=== PATIENT | female | born 1930 | race Caucasian/White ===

== ENCOUNTER 2021-03-29 17:55 | Inpatient (IN) ==
[2021-03-29] MEDS ORDERED: NITROGLYCERIN SL 0.4 MG/TAB TAB SL STA (18:31)
[2021-03-29] MEDS ORDERED: FUROSEMIDE 40 MG/4 ML VIAL IV ONE (18:31)
[2021-03-29] MEDS ORDERED: NITROGLYCERIN 2% OINTMENT 30GM TUBE EXT STA (18:31)
--- NOTE | 2021-03-29 18:48 | XRay Report ---
XR chest 1V portable CLINICAL HISTORY: Dyspnea TECHNIQUE: Single frontal radiograph of the chest was obtained. Comparison: None available at the time of this dictation. FINDINGS: No lines and tubes are seen. Cardiomegaly is noted. Left airspace opacity noted. There is likely a la yering left pleural effusion. IMPRESSION: Likely layering left pleural effusion. Left airspace opacity may represent atelectasis, pneumonia, an d/or aspiration. ACT 112: Negative or not required by law. Electronically signed by: Reed Gamez M.D. 03/29/2021 6:47 PM
--- NOTE | 2021-03-29 19:06 | Emergency Department Note ---
Impression & Plan Pneumonia, SOB (shortness of breath), Chest pain, Severe hypertension ED Provider Note INFORMANT: Patient ED PROVIDER(S): Silvano Noe MD CHIEF COMPLAINT: Shortness of breath and chest pain PLAN: Disposition: Admitted Condition: Good Outpatient prescription management: none Referral: None MEDICAL DECISION MAKING: The patient presented because of chest pain, hypertension and shortness of breath. She had an x-ray performed and there was significant filtrate present. Patient had a leukocytosis on CBC. Sodium is mildly low but not significant. BNP was mildly elevated. Patient's troponin was negative. Creatinine was within normal limits. Patient was mildly anemic. She was treated with Nitropaste and Lasix. She was also given cefepime and vancomycin. Patient blood pressure did improve. Further management will be necessary. Consultation was made with Dr. Flaco Cannon of the [facility] service. Patient was evaluated in the ER for further management. Triage Nursing notes reviewed and agree them. Vital Signs: reviewed and remarkable for significant hypertension Differential diagnosis: CHF, reactive airway disease, pneumonia, pneumothorax, COPD, infections, cardiac ischemia, pulmonary embolism, musculoskeletal, gastrointestinal, as well as other pathologies. Diagnostics interpreted by me: ECG: Twelve-lead ECG reveals sinus tachycardia at [address] elevation or depression. No PACs or PVCs Cardiac Monitoring: Cardiac monitoring ordered by me: The patient was placed on continuous cardiac monitoring and observed. It revealed a normal sinus rhythm at 88 beats per minute without ectopy or evidence of dysrhythmia. Imaging studies: Chest x-ray consistent with left lower lobe pneumonia. HPI: The patient is a 89 year old female who presents to the Emergency Room with complaints of shortness of breath. This started today and is persisting. Patient is at [facility] secondary to suffering a GI bleed. She was transferred from [facility] to [facility]. She did receive transfusion. She was also noted to have pneumonia and an E. coli/Aerococcus UTI. Patient does have a history of diabetes as well. the patient also notes the following associated symptoms, chest pain, fatigue and weakness Patient was noting nausea as well. Record indicates she was experiencing high blood pressure as well. She was requiring supplemental more than her usual 2 L. The patient has been given no medication for relieving factors. Current pain is rated as 4/10. Pt denies LOC, headache, fevers, chills, diaphoresis, visual changes, neck pain, vomiting, abdominal pain, back pain, melena, hematochezia, urinary symptoms, numbness, lymphadenopathy, rash, or other complaints. ROS: See above HPI for pertinent positives & negatives. A total of 10 systems reviewed and were otherwise negative. PAST MEDICAL HISTORY:See Below , diabetes, UTI PAST SURGICAL HISTORY:See Below, FAMILY HISTORY:See Below SOCIAL HISTORY:See Below, lives with daughter HOME MEDICATIONS:See Below ALLERGIES:See Below VITALS:See Below PHYSICAL EXAMINATION: GENERAL: Awake, alert, dyspneic-appearing, in no distress HENT: Normocephalic, atraumatic. Oropharynx unremarkable. EYES: Normal conjunctiva. Sclera non-icteric. NECK: Inspection normal. Non-tender. Supple. No nuchal rigidity. FROM. No masses. RESPIRATORY: Scattered rales. Increased respiratory effort. CARDIAC: Normal rate. Normal rhythm. No murmurs. No rubs. Extremities warm and well perfused. Pulses equal. No JVD. GI: Soft, non-distended. No tenderness to palpation. No rebound or guarding. No masses. RECTAL: Deferred. MUSCULOSKELETAL: Atraumatic. Chest examination reveals no tenderness. The back is symmetrical on inspection without obvious abnormality. There is no CVA tenderness to palpation. No joint edema. LOWER EXTREMITIES: Calves are equal size bilaterally and non-tender. 2-3+ edema. No discoloration. NEURO: Normal sensorium. No sensory or motor deficits noted. SKIN: No rash or jaundice noted. Silvano Noe MD Past Med/Surg History Social History Preferred Language: Nigerien [employer] Required: No Beliefs That Will Affect Care: None Current Living Situation: Rehab Allergies Allergies Allergy/AdvReac Type Severity Reaction Status Date / Time morphine AdvReac Intermediate Altered Unverified 03/29/21 20:09 Mental Status Home Meds Home Medications Medication Instructions Recorded Confirmed amoxicillin 500 mg-potassium 1 tab PO Q12H 03/29/21 03/29/21 clavulanate 125 mg tablet (Augmentin) atorvastatin 40 mg tablet 40 mg PO DAILY 03/29/21 03/29/21 cholecalciferol (vitamin D3) 125 125 mcg PO DAILY 03/29/21 03/29/21 mcg (5,000 unit) tablet (Vitamin D3) cyanocobalamin (vitamin B-12) 1,000 mcg PO DAILY 03/29/21 03/29/21 1,000 mcg tablet docusate sodium 100 mg capsule 100 mg PO BID 03/29/21 03/29/21 duloxetine 60 mg capsule,delayed 60 mg PO DAILY 03/29/21 03/29/21 release ferrous sulfate 325 mg (65 mg 325 mg PO TIDM 03/29/21 03/29/21 iron) tablet furosemide 20 mg tablet 20 mg PO DAILY 03/29/21 03/29/21 glipizide 2.5 mg tablet, extended 2.5 mg PO QDB 03/29/21 03/29/21 release 24 hr hydrocodone 5 mg-acetaminophen 325 1 tab PO Q4H PRN 03/29/21 03/29/21 mg tablet loratadine 10 mg tablet 10 mg PO DAILY 03/29/21 03/29/21 lorazepam 0.5 mg tablet 0.5 mg PO TID PRN 03/29/21 03/29/21 metoprolol tartrate 50 mg tablet 150 mg PO Q12H 03/29/21 03/29/21 nystatin 100,000 unit/gram topical 1 applic TOPICAL BID 03/29/21 03/29/21 powder pantoprazole 40 mg tablet,delayed 40 mg PO BIDM 03/29/21 03/29/21 release sucralfate 1 gram tablet 1 g PO ACHS 03/29/21 03/29/21 vitamin A 10,000 unit capsule 8,000 unit PO DAILY 03/29/21 03/29/21 vitamin E 400 unit capsule 400 unit PO DAILY 03/29/21 03/29/21 Results & Data (ED) Vital Signs Vital Signs - 24 hr 03/29/21 19:12 03/29/21 20:43 Temperature 37.1 C Temperature Source Oral Pulse Rate 90 Pulse Rate [Apical] 95 H 96 H Pulse Rhythm Regular Pulse Rhythm [Apical] Regular Pulse Strength [Apical] Normal Respiratory Rate 16 16 Respiratory Effort / Characteristics Non-Labored Respiratory Depth Normal Respiratory Pattern Regular Blood Pressure [Right Arm] 177/104 H 200/100 H Blood Pressure Mean [Right Arm] 128 133 Blood Pressure Position [Right Arm] Lying Lying Pulse Oximetry 97 98 Oxygen Delivery Method Free Flow/Blow- by Nasal Cannula Oxygen Flow Rate 3 3 Laboratory Data Result diagrams: 03/30/21 02:09 03/30/21 02:09 Lab Results 03/29/21 03/29/21 03/29/21 Range/Units 18:30 18:30 19:05 WBC 17.84 H (4.8-10.8) K/uL RBC 3.88 L (4.2-5.4) M/uL Hgb 11.5 L (12.0-16.0) g/dL Hct 36.0 L (37-47) % MCV 92.8 (80-100) fL MCH 29.6 (25-34) pg MCHC 31.9 L (32-36) g/dL RDW Std Deviation 52.8 H (36.4-46.3) fL RDW Coeff of Rj 15.6 H (11.5-14.5) % Plt Count 190 (130-400) K/uL MPV 10.9 H (7.4-10.4) fL Immature Gran % (Auto) 0.3 % Neut % (Auto) 82.2 % Lymph % (Auto) 7.2 % Travis % (Auto) 9.4 % Eos % (Auto) 0.7 % Baso % (Auto) 0.2 % Neut # (Auto) 14.67 H (1.4-6.5) K/uL Lymph # (Auto) 1.29 (1.2-3.4) K/uL Travis # (Auto) 1.67 H (0.11-0.59) K/uL Eos # (Auto) 0.12 (0-0.5) K/uL Baso # (Auto) 0.04 (0-0.2) K/uL Immature Gran # (Auto) 0.05 H (0.00-0.02) K/uL Sodium (136-145) mmol/L Potassium (3.5-5.1) mmol/L Chloride (98-107) mmol/L Carbon Dioxide (21-32) mmol/L Anion Gap (3-11) BUN (7-18) mg/dl Creatinine (0.6-1.2) mg/dl Est Cr Clr Drug Dosing ml/min Est GFR ( Amer) ml/min Est GFR (Non-Af Amer) ml/min BUN/Creatinine Ratio (10-20) Glucose (70-99) mg/dl Lactate (0.4-2.0) mmol/L Calcium (8.5-10.1) mg/dl Magnesium (1.8-2.4) mg/dl Total Bilirubin (0.2-1) mg/dl AST (15-37) U/L ALT (12-78) U/L Alkaline Phosphatase (45-117) U/L Troponin I (0-0.045) ng/ml NT-Pro-B Natriuret Pep (0-1800) pg/ml Total Protein (6.4-8.2) gm/dl Albumin (3.4-5.0) gm/dl Globulin (2.5-4.0) gm/dl Albumin/Globulin Ratio (0.9-2) Urine Color Urine Appearance (Clear) Urine pH (4.5-7.5) Ur Specific [place] (1.000-1.030) Urine Protein (Negative) Urine Glucose (UA) (Negative) Urine Ketones (Negative) Urine Blood (Negative) Urine Nitrite (Negative) Urine Bilirubin (Negative) Urine Urobilinogen (Negative) Ur Leukocyte Esterase (Negative) Urine WBC (Auto) (0-5) /hpf Urine RBC (Auto) (0-4) /hpf U Hyaline Cast (Auto) (0-5) /lpf U Epithel Cells (Auto) (0-5) /lpf Urine Bacteria (Auto) (Negative) COVID-19 Eval Order Covid19 at [facility] SARS-CoV-2 (PCR) NEGATIVE (Negative) 03/29/21 03/29/21 03/29/21 Range/Units 19:05 19:22 19:47 WBC (4.8-10.8) K/uL RBC (4.2-5.4) M/uL Hgb (12.0-16.0) g/dL Hct (37-47) % MCV (80-100) fL MCH (25-34) pg MCHC (32-36) g/dL RDW Std Deviation (36.4-46.3) fL RDW Coeff of Rj (11.5-14.5) % Plt Count (130-400) K/uL MPV (7.4-10.4) fL Immature Gran % (Auto) % Neut % (Auto) % Lymph % (Auto) % Travis % (Auto) % Eos % (Auto) % Baso % (Auto) % Neut # (Auto) (1.4-6.5) K/uL Lymph # (Auto) (1.2-3.4) K/uL Travis # (Auto) (0.11-0.59) K/uL Eos # (Auto) (0-0.5) K/uL Baso # (Auto) (0-0.2) K/uL Immature Gran # (Auto) (0.00-0.02) K/uL Sodium 131 L (136-145) mmol/L Potassium 4.2 (3.5-5.1) mmol/L Chloride 95 L (98-107) mmol/L Carbon Dioxide 33 H (21-32) mmol/L Anion Gap 3.0 (3-11) BUN 32 H (7-18) mg/dl Creatinine 1.23 H (0.6-1.2) mg/dl Est Cr Clr Drug Dosing 36.2 ml/min Est GFR ( Amer) 45.4 ml/min Est GFR (Non-Af Amer) 39.1 ml/min BUN/Creatinine Ratio 26.1 H (10-20) Glucose 100 H (70-99) mg/dl Lactate 1.0 (0.4-2.0) mmol/L Calcium 8.9 (8.5-10.1) mg/dl Magnesium 1.8 (1.8-2.4) mg/dl Total Bilirubin 0.4 (0.2-1) mg/dl AST 53 H (15-37) U/L ALT 34 (12-78) U/L Alkaline Phosphatase 130 H (45-117) U/L Troponin I < 0.015 (0-0.045) ng/ml NT-Pro-B Natriuret Pep 5250 H (0-1800) pg/ml Total Protein 6.7 (6.4-8.2) gm/dl Albumin 2.2 L (3.4-5.0) gm/dl Globulin 4.5 H (2.5-4.0) gm/dl Albumin/Globulin Ratio 0.5 L (0.9-2) Urine Color Yellow Urine Appearance Clear (Clear) Urine pH 6.5 (4.5-7.5) Ur Specific [place] 1.014 (1.000-1.030) Urine Protein 4+ H (Negative) Urine Glucose (UA) Negative (Negative) Urine Ketones Negative (Negative) Urine Blood 1+ H (Negative) Urine Nitrite Negative (Negative) Urine Bilirubin Negative (Negative) Urine Urobilinogen Negative (Negative) Ur Leukocyte Esterase Negative (Negative) Urine WBC (Auto) 1-5 (0-5) /hpf Urine RBC (Auto) 5-10 H (0-4) /hpf U Hyaline Cast (Auto) 1-5 (0-5) /lpf U Epithel Cells (Auto) >30 H (0-5) /lpf Urine Bacteria (Auto) Negative (Negative) COVID-19 Eval Order SARS-CoV-2 (PCR) (Negative) Administered Medications Hydrocodone Bitart/Acetaminophen (Hydrocodone/Acetamophen 5/325mg Tab) 1 tab PO Q4H PRN PRN Reason: Pain Stop: 04/13/21 00:44 Last Admin: 03/30/21 14:12 Dose: 1 tab Documented by: [id number] Atorvastatin Calcium (Atorvastatin 40 Mg Tab) 40 mg PO DAILY LUIZ Stop: 04/29/21 08:59 Last Admin: 03/30/21 09:10 Dose: Not Given Documented by: [id number] Cyanocobalamin (Cyanocobalamin 500 Mcg Tablet (Vitamin B-12)) 1,000 mcg PO DAILY LUIZ Stop: 04/29/21 08:59 Last Admin: 03/30/21 09:11 Dose: Not Given Documented by: [id number] Docusate Sodium (Docusate Sodium 100 Mg Cap) 100 mg PO BID LUIZ Stop: 04/29/21 08:59 Last Admin: 03/30/21 09:11 Dose: Not Given Documented by: [id number] Duloxetine HCl (Duloxetine Hcl 60 Mg Cap) 60 mg PO DAILY LUIZ Stop: 04/29/21 08:59 Last Admin: 03/30/21 14:19 Dose: 60 mg Documented by: [id number] Ferrous Sulfate (Ferrous Sulfate 325 Mg Tab) 325 mg PO TIDM LUIZ Stop: 04/29/21 07:59 Last Admin: 03/30/21 17:53 Dose: 325 mg Documented by: [id number] Admin: 03/30/21 14:18 Dose: 325 mg Documented by: [id number] Admin: 03/30/21 09:10 Dose: Not Given Documented by: [id number] Furosemide (Furosemide 20 Mg Tab) 20 mg PO DAILY LUIZ Stop: 12/13/21 08:59 Last Admin: 03/30/21 14:16 Dose: 20 mg Documented by: [id number] Glipizide (Glipizide Er 2.5 Mg Tabcr) 2.5 mg PO QDB LUZI Stop: 04/29/21 07:29 Last Admin: 03/30/21 09:10 Dose: Not Given Documented by: [id number] Hydromorphone HCl (Hydromorphone Inj 0.5 Mg/0.5 Ml Syr) 0.5 mg IV Q6H PRN PRN Reason: Pain Stop: 04/13/21 06:23 Last Admin: 03/30/21 18:32 Dose: 0.5 mg Documented by: [id number] Admin: 03/30/21 12:13 Dose: 0.5 mg Documented by: [id number] Admin: 03/30/21 09:03 Dose: 0.5 mg Documented by: [id number] Lactated Ringer's (Lr) 1,000 mls @ 100 mls/hr IV .Q10H LUIZ Stop: 04/29/21 01:44 Last Admin: 03/30/21 14:24 Dose: 100 mls/hr Documented by: [id number] Infusion: 03/30/21 14:23 Dose: 100 mls/hr Documented by: [id number] Admin: 03/30/21 01:56 Dose: 100 mls/hr Documented by: [id number] Piperacillin Sod/Tazobactam (Sod 3.375 gm/ Dextrose) 115 mls @ 28.75 mls/hr IV Q8H LUIZ; Protocol Stop: 04/09/21 06:59 Last Infusion: 03/30/21 18:33 Dose: 0 mls/hr Documented by: [id number] Admin: 03/30/21 15:00 Dose: 28.8 mls/hr Documented by: [id number] Infusion: 03/30/21 12:30 Dose: 0 mls/hr Documented by: [id number] Admin: 03/30/21 08:26 Dose: 28.8 mls/hr Documented by: [id number] Insulin Aspart (Insulin Aspart 100 Units/Ml 3 Ml Pen) 0 units SC ACHS LUIZ Stop: 04/29/21 07:29 Last Admin: 03/30/21 17:51 Dose: Not Given Documented by: [id number] Admin: 03/30/21 14:13 Dose: Not Given Documented by: [id number] Admin: 03/30/21 08:31 Dose: Not Given Documented by: [id number] Loratadine (Loratadine 10 Mg Tab) 10 mg PO DAILY [facility] Stop: 04/29/21 08:59 Last Admin: 03/30/21 09:11 Dose: Not Given Documented by: [id number] Metoprolol Tartrate (Metoprolol Tartrate 50 Mg Tab) 150 mg PO Q12 [facility] Stop: 04/29/21 00:44 Last Admin: 03/30/21 09:11 Dose: Not Given Documented by: [id number] Admin: 03/30/21 02:23 Dose: Not Given Documented by: [id number] Nystatin (Nystatin Powder 15gm Btl) 1 appln NA BID [facility] Stop: 04/29/21 08:59 Last Admin: 03/30/21 09:19 Dose: 1 appln Documented by: [id number] Ondansetron HCl (Ondansetron Inj 2 Mg/Ml 2 Ml Vial) 4 mg IV Q6H PRN PRN Reason: Nausea Stop: 04/29/21 00:44 Last Admin: 03/30/21 08:57 Dose: 4 mg Documented by: [id number] Pantoprazole Sodium (Pantoprazole 40 Mg Tab) 40 mg PO BIDM [facility] Stop: 04/29/21 07:59 Last Admin: 03/30/21 17:53 Dose: 40 mg Documented by: [id number] Admin: 03/30/21 09:10 Dose: Not Given Documented by: [id number] Sucralfate (Sucralfate 1 Gm Tab) 1 gm PO ACHS [facility] Stop: 04/29/21 07:29 Last Admin: 03/30/21 17:52 Dose: 1 gm Documented by: [id number] Admin: 03/30/21 14:17 Dose: 1 gm Documented by: [id number] Admin: 03/30/21 09:10 Dose: Not Given Documented by: [id number] Vitamin D (Cholecalciferol 1,000 Units 25 Mcg Tab) 5,000 units PO DAILY [facility] Stop: 04/29/21 08:59 Last Admin: 03/30/21 09:11 Dose: Not Given Documented by: [id number] Vitamin E (Tocopheryl, Dl-Alpha 400 Units 180 Mg Cap) 400 units PO DAILY [facility] Stop: 04/29/21 08:59 Last Admin: 03/30/21 09:11 Dose: Not Given Documented by: [id number] Discontinued Medications Bacitracin (Bacitracin Oint 15 Gm Tube) Confirm Administered Dose 45 appln .ROUTE .STK-MED ONE Stop: 03/30/21 02:26 Last Admin: 03/30/21 04:57 Dose: 45 appln Documented by: [id number] Bupivacaine HCl (Bupivacaine 0.5 % 5 Mg/1 Ml Mpf 30ml Vial) Confirm Administered Dose 30 ml .ROUTE .STK-MED ONE Stop: 03/30/21 02:26 Last Admin: 03/30/21 04:57 Dose: 20 ml Documented by: [id number] Fentanyl Citrate (Fentanyl Citrate 100 Mcg/2 Ml Vial) Confirm Administered Dose 100 mcg .ROUTE .STK-MED ONE Stop: 03/30/21 05:38 Last Increment: 03/30/21 05:45 Dose: 25 mcg Documented by: [id number] Increment: 03/30/21 05:40 Dose: 25 mcg Documented by: [id number] Furosemide (Furosemide 40 Mg/4 Ml Vial) 40 mg IV ONE ONE Stop: 03/29/21 18:32 Last Admin: 03/29/21 20:36 Dose: 40 mg Documented by: [id number] Heparin Sodium (Porcine) (Heparin Sod 5,000 Unit/0.5 Ml Vial) 7,500 units SQ Q8 [facility] Stop: 04/29/21 00:44 Last Admin: 03/30/21 01:55 Dose: Not Given Documented by: [id number] Cefepime HCl (Maxipime) 2,000 mg in 20 mls @ 5 mls/min IV NOW STA; Protocol Stop: 03/29/21 19:23 Last Admin: 03/29/21 20:36 Dose: 5 mls/min Documented by: [id number] Vancomycin HCl 2,000 mg/ (Sodium Chloride) 540 mls @ 200 mls/hr IV NOW ONE Stop: 03/29/21 22:01 Last Infusion: 03/30/21 00:14 Dose: 0 mls/hr Documented by: [id number] Admin: 03/29/21 21:18 Dose: 200 mls/hr Documented by: [id number] Piperacillin Sod/Tazobactam (Sod 4.5 gm/ Dextrose) 120 mls @ 200 mls/hr IV 0200 ONE; Protocol Stop: 03/30/21 02:35 Last Infusion: 03/30/21 03:00 Dose: 0 mls/hr Documented by: [id number] Admin: 03/30/21 02:15 Dose: 200 mls/hr Documented by: [id number] Piperacillin Sod/Tazobactam (Sod 4.5 gm/ Dextrose) 120 mls @ 30 mls/hr IV Q8H LUIZ; Protocol Stop: 04/09/21 05:59 Last Admin: 03/30/21 06:48 Dose: Not Given Documented by: [id number] Vancomycin HCl 1,500 mg/ (Sodium Chloride) 530 mls @ 200 mls/hr IV Q24H LUIZ Stop: 04/09/21 08:59 Last Infusion: 03/30/21 11:59 Dose: 0 mls/hr Documented by: [id number] Admin: 03/30/21 09:19 Dose: 200 mls/hr Documented by: [id number] Labetalol HCl (Labetalol Hcl Iv 5 Mg/Ml 20ml) 10 mg IV NOW STA Stop: 03/30/21 02:20 Last Admin: 03/30/21 02:33 Dose: 10 mg Documented by: [id number] Cosigned by: [id number] Lidocaine HCl (Lidocaine 1% Local 20 Ml Vial) Confirm Administered Dose 20 ml .ROUTE .STK-MED ONE Stop: 03/30/21 02:26 Last Admin: 03/30/21 04:58 Dose: 20 ml Documented by: [id number] Nitroglycerin (Nitroglycerin 2% Ointment 30gm Tube) 0.5 inch EXT NOW STA Stop: 03/29/21 18:32 Last Admin: 03/29/21 19:27 Dose: 0.5 inch Documented by: [id number] Nitroglycerin (Nitroglycerin Sl 0.4 Mg/Tab Tab) 0.4 mg SL NOW STA Stop: 03/29/21 18:32 Last Admin: 03/29/21 19:28 Dose: 0.4 mg Documented by: [id number] Imaging Data Radiologist's Impression: Chest X-Ray 03/29/21 18:21 XR chest 1V portable CLINICAL HISTORY: Dyspnea TECHNIQUE: Single frontal radiograph of the chest was obtained. Comparison: None available at the time of this dictation. FINDINGS: No lines and tubes are seen. Cardiomegaly is noted. Left airspace opacity noted. There is likely a layering left pleural effusion. IMPRESSION: Likely layering left pleural effusion. Left airspace opacity may represent atelectasis, pneumonia, and/or aspiration. ACT 112: Negative or not required by law. Electronically signed by: Reed Gamze M.D. 03/29/2021 6:47 PM Discharge Plan Visit Data Chief Complaint: Respiratory Problems Stated Complaint: HYPOXIA, FLUID RETENTION ED Provider: Silvano Noe Discharge Problem: Pneumonia, SOB (shortness of breath), Chest pain, Severe hypertension Patient Disposition: Admitted As Inpatient Discharge Instructions Interventions: ED Discharge Assessment Last Done: 03/30/21 00:11
[2021-03-29 19:16] LABS: Basophils # (auto) 0.04 K/uL (0-0.2); Basophils % (auto) 0.2 %; Eosinophils # (auto) 0.12 K/uL (0-0.5); Eosinophils % (auto) 0.7 %; Hemoglobin 11.5 g/dL (12.0-16.0); Immature Granulocytes # (auto) 0.05 K/uL (0.00-0.02); Immature Granulocytes % (auto) 0.3 %; Lymphocytes # (auto) 1.29 K/uL (1.2-3.4); Lymphocytes % (auto) 7.2 %; Mean Corpuscular Hemoglobin 29.6 pg (25-34); Mean Corpuscular Hgb Conc 31.9 g/dL (32-36); Mean Corpuscular Volume 92.8 fL (80-100); Mean Platelet Volume 10.9 fL (7.4-10.4); Monocytes # (auto) 1.67 K/uL (0.11-0.59); Monocytes % (auto) 9.4 %; Neutrophils # (auto) 14.67 K/uL (1.4-6.5); Neutrophils % (auto) 82.2 %; Platelet Count 190 K/uL (130-400); RDW Coefficient of Variation 15.6 % (11.5-14.5); RDW Standard Deviation 52.8 fL (36.4-46.3); Red Blood Count 3.88 M/uL (4.2-5.4); White Blood Count 17.84 K/uL (4.8-10.8)
[2021-03-29] MEDS ORDERED: VANCOMYCIN HCL 2,000 MG in SODIUM CHLORIDE 0.9% 500 ML IV ONE (19:20)
[2021-03-29] MEDS ORDERED: VANCOMYCIN CONSULT ACTIVE PRN (19:20)
[2021-03-29] MEDS ORDERED: CEFEPIME 2,000 MG/20 ML VIAL IV STA (19:20)
[2021-03-29 19:36] LABS: Appearance Urine Clear (Clear); Bacteria Urine Automated Negative (Negative); Bilirubin Urine Negative (Negative); Blood Urine 1+ (Negative); Color Urine Yellow; Epithelial Cell Urine Auto >30 /lpf (0-5); Glucose Urine UA Negative (Negative); Ketones Urine Negative (Negative); Leukocyte Esterase Urine Negative (Negative); Nitrite Urine Negative (Negative); Protein Urine 4+ (Negative); Specific Gravity Urine 1.014 (1.000-1.030); Urobilinogen Urine Negative (Negative); pH Urine 6.5 (4.5-7.5)
[2021-03-29 19:40] LABS: Alanine Aminotransferase 34 U/L (12-78); Albumin Level 2.2 gm/dl (3.4-5.0); Aspartate Aminotransferase 53 U/L (15-37); BUN Creatinine Ratio 26.1 (10-20); Blood Urea Nitrogen 32 mg/dl (7-18); Calcium 8.9 mg/dl (8.5-10.1); Carbon Dioxide 33 mmol/L (21-32); Chloride 95 mmol/L (98-107); Creatinine Clr Calc Pharmacy 36.2 ml/min; Est GFR (African American) 45.4 ml/min; Est GFR (Non-African American) 39.1 ml/min; Glucose 100 mg/dl (70-99); Magnesium 1.8 mg/dl (1.8-2.4); Potassium 4.2 mmol/L (3.5-5.1); Sodium 131 mmol/L (136-145)
[2021-03-29 19:46] LABS: Albumin Globulin Ratio 0.5 (0.9-2); Alkaline Phosphatase 130 U/L (45-117); Bilirubin,Total 0.4 mg/dl (0.2-1); Globulin 4.5 gm/dl (2.5-4.0); NT Pro B Type Natriuretic Pept 5250 pg/ml (0-1800); Total Protein 6.7 gm/dl (6.4-8.2); Troponin I < 0.015 ng/ml (0-0.045)
--- NOTE | 2021-03-29 21:42 | History & Physical Report ---
Date of Service March 29, 2021 Assessment & Plan (1) Abdominal pain: Plan: Linda Milan is a 89-year-old female who presents from [facility] following recent GI bleed, recently was in [facility] where she had received transfusions for this GI bleed, as well as reported pneumonia and E. coli urinary tract infection. Abdominal pain: -CT abdomen pelvis demonstrating umbilical/periumbilical hernia containing fat and small bowel loops, no evidence of bowel obstruction or perforation, no pneumatosis intestinalis; concerning for incarcerated hernia -Consulted general surgery: Appreciate recommendations -In ED received vancomycin and cefepime -Recent history of urinary tract infection -Urinalysis in ED unimpressive -N.p.o. at this time while awaiting surgery Hypertensive urgency: -Likely secondary to abdominal pain as above -Improvement in blood pressure in ED -Continue to monitor BP Shortness of breath: -Reported history of recent pneumonia at outside facility -Continue vancomycin and cefepime at this time Type 2 diabetes: -Transition home oral glycemic regimen to sliding scale insulin -BSG's ACHS Diet: NPO Code status: Full code DVT ppx: Heparin SQ (2) Hypertensive urgency: (3) SOB (shortness of breath): (4) Type 2 diabetes mellitus: History of Present Illness Primary Care Provider: [facility] Linda Milan is a 89-year-old female who presents from [facility] following recent GI bleed, recently was in [facility] where she had received transfusions for this GI bleed, as well as reported pneumonia and E. coli urinary tract infection. Patient endorses over the last several days that she has had increased abdominal pain that she believes was worsened following Castro catheter placement 2 days ago she has been unable to tolerate oral intake for the last 2 days with persistent nausea and vomiting. Currently complains of abdominal pain 8 out of 10. Allergies Allergy/AdvReac Type Severity Reaction Status Date / Time morphine AdvReac Intermediate Altered Unverified 03/29/21 20:09 Mental Status Home Medications Medication Instructions Recorded Confirmed Type amoxicillin 500 mg-potassium 1 tab PO Q12H 03/29/21 03/29/21 History clavulanate 125 mg tablet (Augmentin) atorvastatin 40 mg tablet 40 mg PO DAILY 03/29/21 03/29/21 History cholecalciferol (vitamin D3) 125 125 mcg PO DAILY 03/29/21 03/29/21 History mcg (5,000 unit) tablet (Vitamin D3) cyanocobalamin (vitamin B-12) 1,000 mcg PO DAILY 03/29/21 03/29/21 History 1,000 mcg tablet docusate sodium 100 mg capsule 100 mg PO BID 03/29/21 03/29/21 History duloxetine 60 mg capsule,delayed 60 mg PO DAILY 03/29/21 03/29/21 History release ferrous sulfate 325 mg (65 mg 325 mg PO TIDM 03/29/21 03/29/21 History iron) tablet furosemide 20 mg tablet 20 mg PO DAILY 03/29/21 03/29/21 History glipizide 2.5 mg tablet, extended 2.5 mg PO QDB 03/29/21 03/29/21 History release 24 hr hydrocodone 5 mg-acetaminophen 325 1 tab PO Q4H PRN 03/29/21 03/29/21 History mg tablet loratadine 10 mg tablet 10 mg PO DAILY 03/29/21 03/29/21 History lorazepam 0.5 mg tablet 0.5 mg PO TID PRN 03/29/21 03/29/21 History metoprolol tartrate 50 mg tablet 150 mg PO Q12H 03/29/21 03/29/21 History nystatin 100,000 unit/gram topical 1 applic TOPICAL BID 03/29/21 03/29/21 History powder pantoprazole 40 mg tablet,delayed 40 mg PO BIDM 03/29/21 03/29/21 History release sucralfate 1 gram tablet 1 g PO ACHS 03/29/21 03/29/21 History vitamin A 10,000 unit capsule 8,000 unit PO DAILY 03/29/21 03/29/21 History vitamin E 400 unit capsule 400 unit PO DAILY 03/29/21 03/29/21 History Past Med/Surg History Social History Preferred Language: Turkish Help Desk Consultant Required: No Beliefs That Will Affect Care: None Current Living Situation: Rehab Review of Systems Review of Systems: All systems reviewed & are unremarkable except as noted in HPI & below Physical Exam Constitutional: WD/WN, vitals as above Eyes: PERRL, conjunctivae normal, anicteric sclerae Respiratory: + labored breathing and able to speak in complete sentences; no respiratory distress, no retractions and no audible wheezes Auscultation: + diminished lung sounds (b/l lower lobes) and + wheezes (b/l upper lobes) Cardiovascular: Rate/Rhythm: regular rhythm and + tachycardic Heart Sounds: + murmur (systolic murmur over apex); no gallop and no cardiac rub Vessels: normal peripheral pulses Musculoskeletal: no cyanosis or clubbing, extremities motor strength 5/5 Skin: no rashes, warm and dry Neurologic: PERRL, EOMI, accommodation nl, no face palsy, no dysarthria CN's II-XI intact bilaterally and moves all extremities Psychiatric: Orientation: alert and oriented x 3 Results & Data Results & Data ([facility]) Vital Signs (Past 12 Hours) Vital Signs Temp Pulse Pulse Resp BP BP Pulse Ox 03/29/21 20:43 37.1 C 90 96 H 16 200/100 H 98 03/29/21 19:12 95 H 16 177/104 H 97 03/29/21 18:18 36.7 C 91 H 18 234/127 H 98 Laboratory Results 03/29/21 03/29/21 03/29/21 Range/Units 19:47 19:22 19:05 WBC (4.8-10.8) K/uL RBC (4.2-5.4) M/uL Hgb (12.0-16.0) g/dL Hct (37-47) % MCV (80-100) fL MCH (25-34) pg MCHC (32-36) g/dL RDW Std Deviation (36.4-46.3) fL RDW Coeff of Rj (11.5-14.5) % Plt Count (130-400) K/uL MPV (7.4-10.4) fL Immature Gran % (Auto) % Neut % (Auto) % Lymph % (Auto) % [place] % (Auto) % Eos % (Auto) % Baso % (Auto) % Neut # (Auto) (1.4-6.5) K/uL Lymph # (Auto) (1.2-3.4) K/uL [place] # (Auto) (0.11-0.59) K/uL Eos # (Auto) (0-0.5) K/uL Baso # (Auto) (0-0.2) K/uL Immature Gran # (Auto) (0.00-0.02) K/uL Sodium 131 L (136-145) mmol/L Potassium 4.2 (3.5-5.1) mmol/L Chloride 95 L (98-107) mmol/L Carbon Dioxide 33 H (21-32) mmol/L Anion Gap 3.0 (3-11) BUN 32 H (7-18) mg/dl Creatinine 1.23 H (0.6-1.2) mg/dl Est Cr Clr Drug Dosing 36.2 ml/min Est GFR ( Amer) 45.4 ml/min Est GFR (Non-Af Amer) 39.1 ml/min BUN/Creatinine Ratio 26.1 H (10-20) Glucose 100 H (70-99) mg/dl Lactate 1.0 (0.4-2.0) mmol/L Calcium 8.9 (8.5-10.1) mg/dl Magnesium 1.8 (1.8-2.4) mg/dl Total Bilirubin 0.4 (0.2-1) mg/dl AST 53 H (15-37) U/L ALT 34 (12-78) U/L Alkaline Phosphatase 130 H (45-117) U/L Troponin I < 0.015 (0-0.045) ng/ml NT-Pro-B Natriuret Pep 5250 H (0-1800) pg/ml Total Protein 6.7 (6.4-8.2) gm/dl Albumin 2.2 L (3.4-5.0) gm/dl Globulin 4.5 H (2.5-4.0) gm/dl Albumin/Globulin Ratio 0.5 L (0.9-2) Urine Color Yellow Urine Appearance Clear (Clear) Urine pH 6.5 (4.5-7.5) Ur Specific [place] 1.014 (1.000-1.030) Urine Protein 4+ H (Negative) Urine Glucose (UA) Negative (Negative) Urine Ketones Negative (Negative) Urine Blood 1+ H (Negative) Urine Nitrite Negative (Negative) Urine Bilirubin Negative (Negative) Urine Urobilinogen Negative (Negative) Ur Leukocyte Esterase Negative (Negative) Urine WBC (Auto) 1-5 (0-5) /hpf Urine RBC (Auto) 5-10 H (0-4) /hpf U Hyaline Cast (Auto) 1-5 (0-5) /lpf U Epithel Cells (Auto) >30 H (0-5) /lpf Urine Bacteria (Auto) Negative (Negative) COVID-19 Eval Order SARS-CoV-2 (PCR) (Negative) 03/29/21 03/29/21 03/29/21 Range/Units 19:05 18:30 18:30 WBC 17.84 H (4.8-10.8) K/uL RBC 3.88 L (4.2-5.4) M/uL Hgb 11.5 L (12.0-16.0) g/dL Hct 36.0 L (37-47) % MCV 92.8 (80-100) fL MCH 29.6 (25-34) pg MCHC 31.9 L (32-36) g/dL RDW Std Deviation 52.8 H (36.4-46.3) fL RDW Coeff of Rj 15.6 H (11.5-14.5) % Plt Count 190 (130-400) K/uL MPV 10.9 H (7.4-10.4) fL Immature Gran % (Auto) 0.3 % Neut % (Auto) 82.2 % Lymph % (Auto) 7.2 % [place] % (Auto) 9.4 % Eos % (Auto) 0.7 % Baso % (Auto) 0.2 % Neut # (Auto) 14.67 H (1.4-6.5) K/uL Lymph # (Auto) 1.29 (1.2-3.4) K/uL [place] # (Auto) 1.67 H (0.11-0.59) K/uL Eos # (Auto) 0.12 (0-0.5) K/uL Baso # (Auto) 0.04 (0-0.2) K/uL Immature Gran # (Auto) 0.05 H (0.00-0.02) K/uL Sodium (136-145) mmol/L Potassium (3.5-5.1) mmol/L Chloride (98-107) mmol/L Carbon Dioxide (21-32) mmol/L Anion Gap (3-11) BUN (7-18) mg/dl Creatinine (0.6-1.2) mg/dl Est Cr Clr Drug Dosing ml/min Est GFR ( Amer) ml/min Est GFR (Non-Af Amer) ml/min BUN/Creatinine Ratio (10-20) Glucose (70-99) mg/dl Lactate (0.4-2.0) mmol/L Calcium (8.5-10.1) mg/dl Magnesium (1.8-2.4) mg/dl Total Bilirubin (0.2-1) mg/dl AST (15-37) U/L ALT (12-78) U/L Alkaline Phosphatase (45-117) U/L Troponin I (0-0.045) ng/ml NT-Pro-B Natriuret Pep (0-1800) pg/ml Total Protein (6.4-8.2) gm/dl Albumin (3.4-5.0) gm/dl Globulin (2.5-4.0) gm/dl Albumin/Globulin Ratio (0.9-2) Urine Color Urine Appearance (Clear) Urine pH (4.5-7.5) Ur Specific [place] (1.000-1.030) Urine Protein (Negative) Urine Glucose (UA) (Negative) Urine Ketones (Negative) Urine Blood (Negative) Urine Nitrite (Negative) Urine Bilirubin (Negative) Urine Urobilinogen (Negative) Ur Leukocyte Esterase (Negative) Urine WBC (Auto) (0-5) /hpf Urine RBC (Auto) (0-4) /hpf U Hyaline Cast (Auto) (0-5) /lpf U Epithel Cells (Auto) (0-5) /lpf Urine Bacteria (Auto) (Negative) COVID-19 Eval Order Covid19 at [facility] SARS-CoV-2 (PCR) NEGATIVE (Negative) Diagnostic Findings CT CHEST Without Contrast: Small to moderate left pleural effusion. Small right pleural effusion. Limited evaluation of lung parenchyma due to respiratory motion artifact. Patchy bilateral groundglass opacities with central distribution, atypical infection/inflammation versus edema. Mildly enlarged nonspecific precarinal lymph node. Cardiomegaly. No pericardial effusion. Thoracic aorta is non-aneurysmal. CT ABDOMEN & PELVIS Without Contrast: Umbilical/periumbilical hernia containing fat and small bowel loops. One of the bowel loops is mildly distended and there is surrounding fat stranding and fluid, image 69 series 5. Incarcerated hernia may have this appearance. Overall, no evidence of bowel obstruction or perforation. No pneumatosis intestinalis. No evidence of acute appendicitis. Mild patchy mesenteric fat stranding as well as body wall edema, potentially sequela of systemic causes of third spacing of fluid. No miguel ascites. 3.2 cm circumscribed masslike partially calcified lesion in the right inferior breast abutting the skin surface, potentially sebaceous cyst, image 14 series 5. Correlate clinically. No hydronephrosis. Bilateral renal cysts. Decompressed urinary bladder with Castro catheter in place. 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 Status post cholecystectomy. Small hiatal hernia. Radiologist: Yanna Baron M.D. Medications Administered Home Medication List Medication Instructions Recorded amoxicillin 500 mg-potassium 1 tab PO Q12H 03/29/21 clavulanate 125 mg tablet (Augmentin) atorvastatin 40 mg tablet 40 mg PO DAILY 03/29/21 cholecalciferol (vitamin D3) 125 125 mcg PO DAILY 03/29/21 mcg (5,000 unit) tablet (Vitamin D3) cyanocobalamin (vitamin B-12) 1,000 mcg PO DAILY 03/29/21 1,000 mcg tablet docusate sodium 100 mg capsule 100 mg PO BID 03/29/21 duloxetine 60 mg capsule,delayed 60 mg PO DAILY 03/29/21 release ferrous sulfate 325 mg (65 mg 325 mg PO TIDM 03/29/21 iron) tablet furosemide 20 mg tablet 20 mg PO DAILY 03/29/21 glipizide 2.5 mg tablet, extended 2.5 mg PO QDB 03/29/21 release 24 hr hydrocodone 5 mg-acetaminophen 325 1 tab PO Q4H PRN 03/29/21 mg tablet loratadine 10 mg tablet 10 mg PO DAILY 03/29/21 lorazepam 0.5 mg tablet 0.5 mg PO TID PRN 03/29/21 metoprolol tartrate 50 mg tablet 150 mg PO Q12H 03/29/21 nystatin 100,000 unit/gram topical 1 applic TOPICAL BID 03/29/21 powder pantoprazole 40 mg tablet,delayed 40 mg PO BIDM 03/29/21 release sucralfate 1 gram tablet 1 g PO ACHS 03/29/21 vitamin A 10,000 unit capsule 8,000 unit PO DAILY 03/29/21 vitamin E 400 unit capsule 400 unit PO DAILY 03/29/21 Code Status & VTE Plan VTE Prophylaxis Plan VTE Prophylaxis will be ordered: Yes Supervising Physician Co-Signing Physician Notes Attending addendum: I have physically seen this patient, have supervised the medical residents activities, and agree with the H&P unless as otherwise noted. Assessment and Plan: Abdominal pain- CT abdomen pelvis demonstrates umbilical/periumbilical hernia with possible incarcerated hernia Received vancomycin and cefepime IV from the ED Continue cefepime IV Consult general surgery Hypertensive urgency- Improved in ED with minimal intervention, likely secondary abdominal pain Admit to monitored bed Diabetes mellitus- Hold oral medications from home Place on Accu-Cheks before meals and at bedtime NovoLog coverage per scale Check hemoglobin A1c Remaining orders and notations as noted Resident Activity Tracking Resident Involvement: Resident Care Provided Care Provided: Adult Hospital Medicine
[2021-03-30] MEDS ORDERED: ALUMINUM/MAGNESIUM SUSP 30 ML UDC PO PRN (00:45)
[2021-03-30] MEDS ORDERED: CARBOHYDRATES FOR HYPOGLYCEMIA PO PRN (00:45)
[2021-03-30] MEDS ORDERED: GLUCOSE 10 TABS/TUBE PO PRN (00:45)
[2021-03-30] MEDS ORDERED: NITROGLYCERIN SL 0.4 MG/TAB TAB SL PRN (00:45)
[2021-03-30] MEDS ORDERED: GLUCAGON FOR INJ 1 MG VIAL SQ PRN (00:45)
[2021-03-30] MEDS ORDERED: POLYETHYLENE (MIRALAX) 17 GM PACK PO PRN (00:45)
[2021-03-30] MEDS ORDERED: HEPARIN SOD 5,000 UNIT/0.5 ML VIAL SQ SCH (00:45)
[2021-03-30] MEDS ORDERED: MoRPHine SULFATE 2 MG/ML CARP IV PRN (00:45)
[2021-03-30] MEDS ORDERED: MAGNESIUM HYDROXIDE SUSP 30 ML UDC PO PRN (00:45)
[2021-03-30] MEDS ORDERED: GLUCOSE 40% GEL 15 GM TUBE PO PRN (00:45)
[2021-03-30] MEDS ORDERED: PIPERACILL/TAZOBAC CONSULT ACTIVE PRN ×2 (01:36→06:24)
[2021-03-30] MEDS ORDERED: PIPERACILLIN/TAZOBACTAM 3.375 GM in DEXTROSE 5% 100 ML IV SCH (01:45)
[2021-03-30] MEDS: LACTATED RINGER'S 1,000 ML IV SCH ×2 (01:56→14:24)
[2021-03-30] MEDS ORDERED: PIPERACILLIN/TAZOBACTAM 4.5 GM in DEXTROSE 5% 100 ML IV ONE (02:00)
[2021-03-30] MEDS ORDERED: LABETALOL HCL IV 5 MG/ML 20ML IV STA (02:19)
[2021-03-30] MEDS: METOPROLOL TARTRATE 50 MG TAB PO SCH ×3 (02:23→21:50)
[2021-03-30] MEDS ORDERED: BACITRACIN OINT 15 GM TUBE ONE (02:25)
[2021-03-30] MEDS ORDERED: BUPIVACAINE 0.5 % 5 MG/1 ML MPF 30ML VIAL ONE (02:25)
[2021-03-30] MEDS ORDERED: LIDOCAINE 1% LOCAL 20 ML VIAL ONE (02:25)
--- NOTE | 2021-03-30 02:38 | Surgery Consultation ---
Date of Consultation March 30, 2021 Assessment & Plan (1) Incarcerated umbilical hernia: pt is a 89 year-old female who presents with 2 days history abdominal pain with nausea and vomiting, IMP: incarcerated umbilical hernia and periumbilical hernia, Plan, I recommend to do open repair incarcerated umbilical hernia and periumbilical hernia, possible with mesh,or bowel resection, I called pt's daughter, D/W benefits, risks and alternatives of the surgery, the risks- infection, bleeding, injury bowel, hernia recurrence, complication relate to mesh, ME, DVT, stroke, renal failure, , pt's daughter understood, she gave consent on the phone, I answered all questions, pre-op antibiotic, History of Present Illness Reason for Consultation: incarcerated umbilical hernia and periumbilical hernia Requesting Physician: Flaco cannon MD Attending Physician: Flaco Cannon MD History of Present Illness History of Present Illness Primary Care Provider: [facility] Kayli is a 89-year-old female who presents from [facility] following recent GI bleed, recently was in [facility] where she had received transfusions for this GI bleed, as well as reported pneumonia and E. coli urinary tract infection. Patient endorses over the last several days that she has had increased abdominal pain that she believes was worsened following Castro catheter placement 2 days ago she has been unable to tolerate oral intake for the last 2 days with persistent nausea and vomiting. Currently complains of abdominal pain 8 out of 10. I ( Sergei Aldana MD FACS) got a call for consult incarcerated umbilical hernia and periumbilical hernia, I reviewed pt's H/P, labs, CT scan with pt, nurse and pt's daughter , pt is still have abdominal pain, with nausea and vomiting for 2 days, pt had ovary surgery 10 years ago, Allergies Allergy/AdvReac Type Severity Reaction Status Date / Time morphine AdvReac Intermediate Altered Unverified 03/29/21 20:09 Mental Status Home Medications Medication Instructions Recorded Confirmed Type amoxicillin 500 mg-potassium 1 tab PO Q12H 03/29/21 03/29/21 Hi story clavulanate 125 mg tablet (Augmentin) atorvastatin 40 mg tablet 40 mg PO DAILY 03/29/21 03/29/21 Histo ry cholecalciferol (vitamin D3) 125 125 mcg PO DAILY 03/29/21 1 History mcg (5,000 unit) tablet (Vitamin D3) A cyanocobalamin (vitamin B-12) 1,000 mcg PO DAILY 03/29/21 03/29/21 H istory 1,000 mcg tablet docusate sodium 100 mg capsule 100 mg PO BID 03/29/21 03/29/21 History duloxetine 60 mg capsule,delayed 60 mg PO DAILY 03/29/21 1 History release ferrous sulfate 325 mg (65 mg 325 mg PO TIDM 03/29/21 03/29/21 H istory iron) tablet furosemide 20 mg tablet 20 mg PO DAILY 03/29/21 03/29/21 History glipizide 2.5 mg tablet, extended 2.5 mg PO QDB 03/29/21 History release 24 hr hydrocodone 5 mg-acetaminophen 325 1 tab PO Q4H PRN 03/29/2103/29 History mg tablet loratadine 10 mg tablet 10 mg PO DAILY 03/29/21 03/29/21 History lorazepam 0.5 mg tablet 0.5 mg PO TID PRN 03/29/21 03/29/21 History metoprolol tartrate 50 mg tablet 150 mg PO Q12H 03/29/21 1 History nystatin 100,000 unit/gram topical 1 applic TOPICAL BID 03/29/2103/18 History powder pantoprazole 40 mg tablet,delayed 40 mg PO BIDM 03/29/21 History release sucralfate 1 gram tablet 1 g PO ACHS 03/29/21 03/29/21 Histor y vitamin A 10,000 unit capsule 8,000 unit PO DAILY 03/29/21B 03/29/21 H istory vitamin E 400 unit capsule 400 unit PO DAILY 03/29/21 03/29/21 Hist ory Review of Systems Review of Systems: All systems reviewed & are unremarkable except as noted in HPI & below Results & Data Results & Data ([facility]) Vital Signs (Past 12 Hours) Vital Signs Temp Pulse Pulse Resp BP BP Pulse Ox 03/29/21 20:43 37.1 C 90 96 H 16 200/100 H 98 03/29/21 19:12 95 H 16 177/104 H 97 03/29/21 18:18 36.7 C 91 H 18 234/127 H 98 Laboratory Results 03/29/21 03/29/21 03/29/21 Range/Units 19:47 19:22 19:05 WBC (4.8-10.8) K/uL RBCB (4.2-5.4) M/uL Hgb (12.0-16.0) g/dL Hct (37-47) % MCV (80-100) fL MCH (25-34) pg MCHC (32-36) g/dL RDW Std Deviation (36.4-46.3) fL RDW Coeff of Rj (11.5-14.5) % Plt Count (130-400) K/uL MPV (7.4-10.4) fL Immature Gran % (Auto) % Neut % (Auto) % Lymph % (Auto) % Marshall % (Auto) % Eos % (Auto) % Baso % (Auto) % Neut # (Auto) (1.4-6.5) K/uL Lymph # (Auto) (1.2-3.4) K/uL Marshall # (Auto) (0.11-0.59) K/uL Eos # (Auto) (0-0.5) K/uL Baso # (Auto) (0-0.2) K/uL Immature Gran # (Auto) (0.00-0.02) K/uL Sodium 131 L (136-145) mmol/L Potassium 4.2 (3.5-5.1) mmol/L Chloride 95 L (98-107) mmol/L Carbon Dioxide 33 H (21-32) mmol/L Anion Gap 3.0 (3-11) BUN 32 H (7-18) mg/dl Creatinine 1.23 H (0.6-1.2) mg/dl Est Cr Clr Drug Dosing 36.2 ml/min Est GFR ( Amer) 45.4 ml/min Est GFR (Non-Af Amer) 39.1 ml/min BUN/Creatinine Ratio 26.1 H (10-20) Glucose 100 H (70-99) mg/dl Lactate 1.0 (0.4-2.0) mmol/L Calcium 8.9 (8.5-10.1) mg/dl Magnesium 1.8 (1.8-2.4) mg/dl Total Bilirubin 0.4 (0.2-1) mg/dl AST 53 H (15-37) U/L ALT 34 (12-78) U/L Alkaline Phosphatase 130 H (45-117) U/L Troponin I < 0.015 (0-0.045) ng/ml NT-Pro-B Natriuret Pep 5250 H (0-1800) pg/ml Total Protein 6.7 (6.4-8.2) gm/dl Albumin 2.2 L (3.4-5.0) gm/dl Globulin 4.5 H (2.5-4.0) gm/dl Albumin/Globulin Ratio 0.5 L (0.9-2) Urine Color Yellow Urine Appearance Clear (Clear) Urine pH 6.5 (4.5-7.5) Ur Specific [place] 1.014 (1.000-1.030) Urine Protein 4+ H (Negative) Urine Glucose (UA) Negative (Negative) Urine Ketones Negative (Negative) Urine Blood 1+ H (Negative) Urine Nitrite Negative (Negative) Urine Bilirubin Negative (Negative) Urine Urobilinogen Negative (Negative) Ur Leukocyte Esterase Negative (Negative) Urine WBC (Auto) 1-5 (0-5) /hpf Urine RBC (Auto) 5-10 H (0-4) /hpf U Hyaline Cast (Auto) 1-5 (0-5) /lpf U Epithel Cells (Auto) >30 H (0-5) /lpf Urine Bacteria (Auto) Negative (Negative) COVID-19 Eval Order SARS-CoV-2 (PCR) (Negative) 03/29/21 03/29/21 03/29/21 Range/Units 19:05 18:30 18:30 WBC 17.84 H (4.8-10.8) K/uL RBC 3.88 L (4.2-5.4) M/uL Hgb 11.5 L (12.0-16.0) g/dL Hct 36.0 L (37-47) % MCV 92.8 (80-100) fL MCH 29.6 (25-34) pg MCHC 31.9 L (32-36) g/dL RDW Std DeviationB 52.8 H (36.4-46.3) fL RDW Coeff of Rj 15.6 H (11.5-14.5) % Plt Count 190 (130-400) K/uL MPV 10.9 H (7.4-10.4) fL Immature Gran % (Auto) 0.3 % Neut % (Auto) 82.2 % Lymph % (Auto) 7.2 % Marshall % (Auto) 9.4 % Eos % (Auto) 0.7 % Baso % (Auto) 0.2 % Neut # (Auto) 14.67 H (1.4-6.5) K/uL Lymph # (Auto) 1.29 (1.2-3.4) K/uL Marshall # (Auto) 1.67 H (0.11-0.59) K/uL Eos # (Auto) 0.12 (0-0.5) K/uL Baso # (Auto) 0.04 (0-0.2) K/uL Immature Gran # (Auto) 0.05 H (0.00-0.02) K/uL Sodium (136-145) mmol/L Potassium (3.5-5.1) mmol/L Chloride (98-107) mmol/L Carbon Dioxide (21-32) mmol/L Anion Gap (3-11) BUN (7-18) mg/dl Creatinine (0.6-1.2) mg/dl Est Cr Clr Drug Dosing ml/min Est GFR ( Amer) ml/min Est GFR (Non-Af Amer) ml/min BUN/Creatinine Ratio (10-20) Glucose (70-99) mg/dl Lactate (0.4-2.0) mmol/L Calcium (8.5-10.1) mg/dl Magnesium (1.8-2.4) mg/dl Total Bilirubin (0.2-1) mg/dl AST (15-37) U/L ALT (12-78) U/L Alkaline Phosphatase (45-117) U/L Troponin I (0-0.045) ng/ml NT-Pro-B Natriuret Pep (0-1800) pg/ml Total Protein (6.4-8.2) gm/dl Albumin (3.4-5.0) gm/dl Globulin (2.5-4.0) gm/dl Albumin/Globulin Ratio (0.9-2) Urine Color Urine Appearance (Clear) Urine pH (4.5-7.5) Ur Specific [place] (1.000-1.030) Urine Protein (Negative) Urine Glucose (UA) (Negative) Urine Ketones (Negative) Urine Blood (Negative) Urine Nitrite (Negative) Urine Bilirubin (Negative) Urine Urobilinogen (Negative) Ur Leukocyte Esterase (Negative) Urine WBC (Auto) (0-5) /hpf Urine RBC (Auto) (0-4) /hpf U Hyaline Cast (Auto) (0-5) /lpf U Epithel Cells (Auto) (0-5) /lpf Urine Bacteria (Auto) (Negative) COVID-19 Eval Order Covid19 at [facility] SARS-CoV-2 (PCR) NEGATIVE (Negative) Diagnostic Findings CT CHEST Without Contrast: Small to moderate left pleural effusion. Small right pleural effusion. Limited evaluation of lung parenchyma due to respiratory motion artifact. Patchy bilateral groundglass opacities with central distribution, atypical infection/inflammation versus edema. Mildly enlarged nonspecific precarinal lymph node. Cardiomegaly. No pericardial effusion. Thoracic aorta is non-aneurysmal. CT ABDOMEN & PELVIS Without Contrast: Umbilical/periumbilical hernia containing fat and small bowel loops. One of the bowel loops is mildly distended and there is surrounding fat stranding and fluid, image 69 series 5. Incarcerated hernia may have this appearance. Overall, no evidence of bowel obstruction or perforation. No pneumatosis intestinalis. No evidence of acute appendicitis. Mild patchy mesenteric fat stranding as well as body wall edema, potentially sequela of systemic causes of third spacing of fluid. No miguel ascites. 3.2 cm circumscribed masslike partially calcified lesion in the right inferior breast abutting the skin surface, potentially sebaceous cyst, image 14 series 5. Correlate clinically. No hydronephrosis. Bilateral renal cysts. Decompressed urinary bladder with Castro catheter in place. 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 Status post cholecystectomy. Small hiatal hernia. Radiologist: Yanna Baron M.D. Medications Administered Home Medication List Medication Instructions Recorded amoxicillin 500 mg-potassium 1 tab PO Q12H 03/29/21 clavulanate 125 mg tablet (Augmentin) atorvastatin 40 mg tablet 40 mg PO DAILY 03/29/21 cholecalciferol (vitamin D3) 125 125 mcg PO DAILY 03/29/21 mcg (5,000 unit) tablet (Vitamin D3) cyanocobalamin (vitamin B-12) 1,000 mcg PO DAILY 03/29/21 1,000 mcg tablet docusate sodium 100 mg capsule 100 mg PO BID 03/29/21 duloxetine 60 mg capsule,delayed 60 mg PO DAILY 03/29/21 release ferrous sulfate 325 mg (65 mg 325 mg PO TIDM 03/29/21 iron) tablet furosemide 20 mg tablet 20 mg PO DAILY 03/29/21 glipizide 2.5 mg tablet, extended 2.5 mg PO QDB 03/29/21 release 24 hr hydrocodone 5 mg-acetaminophen 325 1 tab PO Q4H PRN 03/29/21 mg tablet loratadine 10 mg tablet 10 mg PO DAILY 03/29/21 lorazepam 0.5 mg tablet 0.5 mg PO TID PRN 03/29/21 metoprolol tartrate 50 mg tablet 150 mg PO Q12H 03/29/21 nystatin 100,000 unit/gram topical 1 applic TOPICAL BID 03/29/21 powder pantoprazole 40 mg tablet,delayed 40 mg PO BIDM 03/29/21 release sucralfate 1 gram tablet 1 g PO ACHS 03/29/21 vitamin A 10,000 unit capsule 8,000 unit PO DAILY 03/29/21 vitamin E 400 unit capsule 400 unit PO DAILY 03/29/21 Allergies Allergy/AdvReac Type Severity Reaction Status Date / Time morphine AdvReac Intermediate Altered Unverified 03/29/21 20:09 Mental Status Home Medications Medication Instructions Recorded Confirmed Type amoxicillin 500 mg-potassium 1 tab PO Q12H 03/29/21 03/29/21 History clavulanate 125 mg tablet (Augmentin) atorvastatin 40 mg tablet 40 mg PO DAILY 03/29/21 03/29/21 History cholecalciferol (vitamin D3) 125 125 mcg PO DAILY 03/29/21 03/29/21 History mcg (5,000 unit) tablet (Vitamin D3) cyanocobalamin (vitamin B-12) 1,000 mcg PO DAILY 03/29/21 03/29/21 History 1,000 mcg tablet docusate sodium 100 mg capsule 100 mg PO BID 03/29/21 03/29/21 History duloxetine 60 mg capsule,delayed 60 mg PO DAILY 03/29/21 03/29/21 History release ferrous sulfate 325 mg (65 mg 325 mg PO TIDM 03/29/21 03/29/21 History iron) tablet furosemide 20 mg tablet 20 mg PO DAILY 03/29/21 03/29/21 History glipizide 2.5 mg tablet, extended 2.5 mg PO QDB 03/29/21 03/29/21 History release 24 hr hydrocodone 5 mg-acetaminophen 325 1 tab PO Q4H PRN 03/29/21 03/29/21 History mg tablet loratadine 10 mg tablet 10 mg PO DAILY 03/29/21 03/29/21 History lorazepam 0.5 mg tablet 0.5 mg PO TID PRN 03/29/21 03/29/21 History metoprolol tartrate 50 mg tablet 150 mg PO Q12H 03/29/21 03/29/21 History nystatin 100,000 unit/gram topical 1 applic TOPICAL BID 03/29/21 03/29/21 History powder pantoprazole 40 mg tablet,delayed 40 mg PO BIDM 03/29/21 03/29/21 History release sucralfate 1 gram tablet 1 g PO ACHS 03/29/21 03/29/21 History vitamin A 10,000 unit capsule 8,000 unit PO DAILY 03/29/21 03/29/21 History vitamin E 400 unit capsule 400 unit PO DAILY 03/29/21 03/29/21 History Review of Systems Constitutional: as per Subjective / HPI Eyes: as per Subjective / HPI Respiratory: as per Subjective / HPI O2 at 2L/Min Cardiovascular: Additional Comments: HTN Gastrointestinal: SBO Genitourinary: as per Subjective / HPI Neurologic: as per Subjective / HPI Psychiatric: as per Subjective / HPI Endocrine: DM Hematologic / Lymphatic: as per Subjective / HPI Physical Exam Constitutional: alert, awake Eyes: PERRL, conjunctivae normal, anicteric sclerae Neck: trachea midline, no thyromegaly Respiratory: normal respiratory effort, lungs clear to auscultation Cardiovascular: RRR, no murmur, no edema Gastrointestinal (Abdomen): soft, tenderness at periumbilical area with palpable mass, not reducible, incarcerated umbilical hernia and periumbilical hernia +, BS + Neurologic: patellar DTR's 2+ bilat, sensation intact Psychiatric: alert and awake Results & Data ([facility]) Vital Signs (Past 12 Hours) Vital Signs Temp Pulse Pulse Resp BP BP Pulse Ox 03/30/21 00:04 100 H 17 164/66 H 96 03/29/21 20:43 37.1 C 90 96 H 16 200/100 H 98 03/29/21 19:12 95 H 16 177/104 H 97 03/29/21 18:18 36.7 C 91 H 18 234/127 H 98 Laboratory Results Abnormal lab results 03/29/21 03/29/21 03/29/21 Range/Units 19:05 19:05 19:22 WBC 17.84 H (4.8-10.8) K/uL RBC 3.88 L (4.2-5.4) M/uL Hgb 11.5 L (12.0-16.0) g/dL Hct 36.0 L (37-47) % MCHC 31.9 L (32-36) g/dL RDW Std Deviation 52.8 H (36.4-46.3) fL RDW Coeff of Rj 15.6 H (11.5-14.5) % MPV 10.9 H (7.4-10.4) fL Neut # (Auto) 14.67 H (1.4-6.5) K/uL Marshall # (Auto) 1.67 H (0.11-0.59) K/uL Immature Gran # (Auto) 0.05 H (0.00-0.02) K/uL Sodium 131 L (136-145) mmol/L Chloride 95 L (98-107) mmol/L Carbon Dioxide 33 H (21-32) mmol/L BUN 32 H (7-18) mg/dl Creatinine 1.23 H (0.6-1.2) mg/dl BUN/Creatinine Ratio 26.1 H (10-20) Glucose 100 H (70-99) mg/dl POC Glucose (70-99) mg/dl AST 53 H (15-37) U/L Alkaline Phosphatase 130 H (45-117) U/L NT-Pro-B Natriuret Pep 5250 H (0-1800) pg/ml Albumin 2.2 L (3.4-5.0) gm/dl Globulin 4.5 H (2.5-4.0) gm/dl Albumin/Globulin Ratio 0.5 L (0.9-2) Urine Protein 4+ H (Negative) Urine Blood 1+ H (Negative) Urine RBC (Auto) 5-10 H (0-4) /hpf U Epithel Cells (Auto) >30 H (0-5) /lpf 03/30/21 Range/Units 02:22 WBC (4.8-10.8) K/uL RBC (4.2-5.4) M/uL Hgb (12.0-16.0) g/dL Hct (37-47) % MCHC (32-36) g/dL RDW Std Deviation (36.4-46.3) fL RDW Coeff of Rj (11.5-14.5) % MPV (7.4-10.4) fL Neut # (Auto) (1.4-6.5) K/uL Marshall # (Auto) (0.11-0.59) K/uL Immature Gran # (Auto) (0.00-0.02) K/uL Sodium (136-145) mmol/L Chloride (98-107) mmol/L Carbon Dioxide (21-32) mmol/L BUN (7-18) mg/dl Creatinine (0.6-1.2) mg/dl BUN/Creatinine Ratio (10-20) Glucose (70-99) mg/dl POC Glucose 118 H (70-99) mg/dl AST (15-37) U/L Alkaline Phosphatase (45-117) U/L NT-Pro-B Natriuret Pep (0-1800) pg/ml Albumin (3.4-5.0) gm/dl Globulin (2.5-4.0) gm/dl Albumin/Globulin Ratio (0.9-2) Urine Protein (Negative) Urine Blood (Negative) Urine RBC (Auto) (0-4) /hpf U Epithel Cells (Auto) (0-5) /lpf Diagnostic Findings CT scan - incarcerated umbilical hernia and periumbilical hernia, contain small bowel,
[2021-03-30 03:01] LABS: Hematocrit (blood only) 29.3 % (37-47); Hemoglobin 9.1 g/dL (12.0-16.0); Mean Corpuscular Hemoglobin 29.1 pg (25-34); Mean Corpuscular Hgb Conc 31.1 g/dL (32-36); Mean Corpuscular Volume 93.6 fL (80-100); Mean Platelet Volume 11.2 fL (7.4-10.4); Platelet Count 175 K/uL (130-400); RDW Coefficient of Variation 15.8 % (11.5-14.5); Red Blood Count 3.13 M/uL (4.2-5.4); White Blood Count 28.45 K/uL (4.8-10.8)
[2021-03-30] MEDS ORDERED: PROPOFOL IV EMULSION 10 MG/ML 20 ML VIAL IV ONE (03:04)
[2021-03-30] MEDS ORDERED: ONDANSETRON INJ 2 MG/ML 2 ML VIAL ONE (03:05)
[2021-03-30] MEDS ORDERED: NEOSTIGMINE METHYLSULFATE 1 MG/ML 10ML VIAL ONE (03:05)
[2021-03-30] MEDS ORDERED: SUCCINYLCHOLINE 100MG/5ML SYR IV ONE (03:05)
[2021-03-30] MEDS ORDERED: LIDOCAINE 2% 2 ML VIAL/AMP(20MG/ML) INFIL ONE (03:05)
[2021-03-30] MEDS ORDERED: ROCURONIUM BROMIDE 10 MG/ML 5 ML VIAL IV ONE (03:05)
[2021-03-30] MEDS ORDERED: GLYCOPYRROLATE 0.2 MG/ML VIAL ONE (03:05)
[2021-03-30] MEDS ORDERED: fentaNYL citrate 100 MCG/2 ML VIAL ONE ×3 (03:07→05:37)
[2021-03-30 03:19] LABS: BUN Creatinine Ratio 28.3 (10-20); Basophils # (auto) 0.04 K/uL (0-0.2); Basophils % (auto) 0.1 %; Blood Urea Nitrogen 25 mg/dl (7-18); Calcium 7.7 mg/dl (8.5-10.1); Carbon Dioxide 26 mmol/L (21-32); Chloride 98 mmol/L (98-107); Creatinine Clr Calc Pharmacy 49.4 ml/min; Eosinophils # (auto) 0.01 K/uL (0-0.5); Est GFR (African American) 66.2 ml/min; Est GFR (Non-African American) 57.1 ml/min; Glucose 81 mg/dl (70-99); Hypochromasia Present; Immature Granulocytes # (auto) 0.12 K/uL (0.00-0.02); Immature Granulocytes % (auto) 0.4 %; Lymphocytes # (auto) 0.64 K/uL (1.2-3.4); Lymphocytes % (auto) 2.2 %; Monocytes # (auto) 2.13 K/uL (0.11-0.59); Monocytes % (auto) 7.5 %; Neutrophils # (auto) 25.51 K/uL (1.4-6.5); Neutrophils % (auto) 89.8 %; Potassium 3.9 mmol/L (3.5-5.1); Sodium 133 mmol/L (136-145)
[2021-03-30] MEDS ORDERED: PNEUMOCOCCAL POLYSACCHARIDES 25 MCG/0.5 ML VIAL/SYR IM ONE (03:19)
[2021-03-30] MEDS ORDERED: INFLUENZA VACCINE HIGH DOSE PF 65+ 0.7 ML SYR IM ONE (03:19)
[2021-03-30 03:27] LABS: Chol HDL Ratio 2; Cholesterol 79 mg/dl (0-200); HDL Cholesterol 34 mg/dl; LDL Cholesterol Calculated 31 mg/dl; Triglycerides 68 mg/dl (0-150); Troponin I < 0.015 ng/ml (0-0.045); VLDL Cholesterol 14 mg/dl
--- NOTE | 2021-03-30 03:48 | Anesthesiology Consultation ---
Date of Service March 30, 2021 Assessment & Plan Chart Review Chart Review: Acceptable Risk for Surgery Consults Requested none History Surgery Operation Date: 03/30/21 03:30 Proposed Procedures p Umbilical Hernia Repair - Sergei Aldana MD Height/Weight Height: 5 ft 5 in Weight: 95.6 kg Allergies Allergy/AdvReac Type Severity Reaction Status Date / Time morphine AdvReac Intermediate Altered Unverified 03/29/21 20:09 Mental Status Medications Home Medications Medication Instructions Recorded Confirmed Last Taken amoxicillin 500 mg-potassium 1 tab PO Q12H 03/29/21 03/29/21 Unknown clavulanate 125 mg tablet (Augmentin) atorvastatin 40 mg tablet 40 mg PO DAILY 03/29/21 03/29/21 Unknown cholecalciferol (vitamin D3) 125 125 mcg PO DAILY 03/29/21 03/29/21 Unknown mcg (5,000 unit) tablet (Vitamin D3) cyanocobalamin (vitamin B-12) 1,000 mcg PO DAILY 03/29/21 03/29/21 Unknown 1,000 mcg tablet docusate sodium 100 mg capsule 100 mg PO BID 03/29/21 03/29/21 Unknown duloxetine 60 mg capsule,delayed 60 mg PO DAILY 03/29/21 03/29/21 Unknown release ferrous sulfate 325 mg (65 mg 325 mg PO TIDM 03/29/21 03/29/21 Unknown iron) tablet furosemide 20 mg tablet 20 mg PO DAILY 03/29/21 03/29/21 Unknown glipizide 2.5 mg tablet, extended 2.5 mg PO QDB 03/29/21 03/29/21 Unknown release 24 hr hydrocodone 5 mg-acetaminophen 325 1 tab PO Q4H PRN 03/29/21 03/29/21 Unknown mg tablet loratadine 10 mg tablet 10 mg PO DAILY 03/29/21 03/29/21 Unknown lorazepam 0.5 mg tablet 0.5 mg PO TID PRN 03/29/21 03/29/21 Unknown metoprolol tartrate 50 mg tablet 150 mg PO Q12H 03/29/21 03/29/21 Unknown nystatin 100,000 unit/gram topical 1 applic TOPICAL BID 03/29/21 03/29/21 Unknown powder pantoprazole 40 mg tablet,delayed 40 mg PO BIDM 03/29/21 03/29/21 Unknown release sucralfate 1 gram tablet 1 g PO ACHS 03/29/21 03/29/21 Unknown vitamin A 10,000 unit capsule 8,000 unit PO DAILY 03/29/21 03/29/21 Unknown vitamin E 400 unit capsule 400 unit PO DAILY 03/29/21 03/29/21 Unknown Active Medications Generic Name Dose Route Start Last Admin Trade Name Marlonq PRN Reason Stop Dose Admin Heparin Sodium (Porcine) 7,500 units 03/30/21 00:45 03/30/21 01:55 Heparin Sod 5,000 Unit/0.5 Ml Vial SQ 04/29/21 00:44 Not Given Q8 LUIZ Lactated Ringer's 1,000 mls @ 100 mls/hr 03/30/21 01:45 03/30/21 01:56 Lr IV 04/29/21 01:44 100 mls/hr .Q10H LUIZ Administration Metoprolol Tartrate 150 mg 03/30/21 00:45 03/30/21 02:23 Metoprolol Tartrate 50 Mg Tab PO 04/29/21 00:44 Not Given Q12 LUIZ NPO Date Last Intake of Fluids: 03/30/21 Time Last Intake of Fluids: 00:00 Last Intake of Fluids Comment: NPO since midnight per report. Patient only alert to self. Last Intake of Solids Comment: NPO since midnight per report. Patient only alert to self. Physical Exam Vital Signs Last Vital Signs Temp 36.9 C 03/30/21 00:45 Pulse 104 H 03/30/21 02:30 Resp 22 03/30/21 00:45 BP 179/81 H 03/30/21 02:30 Pulse Ox 96 03/30/21 00:45 Testing Laboratory Results 03/30/21 02:09 03/30/21 02:09 Urine Color Yellow 03/29/21: Urine Appearance Clear (Clear) 03/29/21: Urine pH 6.5 (4.5-7.5) 03/29/21: Ur Specific [place] 1.014 (1.000-1.030) 03/29/21: Urine Protein 4+ (Negative) H 03/29/21 19: Urine Glucose (UA) Negative (Negative) 03/29/21: Urine Ketones Negative (Negative) 03/29/21: Urine Nitrite Negative (Negative) 03/29/21 19:22 Ur Leukocyte Esterase Negative (Negative) 03/29/21 19:22 Urine WBC (Auto) 1-5 /hpf (0-5) 03/29/21 19:22 Urine RBC (Auto) 5-10 /hpf (0-4) H 03/29/21 19:22 U Hyaline Cast (Auto) 1-5 /lpf (0-5) 03/29/21 19:22 U Epithel Cells (Auto) >30 /lpf (0-5) H 03/29/21 19:22 Urine Bacteria (Auto) Negative (Negative) 03/29/21 19:22 03/30/21 02:22 POC Glucose 118 H
--- NOTE | 2021-03-30 05:06 | Post Operative Brief Note ---
Immediate Post Op Note v1 Date of Surgery March 30, 2021 Pre & Post Diagnosis Operation Date: 03/30/21 03:30 Pre-Op Diagnosis: Incarcerated umbilical hernia and periumbilical hernia. Post-Op Diagnosis: Incarcerated umbilical hernia and periumbilical hernia. I identified the patient and participated in the time-out.: Yes Procedure Operation Date: 03/30/21 03:30 Actual Procedures open repair Incarcerated umbilical hernia and periumbilical hernia with mesh - Sergei Aldana MD FACS Surgeon Sergei Aldana MD FACS Behavioral Consultant surgical specialist Estimated Blood Loss 10 Findings Consistent with Post-Op Diagnosis incarcerated umbilical hernia and periumbilical hernia, size about 8x10 cm Fluids 800ml Specimens hernia sac Drains Castro Catheter Anesthesia Type General Complications none Disposition Accompanied Patient To Recovery: Yes
[2021-03-30] MEDS ORDERED: PIPERACILLIN/TAZOBACTAM 4.5 GM in DEXTROSE 5% 100 ML IV SCH (06:00)
[2021-03-30 07:13] LABS: Alanine Aminotransferase 31 U/L (12-78); Albumin Globulin Ratio 0.5 (0.9-2); Albumin Level 1.5 gm/dl (3.4-5.0); Alkaline Phosphatase 85 U/L (45-117); Aspartate Aminotransferase 36 U/L (15-37); Bilirubin,Total 0.3 mg/dl (0.2-1); Globulin 3.2 gm/dl (2.5-4.0); Total Protein 4.7 gm/dl (6.4-8.2)
--- NOTE | 2021-03-30 07:20 | Anesthesiology Progress Note ---
Date of Service March 30, 2021 Anesthesia Post Procedure Vital Signs Vital Signs: Temp Pulse Pulse Resp BP BP Pulse Ox 03/30/21 06:45 36.7 C 86 18 150/67 H 96 03/30/21 06:30 37.3 C 91 H 16 146/73 H 95 03/30/21 06:15 36.7 C 89 21 146/58 H 95 03/30/21 06:05 91 H 23 154/57 H 94 03/30/21 05:55 95 H 21 151/57 H 95 03/30/21 05:45 111 H 17 155/60 H 95 03/30/21 05:35 119 H 21 159/72 H 94 03/30/21 05:28 37.1 C 124 H 24 178/73 H 92 03/30/21 02:30 104 H 179/81 H 03/30/21 00:45 36.9 C 111 H 22 179/81 H 96 03/30/21 00:20 111 H 03/30/21 00:04 100 H 17 164/66 H 96 03/29/21 20:43 37.1 C 90 96 H 16 200/100 H 98 03/29/21 19:12 95 H 16 177/104 H 97 03/29/21 18:18 36.7 C 91 H 18 234/127 H 98 Pulse Ox 03/30/21 06:45 03/30/21 06:30 03/30/21 06:15 03/30/21 06:05 03/30/21 05:55 03/30/21 05:45 03/30/21 05:35 03/30/21 05:28 03/30/21 02:30 03/30/21 00:45 96 03/30/21 00:20 03/30/21 00:04 03/29/21 20:43 03/29/21 19:12 03/29/21 18:18 Pain Intensity Abdomen: Pain Intensity: 5 Transfer of Care Handoff Completed per policy Notes Mental Status: alert / awake / arousable and participated in evaluation Patient Amnestic to Procedure: Yes Nausea / Vomiting: adequately controlled Pain: adequately controlled Airway Patency, RR, SpO2: stable & adequate BP & HR: stable & adequate Hydration State: stable & adequate Anesthetic Complications: no major complications apparent
--- NOTE | 2021-03-30 08:16 | Pharmacy Report ---
Pharmacy Vanc AUC Short Note - Date of Service March 30, 2021 - Assessment & Plan Assessment 89 year old F receiving vancomycin and zosyn for treatment of intra-abdominal infection vs. PNA. Pertinent microbiologic data includes: MRSA Nasal (-), BCx pending. Renal function improving (SCr 1.23 --> 0.90). Day #2 of antimicrobial therapy. Plan Vancomycin * AUC/GAVIN is the preferred PK/PD target for vancomycin * AUC guided dosing is effective and associated with decreased risk of nephrotoxicity compared to traditional trough targets * Trough level of 16.6 mcg/mL is predicted to achieve target AUC/GAVIN of 400-600 mg/L.hr and may be associated with a 12 % risk of nephrotoxicity * S/p Vancomycin 2gm loading dose. Begin maintenance regimen of vancomycin 1500mg IV q24h. * Will obtain a trough around steady state if vancomycin continued or sooner if clinically indicated. Pharmacy will continue to follow and will adjust dose/frequency as necessary. Thank you.
--- NOTE | 2021-03-30 08:21 | CT Scan Report ---
CT chest diagnostic wo con CLINICAL HISTORY: increased oxygen demand . Shortness of breath and chest pain COMPARISON STUDY: Portable chest from 03/29/2021 CT DOSE: 2139.79 mGy.cm TECHNIQUE: Standard CT of the Chest was performed without IV contrast. A dose lowering technique was utilized adhering to the principles of ALARA. FINDINGS: Breathing motion artifact is present. Chest soft tissues: There is evidence for a nodular soft tissue density within the right breast which is not well seen on this study. If indicated clinically, follow-up nonemergent [facility]ography and[facility]. It measures approximately 3.1 cm. Airway: The airway is clear. No endobronchial lesion is identified. Lungs and pleural: There is a moderately large left pleural effusion with compressive atelectasis/col lapse involving left lower lobe. No confluent alveolar opacities or air bronchograms are seen. There is also dependent edema and atelectasis at the right lung base. The remainder the lungs are clear. Th ere is small right pleural effusion is also present. Mediastinum: There is no evidence for pathologic adenopathy on these limited noncontrast images. The heart size is within normal limits. The thoracic aorta is within normal limits. There is no evidence for pericardial effusion. Upper abdomen: The adrenal glands are normal bilaterally. There is a small sliding-type hiatal hernia . Osseous structures: There is no acute osseous pathology. IMPRESSION: 1. CT confirms a moderately large left pleural effusion with compressive atelectasis/collapse involvi ng left lower lobe. No confluent alveolar opacities or air bronchograms are seen. 2. Dependent edema and atelectasis also present right lung base with very small right pleural effusio n. 3. Nodular density within the right breast.rrrrrrrrrrrrrrrrrrrrrrrrrr ACT 112: Negative or not required by law. Electronically signed by: Raul Gonzalez M.D. 03/30/2021 8:20 AM
[2021-03-30] MEDS: PIPERACILLIN/TAZOBACTAM 3.375 GM in DEXTROSE 5% 100 ML IV SCH ×3 (08:26→23:41)
[2021-03-30] MEDS: INSULIN ASPART 100 UNITS/ML 3 ML PEN SC SCH ×4 (08:31→21:54)
--- NOTE | 2021-03-30 08:32 | CT Scan Report ---
CT abd pelvis wo con CLINICAL HISTORY: increased abd pain COMPARISON STUDY: No previous studies for comparison. TECHNIQUE: Standard CT of the Abdomen and Pelvis was performed without IV contrast. The patient did not receive oral contrast. A dose lowering technique was utilized adhering to the principles of RAOUL Glover. FINDINGS: Abdominal cavity and bowel: There is no evidence for abdominal mass, adenopathy or ascites. There is an umbilical hernia present with mesenteric fat and loops of small bowel extending into the hernia sac. There is dilatation of one of these loops of small bowel with mild mucosal thickening and edematous changes of the surrounding fat. An incarcerated loop cannot be excluded. There is no evide nce for dilatation of the remaining small bowel loops proximal and distal to the hernia. The remaining bowel loops are normally placed within the abdomen and pelvis without evidence for dila tation or obstruction. There is mild sigmoid diverticulosis without evidence for diverticulitis. Ther e is no evidence for an inflamed appendix. There is no evidence for free air. Liver: The liver appears somewhat shrunken with a nodular contour suggesting the possibility of cirrh osis. No focal hepatic mass could be identified on these limited noncontrast images.. Spleen: The spleen is homogeneous in attenuation on these limited noncontrast images. Pancreas: The pancreas is homogeneous in attenuation on these limited noncontrast images. However, th ere is mild mesenteric edema surrounding the pancreas and the presence of mild pancreatitis cannot be excluded. Correlation with lactate is recommended. Gall Bladder: Surgical clips are present previous cholecystectomy. Adrenal glands: The adrenal glands are normal in size and attenuation on these limited noncontrast im ages. Kidneys: The kidneys are homogeneous in attenuation on these limited noncontrast images. There is no evidence for gross renal mass, calculus or hydronephrosis bilaterally. There is evidence for multiple bilateral renal cysts. Bladder: The bladder is compressed with Castro catheter in place. : There is no evidence for pelvic mass or adenopathy. The patient is status post hysterectomy. Vasculature: There is no evidence for focal aneurysmal dilatation of the abdominal aorta. After squat ting calcification is present. Osseous structures: There is no acute osseous pathology. Extensive degenerative changes are present i nvolving the lower lumbar spine. Degenerative changes are also seen involving the hip joints and SI j oints. IMPRESSION: 1. Umbilical hernia with multiple loops of small bowel present. One of the loops is focally dilated w ith mucosal thickening and surrounding edema highly suspicious for the presence of incarceration. 2. No other evidence for bowel loop dilatation or obstruction. 3. Edema of the fat in the mesentery surrounding the pancreas. The presence of early pancreatitis can not be excluded. Correlation with lactate is recommended. 4. Additional nonacute findings as delineated above. Fluoroscopy be called results of the study. ACT 112: Positive. There are findings on this exam that require communication between the performing entity and the patient following Patient Test Result Information Act ([place] Act 112) guidelines. Electronically signed by: Raul Gonzalez M.D. 03/30/2021 8:30 AM
[2021-03-30] MEDS: ONDANSETRON INJ 2 MG/ML 2 ML VIAL IV PRN (08:57)
[2021-03-30] MEDS ORDERED: VANCOMYCIN HCL 1,500 MG in SODIUM CHLORIDE 0.9% 500 ML IV SCH (09:00)
[2021-03-30] MEDS ORDERED: NON-FORMULARY MEDICATION (Vitamin A 10,000 unit Capsule) PO SCH (09:00)
[2021-03-30] MEDS: HYDROmorphone INJ 0.5 MG/0.5 ML SYR IV PRN ×3 (09:03→18:32)
[2021-03-30] MEDS: SUCRALFATE 1 GM TAB PO SCH ×4 (09:10→21:53)
[2021-03-30] MEDS: PANTOprazole 40 MG TAB PO SCH ×2 (09:10→17:53)
[2021-03-30] MEDS: ATORVASTATIN 40 MG TAB PO SCH (09:10)
[2021-03-30] MEDS: glipiZIDE ER 2.5 MG TABCR PO SCH (09:10)
[2021-03-30] MEDS: FERROUS SULFATE 325 MG TAB PO SCH ×3 (09:10→17:53)
[2021-03-30] MEDS: CHOLECALCIFEROL 1,000 UNITS 25 MCG TAB PO SCH (09:11)
[2021-03-30] MEDS: TOCOPHERYL, DL-ALPHA 400 UNITS 180 MG CAP PO SCH (09:11)
[2021-03-30] MEDS: CYANOCOBALAMIN 500 MCG TABLET (VITAMIN B-12) PO SCH (09:11)
[2021-03-30] MEDS: LORATADINE 10 MG TAB PO SCH (09:11)
[2021-03-30] MEDS: DULoxetine HCL 60 MG CAP PO SCH ×2 (09:11→14:19)
[2021-03-30] MEDS: FUROSEMIDE 20 MG TAB PO SCH ×2 (09:11→14:16)
[2021-03-30] MEDS: DOCUSATE SODIUM 100 MG CAP PO SCH ×2 (09:11→21:51)
[2021-03-30] MEDS: NYSTATIN POWDER 15GM BTL SCH ×2 (09:19→21:50)
[2021-03-30 10:07] LABS: Estimated Average Glucose 97 mg/dl
--- NOTE | 2021-03-30 11:40 | Operative Report (OR) ---
DATE OF SURGERY: 03/30/2021 PREOPERATIVE DIAGNOSIS: Incarcerated umbilical hernia and periumbilical hernia. POSTOPERATIVE DIAGNOSIS: Incarcerated umbilical hernia and periumbilical hernia. OPERATION: Open repair of incarcerated umbilical hernia and periumbilical hernia with mesh. SURGEON: Sergei Aldana MD. ANESTHESIA: General. ESTIMATED BLOOD LOSS: About 10 mL. FINDINGS: Incarcerated umbilical hernia and periumbilical hernia. COMPLICATIONS: None. INDICATIONS FOR THE PROCEDURE: This is an 89-year-old female who presented to ED with a 2-day histor y of abdominal pain with nausea and vomiting. CT scan diagnosis of incarcerated umbilical hernia and periumbilical hernia. I recommend to do open repair of incarcerated umbilical hernia and periumbili chsae hernia, possible mesh, possible bowel resection. I did talk to the patient's daughter on the jovan ne about the benefits, the risks and alternatives of the procedure. I indicated the risks may includ e, but not limited to, such as bleeding, infection, hernia recurrence, renal failure, myocardial infa rction, DVT, stroke, even and complications related to mesh, injury to the bowel. The patient' s daughter understands. She gave consent on the phone. I answered all questions. DETAILS OF PROCEDURE: After we identified the patient and verified the procedure, we brought the pat ient to the OR, put the patient in the supine position on the OR table. The patient had SCD on bilat eral legs to prevent DVT. Also, the patient received 3.375 grams Zosyn IV for prophylactic antibioti c and the patient had a Castro catheter insertion, tolerated the insertion with fluoroscopy and the pa tient received general anesthesia without difficulty. The abdomen was prepped and draped in routine sterile fashion. After timeout, I made a transverse incision on the right side abdomen near umbilical area. Then, the incision passed below the umbilical incision length about 12 cm, then we dissected subcutaneous laye r and found the patient had hernia, then we mobilized the hernia sac, opened the hernia sac, and we f ound the patient had an incarcerated umbilical hernia. We reduced the small bowel back to the abdomi nal cavity. There was some scar, we took down, mobilized the small bowel, it was free and also the p atient had 3 periumbilical hernias. We resected out the hernia sac and combined these 3 periumbilical hernias and umbilical hernia to one hernia, so I chose a mesh size about 13 x 15 cm mesh to repair the hernia and hernia size about 8 x 10 cm, so I used 0 Ethibond suture to suture the fascia to the mesh interrupted and we tied suture on e by one. The mesh seated nicely, no tension. Hemostasis was obtained, then I closed the subcutaneou s layer by using 2-0 Vicryl continuous running, closed skin by using staple and we put the dressing o n. The patient tolerated the procedure well. All instrument, needle and sponge counts were correct x2 at the end of the case. The patient was transferred to recovery room in stable condition. We res ected the hernia sac and sent to pathology. Job ID: [id number]
--- NOTE | 2021-03-30 12:00 | Hospitalist Progress Note ---
Date of Service March 30, 2021 Assessment & Plan (1) Incarcerated umbilical hernia: Plan: She is day 0, post surgery for incacerated umbilical hernia Pain is under fair control Will wait for bowel recovery diet advancement and other management per surgery (2) Type 2 diabetes mellitus: Plan: Blood glucose 118 this morning Will continue to monitor Add insulin sliding scale (3) Severe hypertension: Plan: BP under good control now 143/74mmhg this morning will continue to monitor Admission and Anticipated Discharge Date Admission Date: March 29, 2021 Subjective Patient seen and examined, she is post hernia surgery, still groggy from anasthesia Review of Systems Review of Systems: Unobtainable, patient very drowsy Physical Exam Physical Exam: The patient is groggy, well developed and well nourished, normocephalic and atraumatic, lying in bed and in no acute distress. HEENT--PERRL, EOMI, mucous membranes and oropharynx mildly dry Neck--supple. No JVD. No bruits. Thyroid normal, trachea midline, no adenopath y. Heart--normal S1 and S2. No murmurs, rubs or gallops. Lungs--clear bilaterally, no respiratory distress, no accessory muscle use. Abdomen--normal bowel sounds and soft. Mild epigastric and left sided abdominal pain Extremities--no cyanosis or clubbing. No edema. Dermatologic--normal skin turgor, normal color, no abnormal lymph nodes, no rash. Neurologic--cranial nerves II through XII grossly intact. Rheumatologic--normal range of motion. Psychiatric--unable to assess. Results & Data Results & Data ([facility]) Vital Signs (Past 12 Hours) Vital Signs Temp Pulse Pulse Resp BP BP Pulse Ox 03/30/21 11:18 97.9 F 88 17 143/74 H 95 03/30/21 10:25 98.4 F 84 20 113/67 95 03/30/21 07:54 97.9 F 89 20 148/74 H 96 03/30/21 07:15 98.4 F 94 H 20 147/73 H 94 03/30/21 06:45 98.1 F 86 18 150/67 H 96 03/30/21 06:30 99.1 F 91 H 16 146/73 H 95 03/30/21 06:15 98.1 F 89 21 146/58 H 95 03/30/21 06:05 91 H 23 154/57 H 94 03/30/21 05:55 95 H 21 151/57 H 95 03/30/21 05:45 111 H 17 155/60 H 95 03/30/21 05:35 119 H 21 159/72 H 94 03/30/21 05:28 98.8 F 124 H 24 178/73 H 92 03/30/21 02:30 104 H 179/81 H 03/30/21 00:45 98.4 F 111 H 22 179/81 H 96 03/30/21 00:20 111 H 03/30/21 00:04 100 H 17 164/66 H 96 Pulse Ox 03/30/21 11:18 03/30/21 10:25 03/30/21 07:54 03/30/21 07:15 03/30/21 06:45 03/30/21 06:30 03/30/21 06:15 03/30/21 06:05 03/30/21 05:55 03/30/21 05:45 03/30/21 05:35 03/30/21 05:28 03/30/21 02:30 03/30/21 00:45 96 03/30/21 00:20 03/30/21 00:04 Laboratory Results Laboratory Results - last 24 hr 03/29/21 03/29/21 03/29/21 18:30 18:30 19:05 WBC 17.84 H RBC 3.88 L Hgb 11.5 L Hct 36.0 L MCV 92.8 MCH 29.6 MCHC 31.9 L RDW Std Deviation 52.8 H RDW Coeff of Rj 15.6 H Plt Count 190 MPV 10.9 H Immature Gran % (Auto) 0.3 Neut % (Auto) 82.2 Lymph % (Auto) 7.2 [place] % (Auto) 9.4 Eos % (Auto) 0.7 Baso % (Auto) 0.2 Neut # (Auto) 14.67 H Lymph # (Auto) 1.29 [place] # (Auto) 1.67 H Eos # (Auto) 0.12 Baso # (Auto) 0.04 Immature Gran # (Auto) 0.05 H Hypochromasia Sodium Potassium Chloride Carbon Dioxide Anion Gap BUN Creatinine Est Cr Clr Drug Dosing Est GFR ( Amer) Est GFR (Non-Af Amer) BUN/Creatinine Ratio Glucose POC Glucose Estimat Average Glucose Hemoglobin A1c Lactate Calcium Magnesium Total Bilirubin AST ALT Alkaline Phosphatase Troponin I NT-Pro-B Natriuret Pep Total Protein Albumin Globulin Albumin/Globulin Ratio Triglycerides Cholesterol LDL Cholesterol, Calc VLDL Cholesterol, Calc HDL Cholesterol Cholesterol/HDL Ratio Urine Color Urine Appearance Urine pH Ur Specific Howe Urine Protein Urine Glucose (UA) Urine Ketones Urine Blood Urine Nitrite Urine Bilirubin Urine Urobilinogen Ur Leukocyte Esterase Urine WBC (Auto) Urine RBC (Auto) U Hyaline Cast (Auto) U Epithel Cells (Auto) Urine Bacteria (Auto) Nasal Screen MRSA (PCR) COVID-19 Eval Order Covid19 at [facility] SARS-CoV-2 (PCR) NEGATIVE 03/29/21 03/29/21 03/29/21 19:05 19:22 19:47 WBC RBC Hgb Hct MCV MCH MCHC RDW Std Deviation RDW Coeff of Rj Plt Count MPV Immature Gran % (Auto) Neut % (Auto) Lymph % (Auto) [place] % (Auto) Eos % (Auto) Baso % (Auto) Neut # (Auto) Lymph # (Auto) [place] # (Auto) Eos # (Auto) Baso # (Auto) Immature Gran # (Auto) Hypochromasia Sodium 131 L Potassium 4.2 Chloride 95 L Carbon Dioxide 33 H Anion Gap 3.0 BUN 32 H Creatinine 1.23 H Est Cr Clr Drug Dosing 36.2 Est GFR ( Amer) 45.4 Est GFR (Non-Af Amer) 39.1 BUN/Creatinine Ratio 26.1 H Glucose 100 H POC Glucose Estimat Average Glucose Hemoglobin A1c Lactate 1.0 Calcium 8.9 Magnesium 1.8 Total Bilirubin 0.4 AST 53 H ALT 34 Alkaline Phosphatase 130 H Troponin I < 0.015 NT-Pro-B Natriuret Pep 5250 H Total Protein 6.7 Albumin 2.2 L Globulin 4.5 H Albumin/Globulin Ratio 0.5 L Triglycerides Cholesterol LDL Cholesterol, Calc VLDL Cholesterol, Calc HDL Cholesterol Cholesterol/HDL Ratio Urine Color Yellow Urine Appearance Clear Urine pH 6.5 Ur Specific Howe 1.014 Urine Protein 4+ H Urine Glucose (UA) Negative Urine Ketones Negative Urine Blood 1+ H Urine Nitrite Negative Urine Bilirubin Negative Urine Urobilinogen Negative Ur Leukocyte Esterase Negative Urine WBC (Auto) 1-5 Urine RBC (Auto) 5-10 H U Hyaline Cast (Auto) 1-5 U Epithel Cells (Auto) >30 H Urine Bacteria (Auto) Negative Nasal Screen MRSA (PCR) COVID-19 Eval Order SARS-CoV-2 (PCR) 03/30/21 03/30/21 03/30/21 01:42 02:09 02:09 WBC 28.45 H D RBC 3.13 L Hgb 9.1 L Hct 29.3 L MCV 93.6 MCH 29.1 MCHC 31.1 L RDW Std Deviation 54.0 H RDW Coeff of Rj 15.8 H Plt Count 175 MPV 11.2 H Immature Gran % (Auto) 0.4 Neut % (Auto) 89.8 Lymph % (Auto) 2.2 [place] % (Auto) 7.5 Eos % (Auto) 0.0 Baso % (Auto) 0.1 Neut # (Auto) 25.51 H Lymph # (Auto) 0.64 L [place] # (Auto) 2.13 H Eos # (Auto) 0.01 Baso # (Auto) 0.04 Immature Gran # (Auto) 0.12 H Hypochromasia Present Sodium 133 L Potassium 3.9 Chloride 98 Carbon Dioxide 26 Anion Gap 9.0 BUN 25 H Creatinine 0.90 D Est Cr Clr Drug Dosing 49.4 Est GFR ( Amer) 66.2 Est GFR (Non-Af Amer) 57.1 BUN/Creatinine Ratio 28.3 H Glucose 81 POC Glucose Estimat Average Glucose Hemoglobin A1c Lactate Calcium 7.7 L Magnesium Total Bilirubin 0.3 AST 36 ALT 31 Alkaline Phosphatase 85 Troponin I < 0.015 NT-Pro-B Natriuret Pep Total Protein 4.7 L D Albumin 1.5 L Globulin 3.2 Albumin/Globulin Ratio 0.5 L Triglycerides 68 Cholesterol 79 LDL Cholesterol, Calc 31 VLDL Cholesterol, Calc 14 HDL Cholesterol 34 Cholesterol/HDL Ratio 2 Urine Color Urine Appearance Urine pH Ur Specific Howe Urine Protein Urine Glucose (UA) Urine Ketones Urine Blood Urine Nitrite Urine Bilirubin Urine Urobilinogen Ur Leukocyte Esterase Urine WBC (Auto) Urine RBC (Auto) U Hyaline Cast (Auto) U Epithel Cells (Auto) Urine Bacteria (Auto) Nasal Screen MRSA (PCR) Negative COVID-19 Eval Order SARS-CoV-2 (PCR) 03/30/21 03/30/21 03/30/21 02:09 02:22 05:34 WBC RBC Hgb Hct MCV MCH MCHC RDW Std Deviation RDW Coeff of Rj Plt Count MPV Immature Gran % (Auto) Neut % (Auto) Lymph % (Auto) [place] % (Auto) Eos % (Auto) Baso % (Auto) Neut # (Auto) Lymph # (Auto) [place] # (Auto) Eos # (Auto) Baso # (Auto) Immature Gran # (Auto) Hypochromasia Sodium Potassium Chloride Carbon Dioxide Anion Gap BUN Creatinine Est Cr Clr Drug Dosing Est GFR ( Amer) Est GFR (Non-Af Amer) BUN/Creatinine Ratio Glucose POC Glucose 118 H 123 H Estimat Average Glucose 97 Hemoglobin A1c 5.0 Lactate Calcium Magnesium Total Bilirubin AST ALT Alkaline Phosphatase Troponin I NT-Pro-B Natriuret Pep Total Protein Albumin Globulin Albumin/Globulin Ratio Triglycerides Cholesterol LDL Cholesterol, Calc VLDL Cholesterol, Calc HDL Cholesterol Cholesterol/HDL Ratio Urine Color Urine Appearance Urine pH Ur Specific Howe Urine Protein Urine Glucose (UA) Urine Ketones Urine Blood Urine Nitrite Urine Bilirubin Urine Urobilinogen Ur Leukocyte Esterase Urine WBC (Auto) Urine RBC (Auto) U Hyaline Cast (Auto) U Epithel Cells (Auto) Urine Bacteria (Auto) Nasal Screen MRSA (PCR) COVID-19 Eval Order SARS-CoV-2 (PCR) 03/30/21 03/30/21 07:53 11:48 WBC RBC Hgb Hct MCV MCH MCHC RDW Std Deviation RDW Coeff of Rj Plt Count MPV Immature Gran % (Auto) Neut % (Auto) Lymph % (Auto) [place] % (Auto) Eos % (Auto) Baso % (Auto) Neut # (Auto) Lymph # (Auto) [place] # (Auto) Eos # (Auto) Baso # (Auto) Immature Gran # (Auto) Hypochromasia Sodium Potassium Chloride Carbon Dioxide Anion Gap BUN Creatinine Est Cr Clr Drug Dosing Est GFR ( Amer) Est GFR (Non-Af Amer) BUN/Creatinine Ratio Glucose POC Glucose 129 H 118 H Estimat Average Glucose Hemoglobin A1c Lactate Calcium Magnesium Total Bilirubin AST ALT Alkaline Phosphatase Troponin I NT-Pro-B Natriuret Pep Total Protein Albumin Globulin Albumin/Globulin Ratio Triglycerides Cholesterol LDL Cholesterol, Calc VLDL Cholesterol, Calc HDL Cholesterol Cholesterol/HDL Ratio Urine Color Urine Appearance Urine pH Ur Specific Howe Urine Protein Urine Glucose (UA) Urine Ketones Urine Blood Urine Nitrite Urine Bilirubin Urine Urobilinogen Ur Leukocyte Esterase Urine WBC (Auto) Urine RBC (Auto) U Hyaline Cast (Auto) U Epithel Cells (Auto) Urine Bacteria (Auto) Nasal Screen MRSA (PCR) COVID-19 Eval Order SARS-CoV-2 (PCR) PG Care Time/CCT Total # of Minutes Spent Total Time Spent with Patient: Total time spent is greater than 50% in coordination of care (as documented) at patient's floor/unit and/or counseling patient: Coding Level of Care Code 36055 Subseq Hosp Care Lvl 2 Diagnoses Incarcerated umbilical hernia K42.0 Type 2 diabetes mellitus E11.9 Severe hypertension I10
[2021-03-30] MEDS: HYDROCODONE/ACETAMOPHEN 5/325MG TAB PO PRN ×2 (14:12→23:44)
--- NOTE | 2021-03-30 14:17 | Surgery Progress Note ---
Date of Service March 30, 2021 Assessment & Plan (1) Incarcerated umbilical hernia: Plan: pt is a 89 year-old female who presents with 2 days history abdominal pain with nausea and vomiting, IMP: incarcerated umbilical hernia and periumbilical hernia, Plan, I recommend to do open repair incarcerated umbilical hernia and periumbilical hernia, possible with mesh,or bowel resection, I called pt's daughter, D/W benefits, risks and alternatives of the surgery, the risks- infection, bleeding, injury bowel, hernia recurrence, complication relate to mesh, RI, DVT, stroke, renal failure, , pt's daughter understood, she gave consent on the phone, I answered all questions, pre-op antibiotic, 03/30/2021 2:15 PM, F/U S/P open repair incarcerated umbilical hernia and periumbilical hernia with mesh, pt is stable, start clear diet now, continue treatment, repeat labs in morning, will F/U, Admission and Anticipated Discharge Date Admission Date: March 29, 2021 Subjective Patient seen and examined, she is post hernia surgery, still groggy from anasthesia F/U S/P open repair incarcerated umbilical hernia and periumbilical hernia, post-op check, pt is stable, awake, some incision pain with good control with pain meds, no vomiting, no fever, Review of Systems Constitutional: as per Subjective / HPI Eyes: as per Subjective / HPI Respiratory: as per Subjective / HPI O2 at 2L/Min Cardiovascular: Additional Comments: HTN Gastrointestinal: SBO Genitourinary: as per Subjective / HPI Neurologic: as per Subjective / HPI Psychiatric: as per Subjective / HPI Endocrine: DM Hematologic / Lymphatic: as per Subjective / HPI Physical Exam Eyes: PERRL, conjunctivae normal, anicteric sclerae Neck: trachea midline, no thyromegaly Respiratory: normal respiratory effort, lungs clear to auscultation Cardiovascular: RRR, no murmur, no edema Gastrointestinal (Abdomen): soft, mild tenderness at incision site, no distend, incision intact, Neurologic: patellar DTR's 2+ bilat, sensation intact Psychiatric: awake, Results & Data ([facility]) Vital Signs (Past 12 Hours) Vital Signs Temp Pulse Resp BP BP Pulse Ox 03/30/21 11:18 36.6 C 88 17 143/74 H 95 03/30/21 10:25 36.9 C 84 20 113/67 95 03/30/21 07:54 36.6 C 89 20 148/74 H 96 03/30/21 07:15 36.9 C 94 H 20 147/73 H 94 03/30/21 06:45 36.7 C 86 18 150/67 H 96 03/30/21 06:30 37.3 C 91 H 16 146/73 H 95 03/30/21 06:15 36.7 C 89 21 146/58 H 95 03/30/21 06:05 91 H 23 154/57 H 94 03/30/21 05:55 95 H 21 151/57 H 95 03/30/21 05:45 111 H 17 155/60 H 95 03/30/21 05:35 119 H 21 159/72 H 94 03/30/21 05:28 37.1 C 124 H 24 178/73 H 92 03/30/21 02:30 104 H 179/81 H
--- NOTE | 2021-03-30 19:51 | Billing Data ---
Date of Service March 30, 2021 Coding Level of Care Code 67741 Initial Inpt Care Lvl 3
[2021-03-31] MEDS: LACTATED RINGER'S 1,000 ML IV SCH ×3 (01:04→16:20)
[2021-03-31] MEDS: MELATONIN 3 MG TAB PO PRN ×2 (02:08→23:36)
[2021-03-31] MEDS: HYDROmorphone INJ 0.5 MG/0.5 ML SYR IV PRN ×4 (05:05→23:35)
[2021-03-31 06:24] LABS: Basophils # (auto) 0.09 K/uL (0-0.2); Basophils % (auto) 0.5 %; Eosinophils # (auto) 0.13 K/uL (0-0.5); Eosinophils % (auto) 0.7 %; Hematocrit (blood only) 28.6 % (37-47); Hemoglobin 8.8 g/dL (12.0-16.0); Immature Granulocytes # (auto) 0.05 K/uL (0.00-0.02); Immature Granulocytes % (auto) 0.3 %; Lymphocytes # (auto) 1.13 K/uL (1.2-3.4); Lymphocytes % (auto) 5.8 %; Mean Corpuscular Hgb Conc 30.8 g/dL (32-36); Mean Corpuscular Volume 94.4 fL (80-100); Mean Platelet Volume 9.9 fL (7.4-10.4); Monocytes # (auto) 2.74 K/uL (0.11-0.59); Neutrophils # (auto) 15.39 K/uL (1.4-6.5); Neutrophils % (auto) 78.7 %; Platelet Count 202 K/uL (130-400); RDW Standard Deviation 55.6 fL (36.4-46.3); Red Blood Count 3.03 M/uL (4.2-5.4); White Blood Count 19.53 K/uL (4.8-10.8)
--- NOTE | 2021-03-31 07:08 | Electrocardiogram Report ---
Test Reason : Blood Pressure : / mmHG Vent. Rate : 107 BPM Atrial Rate : 107 BPM P-R Int : 162 ms QRS Dur : 074 ms QT Int : 354 ms P-R-T Axes : 041 031 059 degrees QTc Int : 472 ms Sinus tachycardia Otherwise normal ECG No previous ECGs available Confirmed by Brian Henderson ([id number]) on 03/31/2021 7:07:47 AM Referred By: [facility] Confirmed By:Brian Henderson
[2021-03-31 07:10] LABS: Creatinine Clr Calc Pharmacy 23.7 ml/min; Est GFR (African American) 28.6 ml/min; Est GFR (Non-African American) 24.7 ml/min
[2021-03-31] MEDS: PIPERACILLIN/TAZOBACTAM 3.375 GM in DEXTROSE 5% 100 ML IV SCH ×3 (07:26→23:28)
[2021-03-31] MEDS: glipiZIDE ER 2.5 MG TABCR PO SCH (07:29)
[2021-03-31] MEDS ORDERED: ENOXAPARIN INJ 40 MG/0.4 ML SYR SQ SCH (08:00)
[2021-03-31] MEDS: INSULIN ASPART 100 UNITS/ML 3 ML PEN SC SCH ×4 (08:59→20:27)
[2021-03-31] MEDS: DOCUSATE SODIUM 100 MG CAP PO SCH ×2 (09:00→20:31)
[2021-03-31] MEDS: CHOLECALCIFEROL 1,000 UNITS 25 MCG TAB PO SCH (09:00)
[2021-03-31] MEDS: DULoxetine HCL 60 MG CAP PO SCH (09:00)
[2021-03-31] MEDS: METOPROLOL TARTRATE 50 MG TAB PO SCH ×2 (09:00→20:31)
[2021-03-31] MEDS: PANTOprazole 40 MG TAB PO SCH ×2 (09:00→17:19)
[2021-03-31] MEDS: FERROUS SULFATE 325 MG TAB PO SCH ×3 (09:01→17:19)
[2021-03-31] MEDS: LORATADINE 10 MG TAB PO SCH (09:01)
[2021-03-31] MEDS: CYANOCOBALAMIN 500 MCG TABLET (VITAMIN B-12) PO SCH (09:01)
[2021-03-31] MEDS: FUROSEMIDE 20 MG TAB PO SCH (09:01)
[2021-03-31] MEDS: TOCOPHERYL, DL-ALPHA 400 UNITS 180 MG CAP PO SCH (09:01)
[2021-03-31] MEDS: ATORVASTATIN 40 MG TAB PO SCH (09:02)
[2021-03-31] MEDS: NYSTATIN POWDER 15GM BTL SCH ×2 (09:02→20:30)
[2021-03-31] MEDS: SUCRALFATE 1 GM TAB PO SCH ×4 (09:30→20:30)
--- NOTE | 2021-03-31 10:40 | Hospitalist Progress Note ---
Date of Service March 31, 2021 Assessment & Plan (1) Abdominal pain: Plan: She is status post surgery for incacerated umbilical hernia She is stable post surgery Wound dressing is clean and intact Rest of management per general surgery (2) Hypertensive urgency: Plan: Resolved BP 132/60 this morning Continue home meds (3) SOB (shortness of breath): (4) Type 2 diabetes mellitus: Plan: Blood glucose under good control Continue to monitor Insulin sliding scale Admission and Anticipated Discharge Date Admission Date: March 29, 2021 Discharge back to her NH when cleared by surgery Subjective patient now more awake and alert Review of Systems Review of Systems: All systems reviewed are negative, apart from the ones contained in the history. Physical Exam Physical Exam: The patient is groggy, well developed and well nourished, normocephalic and atraumatic, lying in bed and in no acute distress. HEENT--PERRL, EOMI, mucous membranes and oropharynx mildly dry Neck--supple. No JVD. No bruits. Thyroid normal, trachea midline, no adenopathy. Heart--normal S1 and S2. No murmurs, rubs or gallops. Lungs--clear bilaterally, no respiratory distress, no accessory muscle use. Abdomen--normal bowel sounds and soft. Mild epigastric and left sided abdominal pain Extremities--no cyanosis or clubbing. No edema. Dermatologic--normal skin turgor, normal color, no abnormal lymph nodes, no rash. Neurologic--cranial nerves II through XII grossly intact. Rheumatologic--normal range of motion. Psychiatric--unable to assess. Results & Data Results & Data ([facility]) Vital Signs (Past 12 Hours) Vital Signs Temp Pulse Resp BP Pulse Ox Pulse Ox 03/31/21 04:41 98.8 F 86 20 132/60 94 03/31/21 02:51 97.9 F 91 H 20 126/64 94 03/31/21 00:45 90 03/30/21 23:09 98.1 F 113 H 18 148/55 H 90 Laboratory Results Laboratory Results - last 24 hr 03/30/21 03/30/21 03/30/21 11:48 12:01 16:32 WBC RBC Hgb Hct MCV MCH MCHC RDW Std Deviation RDW Coeff of Rj Plt Count MPV Immature Gran % (Auto) Neut % (Auto) Lymph % (Auto) [place] % (Auto) Eos % (Auto) Baso % (Auto) Neut # (Auto) Lymph # (Auto) [place] # (Auto) Eos # (Auto) Baso # (Auto) Immature Gran # (Auto) Creatinine Est Cr Clr Drug Dosing Est GFR ( Amer) Est GFR (Non-Af Amer) POC Glucose 118 H 114 H Troponin I < 0.015 03/30/21 03/31/21 03/31/21 20:23 06:07 06:07 WBC 19.53 H RBC 3.03 L Hgb 8.8 L Hct 28.6 L MCV 94.4 MCH 29.0 MCHC 30.8 L RDW Std Deviation 55.6 H RDW Coeff of Rj 16.0 H Plt Count 202 MPV 9.9 Immature Gran % (Auto) 0.3 Neut % (Auto) 78.7 Lymph % (Auto) 5.8 [place] % (Auto) 14.0 Eos % (Auto) 0.7 Baso % (Auto) 0.5 Neut # (Auto) 15.39 H Lymph # (Auto) 1.13 L [place] # (Auto) 2.74 H Eos # (Auto) 0.13 Baso # (Auto) 0.09 Immature Gran # (Auto) 0.05 H Creatinine 1.80 H D Est Cr Clr Drug Dosing 23.7 Est GFR ( Amer) 28.6 Est GFR (Non-Af Amer) 24.7 POC Glucose 95 Troponin I 03/31/21 07:49 WBC RBC Hgb Hct MCV MCH MCHC RDW Std Deviation RDW Coeff of Rj Plt Count MPV Immature Gran % (Auto) Neut % (Auto) Lymph % (Auto) [place] % (Auto) Eos % (Auto) Baso % (Auto) Neut # (Auto) Lymph # (Auto) [place] # (Auto) Eos # (Auto) Baso # (Auto) Immature Gran # (Auto) Creatinine Est Cr Clr Drug Dosing Est GFR ( Amer) Est GFR (Non-Af Amer) POC Glucose 94 Troponin I PG Care Time/CCT Total # of Minutes Spent Total Time Spent with Patient: Total time spent is greater than 50% in coordination of care (as documented) at patient's floor/unit and/or counseling patient: Coding Level of Care Code 84313 Subseq Hosp Care Lvl 2 Diagnoses Abdominal pain R10.9 Hypertensive urgency I16.0 SOB (shortness of breath) R06.02 Type 2 diabetes mellitus E11.9
[2021-03-31] MEDS ORDERED: Nursing to Pharmacy Communication SCH (11:00)
[2021-03-31] MEDS: HYDROCODONE/ACETAMOPHEN 5/325MG TAB PO PRN (11:38)
[2021-03-31] MEDS ORDERED: COUGH DROP (SUGAR FREE) LOZ 24 LOZ/1 BOX BUCCAL PRN (15:06)
--- NOTE | 2021-03-31 15:49 | Surgery Progress Note ---
Date of Service March 31, 2021 Assessment & Plan (1) Incarcerated umbilical hernia: Plan: pt is a 89 year-old female who presents with 2 days history abdominal pain with nausea and vomiting, IMP: incarcerated umbilical hernia and periumbilical hernia, Plan, I recommend to do open repair incarcerated umbilical hernia and periumbilical hernia, possible with mesh,or bowel resection, I called pt's daughter, D/W benefits, risks and alternatives of the surgery, the risks- infection, bleeding, injury bowel, hernia recurrence, complication relate to mesh, OR, DVT, stroke, renal failure, , pt's daughter understood, she gave consent on the phone, I answered all questions, pre-op antibiotic, 03/30/2021 2:15 PM, F/U S/P open repair incarcerated umbilical hernia and periumbilical hernia with mesh, pt is stable, start clear diet now, continue treatment, repeat labs in morning, will F/U, 03/31/2021 3:47PM I update OR finding and procedure pt had to pt's daughter, pt's daughter at bedside now, doing better, DM diet, continue IV antibiotic, repeat labs in morning, Admission and Anticipated Discharge Date Admission Date: March 29, 2021 Supervising Physician Co-Signing Physician Notes Attending addendum: I have physically seen this patient, have supervised the medical residents activities, and agree with the H&P unless as otherwise noted. Assessment and Plan: Abdominal pain- CT abdomen pelvis demonstrates umbilical/periumbilical hernia with possible incarcerated hernia Received vancomycin and cefepime IV from the ED Continue cefepime IV Consult general surgery Hypertensive urgency- Improved in ED with minimal intervention, likely secondary abdominal pain Admit to monitored bed Diabetes mellitus- Hold oral medications from home Place on Accu-Cheks before meals and at bedtime NovoLog coverage per scale Check hemoglobin A1c Remaining orders and notations as noted Subjective patient now more awake and alert 03/31/2021 3:44PM F/U S/P open repair incarcerated umbilical hernia, POD 1 pt is doing better, no significant abdominal pain, tolerated diet, no nausea, no vomiting, Review of Systems Constitutional: as per Subjective / HPI Eyes: as per Subjective / HPI Respiratory: as per Subjective / HPI O2 at 2L/Min Cardiovascular: Additional Comments: HTN Gastrointestinal: SBO Genitourinary: as per Subjective / HPI Neurologic: as per Subjective / HPI Psychiatric: as per Subjective / HPI Endocrine: DM Hematologic / Lymphatic: as per Subjective / HPI Physical Exam Eyes: PERRL, conjunctivae normal, anicteric sclerae Neck: trachea midline, no thyromegaly Respiratory: normal respiratory effort, lungs clear to auscultation Cardiovascular: RRR, no murmur, no edema Gastrointestinal (Abdomen): soft, mild tenderness at incision site, no rebound pain, no distend, BS + Neurologic: patellar DTR's 2+ bilat, sensation intact Results & Data ([facility]) Vital Signs (Past 12 Hours) Vital Signs Temp Pulse Pulse Resp BP Pulse Ox 03/31/21 15:01 36.8 C 83 19 116/64 97 03/31/21 11:35 36.4 C L 81 19 167/80 H 92 03/31/21 10:41 89 03/31/21 04:41 37.1 C 86 20 132/60 94 Laboratory Results Abnormal lab results 03/30/21 03/31/21 03/31/21 Range/Units 16:32 06:07 06:07 WBC 19.53 H (4.8-10.8) K/uL RBC 3.03 L (4.2-5.4) M/uL Hgb 8.8 L (12.0-16.0) g/dL Hct 28.6 L (37-47) % MCHC 30.8 L (32-36) g/dL RDW Std Deviation 55.6 H (36.4-46.3) fL RDW Coeff of Rj 16.0 H (11.5-14.5) % Neut # (Auto) 15.39 H (1.4-6.5) K/uL Lymph # (Auto) 1.13 L (1.2-3.4) K/uL [place] # (Auto) 2.74 H (0.11-0.59) K/uL Immature Gran # (Auto) 0.05 H (0.00-0.02) K/uL Creatinine 1.80 H D (0.6-1.2) mg/dl POC Glucose 114 H (70-99) mg/dl 03/31/21 Range/Units 11:39 WBC (4.8-10.8) K/uL RBC (4.2-5.4) M/uL Hgb (12.0-16.0) g/dL Hct (37-47) % MCHC (32-36) g/dL RDW Std Deviation (36.4-46.3) fL RDW Coeff of Rj (11.5-14.5) % Neut # (Auto) (1.4-6.5) K/uL Lymph # (Auto) (1.2-3.4) K/uL [place] # (Auto) (0.11-0.59) K/uL Immature Gran # (Auto) (0.00-0.02) K/uL Creatinine (0.6-1.2) mg/dl POC Glucose 106 H (70-99) mg/dl
[2021-04-01] MEDS: HYDROCODONE/ACETAMOPHEN 5/325MG TAB PO PRN ×2 (05:26→21:23)
[2021-04-01] MEDS: LORazepam 0.5 MG TAB PO PRN (05:26)
--- NOTE | 2021-04-01 05:36 | Electrocardiogram Report ---
Test Reason : Blood Pressure : / mmHG Vent. Rate : 088 BPM Atrial Rate : 088 BPM P-R Int : 186 ms QRS Dur : 082 ms QT Int : 356 ms P-R-T Axes : 031 023 033 degrees QTc Int : 430 ms Normal sinus rhythm Normal ECG When compared with ECG of 30-MAR-2021 03:04, No significant change Confirmed by Brian Henderson [id number]) on 04/01/2021 5:36:30 AM Referred By: [facility] Confirmed By:Brian Henderson
[2021-04-01] MEDS: ACETAMINOPHEN 325 MG TAB PO PRN (07:55)
[2021-04-01 07:58] LABS: Hematocrit (blood only) 25.8 % (37-47); Hemoglobin 8.1 g/dL (12.0-16.0); Mean Corpuscular Hemoglobin 29.3 pg (25-34); Mean Corpuscular Hgb Conc 31.4 g/dL (32-36); Mean Corpuscular Volume 93.5 fL (80-100); Mean Platelet Volume 10.5 fL (7.4-10.4); Platelet Count 223 K/uL (130-400); RDW Standard Deviation 54.9 fL (36.4-46.3); Red Blood Count 2.76 M/uL (4.2-5.4); White Blood Count 17.48 K/uL (4.8-10.8)
[2021-04-01 08:24] LABS: BUN Creatinine Ratio 17.5 (10-20); Calcium 7.9 mg/dl (8.5-10.1); Creatinine Clr Calc Pharmacy 22.3 ml/min; Est GFR (African American) 25.7 ml/min; Est GFR (Non-African American) 22.1 ml/min; Potassium 3.5 mmol/L (3.5-5.1)
[2021-04-01] MEDS: glipiZIDE ER 2.5 MG TABCR PO SCH (09:05)
[2021-04-01] MEDS: INSULIN ASPART 100 UNITS/ML 3 ML PEN SC SCH ×4 (09:05→21:28)
[2021-04-01] MEDS: SUCRALFATE 1 GM TAB PO SCH ×4 (09:11→21:25)
[2021-04-01] MEDS: FERROUS SULFATE 325 MG TAB PO SCH ×3 (09:12→17:55)
[2021-04-01] MEDS: ATORVASTATIN 40 MG TAB PO SCH (09:12)
[2021-04-01] MEDS: PANTOprazole 40 MG TAB PO SCH ×2 (09:12→17:55)
[2021-04-01] MEDS: CHOLECALCIFEROL 1,000 UNITS 25 MCG TAB PO SCH (09:12)
[2021-04-01] MEDS: CYANOCOBALAMIN 500 MCG TABLET (VITAMIN B-12) PO SCH (09:12)
[2021-04-01] MEDS: FUROSEMIDE 20 MG TAB PO SCH (09:13)
[2021-04-01] MEDS: DOCUSATE SODIUM 100 MG CAP PO SCH ×2 (09:13→21:27)
[2021-04-01] MEDS: ENOXAPARIN INJ 30 MG/0.3 ML SYR SQ SCH (09:13)
[2021-04-01] MEDS: DULoxetine HCL 60 MG CAP PO SCH (09:13)
[2021-04-01] MEDS: TOCOPHERYL, DL-ALPHA 400 UNITS 180 MG CAP PO SCH (09:13)
[2021-04-01] MEDS: LORATADINE 10 MG TAB PO SCH (09:13)
[2021-04-01] MEDS: METOPROLOL TARTRATE 50 MG TAB PO SCH ×2 (09:14→21:26)
[2021-04-01] MEDS: NYSTATIN POWDER 15GM BTL SCH ×2 (09:14→21:33)
--- NOTE | 2021-04-01 09:43 | Surgery Progress Note ---
Date of Service April 01, 2021 Assessment & Plan (1) Incarcerated umbilical hernia: Plan: pt is a 89 year-old female who presents with 2 days history abdominal pain with nausea and vomiting, IMP: incarcerated umbilical hernia and periumbilical hernia, Plan, I recommend to do open repair incarcerated umbilical hernia and periumbilical hernia, possible with mesh,or bowel resection, I called pt's daughter, D/W benefits, risks and alternatives of the surgery, the risks- infection, bleeding, injury bowel, hernia recurrence, complication relate to mesh, PR, DVT, stroke, renal failure, , pt's daughter understood, she gave consent on the phone, I answered all questions, pre-op antibiotic, 03/30/2021 2:15 PM, F/U S/P open repair incarcerated umbilical hernia and periumbilical hernia with mesh, pt is stable, start clear diet now, continue treatment, repeat labs in morning, will F/U, 03/31/2021 3:47PM I update OR finding and procedure pt had to pt's daughter, pt's daughter at bedside now, doing better, DM diet, continue IV antibiotic, repeat labs in morning, 04/01/2021 9: 53AM may hold lovenex, repeat labs in morning, hep -lock IV check UA, CXR to R/O infection, will F/U, continue IV antibiotic treatment, Admission and Anticipated Discharge Date Admission Date: March 29, 2021 Supervising Physician Co-Signing Physician Notes Attending addendum: I have physically seen this patient, have supervised the medical residents activities, and agree with the H&P unless as otherwise noted. Assessment and Plan: Abdominal pain- CT abdomen pelvis demonstrates umbilical/periumbilical hernia with possible incarcerated hernia Received vancomycin and cefepime IV from the ED Continue cefepime IV Consult general surgery Hypertensive urgency- Improved in ED with minimal intervention, likely secondary abdominal pain Admit to monitored bed Diabetes mellitus- Hold oral medications from home Place on Accu-Cheks before meals and at bedtime NovoLog coverage per scale Check hemoglobin A1c Remaining orders and notations as noted Subjective patient now more awake and alert 03/31/2021 3:44PM F/U S/P open repair incarcerated umbilical hernia, POD 1 pt is doing better, no significant abdominal pain, tolerated diet, no nausea, no vomiting, 04/01/2021 9: 49 AM F/U S/P open repair incarcerated umbilical hernia, POD 2 pt is stable, no fever, tolerated diet, no nausea, no vomiting, but HGB 8.1, WBC 17,000 Physical Exam Eyes: PERRL, conjunctivae normal, anicteric sclerae Neck: trachea midline, no thyromegaly Respiratory: normal respiratory effort, lungs clear to auscultation Cardiovascular: RRR, no murmur, no edema Gastrointestinal (Abdomen): soft, mild tenderness at incision site, no rebound pain, no distend, the incision intact, no redness, BS +, Neurologic: patellar DTR's 2+ bilat, sensation intact Results & Data ([facility]) Vital Signs (Past 12 Hours) Vital Signs Temp Pulse Pulse Resp BP BP Pulse Ox 04/01/21 07:28 88 04/01/21 07:20 37.1 C 76 20 150/63 H 93 04/01/21 04:00 37.0 C 85 18 154/68 H 93 04/01/21 00:00 03/31/21 22:46 37.0 C 82 18 173/70 H 93 03/31/21 22:24 81 Pulse Ox 04/01/21 07:28 04/01/21 07:20 04/01/21 04:00 04/01/21 00:00 93 03/31/21 22:46 03/31/21 22:24 Laboratory Results Abnormal lab results 03/31/21 04/01/21 04/01/21 Range/Units 11:39 06:52 06:52 WBC 17.48 H (4.8-10.8) K/uL RBC 2.76 L (4.2-5.4) M/uL Hgb 8.1 L (12.0-16.0) g/dL Hct 25.8 L (37-47) % MCHC 31.4 L (32-36) g/dL RDW Std Deviation 54.9 H (36.4-46.3) fL RDW Coeff of Rj 16.0 H (11.5-14.5) % MPV 10.5 H (7.4-10.4) fL Sodium 129 L (136-145) mmol/L Chloride 93 L (98-107) mmol/L BUN 34 H (7-18) mg/dl Creatinine 1.97 H (0.6-1.2) mg/dl POC Glucose 106 H (70-99) mg/dl Calcium 7.9 L (8.5-10.1) mg/dl
[2021-04-01] MEDS: PIPERACILLIN/TAZOBACTAM 3.375 GM in DEXTROSE 5% 100 ML IV SCH ×3 (09:45→23:56)
--- NOTE | 2021-04-01 10:11 | Pulmonary Consultation ---
Date of Consultation April 01, 2021 Assessment & Plan (1) Pleural effusion: (2) CHF (congestive heart failure): (3) CKD (chronic kidney disease), stage III: (4) SOB (shortness of breath): Attending: Dr. Sibley Impression: 89-year-old female with significant past medical history as listed above in HPI. Patient does appear to have history of CHF as she presented clinically and had echocardiogram performed 03/22/2021. Patient's home medication list includes furosemide 20 mg p.o. daily. Patient had pleural effusion noted on chest x-ray on admission as well as CT scan on 03/29/2021. At this point patient has no acute distress. She does have some hypoxia. [id number] smoking history. Quit in 1979. Recommendations: 1. Left pleural effusion: * This appears to be related to congestive heart failure. Echocardiogram shows preserved left ventricular ejection fraction but poor ultrasound images. * Home medications include furosemide 20 mg p.o. daily. Would recommend increasing furosemide and watching creatinine as patient has chronic CKD and creatinine is slightly elevated at this time. * Poor candidate for attempt at thoracentesis at this time. * Would recommend patient be out of bed to chair as tolerated. * Incentive spirometry as there appears to be some level of atelectasis on CT scan * We will continue to monitor clinically at this time 2. Hypoxia/shortness of breath: * Most likely multifactorial to CHF, obesity hypoventilation syndrome, fluid overload * Would increase furosemide as listed above * Incentive spirometry * Out of bed to chair * Unclear if patient has had polysomnography exam in the past. * Serum CO2 is within normal limits at 25 * Continue supportive care 3. CHF * This most likely is contributing to patient's shortness of breath * Bilateral lower extremity edema noted * Increased furosemide and watch creatinine * Manage electrolytes 4. Probable obesity hypoventilation syndrome * Given patient's advanced age, will defer to patient and family regarding efficacy of outpatient polysomnography exam * No elevation of CO2 at this time * Continue supportive care * Would address CODE STATUS with family and with patient as patient is at risk for sudden cardiac due to hypoxia and sudden awakening if she does have OHS Thank you very much for including us in the care of this patient. Please refer to Dr. Sibley's addendum for further recommendations and corrections. Supervising Physician Co-Signing Physician Notes I saw and evaluated the patient with Venkata Kroner, and agree with findings and plan as documented in the note. 89-year-old female with history of HFpEF on chronic Lasix at home [id number] smoking history quit in 1979 presented to hospital with complaints of abdominal pain. He was found to have incarcerated hernia and had surgery done On the CT abdomen pelvis patient was found to have pleural effusion, pulmonary were consulted for the same At the time of examination patient was having her dinner She is oriented only to self Answers to questions. Denied any chest pain Says the shortness of breath is improving No headache, no nausea, no vomiting Constitutional: No acute distress HEENT: EOMI, PERRLA Respiratory system: Decreased air entry bilaterally, no wheeze, no rhonchi, positive crackles bilaterally CVS: S1-S2 positive, no murmurs or gallops Abdomen: Soft, nontender, nondistended, positive bowel sounds x4, obese Extremities: +2 pulses bilaterally radialis/ dorsalis pedis, no cyanosis, +2 pitting edema bilateral lower extremity Neuro: Awake alert oriented only to self Psych: Normal mood and affect G/U: Positive Castro Plan: Given the bilateral pleural effusion and BNP of 5000 at the time of presentation on 03/29/2021 This is likely from HFpEF Given the multiple comorbidities that the patient has and she is not in any distress would recommend continuing with diuresis to keep the patient negative balance Probability of patient having LIBERTAD/OHS is also high BiPAP/CPAP nightly and as needed will be beneficial, but I doubt given the mental status the patient will be able to use it Incentive spirometer will be beneficial for the patient I do think palliative care should be consulted to address the goals of care. Please note the above document was generated using voice recognition software. It may contain grammatical, syntax or spelling errors.Any formal questions or concerns about the content, text or information contained within the body of this dictation should be directly addressed to the provider for clarification. History of Present Illness Reason for Consultation: Evaluate left pleural effusion Requesting Physician: Susan Gutiérrez PA-C Attending Physician: Daina Adair MD History of Present Illness Attending: Dr. 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 Patient seen and examined at bedside in room 2832. She was recently a patient at [facility] and lives in [facility] in [place]. After hospitalization at [place] she was transferred to [facility] for acute rehab. She developed abdominal pain and was transferred to [facility] for evaluation and found to have an incarcerated hernia and periumbilical hernia. She was taken to the operating theater on 03/30/2021 and had open repair of the hernia with placement of mesh. On admission, she was found to have pleural effusion on the left. This has persisted. Patient currently is on Oxymask at 2 L/min and saturating in the low to mid 90s. Blood pressure is elevated at 150/63. Creatinine is slightly elevated at 1.93. Patient states that she has some shortness of breath but she is generally lethargic. She is laying flat in bed. Physical examination finds that she has lower extremity edema. There is no appreciation of wheezes on exam the patient does have bibasilar coarse crackles. There are decreased breath sounds in the left side. Patient has no appreciation of ectopy or atrial fibrillation at the time of my examination. Review of telemetry shows patient mostly in sinus rhythm with some PACs. Rate has been in the 60s. Echocardiogram performed 03/22/2021 reveals poor imaging secondary to obesity. Patient is supine and unable to roll on left side. Bubble study was not performed. Contrast was not used. RVSP appeared to be 32.2 mmHg. Aortic valve area was 1.71 cm. Left ventricular ejection fraction appeared to be preserved. Mild aortic valve sclerosis without stenosis. Trivial aortic valve regurgitation was seen. No evidence of mitral valve stenosis. Trace mitral valve regurgitation was observed. Physiologic tricuspid regurgitation. Insufficient TR to assess for accurate RVSP SIRSCOV2 was negative Patient unable to tell me whether she is vaccinated for Covid or not. Allergies Allergy/AdvReac Type Severity Reaction Status Date / Time morphine AdvReac Intermediate Altered Unverified 03/29/21 20:09 Mental Status Home Medications Medication Instructions Recorded Confirmed Type amoxicillin 500 mg-potassium 1 tab PO Q12H 03/29/21 03/29/21 History clavulanate 125 mg tablet (Augmentin) atorvastatin 40 mg tablet 40 mg PO DAILY 03/29/21 03/29/21 History cholecalciferol (vitamin D3) 125 125 mcg PO DAILY 03/29/21 03/29/21 History mcg (5,000 unit) tablet (Vitamin D3) cyanocobalamin (vitamin B-12) 1,000 mcg PO DAILY 03/29/21 03/29/21 History 1,000 mcg tablet docusate sodium 100 mg capsule 100 mg PO BID 03/29/21 03/29/21 History duloxetine 60 mg capsule,delayed 60 mg PO DAILY 03/29/21 03/29/21 History release ferrous sulfate 325 mg (65 mg 325 mg PO TIDM 03/29/21 03/29/21 History iron) tablet furosemide 20 mg tablet 20 mg PO DAILY 03/29/21 03/29/21 History glipizide 2.5 mg tablet, extended 2.5 mg PO QDB 03/29/21 03/29/21 History release 24 hr hydrocodone 5 mg-acetaminophen 325 1 tab PO Q4H PRN 03/29/21 03/29/21 History mg tablet loratadine 10 mg tablet 10 mg PO DAILY 03/29/21 03/29/21 History lorazepam 0.5 mg tablet 0.5 mg PO TID PRN 03/29/21 03/29/21 History metoprolol tartrate 50 mg tablet 150 mg PO Q12H 03/29/21 03/29/21 History nystatin 100,000 unit/gram topical 1 applic TOPICAL BID 03/29/21 03/29/21 His tory powder pantoprazole 40 mg tablet,delayed 40 mg PO BIDM 03/29/21 03/29/21 History release sucralfate 1 gram tablet 1 g PO ACHS 03/29/21 03/29/21 History vitamin A 10,000 unit capsule 8,000 unit PO DAILY 03/29/21 03/29/21 History vitamin E 400 unit capsule 400 unit PO DAILY 03/29/21 03/29/21 History Patient History Medical History (Updated 04/01/21 @ 11:02 by Venkata Montanez PA-C) Adnexal mass Anxiety Basal cell carcinoma (BCC) Benzodiazepine dependence Carotid atherosclerosis CHF (congestive heart failure) Chronic ischemic left MCA stroke CKD (chronic kidney disease), stage III Depression Dyslipidemia Esophageal reflux Generalized osteoarthritis History of TIA (transient ischemic attack) History of tobacco abuse Hypertension Obesity (BMI 30-39.9) Parkinsonism Surgical History (Updated 04/01/21 @ 10:54 by Venkata Montanez PA-C) H/O colonoscopy H/O oophorectomy H/O: hysterectomy History of tonsillectomy and adenoidectomy S/P cholecystectomy Social History (Updated 04/01/21 @ 10:55 by Venkata Montanez PA-C) Smoking Status: Former smoker Tobacco Type: Cigarettes packs per day: 1; Years Smoked: 15; Smoking End Date: 02/08/1980; Hx Alcohol Use: Yes (History of 3.0 standard drinks of alcohol per week) Hx Substance Use: No Preferred Language: Bruneian Communication Ability: Effective Frit Burner Required: No Beliefs That Will Affect Care: None marital status: / Current Living Situation: Rehab Feels Safe at Home: Yes Assistive Devices: Oxygen - Continuous and Wheelchair Review of Systems Review of Systems: All systems reviewed & are unremarkable except as noted in Subjective Physical Exam Physical Exam: GENERAL : No acute distress. Somewhat confused. Easily redirected. EYES: No icterus, gaze conjugate. NOSE: No evidence of epistaxis. Oxymask in place. MOUTH: No lesions or candidiasis. Mucosa appears to be moist. No deviation of tongue. NECK: Supple LUNGS: No appreciation of bronchospasm. There is evidence of bibasilar coarse crackles. Patient does have decreased breath sound on the left side. HEART: Regular, rate controlled with occasional ectopy. Telemetry reviewed. NSR with occasional PAC ABDOMEN: Soft, NT, ND, BS Present. Dressing from open herniorrhaphy dry and intact EXTREMITIES: Bilateral LE edema, pedal pulses intact NEURO: Awake and alert. Some disorientation. Easily reoriented. Follows simple commands. She is not able to give me full history. Results & Data Results & Data ([facility]) Vital Signs (Past 12 Hours) Vital Signs Temp Pulse Pulse Resp BP BP Pulse Ox 04/01/21 07:28 88 04/01/21 07:20 37.1 C 76 20 150/63 H 93 04/01/21 04:00 37.0 C 85 18 154/68 H 93 04/01/21 00:00 03/31/21 22:46 37.0 C 82 18 173/70 H 93 03/31/21 22:24 81 Pulse Ox 04/01/21 07:28 04/01/21 07:20 04/01/21 04:00 04/01/21 00:00 93 03/31/21 22:46 03/31/21 22:24 Laboratory Results 04/01/21 06:52 04/01/21 06:[address] chest diagnostic wo con CLINICAL HISTORY: increased oxygen demand . Shortness of breath and chest pain COMPARISON STUDY: Portable chest from 03/29/2021 CT DOSE: 2139.79 mGy.cm TECHNIQUE: Standard CT of the Chest was performed without IV contrast. A dose lowering technique was utilized adhering to the principles of ALARA. FINDINGS: Breathing motion artifact is present. Chest soft tissues: There is evidence for a nodular soft tissue density within the right breast which is not well seen on this study. If indicated clinically, follow-up nonemergent mammography and/or right breast ultrasound is recommended. It measures approximately 3.1 cm. Airway: The airway is clear. No endobronchial lesion is identified. Lungs and pleural: There is a moderately large left pleural effusion with compressive atelectasis/collapse involving left lower lobe. No confluent alveolar opacities or air bronchograms are seen. There is also dependent edema and atelectasis at the right lung base. The remainder the lungs are clear. There is small right pleural effusion is also present. Mediastinum: There is no evidence for pathologic adenopathy on these limited noncontrast images. The heart size is within normal limits. The thoracic aorta is within normal limits. There is no evidence for pericardial effusion. Upper abdomen: The adrenal glands are normal bilaterally. There is a small sliding-type hiatal hernia. Osseous structures: There is no acute osseous pathology. IMPRESSION: 1. CT confirms a moderately large left pleural effusion with compressive atelectasis/collapse involving left lower lobe. No confluent alveolar opacities or air bronchograms are seen. 2. Dependent edema and atelectasis also present right lung base with very small right pleural effusion. 3. Nodular density within the right breast.rrrrrrrrrrrrrrrrrrrrrrrrrr ACT 112: Negative or not required by law. Electronically signed by: Raul Gonzalez M.D. 03/30/2021 8:20 AM ECHOCARDIOGRAM 03/22/2021 SYNGO ECHO RESULTS - 03/22/2021 4:08 PM EDT Adult Echocardiogram Report Patient Name: BLADIMIR THURMAN Date of Exam: 03/22/2021 Medical Record: [id number] Date of : 1930 89 years Gender: F Height: 150.00 cm Status Weight: 97.00 kg Room # 229 BSA: 2.11 m [place]: [facility] Blood Pressure: 157/[address] Mixer Operator: iCndi Brunson [facility], RVT Ordering Physician: [id number] NICK VARGAS Referring Physician: [id number] CANDACE CAMARENA Indications: CHF Procedure: 2D Echo/Doppler/Color Doppler Study Type: Adult Heart Study Quality: This study is of poor ultrasound transmission with poor endocardial definition. Imaging Problems: Poor acoustic windows, positioning difficulties, prominent lung artifact and see notes. Impression: 1. This study is technically difficult. 2. Ultrasound transmission is very poor, positioning was difficult and patient could not sing consent for definity contrast. LVEF appears preserved. Recommend repeat study when patient be positioned and patient or family can sign permis for Defity contrast. 3. InsufficientTR to assess for RVSP. 4. No prior study was available for jessica lester. PHYSICIAN INTERPRETATION: Prior Study: No prior study was available for comparison. Left Ventricle: Ultrasound transmission is very poor, positioning was difficult and patient could not sing consent for definity contrast. LVEF appears preserved. Recommend repeat study when patient be positioned and patient or family can sign permis for Defity contrast. Left Atrium: The left atrium is normal in size by LA volume index calculation. Right Atrium: Right atrium is grossly normal. Right Ventricle: Not well visulized. Aortic Valve: There is mild aortic valve sclerosis without stenosis. Trivial aortic valve regurgitation is seen. Mitral Valve: The mitral valve is not well visualized. No evidence of mitral valve stenosis. Trace mitral valve regurgitation is seen. Tricuspid Valve: The tricuspid valve is not well visualized. Physiologic tricuspid regurgitation. Insufficient TR to assess for RVSP. Pulmonic Valve: The pulmonic valve is not well visualized. Pericardium: No pericardial effusion is seen. Aorta: The aortic root is normal in size & dimension. Venous: A normal pulmonary vein flow pattern. The inferior vena cava is not well visualized. 2D AND M-MODE MEASUREMENTS (normal range s within parentheses): Left Ventricle: Normal Aorta/Left Atrium: Ao Root d Normal IVSd: 0.73 cm (0.7-1.2) Ao Valve Cusp Dimension: 1.20 cm (1.5-2.6) LVPWd: 0.74 cm (0.6-1.1) Aortic Root Diameter: 2.60 cm (2.0-3.7) LVIDd: 4.43 cm (3.5-5.5) Left Atrium Diameter: 3.30 cm (1.9-4.0) LVIDs: 3.67 cm (2.5-4.0) LA A/P s 2D 3.33 LA Volume Index: 22.41 (<28) Right Ventricle: RVd: 3.40 cm (<=3.2) LV DIASTOLIC FUNCTION: MV Peak E: 1.02 m/s e', MV Macie Lat: 700.0 cm/s MV Peak A: 1.14 m/s e', MV Macie Med: 700.0 cm/s E/A Ratio: 0.89 Decel Time: 183 msec E/E Tissue Doppler: 14.6 SPECTRAL DOPPLER ANALYSIS (where applicable): Mitral Valve: MV Max Cayden: 1.17 m/s MV Area, PHT: 3.5cm2 MV Mean Grad: 2.4 mmHg MV Peak Grad: 5.52mmHg Aortic Valve: AoV Max Velocity: 2.00 m/s AoV Peak P.1 mmHg AoV Mean P.7 mmHg LVOT Vmax: 1.15 m/s LVOT VTI: 0.314 m LVOT Diameter: 1.95 cm AoV Area, Vmax: 1.71 cm AoV Area, VTI: 1.86 cm AoV Area, 2D: Doppler Cayden Index 0.57 Aortic Insufficiency: AI Half-time: 298 msec AI Decel Rate: 3.26 m/s Tricuspid Valve and PA/RV Systolic Pressure: TR Max Velocity: 2.70 m/s RA Pressure,est: 3 mmHg RVSP: 32.2 mmHg Max Regurg Press Gradient: 29.2 mmHg TAPSE 2.0 cm TVe 10.0 cm/s TVs 9.0 cm/s Additional Comments: Pt supine in bed and unable to roll on to left side. She seem confused at times. Attempted to discuss Definity with her but she explaned that it was up to her daughter who was not in the room at the time of the test. All measurements are tentative due to poor visualization. [id number] Lauren Pollock Electronically signed on 03/22/2021 at 4:08:21 PM Final TRANSTHORACIC ECHO (TTE) COMPLETE (03/22/2021) Procedure Note Lauren Pollock MD - 03/22/2021 Adult Echocardiogram Report Patient Name: BLADIMIR THURMAN Date of Exam: 03/22/2021 Medical Record: [id number] Date of : 1930 89 years Gender: F Height: 150.00 cm Status Weight: 97.00 kg Room # 229 BSA: 2.11 m [place]: [facility] Blood Pressure: 157/59 Road Mixer Operator: Cindi Brunson [facility], RVT Ordering Physician: [id number] NICK VARGAS Referring Physician: [id number] CANDACE CAMARENA Indications: CHF Procedure: 2D Echo/Doppler/Color Doppler Study Type: Adult Heart Study Quality: This study is of poor ultrasound transmission withpoor endocardial definition. Imaging Problems: Poor acoustic windows, positioning difficulties,prominent lung artifact and see notes. Impression: 1. This study is technically difficult. 2. Ultrasound transmission is very poor, positioning was difficult andpatient could not sing consent for definity contrast. LVEF appears preserved.Recommend repeat study when patient be positioned and patient or family can signpermis for Defity contrast. 3. InsufficientTR to assess for RVSP. 4. No prior study was available for jessica jordanpancho. PHYSICIAN INTERPRETATION: Prior Study: No prior study was available for comparison. Left Ventricle: Ultrasound transmission is very poor, positioning wasdifficult and patient could not sing consent for definity contrast. LVEF appears preserved. Recommend repeat study when patient be positioned and patientor family can sign permis for Defity contrast. Left Atrium: The left atrium is normal in size by LA volume indexcalculation. Right Atrium: Right atrium is grossly normal. Right Ventricle: Not well visulized. Aortic Valve: There is mild aortic valve sclerosis without stenosis.Trivial aortic valve regurgitation is seen. Mitral Valve: The mitral valve is not well visualized. No evidence ofmitral valve stenosis. Trace mitral valve regurgitation is seen. Tricuspid Valve: The tricuspid valve is not well visualized. Physiologic tricuspid regurgitation. Insufficient TR to assess for RVSP. Pulmonic Valve: The pulmonic valve is not well visualized. Pericardium: No pericardial effusion is seen. Aorta: The aortic root is normal in size & dimension. Venous: A normal pulmonary vein flow pattern. The inferior vena cava isnot well visualized. 2D AND M-MODE MEASUREMENTS (normal range s within parentheses): Left Ventricle: Normal Aorta/Left Atrium: Ao Root dNormal IVSd: 0.73 cm (0.7-1.2) Ao Valve Cusp Dimension: 1.20 cm(1.5-2.6) LVPWd: 0.74 cm (0.6-1.1) Aortic Root Diameter: 2.60 cm(2.0-3.7) LVIDd: 4.43 cm (3.5-5.5) Left Atrium Diameter: 3.30 cm(1.9-4.0) LVIDs: 3.67 cm (2.5-4.0) LA A/P s 2D 3.33 LA Volume Index: 22.41(<28) Right Ventricle: RVd: 3.40 cm (<=3.2) LV DIASTOLIC FUNCTION: MV Peak E: 1.02 m/s e', MV Macie Lat: 700.0 cm/s MV Peak A: 1.14 m/s e', MV Macie Med: 700.0 cm/s E/A Ratio: 0.89 Decel Time: 183 msec E/E Tissue Doppler: 14.6 SPECTRAL DOPPLER ANALYSIS (where applicable): Mitral Valve: MV Max Cayden: 1.17 m/s MV Area, PHT: 3.5cm2 MV Mean Grad: 2.4 mmHg MV Peak Grad: 5.52mmHg Aortic Valve: AoV Max Velocity: 2.00 m/s AoV Peak P.1 mmHg AoV MeanP.7 mmHg LVOT Vmax: 1.15 m/s LVOT VTI: 0.314 m LVOT Diameter: 1.95 cm AoV Area, Vmax: 1.71 cm AoV Area, VTI: 1.86 cm AoV Area, 2D: Doppler Cayden Index 0.57 Aortic Insufficiency: AI Half-time: 298 msec AI Decel Rate: 3.26 m/s Tricuspid Valve and PA/RV Systolic Pressure: TR Max Velocity: 2.70 m/s RA Pressure,est: 3 mmHg RVSP: 32.2 mmHg Max Regurg Press Gradient: 29.2 mmHg TAPSE 2.0 cm TVe 10.0 cm/s TVs 9.0 cm/s Additional Comments: Pt supine in bed and unable to roll on to left side. She seem confused at times. Attempted to discuss Definity with her but she explaned that it was up toher daughter who was not in the room at the time of the test. All measurements are tentative due to poor visualization. [id number] Lauren Pollock Electronically signed on 03/22/2021 at 4:08:21 PM Final Medications Administered Current Inpatient Medications Enoxaparin Sodium (Enoxaparin Inj 30 Mg/0.3 Ml Syr) 30 mg SQ Q24H LUIZ; Protocol Ferrous Sulfate (Ferrous Sulfate 325 Mg Tab) 325 mg PO TIDM LUIZ Stop: 04/29/21 07:59 Last Admin: 04/01/21 09:12 Dose: 325 mg Documented by: Furosemide (Furosemide 20 Mg Tab) 20 mg PO DAILY LUIZ Piperacillin Sod/Tazobactam (Sod 3.375 gm/ Dextrose) 115 mls @ 28.75 mls/hr IV Q8H LIUZ; Protocol Metoprolol Tartrate (Metoprolol Tartrate 50 Mg Tab) 150 mg PO Q12 LUIZ See EMR for other active medications PG Care Time/CCT Total # of Minutes Spent Total Time Spent with Patient: Total time spent is greater than 50% in coordination of care (as documented) at patient's floor/unit and/or counseling patient: 40 minutes Coding Level of Care Code 23032 Initial Inpt Care Lvl 3 Diagnoses Pleural effusion J90 CHF (congestive heart failure) I50.9 CKD (chronic kidney disease), stage III N18.30 SOB (shortness of breath) R06.02 Time Spent (min) 40
[2021-04-01 12:00] LABS: Appearance Urine Clear (Clear); Bacteria Urine Automated Negative (Negative); Bilirubin Urine Negative (Negative); Blood Urine 1+ (Negative); Color Urine Yellow; Epithelial Cell Urine Auto >30 /lpf (0-5); Glucose Urine UA Negative (Negative); Ketones Urine Negative (Negative); Leukocyte Esterase Urine Negative (Negative); Nitrite Urine Negative (Negative); Protein Urine 3+ (Negative); RBC Urine Automated 0-4 /hpf (0-4); Specific Gravity Urine 1.011 (1.000-1.030); Urobilinogen Urine Negative (Negative); pH Urine 5.5 (4.5-7.5)
[2021-04-01] MEDS ORDERED: FUROSEMIDE 40 MG/4 ML VIAL IV ONE (12:15)
[2021-04-01] MEDS ORDERED: FUROSEMIDE 40 MG/4 ML VIAL IV SCH (12:15)
--- NOTE | 2021-04-01 12:30 | XRay Report ---
XR chest 1V portable HISTORY: Pleural effusions. Follow-up. to R/O lung infection, COMPARISON: Chest 03/29/2021. FINDINGS: No change in the layering moderate left pleural effusion. A trace right pleural effusion is also unchanged. There is slight progression of the interstitial/vascular thickening suggestive of mi ld congestive change. No pneumothorax. The heart remains mildly enlarged. Left base airspace opacitie s persist. IMPRESSION: 1. Slight progression of the mild congestive change. 2. No change in the moderate left and trace right pleural effusion. 3. Left basilar airspace opacities persist. ACT 112: Negative or not required by law. Electronically signed by: Eleazar Joseph M.D. 04/01/2021 12:29 PM
--- NOTE | 2021-04-01 18:21 | Hospitalist Progress Note ---
Date of Service April 01, 2021 Assessment & Plan (1) Incarcerated umbilical hernia: Plan: s/p repair with Dr. Aldana, POD#2 - Pain control - Incentive spirometry - Surgery following (2) Pleural effusion: Plan: - Consulted Pulm, appreciate their input - suspect secondary to CHF - Poor candidate for thoracentesis - D/C PO Lasix, given a dose of IV Lasix 40mg x1 now - Monitor output - Transition to PO Lasix in AM but at increased dose of 40mg daily - Incentive spirometry (3) CHF (congestive heart failure): Plan: - Recent echo 03/22/21 -- preserved LVEF, poor U/S images - Dose of IV Lasix, monitor output, increase oral Lasix as noted in #2 - Repeat BNP (4) CKD (chronic kidney disease), stage III: Plan: - Will monitor closely in setting of IV diuresis - Slightly worsening CKD may be necessary to keep out of CHF (5) SOB (shortness of breath): Plan: - Multifactoral -- likely combo of CHF w/ pleural effusion/atelectasis/Obesity hypoventilation syndrome - See #1/2 (6) Breast nodule: Plan: - Right breast ultrasound (if radiology will do as inpt, if not will need to be done as o/p) - Highly suspicious that this may represent breast ca (7) Leukocytosis: Plan: - Reactive v underlying infection - CXR c/w CHF - UA unremarkable (except for yeast, can add Diflucan) - Trend (8) Oral candidiasis: Plan: - Add Nystatin (9) Candidal UTI (urinary tract infection): Plan: - Start Diflucan 200mg IV x1 and then 100mg daily (10) Hyponatremia: Plan: - Suspect dilutional d/t volume overload - Diurese and trend (11) Anemia: Plan: - Multifactoral, likely chronic related to chronic renal disease, blood loss from surgery, and also dilutional from volume overload - Will monitor - Pt required 2 blood transfusions prior to this admission at [facility] from suspected GI bleed Plan: Hypertensive urgency -- added IV Hydralazine 10mg q6h prn sbp>170 or dbp>100 Per daughter, Candelaria, who is her POA, pt remains full code at present Consult PT/OT, at least get pt out of bed to chair Trend labs condition: guarded updated pt's daughter, Candelaria. Admission and Anticipated Discharge Date Admission Date: March 29, 2021 Supervising Physician Co-Signing Physician Notes Attending Attestation: Chart reviewed in detail, care plan d/w Susan GARCIA. I agree w/ the botello components of her documentation. POD #2 s/p incarcerated umbilical hernia repair. Now with acute diastolic CHF along with b/l pleural effusions L>R. Appreciate pulmonary consultation & recs. Diurese. Trend labs. Selvin Licona MD Subjective Ms. Milan was seen on rounds this morning. She remains hospitalized for acute incarcerated hernia s/p repair, pod #2. Pt reports c/o shortness of breath, now requiring supplemental O2 (2L via oxymask). She denies chest pain, n/v. No documented fever. Pt reports abdominal pain at her incision site, but appears comfortable. Per her history from [facility], pt has a h/o chronic cognitive imp airment. Per her daughter, prior to her first hospitalization at [facility] on 03/18, pt was standing with assistance of her daughter and able to pivot and sit on bedside commode or to table to eat. Daughter states at this time, she is still full code. She does have a living will and is her POA. Review of Systems Review of Systems: limited historian d/t dementia CONSTITUTIONAL: Denies weight loss/gain, fever and chills, fatigue, malaise, generalized weakness. HEENT: Denies changes in vision and hearing. RESPIRATORY: +SOB. Denies cough, wheezing. CV: Denies palpitations, CP, lower extremity edema, orthopnea, PND. GI: +abdominal pain. Denies nausea, vomiting and diarrhea. : bishop MUSCULOSKELETAL: Denies myalgia and joint pain. SKIN: Denies rash and pruritus. NEUROLOGICAL: Denies headache, syncope, focal weakness, numbness, tingling. PSYCHIATRIC: Denies recent changes in mood. Denies anxiety and depression. Physical Exam Physical Exam: GENERAL: 89 elderly obese WF. Pleasant, cooperative, NAD. LUNGS: No accessory muscle use. Diminished breath sound L base, bibasilar crackles. No wheezes/rhonchi. CARDIOVASCULAR: Regular rate and rhythm. No M/G/R. No JVD. ABDOMEN: Soft, non-distended. Bowel sounds normoactive x 4 quad. Mild tenderness at incision site. Dressing dry. : Bishop in place EXTREMITIES: +2 pitting edema BL LE. Non-tender. Peripheral pulses +2/4. NEUROLOGIC: A&O x1 (self). PSYCHIATRIC: Cooperative. Appropriate mood and affect. SKIN: Hard ulcerated lesion under R breast. Results & Data Results & Data ([facility]) Vital Signs (Past 12 Hours) Vital Signs Temp Pulse Pulse Resp BP BP Pulse Ox 04/01/21 15:41 36.9 C 86 18 183/84 H 95 04/01/21 15:17 83 04/01/21 11:37 37.1 C 84 20 167/64 H 96 04/01/21 07:28 88 04/01/21 07:20 37.1 C 76 20 150/63 H 93 Laboratory Results 04/01/21 06:52 04/01/21 06:52 PG Care Time/CCT Total # of Minutes Spent Total Time Spent with Patient: Total time spent is greater than 50% in coordination of care (as documented) at patient's floor/unit and/or counseling patient: Coding Level of Care Code 73589 Subseq Hosp Care Lvl 3 Medical Decision Making High Complexity Diagnoses Pleural effusion J90 CHF (congestive heart failure) I50.9 CKD (chronic kidney disease), stage III N18.30 SOB (shortness of breath) R06.02 Incarcerated umbilical hernia K42.0 Breast nodule N63.0 Leukocytosis D72.829 Oral candidiasis B37.0 Candidal UTI (urinary tract infection) B37.49 Hyponatremia E87.1 Anemia D64.9
[2021-04-01] MEDS: LACTATED RINGER'S 1,000 ML IV SCH (18:49)
[2021-04-01] MEDS ORDERED: FLUCONAZOLE 200 MG/100 ML BAG IV ONE (20:00)
[2021-04-01] MEDS: NYSTATIN SUSP 500,000 U/5 ML UDC PO SCH (21:33)
[2021-04-02] MEDS: HYDROCODONE/ACETAMOPHEN 5/325MG TAB PO PRN (04:51)
[2021-04-02] MEDS: LORazepam 0.5 MG TAB PO PRN (04:51)
[2021-04-02] MEDS: PIPERACILLIN/TAZOBACTAM 3.375 GM in DEXTROSE 5% 100 ML IV SCH ×3 (06:44→23:31)
[2021-04-02 06:56] LABS: Basophils # (auto) 0.03 K/uL (0-0.2); Basophils % (auto) 0.2 %; Eosinophils # (auto) 0.02 K/uL (0-0.5); Eosinophils % (auto) 0.1 %; Hematocrit (blood only) 32.2 % (37-47); Immature Granulocytes # (auto) 0.08 K/uL (0.00-0.02); Immature Granulocytes % (auto) 0.4 %; Lymphocytes # (auto) 0.73 K/uL (1.2-3.4); Lymphocytes % (auto) 3.8 %; Mean Corpuscular Hgb Conc 31.1 g/dL (32-36); Mean Corpuscular Volume 93.3 fL (80-100); Mean Platelet Volume 10.3 fL (7.4-10.4); Monocytes % (auto) 8.8 %; Neutrophils # (auto) 16.83 K/uL (1.4-6.5); Neutrophils % (auto) 86.7 %; Platelet Count 275 K/uL (130-400); RDW Coefficient of Variation 16.1 % (11.5-14.5); RDW Standard Deviation 55.2 fL (36.4-46.3); Red Blood Count 3.45 M/uL (4.2-5.4); White Blood Count 19.39 K/uL (4.8-10.8)
[2021-04-02 07:46] LABS: BUN Creatinine Ratio 14.9 (10-20); Calcium 9.3 mg/dl (8.5-10.1); Creatinine Clr Calc Pharmacy 19.1 ml/min; Est GFR (African American) 21.5 ml/min; Est GFR (Non-African American) 18.6 ml/min; Magnesium 1.7 mg/dl (1.8-2.4); Potassium 3.3 mmol/L (3.5-5.1)
[2021-04-02] MEDS ORDERED: OPTIRAY 320 125ml IV ONE (09:20)
--- NOTE | 2021-04-02 09:40 | CT Scan Report ---
UNENHANCED CT OF THE BRAIN; CT ANGIOGRAM OF THE BRAIN; CT ANGIOGRAM OF THE NECK CLINICAL HISTORY: Strokelike symptoms. COMPARISON STUDY: No priors. TECHNIQUE: Unenhanced axial CT scan of the brain is performed. Subsequently, following the IV adminis tration of 120 of Optiray 320, CT angiogram of the head and neck was performed from the aortic arch t o the vertex. Images are reviewed in the axial, sagittal, and coronal planes. 3-D MIPS images are cre ated and assessed. IV contrast was administered without complication. All measurements were calculate d based on NASCET criteria. A dose lowering technique was utilized adhering to the principles of ALA RA. CT DOSE: 2797.10 mGy.cm FINDINGS: Brain parenchyma: There is age-related involutional change noting moderate subcortical and periventri cular microangiopathic disease. There is no hemorrhage, mass effect, or evidence of acute territorial ischemia by CT criteria. There is no evidence of enhancing mass lesion on the angiogram phase images . The ventricles, sulci, and cisterns are prominent secondary to involutional change. Palomino-white makayla er differentiation is preserved. No extra-axial fluid collection is seen. Thoracic aorta: There is mild atherosclerotic calcification of the thoracic aorta. Visualized portion s of the thoracic aorta are normal in caliber. The aortic arch demonstrates standard 3-vessel anatomy . Right carotid arterial system: The right common carotid artery is widely patent, as are the right int ernal and external carotid arteries. Mild plaque is seen in the carotid bulb. Left carotid arterial system: The left common carotid artery is patent, as are the left internal and external carotid arteries. Calcified plaque is seen in the carotid bulb. This causes less than 50% vini logan narrowing at the origin of the left internal carotid artery. Vertebral arteries: The vertebral arteries are widely patent bilaterally and codominant. Subclavian arteries: Widely patent bilaterally. Intracranial vasculature: There is advanced atherosclerotic calcification of the cavernous carotid an d vertebral arteries. The internal carotid arteries are patent at the skull base, as are the anterior and middle cerebral arteries bilaterally. There is moderate focal stenosis of the M2 segment of the right middle cerebral artery artery seen on coronal MIPS image #31. The vertebral arteries and basila r arteries are widely patent. There are foci of high-grade stenosis seen involving the proximal poste rior cerebral arteries bilaterally (axial images #109, #115, and #117. The vertebral arteries are cod ominant. There is no aneurysm or focal vessel cut off seen throughout the intracranial circulation. Jugular veins: Patent bilaterally. Dural sinuses: Patent. Lung apices: There are moderate to large pleural effusions with associated consolidation. Intralobula r septal thickening is noted in the upper lobes. Soft tissues: The visualized pharyngeal soft tissues are normal in appearance noting angiographic pha se technique. The oropharyngeal airway appears widely patent. The salivary and thyroid glands are nor mal in appearance. No cervical lymphadenopathy is seen. Skeletal structures: The skeletal structures are heterogeneously osteopenic. The calvarium appears in tact. The cervical spine is maintained noting multilevel spondylosis. No lytic or blastic lesion is s een. Orbits: The bony orbits are intact. Orbital contents are normal as visualized noting bilateral ocular lens implants. Sinuses and mastoids: The paranasal sinuses are clear. The mastoid air cells are well pneumatized. IMPRESSION: 1. There is no hemorrhage, mass effect, or evidence of acute territorial ischemia by CT criteria. 2. Unremarkable CT angiogram of the neck. 3. There are foci of high-grade stenosis involving the proximal posterior cerebral arteries bilateral ly. 4. There is a focus of moderate stenosis involving the M2 segment of the right middle cerebral artery . 5. Otherwise unremarkable CT angiogram of the brain. ACT 112: Negative or not required by law. Electronically signed by: Venkata Gibson M.D. 04/02/2021 9:39 AM
--- NOTE | 2021-04-02 10:21 | CT Scan Report ---
CT abd pelvis wo con CLINICAL HISTORY: Abdominal pain TECHNIQUE: Helical axial images of the abdomen and pelvis were obtained. Automated dose lowering tech niques and/or adjustment according to patient size were utilized for this exam. This exam was perfor med without intravenous contrast. COMPARISON: Comparison is made to CT abdomen pelvis 03/29/2021 FINDINGS: Exam is limited by patient motion. Lower chest: There are bilateral pleural effusions are seen. There is associated atelectasis. Liver: Unremarkable. No focal lesions are seen. Gallbladder and biliary tree: Patient is status post cholecystectomy. No intra- or extrahepatic bilia ry ductal dilation. Pancreas: Fatty replacement of the pancreas is seen. Spleen: Unremarkable. Adrenals: Unremarkable. Kidneys and ureters: Scattered renal cysts are seen. Bladder: Castro catheter is seen. Reproductive organs: Unremarkable. Bowel: Diverticulosis is seen without evidence of diverticulitis. The appendix is normal. Lymph nodes Retroperitoneal: Unremarkable. Mesenteric: Unremarkable. Pelvic: Unremarkable. Peritoneum: Normal Vessels: Atherosclerotic calcifications are seen. Abdominal wall: Postsurgical changes are seen in the right lower quadrant with fat stranding and surg ical federico. There is an incisional hernia containing loops of bowel. These loops of bowel are under distended and there is limited evaluation for incarceration. Mild anasarca is noted. Bones: Unremarkable. IMPRESSION: 1. Postsurgical changes of the right lower quadrant are seen. Incisional hernia is still seen to con tain loops of bowel, however there is no evidence of incarcerated bowel. 2. Bilateral pleural effusions are seen with associated atelectasis. ACT 112: Negative or not required by law. Electronically signed by: Reed Gamez M.D. 04/02/2021 10:19 AM
[2021-04-02] MEDS ORDERED: VANCOMYCIN CONSULT ACTIVE PRN (10:34)
--- NOTE | 2021-04-02 10:39 | XRay Report ---
XR chest 1V portable CLINICAL HISTORY: f/u chf TECHNIQUE: Single frontal radiograph of the chest was obtained. Comparison: Comparison is made to chest one view 04/01/2021 FINDINGS: No lines and tubes are seen. Cardiomegaly is noted. Multifocal airspace opacities are seen including linear density in the right lung base. No evidence of pleural effusion or pneumothorax. IMPRESSION: Multifocal airspace opacities may represent atelectasis, pneumonia, and/or aspiration. ACT 112: Negative or not required by law. Electronically signed by: Reed Gamez M.D. 04/02/2021 10:38 AM
[2021-04-02] MEDS ORDERED: VANCOMYCIN HCL 2,000 MG in SODIUM CHLORIDE 0.9% 500 ML IV STA (10:55)
--- NOTE | 2021-04-02 11:04 | Pulmonology Progress Note ---
Date of Service April 02, 2021 Assessment & Plan (1) Pleural effusion: (2) CHF (congestive heart failure): (3) CKD (chronic kidney disease), stage III: (4) SOB (shortness of breath): Plan: Attending: Dr. Sibley Impression: 89-year-old female with significant past medical history as listed above in HPI. Patient does appear to have history of CHF as she presented clinically and had echocardiogram performed 03/22/2021. Patient's home medication list includes furosemide 20 mg p.o. daily. Patient had pleural effusion noted on chest x-ray on admission as well as CT scan on 03/29/2021. At this point patient has no acute distress. She does have some hypoxia. [id number] smoking history. Quit in 1979. Recommendations: 1. Left pleural effusion: * This appears to be related to congestive heart failure. Echocardiogram shows preserved left ventricular ejection fraction but poor ultrasound images. * Home medications include furosemide 20 mg p.o. daily. Would recommend increasing furosemide and watching creatinine as patient has chronic CKD and creatinine is slightly elevated at this time. * Poor candidate for attempt at thoracentesis at this time. * Long discussion with daughter at bedside. No invasive procedures at this time. 2. Hypoxia/shortness of breath: * Most likely multifactorial to CHF, obesity hypoventilation syndrome, fluid overload * Continue supportive care. No indication for pneumonia. Continue to treat for developing infection from incarcerated hernia repair. 3. CHF * This most likely is contributing to patient's shortness of breath * Bilateral lower extremity edema noted * Continue to diurese as tolerated. 4. Probable obesity hypoventilation syndrome * Given patient's advanced age, will defer to patient and family regarding efficacy of outpatient polysomnography exam * No elevation of CO2 at this time * Continue supportive care * Patient may benefit from BiPAP. If needed, would start with settings 12/6 and titrate per protocol for tidal volume of 400. 5. CODE STATUS: Long discussion with patient's daughter at bedside. Patient would not wish to be intubated and placed on mechanical ventilation. Patient would also not wish to have cardiac compressions performed. Discussion regarding renal failure. Patient would not want dialysis. Advanced directive reviewed. This was initiated in April 2003. Daughter agrees that mother's wishes have changed based on declining health over the last 18 years. CODE STATUS changed in the computer. No heroics. Communicated discussion with Dr. Licona and Susan Gutiérrez PA-C of the primary hospitalist team. Thank you very much for including us in the care of this patient. At this time, the pulmonary team will sign off. Please feel free to reconsult as needed. I gave my card to the patient's daughter. I would be glad to answer any further questions she has regarding the patient's pulmonary status. Admission and Anticipated Discharge Date Admission Date: March 29, 2021 Supervising Physician Co-Signing Physician Notes I saw and evaluated the patient with Venkata Montanez, and agree with findings and plan as documented in the note. Patient seen and examined at bedside. No acute distress. Patient was about to have dinner at the time of examination She was on oxygen. On physical exam patient has +2 pitting edema bilateral lower extremity Positive crackles bilateral lower lobes S1-S2 positive Obese Mentation patient is only oriented to self. He answers few questions Plan: Patient has bilateral pleural effusion more on the left side In an 89-year-old with history of HFpEF and CKD likely etiology Would recommend BiPAP and diuresis to keep the patient negative balance No intervention from pulmonary perspective Would recommend palliative care consult to address issues as well Please note the above document was generated using voice recognition software. It may contain grammatical, syntax or spelling errors.Any formal questions or concerns about the content, text or information contained within the body of this dictation should be directly addressed to the provider for clarification. Subjective Attending: Dr. Sibley Patient seen and examined in room 283 bed 2. There was a stroke alert called this morning. CT head with no acute findings. No further intervention as far as TPA or other medications. Patient continues to be somewhat obtunded. Long discussion with patient's daughter at bedside. Expressed concern for multisystem organ failure. Patient will be changed to a DNR/DNI no resuscit ation but will continue to treat until blood cultures are returned. Daughter states that patient would not want to be intubated or have cardiac compressions. Also discussed worsening renal function. Patient daughter states that she would not want dialysis. Patient unable to give review of systems due to obtunded state. Review of Systems Review of Systems: Other (Obtunded) Physical Exam Physical Exam: Patient seen and examined. GENERAL : Patient obtunded. She does open eyes. Not able to give any review of systems. EYES: No icterus, gaze conjugate. Pupils equal round and reactive to light NOSE: No evidence of epistaxis. Mucosa moist MOUTH: No lesions or candidiasis NECK: Supple LUNGS: Bibasilar crackles with some increase in rhonchi in the upper vivar. HEART: Regular, rate controlled. No appreciation of ectopy ABDOMEN: Soft, NT, ND, BS Present EXTREMITIES: Bilateral lower extremity edema, pedal pulses intact and equal. Feet are warm. NEURO: Patient somewhat obtunded. Pupils equal round and reactive to light. Results & Data Results & Data ([facility]) Vital Signs (Past 12 Hours) Vital Signs Temp Pulse Pulse Resp BP BP Pulse Ox 04/02/21 09:04 36.7 C 83 24 180/81 H 99 04/02/21 08:00 97 H 04/02/21 07:08 37.3 C 93 H 24 173/85 H 94 04/02/21 04:57 36.9 C 80 18 186/142 H 92 04/02/21 02:42 72 04/02/21 00:21 36.8 C 84 20 156/85 H 91 Laboratory Results 04/02/21 06:33 04/02/21 06:33 Diagnostic Findings Chest X-Ray 04/02/21 08:00 XR chest 1V portable CLINICAL HISTORY: f/u chf TECHNIQUE: Single frontal radiograph of the chest was obtained. Comparison: Comparison is made to chest one view 04/01/2021 FINDINGS: No lines and tubes are seen. Cardiomegaly is noted. Multifocal airspace opacities are seen including linear density in the right lung base. No evidence of pleural effusion or pneumothorax. IMPRESSION: Multifocal airspace opacities may represent atelectasis, pneumonia, and/or aspiration. ACT 112: Negative or not required by law. Electronically signed by: Reed Gamez M.D. 04/02/2021 10:38 AM Abdomen/Pelvis CT 04/02/21 08:54 CT abd pelvis wo con CLINICAL HISTORY: Abdominal pain TECHNIQUE: Helical axial images of the abdomen and pelvis were obtained. Automated dose lowering techniques and/or adjustment according to patient size were utilized for this exam. This exam was performed without intravenous contrast. COMPARISON: Comparison is made to CT abdomen pelvis 03/29/2021 FINDINGS: Exam is limited by patient motion. Lower chest: There are bilateral pleural effusions are seen. There is associated atelectasis. Liver: Unremarkable. No focal lesions are seen. Gallbladder and biliary tree: Patient is status post cholecystectomy. No intra- or extrahepatic biliary ductal dilation. Pancreas: Fatty replacement of the pancreas is seen. Spleen: Unremarkable. Adrenals: Unremarkable. Kidneys and ureters: Scattered renal cysts are seen. Bladder: Castro catheter is seen. Reproductive organs: Unremarkable. Bowel: Diverticulosis is seen without evidence of diverticulitis. The appendix is normal. Lymph nodes Retroperitoneal: Unremarkable. Mesenteric: Unremarkable. Pelvic: Unremarkable. Peritoneum: Normal Vessels: Atherosclerotic calcifications are seen. Abdominal wall: Postsurgical changes are seen in the right lower quadrant with fat stranding and surgical federico. There is an incisional hernia containing loops of bowel. These loops of bowel are under distended and there is limited evaluation for incarceration. Mild anasarca is noted. Bones: Unremarkable. IMPRESSION: 1. Postsurgical changes of the right lower quadrant are seen. Incisional hernia is still seen to contain loops of bowel, however there is no evidence of incarcerated bowel. 2. Bilateral pleural effusions are seen with associated atelectasis. ACT 112: Negative or not required by law. Electronically signed by: Reed Gamez M.D. 04/02/2021 10:[address] 04/02/21 08:[address] OF THE BRAIN; CT ANGIOGRAM OF THE BRAIN; CT ANGIOGRAM OF THE NECK CLINICAL HISTORY: Strokelike symptoms. COMPARISON STUDY: No priors. TECHNIQUE: Unenhanced axial CT scan of the brain is performed. Subsequently, following the IV administration of 120 of Optiray 320, CT angiogram of the head and neck was performed from the aortic arch to the vertex. Images are reviewed in the axial, sagittal, and coronal planes. 3-D MIPS images are created and assessed. IV contrast was administered without complication. All measurements were calculated based on NASCET criteria. A dose lowering technique was utilized adhering to the principles of ALARA. CT DOSE: 2797.10 mGy.cm FINDINGS: Brain parenchyma: There is age-related involutional change noting moderate subcortical and periventricular microangiopathic disease. There is no hemorrhage, mass effect, or evidence of acute territorial ischemia by CT criteria. There is no evidence of enhancing mass lesion on the angiogram phase images. The ventricles, sulci, and cisterns are prominent secondary to involutional change. Palomino-white matter differentiation is preserved. No extra- axial fluid collection is seen. Thoracic aorta: There is mild atherosclerotic calcification of the thoracic aorta. Visualized portions of the thoracic aorta are normal in caliber. The aortic arch demonstrates standard 3-vessel anatomy. Right carotid arterial system: The right common carotid artery is widely patent, as are the right internal and external carotid arteries. Mild plaque is seen in the carotid bulb. Left carotid arterial system: The left common carotid artery is patent, as are the left internal and external carotid arteries. Calcified plaque is seen in the carotid bulb. This causes less than 50% luminal narrowing at the origin of the left internal carotid artery. Vertebral arteries: The vertebral arteries are widely patent bilaterally and codominant. Subclavian arteries: Widely patent bilaterally. Intracranial vasculature: There is advanced atherosclerotic calcification of the cavernous carotid and vertebral arteries. The internal carotid arteries are patent at the skull base, as are the anterior and middle cerebral arteries bilaterally. There is moderate focal stenosis of the M2 segment of the right middle cerebral artery artery seen on coronal MIPS image #31. The vertebral arteries and basilar arteries are widely patent. There are foci of high-grade stenosis seen involving the proximal posterior cerebral arteries bilaterally (axial images #109, #115, and #117. The vertebral arteries are codominant. There is no aneurysm or focal vessel cut off seen throughout the intracranial circulation. Jugular veins: Patent bilaterally. Dural sinuses: Patent. Lung apices: There are moderate to large pleural effusions with associated cons olidation. Intralobular septal thickening is noted in the upper lobes. Soft tissues: The visualized pharyngeal soft tissues are normal in appearance noting angiographic phase technique. The oropharyngeal airway appears widely patent. The salivary and thyroid glands are normal in appearance. No cervical lymphadenopathy is seen. Skeletal structures: The skeletal structures are heterogeneously osteopenic. The calvarium appears intact. The cervical spine is maintained noting multilevel spondylosis. No lytic or blastic lesion is seen. Orbits: The bony orbits are intact. Orbital contents are normal as visualized noting bilateral ocular lens implants. Sinuses and mastoids: The paranasal sinuses are clear. The mastoid air cells are well pneumatized. IMPRESSION: 1. There is no hemorrhage, mass effect, or evidence of acute territorial ischemia by CT criteria. 2. Unremarkable CT angiogram of the neck. 3. There are foci of high-grade stenosis involving the proximal posterior cere bral arteries bilaterally. 4. There is a focus of moderate stenosis involving the M2 segment of the right middle cerebral artery. 5. Otherwise unremarkable CT angiogram of the brain. ACT 112: Negative or not required by law. Electronically signed by: Venkata Gibson M.D. 04/02/2021 9:39 AM Head CTA 04/02/21 08:[address] OF THE BRAIN; CT ANGIOGRAM OF THE BRAIN; CT ANGIOGRAM OF THE NECK CLINICAL HISTORY: Strokelike symptoms. COMPARISON STUDY: No priors. TECHNIQUE: Unenhanced axial CT scan of the brain is performed. Subsequently, following the IV administration of 120 of Optiray 320, CT angiogram of the head and neck was performed from the aortic arch to the vertex. Images are reviewed in the axial, sagittal, and coronal planes. 3-D MIPS images are created and assessed. IV contrast was administered without complication. All measurements were calculated based on NASCET criteria. A dose lowering technique was utilized adhering to the principles of ALARA. CT DOSE: 2797.10 mGy.cm FINDINGS: Brain parenchyma: There is age-related involutional change noting moderate subcortical and periventricular microangiopathic disease. There is no hemorrhage, mass effect, or evidence of acute territorial ischemia by CT criteria. There is no evidence of enhancing mass lesion on the angiogram phase images. The ventricles, sulci, and cisterns are prominent secondary to involutional change. Palomino-white matter differentiation is preserved. No extra- axial fluid collection is seen. Thoracic aorta: There is mild atherosclerotic calcification of the thoracic aorta. Visualized portions of the thoracic aorta are normal in caliber. The aort ic arch demonstrates standard 3-vessel anatomy. Right carotid arterial system: The right common carotid artery is widely patent, as are the right internal and external carotid arteries. Mild plaque is seen in the carotid bulb. Left carotid arterial system: The left common carotid artery is patent, as are the left internal and external carotid arteries. Calcified plaque is seen in the carotid bulb. This causes less than 50% luminal narrowing at the origin of the left internal carotid artery. Vertebral arteries: The vertebral arteries are widely patent bilaterally and codominant. Subclavian arteries: Widely patent bilaterally. Intracranial vasculature: There is advanced atherosclerotic calcification of the cavernous carotid and vertebral arteries. The internal carotid arteries are patent at the skull base, as are the anterior and middle cerebral arteries bilaterally. There is moderate focal stenosis of the M2 segment of the right middle cerebral artery artery seen on coronal MIPS image #31. The vertebral arteries and basilar arteries are widely patent. There are foci of high-grade stenosis seen involving the proximal posterior cerebral arteries bilaterally (axial images #109, #115, and #117. The vertebral arteries are codominant. There is no aneurysm or focal vessel cut off seen throughout the intracranial circulation. Jugular veins: Patent bilaterally. Dural sinuses: Patent. Lung apices: There are moderate to large pleural effusions with associated consolidation. Intralobular septal thickening is noted in the upper lobes. Soft tissues: The visualized pharyngeal soft tissues are normal in appearance noting angiographic phase technique. The oropharyngeal airway appears widely patent. The salivary and thyroid glands are normal in appearance. No cervical ly mphadenopathy is seen. Skeletal structures: The skeletal structures are heterogeneously osteopenic. The calvarium appears intact. The cervical spine is maintained noting multilevel spondylosis. No lytic or blastic lesion is seen. Orbits: The bony orbits are intact. Orbital contents are normal as visualized noting bilateral ocular lens implants. Sinuses and mastoids: The paranasal sinuses are clear. The mastoid air cells are well pneumatized. IMPRESSION: 1. There is no hemorrhage, mass effect, or evidence of acute territorial ischemia by CT criteria. 2. Unremarkable CT angiogram of the neck. 3. 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 4. There is a focus of moderate stenosis involving the M2 segment of the right middle cerebral artery. 5. Otherwise unremarkable CT angiogram of the brain. ACT 112: Negative or not required by law. Electronically signed by: Venkata iGbson M.D. 04/02/2021 9:39 AM Neck CTA 04/02/21 08:[address] OF THE BRAIN; CT ANGIOGRAM OF THE BRAIN; CT ANGIOGRAM OF THE NECK CLINICAL HISTORY: Strokelike symptoms. COMPARISON STUDY: No priors. TECHNIQUE: Unenhanced axial CT scan of the brain is performed. Subsequently, following the IV administration of 120 of Optiray 320, CT angiogram of the head and neck was performed from the aortic arch to the vertex. Images are reviewed in the axial, sagittal, and coronal planes. 3-D MIPS images are created and assessed. IV contrast was administered without complication. All measurements were calculated based on NASCET criteria. A dose lowering technique was utilized adhering to the principles of ALARA. CT DOSE: 2797.10 mGy.cm FINDINGS: Brain parenchyma: There is age-related involutional change noting moderate subcortical and periventricular microangiopathic disease. There is no hemorrhage, mass effect, or evidence of acute territorial ischemia by CT criteria. There is no evidence of enhancing mass lesion on the angiogram phase images. The ventricles, sulci, and cisterns are prominent secondary to involutional change. Palomino-white matter differentiation is preserved. No extra- axial fluid collection is seen. Thoracic aorta: There is mild atherosclerotic calcification of the thoracic aorta. Visualized portions of the thoracic aorta are normal in caliber. The aortic arch demonstrates standard 3-vessel anatomy. Right carotid arterial system: The right common carotid artery is widely patent, as are the right internal and external carotid arteries. Mild plaque is seen in the carotid bulb. Left carotid arterial system: The left common carotid artery is patent, as are the left internal and external carotid arteries. Calcified plaque is seen in the carotid bulb. This causes less than 50% luminal narrowing at the origin of the left internal carotid artery. Vertebral arteries: The vertebral arteries are widely patent bilaterally and codominant. Subclavian arteries: Widely patent bilaterally. Intracranial vasculature: There is advanced atherosclerotic calcification of the cavernous carotid and vertebral arteries. The internal carotid arteries are patent at the skull base, as are the anterior and middle cerebral arteries bilaterally. There is moderate focal stenosis of the M2 segment of the right middle cerebral artery artery seen on coronal MIPS image #31. The vertebral arteries and basilar arteries are widely patent. There are foci of high-grade st enosis seen involving the proximal posterior cerebral arteries bilaterally (axial images #109, #115, and #117. The vertebral arteries are codominant. There is no aneurysm or focal vessel cut off seen throughout the intracranial circulation. Jugular veins: Patent bilaterally. Dural sinuses: Patent. Lung apices: There are moderate to large pleural effusions with associated consolidation. Intralobular septal thickening is noted in the upper lobes. Soft tissues: The visualized pharyngeal soft tissues are normal in appearance noting angiographic phase technique. The oropharyngeal airway appears widely patent. The salivary and thyroid glands are normal in appearance. No cervical lymphadenopathy is seen. Skeletal structures: The skeletal structures are heterogeneously osteopenic. The calvarium appears intact. The cervical spine is maintained noting multilevel spondylosis. No lytic or blastic lesion is seen. Orbits: The bony orbits are intact. Orbital contents are normal as visualized noting bilateral ocular lens implants. Sinuses and mastoids: The paranasal sinuses are clear. The mastoid air cells are well pneumatized. IMPRESSION: 1. There is no hemorrhage, mass effect, or evidence of acute territorial ischemia by CT criteria. 2. Unremarkable CT angiogram of the neck. 3. 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 4. There is a focus of moderate stenosis involving the M2 segment of the right middle cerebral artery. 5. Otherwise unremarkable CT angiogram of the brain. ACT 112: Negative or not required by law. Electronically signed by: Venkata Gibson M.D. 04/02/2021 9:39 AM PG Care Time/CCT Total # of Minutes Spent Total Time Spent with Patient: Total time spent is greater than 50% in coordination of care (as documented) at patient's floor/unit and/or counseling patient: Coding Level of Care Code 70510 Subseq Hosp Care Lvl 3 Diagnoses Pleural effusion J90 CHF (congestive heart failure) I50.9 CKD (chronic kidney disease), stage III N18.30 SOB (shortness of breath) R06.02 Time Spent (min) 35 Comment 35 minutes including discussion with patient's daughter at bedside
--- NOTE | 2021-04-02 11:08 | Surgery Progress Note ---
Date of Service April 02, 2021 Assessment & Plan (1) Incarcerated umbilical hernia: Plan: pt is a 89 year-old female who presents with 2 days history abdominal pain with nausea and vomiting, IMP: incarcerated umbilical hernia and periumbilical hernia, Plan, I recommend to do open repair incarcerated umbilical hernia and periumbilical hernia, possible with mesh,or bowel resection, I called pt's daughter, D/W benefits, risks and alternatives of the surgery, the risks- infection, bleeding, injury bowel, hernia recurrence, complication relate to mesh, MN, DVT, stroke, renal failure, , pt's daughter understood, she gave consent on the phone, I answered all questions, pre-op antibiotic, 03/30/2021 2:15 PM, F/U S/P open repair incarcerated umbilical hernia and periumbilical hernia with mesh, pt is stable, start clear diet now, continue treatment, repeat labs in morning, will F/U, 03/31/2021 3:47PM I update OR finding and procedure pt had to pt's daughter, pt's daughter at bedside now, doing better, DM diet, continue IV antibiotic, repeat labs in morning, 04/01/2021 9: 53AM may hold lovenex, repeat labs in morning, hep -lock IV check UA, CXR to R/O infection, will F/U, continue IV antibiotic treatment, 04/02/2021 11:14AM F/U S/P open repair incarcerated umbilical hernia and periumbilical hernia with mesh, POD3 pt had stroke alert this morning, pt had CT scan head and abdomen + pelvis, no stroke on Ct scan CT scan abdomen- Postsurgical changes of the right lower quadrant are seen. Incisional hernia is still seen to contain loops of bowel, however there is no evidence of incarcerated bowel. high WBC 19,000, some redness at incision stapler line, apply bacitricin on incision site once a day, cover with 4x$ gauze, UA negative, CXR- patch on bilateral lung, could not R/O pneumonia, no bowel obstruction signs, the small bowel just below the mesh, no surgery indication now, start IV fluid, continue treatment IV antibiotic, repeat labs in morning, will F/U Admission and Anticipated Discharge Date Admission Date: March 29, 2021 Supervising Physician Co-Signing Physician Notes Attending Attestation: Chart reviewed in detail, care plan d/w Susan GARCIA. I agree w/ the botello components of her documentation. POD #2 s/p incarcerated umbilical hernia repair. Now with acute diastolic CHF along with b/l pleural effusions L>R. Appreciate pulmonary consultation & recs. Diurese. Trend labs. Selvin Licona MD Subjective Ms. Milan was seen on rounds this morning. She remains hospitalized for acute incarcerated hernia s/p repair, pod #2. Pt reports c/o shortness of breath, now requiring supplemental O2 (2L via oxymask). She denies chest pain, n/v. No documented fever. Pt reports abdominal pain at her incision site, but appears comfortable. Per her history from [facility], pt has a h/o chronic cognitive impairment. Per her daughter, prior to her first hospitalization at [facility] on 03/18, pt was standing with assistance of her daughter and able to pivot and sit on bedside commode or to table to eat. Daughter states at this time, she is still full code. She does have a living will and is her POA. 04/02/2021 11:06AM pt had stroke alert this morning, pt had CT scan head and abdomen- IMPRESSION: 1. There is no hemorrhage, mass effect, or evidence of acute territorial ischemia by CT criteria. 2. Unremarkable CT angiogram of the neck. 3. 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 4. There is a focus of moderate stenosis involving the M2 segment of the right middle cerebral artery. 5. Otherwise unremarkable CT angiogram of the brain. abdomen + pelvis CT scan- IMPRESSION: 1. Postsurgical changes of the right lower quadrant are seen. Incisional hernia is still seen to contain loops of bowel, however there is no evidence of incarcerated bowel. 2. Bilateral pleural effusions are seen with associated atelectasis. Review of Systems Constitutional: as per Subjective / HPI Eyes: as per Subjective / HPI Respiratory: as per Subjective / HPI O2 at 2L/Min Cardiovascular: Additional Comments: HTN Gastrointestinal: SBO Genitourinary: as per Subjective / HPI Neurologic: as per Subjective / HPI Psychiatric: as per Subjective / HPI Endocrine: DM Hematologic / Lymphatic: as per Subjective / HPI Physical Exam Eyes: PERRL, conjunctivae normal, anicteric sclerae Neck: trachea midline, no thyromegaly Respiratory: normal respiratory effort, lungs clear to auscultation Cardiovascular: RRR, no murmur, no edema Gastrointestinal (Abdomen): soft, no distend, mild redness on incision stapler line, no palpable mass, BS + Neurologic: awake, Results & Data (MN) Vital Signs (Past 12 Hours) Vital Signs Temp Pulse Pulse Resp BP BP Pulse Ox 04/02/21 09:04 36.7 C 83 24 180/81 H 99 04/02/21 08:00 97 H 04/02/21 07:08 37.3 C 93 H 24 173/85 H 94 04/02/21 04:57 36.9 C 80 18 186/142 H 92 04/02/21 02:42 72 04/02/21 00:21 36.8 C 84 20 156/[address] abd pelvis wo con CLINICAL HISTORY: Abdominal pain TECHNIQUE: Helical axial images of the abdomen and pelvis were obtained. Automated dose lowering techniques and/or adjustment according to patient size were utilized for this exam. This exam was performed without intravenous contrast. COMPARISON: Comparison is made to CT abdomen pelvis 03/29/2021 FINDINGS: Exam is limited by patient motion. Lower chest: There are bilateral pleural effusions are seen. There is associated atelectasis. Liver: Unremarkable. No focal lesions are seen. Gallbladder and biliary tree: Patient is status post cholecystectomy. No intra- or extrahepatic biliary ductal dilation. Pancreas: Fatty replacement of the pancreas is seen. Spleen: Unremarkable. Adrenals: Unremarkable. Kidneys and ureters: Scattered renal cysts are seen. Bladder: Castro catheter is seen. Reproductive organs: Unremarkable. Bowel: Diverticulosis is seen without evidence of diverticulitis. The appendix is normal. Lymph nodes Retroperitoneal: Unremarkable. Mesenteric: Unremarkable. Pelvic: Unremarkable. Peritoneum: Normal Vessels: Atherosclerotic calcifications are seen. Abdominal wall: Postsurgical changes are seen in the right lower quadrant with fat stranding and surgical federico. There is an incisional hernia containing loops of bowel. These loops of bowel are under distended and there is limited evaluation for incarceration. Mild anasarca is noted. Bones: Unremarkable. IMPRESSION: 1. Postsurgical changes of the right lower quadrant are seen. Incisional hernia is still seen to contain loops of bowel, however there is no evidence of incarcerated bowel. 2. Bilateral pleural effusions are seen with associated atelectasis. UNENHANCED CT OF THE BRAIN; CT ANGIOGRAM OF THE BRAIN; CT ANGIOGRAM OF THE NECK CLINICAL HISTORY: Strokelike symptoms. COMPARISON STUDY: No priors. TECHNIQUE: Unenhanced axial CT scan of the brain is performed. Subsequently, following the IV administration of 120 of Optiray 320, CT angiogram of the head and neck was performed from the aortic arch to the vertex. Images are reviewed in the axial, sagittal, and coronal planes. 3-D MIPS images are created and assessed. IV contrast was administered without complication. All measurements were calculated based on NASCET criteria. A dose lowering technique was utilized adhering to the principles of ALARA. CT DOSE: 2797.10 mGy.cm FINDINGS: Brain parenchyma: There is age-related involutional change noting moderate subcortical and periventricular microangiopathic disease. There is no hemorrhage, mass effect, or evidence of acute territorial ischemia by CT criteria. There is no evidence of enhancing mass lesion on the angiogram phase images. The ventricles, sulci, and cisterns are prominent secondary to involutional change. Palomino-white matter differentiation is preserved. No extra- axial fluid collection is seen. Thoracic aorta: There is mild atherosclerotic calcification of the thoracic aorta. Visualized portions of the thoracic aorta are normal in caliber. The aortic arch demonstrates standard 3-vessel anatomy. Right carotid arterial system: The right common carotid artery is widely patent, as are the right internal and external carotid arteries. Mild plaque is seen in the carotid bulb. Left carotid arterial system: The left common carotid artery is patent, as are the left internal and external carotid arteries. Calcified plaque is seen in the carotid bulb. This causes less than 50% luminal narrowing at the origin of the l eft internal carotid artery. Vertebral arteries: The vertebral arteries are widely patent bilaterally and codominant. Subclavian arteries: Widely patent bilaterally. Intracranial vasculature: There is advanced atherosclerotic calcification of the cavernous carotid and vertebral arteries. The internal carotid arteries are patent at the skull base, as are the anterior and middle cerebral arteries bilaterally. There is moderate focal stenosis of the M2 segment of the right middle cerebral artery artery seen on coronal MIPS image #31. The vertebral arteries and basilar arteries are widely patent. There are foci of high-grade stenosis seen involving the proximal posterior cerebral arteries bilaterally (axial images #109, #115, and #117. The vertebral arteries are codominant. There is no aneurysm or focal vessel cut off seen throughout the intracranial circulation. Jugular veins: Patent bilaterally. Dural sinuses: Patent. Lung apices: There are moderate to large pleural effusions with associated consolidation. Intralobular septal thickening is noted in the upper lobes. Soft tissues: The visualized pharyngeal soft tissues are normal in appearance noting angiographic phase technique. The oropharyngeal airway appears widely patent. The salivary and thyroid glands are normal in appearance. No cervical lymphadenopathy is seen. Skeletal structures: The skeletal structures are heterogeneously osteopenic. The calvarium appears intact. The cervical spine is maintained noting multilevel spondylosis. No lytic or blastic lesion is seen. Orbits: The bony orbits are intact. Orbital contents are normal as visualized noting bilateral ocular lens implants. Sinuses and mastoids: The paranasal sinuses are clear. The mastoid air cells are well pneumatized.
[2021-04-02] MEDS: INSULIN ASPART 100 UNITS/ML 3 ML PEN SC SCH ×3 (11:12→17:55)
[2021-04-02] MEDS: PANTOprazole 40 MG TAB PO SCH ×2 (11:13→16:02)
[2021-04-02] MEDS: FERROUS SULFATE 325 MG TAB PO SCH ×3 (11:13→16:01)
[2021-04-02] MEDS: SUCRALFATE 1 GM TAB PO SCH ×4 (11:13→20:05)
[2021-04-02] MEDS: ATORVASTATIN 40 MG TAB PO SCH (11:13)
[2021-04-02] MEDS: DOCUSATE SODIUM 100 MG CAP PO SCH ×2 (11:14→20:05)
[2021-04-02] MEDS: TOCOPHERYL, DL-ALPHA 400 UNITS 180 MG CAP PO SCH (11:14)
[2021-04-02] MEDS: CYANOCOBALAMIN 500 MCG TABLET (VITAMIN B-12) PO SCH (11:14)
[2021-04-02] MEDS: CHOLECALCIFEROL 1,000 UNITS 25 MCG TAB PO SCH (11:14)
[2021-04-02] MEDS: DULoxetine HCL 60 MG CAP PO SCH (11:15)
[2021-04-02] MEDS: FUROSEMIDE 40 MG TAB PO SCH (11:16)
[2021-04-02] MEDS: FLUCONAZOLE 100 MG TAB PO SCH (11:16)
[2021-04-02] MEDS: METOPROLOL TARTRATE 50 MG TAB PO SCH ×2 (11:16→20:05)
[2021-04-02] MEDS: NYSTATIN SUSP 500,000 U/5 ML UDC PO SCH ×4 (11:16→20:05)
[2021-04-02] MEDS: LORATADINE 10 MG TAB PO SCH (11:16)
[2021-04-02] MEDS: glipiZIDE ER 2.5 MG TABCR PO SCH (11:22)
[2021-04-02] MEDS: POTASSIUM CHLORIDE / WTR 10 MEQ/100 ML PLCT IV SCH ×3 (11:47→13:55)
[2021-04-02] MEDS: MAGNESIUM SULFATE / D5W 1 GM/100 ML BAG IV SCH ×2 (11:48→13:56)
[2021-04-02] MEDS: ENOXAPARIN INJ 30 MG/0.3 ML SYR SQ SCH (11:51)
[2021-04-02] MEDS: NYSTATIN POWDER 15GM BTL SCH ×2 (11:53→20:11)
[2021-04-02] MEDS: BACITRACIN OINT 15 GM TUBE EXT SCH (11:59)
--- NOTE | 2021-04-02 12:33 | Hospitalist Progress Note ---
Date of Service April 02, 2021 Assessment & Plan (1) Stroke-like symptoms: Plan: - Stroke alert called, CT head negative - Telehealth stroke consult placed to [facility], spoke with Dr. Trammell - Suspect this is either medication effect from Ativan v. 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), advise keeping MAP>90mmHg and Mg >2.0 - Appreciate recommendations, no plan for MRI brain at this time unless pt's status does not improve as would expect with time as med effect wears off - Pt had recent echo - Trop obtained during stroke alert and was WNL - Continue statin therapy - Add low dose ASA 81mg daily (2) Pneumonia: Plan: - ?Aspiration v HAP - Pt made NPO - Speech therapy consult - Currently on empiric Zosyn, continue w/ renal adjustment - Add Aztreonam (second gram neg coverage per UTD guidelines) w/ renal adjustment - Add MRSA coverage w/ Vancomycin 1g IV x1 then pharmacokinetic consult for c ontinued management based on creatinine clearance (3) CHF (congestive heart failure): Plan: Acute on chronic, biventricular - Recent echo 03/22/21 -- preserved LVEF, poor U/S images - Dose of IV Lasix given yesterday w/ poor diuresis. Increased oral Lasix as noted in #2 - Repeat BNP markedly elevated at just shy of 7000 (4) Pleural effusion: Plan: Bilateral, L>R - Consulted pulm, appreciate their input - suspect secondary to CHF - Poor candidate for thoracentesis - Given a one time dose of IV Lasix 40mg yesterday - Monitor output: Per documentation, only put out 600 yesterday (04/01). So far today, output 2200. - Transitioned to oral Lasix this AM at increased dose of 40mg - Incentive spirometry (5) Incarcerated umbilical hernia: Plan: s/p repair with Dr. Aldana, POD#3 - Pain control - Incentive spirometry - Surgery following (6) CKD (chronic kidney disease), stage III: Plan: Baseline unknown - will request records to review - Will monitor closely in setting of diuresis - Slightly worsening CKD may be necessary to keep out of CHF - Nephrology consulted, appreciate their recommendations (7) SOB (shortness of breath): Plan: - Multifactoral -- likely combo of CHF w/ pleural effusion/atelectasis/Obesity hypoventilation syndrome - See #1/2 (8) Breast nodule: Plan: - Right breast ultrasound ordered but cannot perform as inpatient - Will need to pursue as outpatient, if pt's family wishes - Highly suspicious that this may represent breast ca (9) Leukocytosis: Plan: - Repeat CXR this AM with patchy opacities ?multifocal pna (would need treated as HAP) v aspiration - UA unremarkable (except for yeast, Diflucan added) - Repeat blood cultures - Add MRSA coverage as noted above - Will continue to trend (10) Oral candidiasis: Plan: - Add Nystatin (11) Candidal UTI (urinary tract infection): Plan: - Start Diflucan 200mg IV x1 and then 100mg daily (12) Hyponatremia: Plan: - Suspect dilutional d/t volume overload - Although worse today (127 down from 129), pt did not diurese yesterday, thus this dip is with a +fluid balance - Pt has put out 2200 ml today as recorded by RN - Nephrology consulted as noted above - Will f/u with BMP in AM (13) Anemia: Plan: - Multifactoral, likely chronic related to chronic renal disease, blood loss from surgery, and also dilutional from volume overload - Pt required 2 recent blood transfusions prior to this admission at [facility] from suspected GI bleed at beginning of Mar - H&H stable will continue to monitor closely - Continue Ferrous Sulfate (14) Hypertension: Plan: Uncontrolled - Continue Lopressor - Lasix - Hydralazine 10mg IV q6h prn sbp>170 or dbp>100 (15) Hypomagnesemia: Plan: - Mag Syed 1g IV q1h x 2 - Repeat level in AM (16) Hypokalemia: Plan: - K Syed 10 meq IV q1h x 3 - Repeat w/ BMP in AM Plan: Per daughter, Candelaria, who is her POA, pt remains full code at present Consult PT/OT, at least get pt out of bed to chair Trend labs Condition: guarded with poor prognosis Admission and Anticipated Discharge Date Admission Date: March 29, 2021 Supervising Physician Co-Signing Physician Notes Attending Attestation: Chart reviewed in detail, care plan d/w Susan GARCIA. I agree w/ the botello components of her documentation. POD #3 s/p incarcerated umbilical hernia repair. Events of this am discussed extensively with Ms Gutiérrez. Stroke alert called by nursing staff due to ?pronator drift and altered MSMarco [place] However, had ativan early this am prior to today's events. Leukocytosis and cxr findings noted. Worsening Na and Cr noted. CT a/p findings noted. I did briefly discuss her surgical care with the gen surg PA. Acute hypoxic resp failure - decompensated CHF +/- pneumonia process. Encephalopathy - toxic (ativan) + metabolic (worsening Na, possible wound infection/abd wall cellulitis, ?pneumonia, etc). ?TIA vs stroke - work-up with intracranial stenoses in various vessels but no obvious CVA on imaging. Defer on MRI for now. Events this am may all be metabolic/toxic. Prognosis is poor; appreciate all care team members and their assistance. Code status confirmed to be DNR. Selvin Licona MD Subjective Ms. Milan was seen on rounds this morning after being made a stroke alert d/t concerns of decreased LOC. Per RN, pt received Ativan 0.5mg PO x1 around 0500 this AM for mild agitation. She remains hospitalized for acute incarcerated hernia s/p repair by Dr. Aldana, pod #3. Thus far, her hospitalization has been complicated by uptrending leukocytosis of uncertain etiology, a/c biventricular CHF with hypoxia, a/c renal failure (unknown baseline), and electrolyte disturbance, and questionable PNA. Upon stroke alert activation, pt was seen, she was able to open eyes and follow some simple commands. She is still requiring supplemental O2, as of this AM was on 4L. No documented fever. Blood sugar 109. VS stable. Per review of her medical history from [facility], pt has a h/o chronic cognitive impairment, DMT2, HLD, and h/o CVA. Her previous activity level per her daughter, (prior to her hospitalization at [facility] on 03/18), pt was standing with assistance of her daughter and able to pivot and sit on bedside commode or to table to eat. Per my conversation with daughter yesterday, she remains a full code. Pt does have a living will and her daughter Candelaria is her POA. Review of Systems Review of Systems: unable to provide an accurate ROS on rounds this AM d/t decreased LOC Physical Exam Physical Exam: GENERAL: 89 elderly obese WF. Opens eyes, follows simple commands. LUNGS: No accessory muscle use. Diminished breath sound L base, bibasilar crackles. Scattered rhonchi. No wheezes. CARDIOVASCULAR: Regular rate and rhythm. No M/G/R. No JVD. ABDOMEN: Soft, non-distended. Bowel sounds normoactive x 4 quad. Mild tenderness at incision site with erythema extending from incision. [place] intact. : Castro in place EXTREMITIES: +2 pitting edema BL LE. Non-tender. Peripheral pulses +2/4. NEUROLOGIC: Mild R-sided facial droop. No tongue deviation observed. Neg pronator drift. Speech garbled. PSYCHIATRIC: Cooperative. Appropriate mood and affect. SKIN: Hard ulcerated lesion under R breast. Results & Data Results & Data ([facility]) Vital Signs (Past 12 Hours) Vital Signs Temp Pulse Pulse Resp BP BP Pulse Ox 04/02/21 11: 36.3 C L 60 22 118/80 93 04/02/21 09:04 36.7 C 83 24 180/81 H 99 04/02/21 08:00 97 H 04/02/21 07:08 37.3 C 93 H 24 173/85 H 94 04/02/21 04:57 36.9 C 80 18 186/142 H 92 04/02/21 02:42 72 Laboratory Results 04/02/21 06:33 04/02/21 06:33 Diagnostic Findings Chest X-Ray 04/02/21 08:00 XR chest 1V portable CLINICAL HISTORY: f/u chf TECHNIQUE: Single frontal radiograph of the chest was obtained. Comparison: Comparison is made to chest one view 04/01/2021 FINDINGS: No lines and tubes are seen. Cardiomegaly is noted. Multifocal airspace opacities are seen including linear density in the right lung base. No evidence of pleural effusion or pneumothorax. IMPRESSION: Multifocal airspace opacities may represent atelectasis, pneumonia, and/or aspiration. ACT 112: Negative or not required by law. Electronically signed by: Reed Gamez M.D. 04/02/2021 10:38 AM Abdomen/Pelvis CT 04/02/21 08:54 CT abd pelvis wo con CLINICAL HISTORY: Abdominal pain TECHNIQUE: Helical axial images of the abdomen and pelvis were obtained. Automated dose lowering techniques and/or adjustment according to patient size were utilized for this exam. This exam was performed without intravenous contrast. COMPARISON: Comparison is made to CT abdomen pelvis 03/29/2021 FINDINGS: Exam is limited by patient motion. Lower chest: There are bilateral pleural effusions are seen. There is associated atelectasis. Liver: Unremarkable. No focal lesions are seen. Gallbladder and biliary tree: Patient is status post cholecystectomy. No intra- or extrahepatic biliary ductal dilation. Pancreas: Fatty replacement of the pancreas is seen. Spleen: Unremarkable. Adrenals: Unremarkable. Kidneys and ureters: Scattered renal cysts are seen. Bladder: Castro catheter is seen. Reproductive organs: Unremarkable. Bowel: Diverticulosis is seen without evidence of diverticulitis. The appendix is normal. Lymph nodes Retroperitoneal: Unremarkable. Mesenteric: Unremarkable. Pelvic: Unremarkable. Peritoneum: Normal Vessels: Atherosclerotic calcifications are seen. Abdominal wall: Postsurgical changes are seen in the right lower quadrant with fat stranding and surgical federico. There is an incisional hernia containing loops of bowel. These loops of bowel are under distended and there is limited evaluation for incarceration. Mild anasarca is noted. Bones: Unremarkable. IMPRESSION: 1. Postsurgical changes of the right lower quadrant are seen. Incisional hernia is still seen to contain loops of bowel, however there is no evidence of incarcerated bowel. 2. Bilateral pleural effusions are seen with associated atelectasis. ACT 112: Negative or not required by law. Electronically signed by: Reed Gamez M.D. 04/02/2021 10:[address] 04/02/21 08:[address] OF THE BRAIN; CT ANGIOGRAM OF THE BRAIN; CT ANGIOGRAM OF THE NECK CLINICAL HISTORY: Strokelike symptoms. COMPARISON STUDY: No priors. TECHNIQUE: Unenhanced axial CT scan of the brain is performed. Subsequently, following the IV administration of 120 of Optiray 320, CT angiogram of the head and neck was performed from the aortic arch to the vertex. Images are reviewed in the axial, sagittal, and coronal planes. 3-D MIPS images are created and assessed. IV contrast was administered without complication. All measurements were calculated based on NASCET criteria. A dose lowering technique was utilized adhering to the principles of ALARA. CT DOSE: 2797.10 mGy.cm FINDINGS: Brain parenchyma: There is age-related involutional change noting moderate subcortical and periventricular microangiopathic disease. There is no hemorrhage , mass effect, or evidence of acute territorial ischemia by CT criteria. There is no evidence of enhancing mass lesion on the angiogram phase images. The ventricles, sulci, and cisterns are prominent secondary to involutional change. Palomino-white matter differentiation is preserved. No extra-axial fluid collection is seen. Thoracic aorta: There is mild atherosclerotic calcification of the thoracic aorta. Visualized portions of the thoracic aorta are normal in caliber. The aortic arch demonstrates standard 3-vessel anatomy. Right carotid arterial system: The right common carotid artery is widely patent, as are the right internal and external carotid arteries. Mild plaque is seen in the carotid bulb. Left carotid arterial system: The left common carotid artery is patent, as are the left internal and external carotid arteries. Calcified plaque is seen in the carotid bulb. This causes less than 50% luminal narrowing at the origin of the left internal carotid artery. Vertebral arteries: The vertebral arteries are widely patent bilaterally and codominant. Subclavian arteries: Widely patent bilaterally. Intracranial vasculature: There is advanced atherosclerotic calcification of the cavernous carotid and vertebral arteries. The internal carotid arteries are patent at the skull base, as are the anterior and middle cerebral arteries bilaterally. There is moderate focal stenosis of the M2 segment of the right middle cerebral artery artery seen on coronal MIPS image #31. The vertebral arteries and basilar arteries are widely patent. There are foci of high-grade stenosis seen involving the proximal posterior cerebral arteries bilaterally (axial images #109, #115, and #117. The vertebral arteries are codominant. There is no aneurysm or focal vessel cut off seen throughout the intracranial circulation. Jugular veins: Patent bilaterally. Dural sinuses: Patent. Lung apices: There are moderate to large pleural effusions with associated consolidation. Intralobular septal thickening is noted in the upper lobes. Soft tissues: The visualized pharyngeal soft tissues are normal in appearance noting angiographic phase technique. The oropharyngeal airway appears widely patent. The salivary and thyroid glands are normal in appearance. No cervical lymphadenopathy is seen. Skeletal structures: The skeletal structures are heterogeneously osteopenic. The calvarium appears intact. The cervical spine is maintained noting multilevel spondylosis. No lytic or blastic lesion is seen. Orbits: The bony orbits are intact. Orbital contents are normal as visualized noting bilateral ocular lens implants. Sinuses and mastoids: The paranasal sinuses are clear. The mastoid air cells are well pneumatized. IMPRESSION: 1. There is no hemorrhage, mass effect, or evidence of acute territorial ischemia by CT criteria. 2. Unremarkable CT angiogram of the neck. 3. 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 4. There is a focus of moderate stenosis involving the M2 segment of the right middle cerebral artery. 5. Otherwise unremarkable CT angiogram of the brain. ACT 112: Negative or not required by law. Electronically signed by: Venkata Gibson M.D. 04/02/2021 9:39 AM Head CTA 04/02/21 08:[address] OF THE BRAIN; CT ANGIOGRAM OF THE BRAIN; CT ANGIOGRAM OF THE NECK CLINICAL HISTORY: Strokelike symptoms. COMPARISON STUDY: No priors. TECHNIQUE: Unenhanced axial CT scan of the brain is performed. Subsequently, following the IV administration of 120 of Optiray 320, CT angiogram of the head and neck was performed from the aortic arch to the vertex. Images are reviewed in the axial, sagittal, and coronal planes. 3-D MIPS images are created and assessed. IV contrast was administered without complication. All measurements were calculated based on NASCET criteria. A dose lowering technique was utilized adhering to the principles of ALARA. CT DOSE: 2797.10 mGy.cm FINDINGS: Brain parenchyma: There is age-related involutional change noting moderate subcortical and periventricular microangiopathic disease. There is no hemorrhage, mass effect, or evidence of acute territorial ischemia by CT criteria. There is no evidence of enhancing mass lesion on the angiogram phase images. The ventricles, sulci, and cisterns are prominent secondary to involutional change. Palomino-white matter differentiation is preserved. No extra- axial fluid collection is seen. Thoracic aorta: There is mild atherosclerotic calcification of the thoracic aorta. Visualized portions of the thoracic aorta are normal in caliber. The aortic arch demonstrates standard 3-vessel anatomy. Right carotid arterial system: The right common carotid artery is widely patent, as are the right internal and external carotid arteries. Mild plaque is seen in the carotid bulb. Left carotid arterial system: The left common carotid artery is patent, as are the left internal and external carotid arteries. Calcified plaque is seen in the carotid bulb. This causes less than 50% luminal narrowing at the origin of the left internal carotid artery. Vertebral arteries: The vertebral arteries are widely patent bilaterally and codominant. Subclavian arteries: Widely patent bilaterally. Intracranial vasculature: There is advanced atherosclerotic calcification of the cavernous carotid and vertebral arteries. The internal carotid arteries are patent at the skull base, as are the anterior and middle cerebral arteries bilaterally. There is moderate focal stenosis of the M2 segment of the right middle cerebral artery artery seen on coronal MIPS image #31. The vertebral arteries and basilar arteries are widely patent. There are foci of high-grade stenosis seen involving the proximal posterior cerebral arteries bilaterally (axial images #109, #115, and #117. The vertebral arteries are codominant. There is no aneurysm or focal vessel cut off seen throughout the intracranial circulation. Jugular veins: Patent bilaterally. Dural sinuses: Patent. Lung apices: There are moderate to large pleural effusions with associated consolidation. Intralobular septal thickening is noted in the upper lobes. Soft tissues: The visualized pharyngeal soft tissues are normal in appearance noting angiographic phase technique. The oropharyngeal airway appears widely patent. The salivary and thyroid glands are normal in appearance. No cervical lymphadenopathy is seen. Skeletal structures: The skeletal structures are heterogeneously osteopenic. The calvarium appears intact. The cervical spine is maintained noting multilevel spondylosis. No lytic or blastic lesion is seen. Orbits: The bony orbits are intact. Orbital contents are normal as visualized noting bilateral ocular lens implants. Sinuses and mastoids: The paranasal sinuses are clear. The mastoid air cells are well pneumatized. IMPRESSION: 1. There is no hemorrhage, mass effect, or evidence of acute territorial ischemia by CT criteria. 2. Unremarkable CT angiogram of the neck. 3. There are foci of high-grade stenosis involving the proximal posterior c erebral arteries bilaterally. 4. There is a focus of moderate stenosis involving the M2 segment of the right middle cerebral artery. 5. Otherwise unremarkable CT angiogram of the brain. ACT 112: Negative or not required by law. Electronically signed by: Venkata Gibson M.D. 04/02/2021 9:39 AM Neck CTA 04/02/21 08:[address] OF THE BRAIN; CT ANGIOGRAM OF THE BRAIN; CT ANGIOGRAM OF THE NECK CLINICAL HISTORY: Strokelike symptoms. COMPARISON STUDY: No priors. TECHNIQUE: Unenhanced axial CT scan of the brain is performed. Subsequently, following the IV administration of 120 of Optiray 320, CT angiogram of the head and neck was performed from the aortic arch to the vertex. Images are reviewed in the axial, sagittal, and coronal planes. 3-D MIPS images are created and assessed. IV contrast was administered without complication. All measurements were calculated based on NASCET criteria. A dose lowering technique was utilized adhering to the principles of ALARA. CT DOSE: 2797.10 mGy.cm FINDINGS: Brain parenchyma: There is age-related involutional change noting moderate subcortical and periventricular microangiopathic disease. There is no hemorrhage, mass effect, or evidence of acute territorial ischemia by CT criteria. There is no evidence of enhancing mass lesion on the angiogram phase images. The ventricles, sulci, and cisterns are prominent secondary to involutional change. Palomino-white matter differentiation is preserved. No extra- axial fluid collection is seen. Thoracic aorta: There is mild atherosclerotic calcification of the thoracic aorta. Visualized portions of the thoracic aorta are normal in caliber. The aortic arch demonstrates standard 3-vessel anatomy. Right carotid arterial system: The right common carotid artery is widely patent, as are the right internal and external carotid arteries. Mild plaque is seen in the carotid bulb. Left carotid arterial system: The left common carotid artery is patent, as are the left internal and external carotid arteries. Calcified plaque is seen in the carotid bulb. This causes less than 50% luminal narrowing at the origin of the left internal carotid artery. Vertebral arteries: The vertebral arteries are widely patent bilaterally and codominant. Subclavian arteries: Widely patent bilaterally. Intracranial vasculature: There is advanced atherosclerotic calcification of the cavernous carotid and vertebral arteries. The internal carotid arteries are patent at the skull base, as are the anterior and middle cerebral arteries bilaterally. There is moderate focal stenosis of the M2 segment of the right middle cerebral artery artery seen on coronal MIPS image #31. The vertebral arteries and basilar arteries are widely patent. There are foci of high-grade stenosis seen involving the proximal posterior cerebral arteries bilaterally (axial images #109, #115, and #117. The vertebral arteries are codominant. There is no aneurysm or focal vessel cut off seen throughout the intracranial circulation. Jugular veins: Patent bilaterally. Dural sinuses: Patent. Lung apices: There are moderate to large pleural effusions with associated consolidation. Intralobular septal thickening is noted in the upper lobes. Soft tissues: The visualized pharyngeal soft tissues are normal in appearance noting angiographic phase technique. The oropharyngeal airway appears widely patent. The salivary and thyroid glands are normal in appearance. No cervical lymphadenopathy is seen. Skeletal structures: The skeletal structures are heterogeneously osteopenic. The calvarium appears intact. The cervical spine is maintained noting multilevel spondylosis. No lytic or blastic lesion is seen. Orbits: The bony orbits are intact. Orbital contents are normal as visualized noting bilateral ocular lens implants. Sinuses and mastoids: The paranasal sinuses are clear. The mastoid air cells are well pneumatized. IMPRESSION: 1. There is no hemorrhage, mass effect, or evidence of acute territorial ischemia by CT criteria. 2. Unremarkable CT angiogram of the neck. 3. 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 4. There is a focus of moderate stenosis involving the M2 segment of the right middle cerebral artery. 5. Otherwise unremarkable CT angiogram of the brain. ACT 112: Negative or not required by law. Electronically signed by: Venkata Gibson M.D. 04/02/2021 9:39 AM ECG Additional Comments: TELE -- SR 80s PG Care Time/CCT Total # of Minutes Spent Total Time Spent with Patient: Total time spent is greater than 50% in coordination of care (as documented) at patient's floor/unit and/or counseling patient: Coding [place] [address] Subseq Hosp Care Lvl 3 Patient Type Established Medical Decision Making High Complexity Diagnoses Incarcerated umbilical hernia K42.0 Pleural effusion J90 CHF (congestive heart failure) I50.9 CKD (chronic kidney disease), stage III N18.30 SOB (shortness of breath) R06.02 Breast nodule N63.0 Leukocytosis D72.829 Oral candidiasis B37.0 Candidal UTI (urinary tract infection) B37.49 Hyponatremia E87.1 Anemia D64.9 Pneumonia J18.9 Stroke-like symptoms R29.90 Hypertension I10 Hypomagnesemia E83.42 Hypokalemia E87.6
[2021-04-02] MEDS ORDERED: AZTREONAM 2,000 MG in DEXTROSE 5% 100 ML IV STA (14:01)
[2021-04-02] MEDS ORDERED: AZTREONAM 1,000 MG in DEXTROSE 5% 100 ML IV SCH (14:15)
--- NOTE | 2021-04-02 14:53 | Pharmacy Report ---
Pharmacy Vanc AUC Short Note - Date of Service April 02, 2021 - Assessment & Plan Assessment * Ms Milan is an 89 year old F receiving Vanc/Zosyn/LVQ for treatment of incarcerated umbilical hernia s/p repair VS. pneumonia. * Pertinent microbiologic data includes: Negative MRSA Nasal Swab (03/30/21), blood cultures negative thus far (collected both 03/29 and 04/02). * Linda anna'antoine vancomycin 03/29-03/30. Zosyn has been ordered since 03/30. Today, Levaquin was started to provide double antipseudomonal coverage. Patient is also receiving Nystatin and Fluconazole for oral and urinary Lara. * Patient's renal function has been worsening over the course of admission (SCr 0.9 -> 1.8 -> 1.97 -> 2.28). Plan Vancomycin * AUC/GAVIN is the preferred PK/PD target for vancomycin * AUC guided dosing is effective and associated with decreased risk of nephrotoxicity compared to traditional trough targets * Vancomycin 750mg IV q24h (started after an appropriate loading dose) was initiated today. * This regimen is predicted to achieve target AUC/GAVIN of 400-600 mg/L.hr and may be associated with an 18% risk of nephrotoxicity * Vancomycin is currently only ordered as empiric therapy and will stop after 48 hours, unless extended by provider. No levels have been ordered at this time, but if vanc continues beyond 48hr, will order a level to monitor for safety of dosing regimen. Zosyn 4.5gm IV x1, then 3.375gm IV q8h * high-dose Zosyn was not selected for this patient (for BMI >35) d/t degree of renal impairment Levaquin 750mg IV x1, then 500mg IV q48h Pharmacy will continue to follow and will adjust dose/frequency as necessary. Thank you.
[2021-04-02] MEDS ORDERED: levoFLOXacin/D5W 750 MG/150 ML BAG IV ONE (15:00)
[2021-04-02] MEDS: ASPIRIN 81 MG ECTAB PO SCH (15:53)
--- NOTE | 2021-04-02 17:48 | Nephrology Consultation ---
Date of Consultation April 02, 2021 Assessment & Plan (1) ANNMARIE (acute kidney injury): Non-oliguric. Electrolytes acceptable accounting for hyponatremia and hypokalemia. Mild metabolic acidosis. Increased TBW but intravascularly dry on exam. Predominately dependent edema noted. CXR reviewed demonstrating pleural effusion on the left. Otherwise, no significant evidence of decompensated CHF on exam. Contributing factors include immobility and poor nutrition. Suggest diuretics to encourage only a slightly negative fluid balance. Avoid aggressive diuresis. Avoid thiazide diuretics or combination diuretic therapy. Possible underlying ATN. CTA completed today. Urine microscopy acellular. Kidneys unobstructed on CT abdomen. No emergent indication for dialysis. Medications appropriately dosed for kidney function. (2) Hyponatremia: Hypervolemic with poor oral solute intake. Encourage PO fluids. Loop diuretics to encourage slightly negative fluid balance. Continue PO free water restriction. Monitor daily. Replace potassium PRN. (3) Hypokalemia: Replacement provided. Repeat metabolic profile + magnesium tomorrow AM. (4) Hypertension: Improved. BP acceptable with metoprolol at this time. (5) CKD (chronic kidney disease), stage III: Baseline creatinine ~1 mg/dL. 3+ protein on dipstick. History of Present Illness Reason for Consultation: ANNMARIE Requesting Physician: Selvin Licona Attending Physician: Selvin Licona History of Present Illness Linda Milan is a frail 89 year-old female with morbid obesity, debility, DMII, hypertension, HFpEF, and history of ischemic left MCA stroke, and chronic kidney disease. Linda was recently admitted to [facility] with GI bleed and discharged to [facility]. She was transferred from [facility] to [facility] for evaluation of abdominal pain which revealed an incarcerated hernia and periumbilical hernia.Open repair with mesh was performed on 03/30/2021. Accelerated hypertension present on admission. Serum creatinine on admission was 0.9 mg/dL. It is now 2.28 mg/dL. Linda is non-oliguric. After receiving IVF perioperatively, she has been given diuretics to encourage a negative fluid balance for volume overload. Net negative fluid balance today of ~550 ml following furosemide 40 mg PO this AM. Oral intake has been poor. Linda does not endorse an appetite. She denies significant pain. Castro catheter draining clear yellow urine. The patient was seen and evaluated with her daughter (Candelaria) at the bedside this evening. Candelaria notes that Linda has had dependent edema following her recent hospitalization. Several weeks ago, while living at home with Candelaria, Linda was able to stand and pivot in order to use a bedside commode. She is non ambulatory at baseline. Linda was unable to provide any medical history for me. She answered a few simple 'yes/no' type questions appropriately. No prior history of kidney injury was reported. UA demonstrated 3+ protein and 1+ blood. Urine microscopy acellular. Abdominal and pelvis CT scan on admission demonstrated scattered small cysts, bilateral symmetric renal atrophy, without any evidence of obstruction. Net negative fluid balance x 24 hour documented at 1.5 L. Fluid balance for admission 4.3 L +. CXR demonstrating left pleural effusion. Pulmonary consultation reviewed. Noted at that stroke alert was called this aM for presumed benzodiazepine reaction. Allergies Allergy/AdvReac Type Severity Reaction Status Date / Time morphine AdvReac Intermediate Altered Unverified 03/29/21 20:09 Mental Status Home Medications Medication Instructions Recorded Confirmed Type amoxicillin 500 mg-potassium 1 tab PO Q12H 03/29/21 03/29/21 History clavulanate 125 mg tablet (Augmentin) atorvastatin 40 mg tablet 40 mg PO DAILY 03/29/21 03/29/21 History cholecalciferol (vitamin D3) 125 125 mcg PO DAILY 03/29/21 03/29/21 History mcg (5,000 unit) tablet (Vitamin D3) cyanocobalamin (vitamin B-12) 1,000 mcg PO DAILY 03/29/21 03/29/21 History 1,000 mcg tablet docusate sodium 100 mg capsule 100 mg PO BID 03/29/21 03/29/21 History duloxetine 60 mg capsule,delayed 60 mg PO DAILY 03/29/21 03/29/21 History release ferrous sulfate 325 mg (65 mg 325 mg PO TIDM 03/29/21 03/29/21 History iron) tablet furosemide 20 mg tablet 20 mg PO DAILY 03/29/21 03/29/21 History glipizide 2.5 mg tablet, extended 2.5 mg PO QDB 03/29/21 03/29/21 History release 24 hr hydrocodone 5 mg-acetaminophen 325 1 tab PO Q4H PRN 03/29/21 03/29/21 History mg tablet loratadine 10 mg tablet 10 mg PO DAILY 03/29/21 03/29/21 History lorazepam 0.5 mg tablet 0.5 mg PO TID PRN 03/29/21 03/29/21 History metoprolol tartrate 50 mg tablet 150 mg PO Q12H 03/29/21 03/29/21 History nystatin 100,000 unit/gram topical 1 applic TOPICAL BID 03/29/21 03/29/21 History powder pantoprazole 40 mg tablet,delayed 40 mg PO BIDM 03/29/21 03/29/21 History release sucralfate 1 gram tablet 1 g PO ACHS 03/29/21 03/29/21 History vitamin A 10,000 unit capsule 8,000 unit PO DAILY 03/29/21 03/29/21 History vitamin E 400 unit capsule 400 unit PO DAILY 03/29/21 03/29/21 History Patient History Medical History (Updated 04/02/21 @ 18:15 by Joe Flores DO) Adnexal mass Anxiety Basal cell carcinoma (BCC) Benzodiazepine dependence Carotid atherosclerosis CHF (congestive heart failure) Chronic ischemic left MCA stroke CKD (chronic kidney disease), stage III Depression Dyslipidemia Esophageal reflux Generalized osteoarthritis History of TIA (transient ischemic attack) History of tobacco abuse Hypertension Obesity (BMI 30-39.9) Parkinsonism Surgical History (Updated 04/01/21 @ 10:54 by Venkata Montanez PA-C) H/O colonoscopy H/O oophorectomy H/O: hysterectomy History of tonsillectomy and adenoidectomy S/P cholecystectomy Social History (Updated 04/01/21 @ 10:55 by Venkata Montanez PA-C) Smoking Status: Former smoker Tobacco Type: Cigarettes packs per day: 1; Years Smoked: 15; Smoking End Date: 02/08/1980; Hx Alcohol Use: Yes (History of 3.0 standard drinks of alcohol per week) Hx Substance Use: No Preferred Language: Yemeni Communication Ability: Effective Roller Pneumatic Required: No Beliefs That Will Affect Care: None marital status: / Current Living Situation: Rehab Feels Safe at Home: Yes Assistive Devices: Oxygen - Continuous Review of Systems Review of Systems: Unobtainable due to reduced consciousness Limited due to mental status. Denies dyspnea. Denies pain, except to touch over the abdomen. No fevers or chills. Physical Exam 2 Constitutional: well developed, + ill appearing and + morbidly obese; no acute distress Eyes: + anicteric sclerae; no corneal abnormality ENMT: Mouth: + dry oral mucous membranes; no oral mucosal abnormality Neck: normal visual inspection, trachea midline and + thick neck Respiratory: normal respiratory effort Auscultation: + diminished lung sounds ascultated anteriorly Cardiovascular: Rate/Rhythm: + tachycardic Heart Sounds: normal S1 and normal S2 Vessels: no JVD Extremities: + edema Gastrointestinal (Abdomen): Percussion/Palpation: abdomen soft; no guarding surgical dressing intact Musculoskeletal: Extremities: no cyanosis and no clubbing Skin: + turgor decreased and + dry skin Neurologic: Motor/Sensory: no tremor and no asterixis Psychiatric: Orientation: alert Eye Contact: + poor eye contact Results & Data ([facility]) Vital Signs (Past 12 Hours) Vital Signs Temp Pulse Pulse Resp BP Pulse Ox 04/02/21 16:00 101 H 04/02/21 14:57 36.8 C 88 24 143/70 H 98 04/02/21 11: 36.3 C L 60 22 118/80 93 04/02/21 09:04 36.7 C 83 24 180/81 H 99 04/02/21 08:00 97 H 04/02/21 07:08 37.3 C 93 H 24 173/85 H 94 Laboratory Results Laboratory Results - last 24 hr 04/01/21 04/01/21 04/02/21 06:52 20:32 06:33 WBC RBC Hgb Hct MCV MCH MCHC RDW Std Deviation RDW Coeff of Rj Plt Count MPV Immature Gran % (Auto) Neut % (Auto) Lymph % (Auto) Gulf % (Auto) Eos % (Auto) Baso % (Auto) Neut # (Auto) Lymph # (Auto) Gulf # (Auto) Eos # (Auto) Baso # (Auto) Immature Gran # (Auto) Sodium 127 L Potassium 3.3 L Chloride 90 L Carbon Dioxide 28 Anion Gap 9.0 BUN 34 H Creatinine 2.28 H D Est Cr Clr Drug Dosing 19.1 Est GFR ( Amer) 21.5 Est GFR (Non-Af Amer) 18.6 BUN/Creatinine Ratio 14.9 Glucose 101 H POC Glucose 105 H Lactate Calcium 9.3 D Magnesium 1.7 L Troponin I C-Reactive Protein NT-Pro-B Natriuret Pep 4628 H Homocysteine Procalcitonin Blood Type Antibody Screen 04/02/21 04/02/21 04/02/21 06:33 07:43 08:54 WBC 19.39 H RBC 3.45 L Hgb 10.0 L Hct 32.2 L MCV 93.3 MCH 29.0 MCHC 31.1 L RDW Std Deviation 55.2 H RDW Coeff of Rj 16.1 H Plt Count 275 MPV 10.3 Immature Gran % (Auto) 0.4 Neut % (Auto) 86.7 Lymph % (Auto) 3.8 Gulf % (Auto) 8.8 Eos % (Auto) 0.1 Baso % (Auto) 0.2 Neut # (Auto) 16.83 H Lymph # (Auto) 0.73 L Gulf # (Auto) 1.70 H Eos # (Auto) 0.02 Baso # (Auto) 0.03 Immature Gran # (Auto) 0.08 H Sodium Potassium Chloride Carbon Dioxide Anion Gap BUN Creatinine Est Cr Clr Drug Dosing Est GFR ( Amer) Est GFR (Non-Af Amer) BUN/Creatinine Ratio Glucose POC Glucose 109 H Lactate Calcium Magnesium Troponin I C-Reactive Protein NT-Pro-B Natriuret Pep Homocysteine Procalcitonin Blood Type O Positive Antibody Screen NEGATIVE 04/02/21 04/02/21 04/02/21 08:54 08:54 10:43 WBC RBC Hgb Hct MCV MCH MCHC RDW Std Deviation RDW Coeff of Rj Plt Count MPV Immature Gran % (Auto) Neut % (Auto) Lymph % (Auto) Gulf % (Auto) Eos % (Auto) Baso % (Auto) Neut # (Auto) Lymph # (Auto) Gulf # (Auto) Eos # (Auto) Baso # (Auto) Immature Gran # (Auto) Sodium Potassium Chloride Carbon Dioxide Anion Gap BUN Creatinine Est Cr Clr Drug Dosing Est GFR ( Amer) Est GFR (Non-Af Amer) BUN/Creatinine Ratio Glucose POC Glucose Lactate 0.7 Calcium Magnesium Troponin I 0.023 C-Reactive Protein NT-Pro-B Natriuret Pep Homocysteine Pending Procalcitonin Blood Type Antibody Screen 04/02/21 04/02/21 04/02/21 10:43 10:43 10:43 WBC RBC Hgb Hct MCV MCH MCHC RDW Std Deviation RDW Coeff of Rj Plt Count MPV Immature Gran % (Auto) Neut % (Auto) Lymph % (Auto) Gulf % (Auto) Eos % (Auto) Baso % (Auto) Neut # (Auto) Lymph # (Auto) Gulf # (Auto) Eos # (Auto) Baso # (Auto) Immature Gran # (Auto) Sodium Potassium Chloride Carbon Dioxide Anion Gap BUN Creatinine Est Cr Clr Drug Dosing Est GFR ( Amer) Est GFR (Non-Af Amer) BUN/Creatinine Ratio Glucose POC Glucose Lactate 0.7 Calcium Magnesium Troponin I C-Reactive Protein 12.00 H NT-Pro-B Natriuret Pep Homocysteine Procalcitonin 0.28 Blood Type Antibody Screen 04/02/21 04/02/21 04/02/21 11:26 16:31 17:49 WBC RBC Hgb Hct MCV MCH MCHC RDW Std Deviation RDW Coeff of Rj Plt Count MPV Immature Gran % (Auto) Neut % (Auto) Lymph % (Auto) Gulf % (Auto) Eos % (Auto) Baso % (Auto) Neut # (Auto) Lymph # (Auto) Gulf # (Auto) Eos # (Auto) Baso # (Auto) Immature Gran # (Auto) Sodium Potassium Chloride Carbon Dioxide Anion Gap BUN Creatinine Est Cr Clr Drug Dosing Est GFR ( Amer) Est GFR (Non-Af Amer) BUN/Creatinine Ratio Glucose POC Glucose 88 89 90 Lactate Calcium Magnesium Troponin I C-Reactive Protein NT-Pro-B Natriuret Pep Homocysteine Procalcitonin Blood Type Antibody Screen PG Care Time/CCT Total # of Minutes Spent Total Time Spent with Patient: Total time spent is greater than 50% in coordination of care (as documented) at patient's floor/unit and/or counseling patient: Coding Level of Care Code 05699 Inpt Consult Level 4 Diagnoses Hyponatremia E87.1 Hypokalemia E87.6 Hypertension I10 CKD (chronic kidney disease), stage III N18.30 ANNMARIE (acute kidney injury) N17.9
[2021-04-02] MEDS: HYDROmorphone INJ 0.5 MG/0.5 ML SYR IV PRN (20:11)
[2021-04-03] MEDS: DEXTROSE 50% 50 ML SYRINGE IV PRN ×2 (00:36→06:21)
[2021-04-03] MEDS: INSULIN ASPART 100 UNITS/ML 3 ML PEN SC SCH ×5 (00:41→20:03)
[2021-04-03] MEDS ORDERED: D5W AND NSS 1,000 ML IV SCH (06:15)
[2021-04-03] MEDS: BACITRACIN OINT 15 GM TUBE EXT SCH (07:25)
[2021-04-03 08:05] LABS: Basophils # (auto) 0.06 K/uL (0-0.2); Basophils % (auto) 0.5 %; Eosinophils # (auto) 0.13 K/uL (0-0.5); Eosinophils % (auto) 1.1 %; Hematocrit (blood only) 25.6 % (37-47); Hemoglobin 8.1 g/dL (12.0-16.0); Immature Granulocytes # (auto) 0.03 K/uL (0.00-0.02); Immature Granulocytes % (auto) 0.2 %; Lymphocytes # (auto) 1.01 K/uL (1.2-3.4); Lymphocytes % (auto) 8.4 %; Mean Corpuscular Hemoglobin 29.3 pg (25-34); Mean Corpuscular Hgb Conc 31.6 g/dL (32-36); Mean Corpuscular Volume 92.8 fL (80-100); Monocytes # (auto) 1.95 K/uL (0.11-0.59); Monocytes % (auto) 16.2 %; Neutrophils # (auto) 8.85 K/uL (1.4-6.5); Neutrophils % (auto) 73.6 %; Platelet Count 282 K/uL (130-400); RDW Coefficient of Variation 16.4 % (11.5-14.5); Red Blood Count 2.76 M/uL (4.2-5.4); White Blood Count 12.03 K/uL (4.8-10.8)
[2021-04-03] MEDS: PIPERACILLIN/TAZOBACTAM 3.375 GM in DEXTROSE 5% 100 ML IV SCH ×2 (08:05→19:31)
[2021-04-03] MEDS: ENOXAPARIN INJ 30 MG/0.3 ML SYR SQ SCH (08:09)
[2021-04-03] MEDS: NYSTATIN POWDER 15GM BTL SCH ×2 (08:11→20:01)
--- NOTE | 2021-04-03 08:16 | Electrocardiogram Report ---
Test Reason : Blood Pressure : / mmHG Vent. Rate : 090 BPM Atrial Rate : 090 BPM P-R Int : 182 ms QRS Dur : 086 ms QT Int : 366 ms P-R-T Axes : 051 038 039 degrees QTc Int : 447 ms Normal sinus rhythm Normal ECG When compared with ECG of 31-MAR-2021 06:36, No significant change was found Confirmed by Kobe Houston ([id number]) on 04/03/2021 8:16:02 AM Referred By: [facility] Confirmed By:Kobe Houston
[2021-04-03 08:32] LABS: Calcium 8.5 mg/dl (8.5-10.1); Creatinine Clr Calc Pharmacy 19.4 ml/min; Est GFR (African American) 21.6 ml/min; Est GFR (Non-African American) 18.7 ml/min; Phosphorus 2.9 mg/dl (2.5-4.9)
[2021-04-03] MEDS ORDERED: POTASSIUM CHLORIDE CRTAB 20 MEQ TABCR PO STA (09:11)
--- NOTE | 2021-04-03 10:22 | Nephrology Progress Note ---
Date of Service April 03, 2021 Assessment & Plan (1) ANNMARIE (acute kidney injury): Plan: Non-oliguric. Increased TBW but intravascularly dry on exam. Predominately dependent edema noted. CXR reviewed demonstrating pleural effusion on the left. Otherwise, no significant evidence of decompensated CHF on exam. Contributing factors include immobility and poor nutrition. Continue diuretics to encourage slightly negative fluid balance. Avoid aggressive diuresis. Avoid thiazide diuretics or combination diuretic therapy. IVF started overnight stopped. Furosemide 40 mg PO provided this AM. Additional furosemide to be provided PRN. Possible underlying ATN. Creatinine stable x 24 hours. Urine microscopy acellular. Kidneys unobstructed on CT abdomen. Patient has refused HD, if indicated. Medications appropriately dosed for kidney function. (2) Hyponatremia: Plan: Hypervolemic. Complicated by diuretics and poor oral solute intake. Encourage PO intake. Loop diuretics to encourage slightly negative fluid balance. Continue PO free water restriction. Monitor daily. Replace potassium PRN. (3) Hypokalemia: Plan: 10 mEq IV and 40 mEq PO this AM. Repeat metabolic profile + magnesium tomorrow AM. (4) Hypomagnesemia: Plan: Monitor daily. Replete PRN. (5) Anemia: Plan: Check iron profile with AM labs. Admission and Anticipated Discharge Date Admission Date: March 29, 2021 Subjective Overnight hypoglycemia noted. IV D5W+NSS stopped this AM. Fluid balance x 24 hours even. Linda remains slightly confused this AM. She reports an anticipated amount of post operative discomfort. She was breathing comfortably lying completely supine. Castro continues to drain pale yellow urine. Review of Systems Review of Systems: All systems reviewed & are unremarkable except as noted in HPI & below Physical Exam Constitutional: well developed and + morbidly obese; no acute distress Eyes: + anicteric sclerae; no corneal abnormality ENMT: Mouth: + dry oral mucous membranes; no oral mucosal abnormality Neck: normal visual inspection, trachea midline and + thick neck Respiratory: normal respiratory effort Auscultation: + diminished lung soun ds ascultated anteriorly Cardiovascular: Rate/Rhythm: + tachycardic Heart Sounds: normal S1 and normal S2 Vessels: no JVD Extremities: + edema Gastrointestinal (Abdomen): Percussion/Palpation: abdomen soft; no guarding surgical dressing intact Musculoskeletal: Extremities: no cyanosis and no clubbing Skin: + turgor decreased and + dry skin Neurologic: Motor/Sensory: no tremor and no asterixis Psychiatric: Orientation: alert Eye Contact: + poor eye contact Results & Data ([facility]) Vital Signs (Past 12 Hours) Vital Signs Temp Pulse Pulse Pulse Resp BP BP 04/03/21 07:43 36.8 C 98 H 20 139/67 04/03/21 07:36 36.8 C 102 H 18 174/57 H 04/03/21 04:00 36.7 C 85 20 156/73 H 04/03/21 01:40 93 H 04/02/21 23:40 36.6 C 98 H 18 142/66 H Pulse Ox 04/03/21 07:43 98 04/03/21 07:36 94 04/03/21 04:00 97 04/03/21 01:40 04/02/21 23:40 98 Laboratory Results Laboratory Results - last 24 hr 04/02/21 04/02/21 04/02/21 08:54 10:43 10:43 WBC RBC Hgb Hct MCV MCH MCHC RDW Std Deviation RDW Coeff of Rj Plt Count MPV Immature Gran % (Auto) Neut % (Auto) Lymph % (Auto) Holt % (Auto) Eos % (Auto) Baso % (Auto) Neut # (Auto) Lymph # (Auto) Holt # (Auto) Eos # (Auto) Baso # (Auto) Immature Gran # (Auto) Sodium Potassium Chloride Carbon Dioxide Anion Gap BUN Creatinine Est Cr Clr Drug Dosing Est GFR ( Amer) Est GFR (Non-Af Amer) BUN/Creatinine Ratio Glucose POC Glucose Lactate 0.7 Calcium Phosphorus Magnesium C-Reactive Protein Homocysteine Pending Procalcitonin Blood Type O Positive Antibody Screen NEGATIVE 04/02/21 04/02/21 04/02/21 10:43 10:43 11:26 WBC RBC Hgb Hct MCV MCH MCHC RDW Std Deviation RDW Coeff of Rj Plt Count MPV Immature Gran % (Auto) Neut % (Auto) Lymph % (Auto) Holt % (Auto) Eos % (Auto) Baso % (Auto) Neut # (Auto) Lymph # (Auto) Holt # (Auto) Eos # (Auto) Baso # (Auto) Immature Gran # (Auto) Sodium Potassium Chloride Carbon Dioxide Anion Gap BUN Creatinine Est Cr Clr Drug Dosing Est GFR ( Amer) Est GFR (Non-Af Amer) BUN/Creatinine Ratio Glucose POC Glucose 88 Lactate Calcium Phosphorus Magnesium C-Reactive Protein 12.00 H Homocysteine Procalcitonin 0.28 Blood Type Antibody Screen 04/02/21 04/02/21 04/03/21 16:31 17:49 00:21 WBC RBC Hgb Hct MCV MCH MCHC RDW Std Deviation RDW Coeff of Rj Plt Count MPV Immature Gran % (Auto) Neut % (Auto) Lymph % (Auto) Holt % (Auto) Eos % (Auto) Baso % (Auto) Neut # (Auto) Lymph # (Auto) Holt # (Auto) Eos # (Auto) Baso # (Auto) Immature Gran # (Auto) Sodium Potassium Chloride Carbon Dioxide Anion Gap BUN Creatinine Est Cr Clr Drug Dosing Est GFR ( Amer) Est GFR (Non-Af Amer) BUN/Creatinine Ratio Glucose POC Glucose 89 90 54 L* Lactate Calcium Phosphorus Magnesium C-Reactive Protein Homocysteine Procalcitonin Blood Type Antibody Screen 04/03/21 04/03/21 04/03/21 00:23 00:52 03:27 WBC RBC Hgb Hct MCV MCH MCHC RDW Std Deviation RDW Coeff of Rj Plt Count MPV Immature Gran % (Auto) Neut % (Auto) Lymph % (Auto) Holt % (Auto) Eos % (Auto) Baso % (Auto) Neut # (Auto) Lymph # (Auto) Holt # (Auto) Eos # (Auto) Baso # (Auto) Immature Gran # (Auto) Sodium Potassium Chloride Carbon Dioxide Anion Gap BUN Creatinine Est Cr Clr Drug Dosing Est GFR ( Amer) Est GFR (Non-Af Amer) BUN/Creatinine Ratio Glucose POC Glucose 56 L* 96 79 Lactate Calcium Phosphorus Magnesium C-Reactive Protein Homocysteine Procalcitonin Blood Type Antibody Screen 04/03/21 04/03/21 04/03/21 06:04 06:06 06:40 WBC RBC Hgb Hct MCV MCH MCHC RDW Std Deviation RDW Coeff of Rj Plt Count MPV Immature Gran % (Auto) Neut % (Auto) Lymph % (Auto) Holt % (Auto) Eos % (Auto) Baso % (Auto) Neut # (Auto) Lymph # (Auto) Holt # (Auto) Eos # (Auto) Baso # (Auto) Immature Gran # (Auto) Sodium Potassium Chloride Carbon Dioxide Anion Gap BUN Creatinine Est Cr Clr Drug Dosing Est GFR ( Amer) Est GFR (Non-Af Amer) BUN/Creatinine Ratio Glucose POC Glucose 64 L* 68 L* 124 H Lactate Calcium Phosphorus Magnesium C-Reactive Protein Homocysteine Procalcitonin Blood Type Antibody Screen 04/03/21 04/03/21 07:29 07:29 WBC 12.03 H RBC 2.76 L Hgb 8.1 L Hct 25.6 L MCV 92.8 MCH 29.3 MCHC 31.6 L RDW Std Deviation 55.0 H RDW Coeff of Rj 16.4 H Plt Count 282 MPV 10.0 Immature Gran % (Auto) 0.2 Neut % (Auto) 73.6 Lymph % (Auto) 8.4 Holt % (Auto) 16.2 Eos % (Auto) 1.1 Baso % (Auto) 0.5 Neut # (Auto) 8.85 H Lymph # (Auto) 1.01 L Holt # (Auto) 1.95 H Eos # (Auto) 0.13 Baso # (Auto) 0.06 Immature Gran # (Auto) 0.03 H Sodium 133 L Potassium 3.0 L Chloride 93 L Carbon Dioxide 28 Anion Gap 12.0 H BUN 32 H Creatinine 2.27 H Est Cr Clr Drug Dosing 19.4 Est GFR ( Amer) 21.6 Est GFR (Non-Af Amer) 18.7 BUN/Creatinine Ratio 14.0 Glucose 90 POC Glucose Lactate Calcium 8.5 Phosphorus 2.9 Magnesium 2.0 C-Reactive Protein Homocysteine Procalcitonin Blood Type Antibody Screen PG Care Time/CCT Total # of Minutes Spent Total Time Spent with Patient: Total time spent is greater than 50% in coordination of care (as documented) at patient's floor/unit and/or counseling patient: Coding Level of Care Code 36763 Subseq Hosp Care Lvl 3 Diagnoses ANNMARIE (acute kidney injury) N17.9 Hypokalemia E87.6 Hypomagnesemia E83.42 Anemia D64.9 Hyponatremia E87.1
[2021-04-03] MEDS: ACETAMINOPHEN 1000 MG/100 ML IV IV SCH ×2 (10:35→17:53)
[2021-04-03] MEDS: POTASSIUM CHLORIDE / WTR 10 MEQ/100 ML PLCT IV SCH ×3 (10:46→13:02)
--- NOTE | 2021-04-03 10:58 | Surgery Progress Note ---
Date of Service April 03, 2021 Assessment & Plan (1) Incarcerated umbilical hernia: Plan: pt is a 89 year-old female who presents with 2 days history abdominal pain with nausea and vomiting, IMP: incarcerated umbilical hernia and periumbilical hernia, Plan, I recommend to do open repair incarcerated umbilical hernia and periumbilical hernia, possible with mesh,or bowel resection, I called pt's daughter, D/W benefits, risks and alternatives of the surgery, the risks- infection, bleeding, injury bowel, hernia recurrence, complication relate to mesh, [place], DVT, stroke, renal failure, , pt's daughter understood, she gave consent on the phone, I answered all questions, pre-op antibiotic, 03/30/2021 2:15 PM, F/U S/P open repair incarcerated umbilical hernia and periumbilical hernia with mesh, pt is stable, start clear diet now, continue treatment, repeat labs in morning, will F/U, 03/31/2021 3:47PM I update OR finding and procedure pt had to pt's daughter, pt's daughter at bedside now, doing better, DM diet, continue IV antibiotic, repeat labs in morning, 04/01/2021 9: 53AM may hold lovenex, repeat labs in morning, hep -lock IV check UA, CXR to R/O infection, will F/U, continue IV antibiotic treatment, 04/02/2021 11:14AM F/U S/P open repair incarcerated umbilical hernia and periumbilical hernia with mesh, POD3 pt had stroke alert this morning, pt had CT scan head and abdomen + pelvis, no stroke on Ct scan CT scan abdomen- Postsurgical changes of the right lower quadrant are seen. Incisional hernia is still seen to contain loops of bowel, however there is no evidence of incarcerated bowel. high WBC 19,000, some redness at incision stapler line, apply bacitricin on incision site once a day, cover with 4x$ gauze, UA negative, CXR- patch on bilateral lung, could not R/O pneumonia, no bowel obstruction signs, the small bowel just below the mesh, no surgery indication now, start IV fluid, continue treatment IV antibiotic, repeat labs in morning, will F/U 04/03/2021 11:00AM DR. Aldana F/U S/P open repair incarcerated umbilical hernia and periumbilical hernia with mesh, POD4, doing better, more awake, answered questions correctly, WBC down to 12,000. will F/U tolerated , miralax PT therapy, continue IV antibiotic Admission and Anticipated Discharge Date Admission Date: March 29, 2021 Supervising Physician Co-Signing Physician Notes Attending Attestation: Chart reviewed in detail, care plan d/w Susan GARCIA. I agree w/ the botello components of her documentation. POD #3 s/p incarcerated umbilical hernia repair. Events of this am discussed extensively with Ms Gutiérrez. Stroke alert called by nursing staff due to ?pronator drift and altered MS. However, had ativan early this am prior to today's events. Leukocytosis and cxr findings noted. Worsening Na and Cr noted. CT a/p findings noted. I did briefly discuss her surgical care with the gen surg PA. Acute hypoxic resp failure - decompensated CHF +/- pneumonia process. Encephalopathy - toxic (ativan) + metabolic (worsening Na, possible wound infection/abd wall cellulitis, ?pneumonia, etc). ?TIA vs stroke - work-up with intracranial stenoses in various vessels but no obvious CVA on imaging. Defer on MRI for now. Events this am may all be metabolic/toxic. Prognosis is poor; appreciate all care team members and their assistance. Code status confirmed to be DNR. Selvin Licona MD Subjective Overnight hypoglycemia noted. IV D5W+NSS stopped this AM. Fluid balance x 24 hours even. Linda remains slightly confused this AM. She reports an anticipated amount of post operative discomfort. She was breathing comfortably lying completely supine. Castro continues to drain pale yellow urine. 04/03/2021 10: 51AM DR. Aldana pt is doing much better this morning, pt is alert and awake, answer question correctly, she had breakfast this morning, she tolerated the diet, no nausea, no vomiting, no fever, no BM yet, WBC down to 12,000. Review of Systems Constitutional: as per Subjective / HPI Eyes: as per Subjective / HPI Respiratory: as per Subjective / HPI O2 at 2L/Min Cardiovascular: Additional Comments: HTN Gastrointestinal: SBO Genitourinary: as per Subjective / HPI Neurologic: as per Subjective / HPI Psychiatric: as per Subjective / HPI Endocrine: DM Hematologic / Lymphatic: as per Subjective / HPI Physical Exam Constitutional: WD/WN, vitals as above AO x 3 Eyes: PERRL, conjunctivae normal, anicteric sclerae Neck: trachea midline, no thyromegaly Respiratory: normal respiratory effort, lungs clear to auscultation Cardiovascular: RRR, no murmur, no edema Gastrointestinal (Abdomen): soft, mild tenderness at incision site, no rebound pain, no distend, mild redness on incision site, BS + Neurologic: patellar DTR's 2+ bilat, sensation intact Results & Data ([facility]) Vital Signs (Past 12 Hours) Vital Signs Temp Pulse Pulse Pulse Resp BP BP 04/03/21 07:43 36.8 C 98 H 20 139/67 04/03/21 07:36 36.8 C 102 H 18 174/57 H 04/03/21 04:00 36.7 C 85 20 156/73 H 04/03/21 01:40 93 H 04/02/21 23:40 36.6 C 98 H 18 142/66 H Pulse Ox 04/03/21 07:43 98 04/03/21 07:36 94 04/03/21 04:00 97 04/03/21 01:40 04/02/21 23:40 98 Laboratory Results Abnormal lab results 04/02/21 04/03/21 04/03/21 Range/Units 10:43 00:21 00:23 WBC (4.8-10.8) K/uL RBC (4.2-5.4) M/uL Hgb (12.0-16.0) g/dL Hct (37-47) % MCHC (32-36) g/dL RDW Std Deviation (36.4-46.3) fL RDW Coeff of Rj (11.5-14.5) % Neut # (Auto) (1.4-6.5) K/uL Lymph # (Auto) (1.2-3.4) K/uL Slope # (Auto) (0.11-0.59) K/uL Immature Gran # (Auto) (0.00-0.02) K/uL Sodium (136-145) mmol/L Potassium (3.5-5.1) mmol/L Chloride (98-107) mmol/L Anion Gap (3-11) BUN (7-18) mg/dl Creatinine (0.6-1.2) mg/dl POC Glucose 54 L* 56 L* (70-99) mg/dl C-Reactive Protein 12.00 H (0-0.29) mg/dl 04/03/21 04/03/21 04/03/21 Range/Units 06:04 06:06 06:40 WBC (4.8-10.8) K/uL RBC (4.2-5.4) M/uL Hgb (12.0-16.0) g/dL Hct (37-47) % MCHC (32-36) g/dL RDW Std Deviation (36.4-46.3) fL RDW Coeff of Rj (11.5-14.5) % Neut # (Auto) (1.4-6.5) K/uL Lymph # (Auto) (1.2-3.4) K/uL Slope # (Auto) (0.11-0.59) K/uL Immature Gran # (Auto) (0.00-0.02) K/uL Sodium (136-145) mmol/L Potassium (3.5-5.1) mmol/L Chloride (98-107) mmol/L Anion Gap (3-11) BUN (7-18) mg/dl Creatinine (0.6-1.2) mg/dl POC Glucose 64 L* 68 L* 124 H (70-99) mg/dl C-Reactive Protein (0-0.29) mg/dl 04/03/21 04/03/21 Range/Units 07:29 07:29 WBC 12.03 H (4.8-10.8) K/uL RBC 2.76 L (4.2-5.4) M/uL Hgb 8.1 L (12.0-16.0) g/dL Hct 25.6 L (37-47) % MCHC 31.6 L (32-36) g/dL RDW Std Deviation 55.0 H (36.4-46.3) fL RDW Coeff of Rj 16.4 H (11.5-14.5) % Neut # (Auto) 8.85 H (1.4-6.5) K/uL Lymph # (Auto) 1.01 L (1.2-3.4) K/uL Slope # (Auto) 1.95 H (0.11-0.59) K/uL Immature Gran # (Auto) 0.03 H (0.00-0.02) K/uL Sodium 133 L (136-145) mmol/L Potassium 3.0 L (3.5-5.1) mmol/L Chloride 93 L (98-107) mmol/L Anion Gap 12.0 H (3-11) BUN 32 H (7-18) mg/dl Creatinine 2.27 H (0.6-1.2) mg/dl POC Glucose (70-99) mg/dl C-Reactive Protein (0-0.29) mg/dl
[2021-04-03] MEDS: SUCRALFATE 1 GM TAB PO SCH ×4 (10:59→20:00)
[2021-04-03] MEDS: PANTOprazole 40 MG TAB PO SCH ×2 (10:59→17:49)
[2021-04-03] MEDS: FERROUS SULFATE 325 MG TAB PO SCH ×3 (10:59→17:49)
[2021-04-03] MEDS: ASPIRIN 81 MG ECTAB PO SCH (11:01)
[2021-04-03] MEDS: ATORVASTATIN 40 MG TAB PO SCH (11:01)
[2021-04-03] MEDS: CYANOCOBALAMIN 500 MCG TABLET (VITAMIN B-12) PO SCH (11:01)
[2021-04-03] MEDS: CHOLECALCIFEROL 1,000 UNITS 25 MCG TAB PO SCH (11:01)
--- NOTE | 2021-04-03 11:01 | Surgery Progress Note ---
Date of Service April 03, 2021 Assessment & Plan (1) Incarcerated umbilical hernia: Plan: POD # 4 s/p open repair of umbilical and periumbilical hernia with mesh - afebrile - vital stable - moderate to severe postop pain - no nausea or vomiting - leukocytosis improved today to 12K (19K yesterday) Plan: Will add scheduled IV tylenol for pain as patients postop pain is likely not controlled and inability to frequently ask for pain medication. Would like to avoid narcotic given mental status change yesterday. NPO until speech therapy eval okay to advance to clears if cleared from speech therapy continue current medical management continue IV antibiotics Admission and Anticipated Discharge Date Admission Date: March 29, 2021 Subjective having pain in abdomen, right lower abdomen at site of surgery. states pain "is bad" No nausea or vomiting feels like she might have to have a bowel movement unsure what hospital she is in and though it was April but knew she had surgery. per nurse, she had dose of IV Dilaudid last night, more alert today , going to be evaluated by speech therapy today Physical Exam Constitutional: + obese and cooperative; no acute distress and not ill appearing Respiratory: normal respiratory effort; no labored breathing and no retractions Gastrointestinal (Abdomen): Inspection/Auscultation: abdomen normal to inspection, + abdominal surgical incision (intact with federico present, blood drainage on dressing, mild erythema) and + hypoactive bowel sounds; abdomen not distended and + abnormal bowel sounds no induration or fluctuance on palpation Skin: no rashes, warm and dry Psychiatric: Orientation: alert, oriented to person and cooperative; + not oriented x 3, + not oriented to place and + not oriented to time Results & Data ([facility]) Vital Signs (Past 12 Hours) Vital Signs Temp Pulse Pulse Pulse Resp BP BP 04/03/21 07:43 36.8 C 98 H 20 139/67 04/03/21 07:36 36.8 C 102 H 18 174/57 H 04/03/21 04:00 36.7 C 85 20 156/73 H 04/03/21 01:40 93 H 04/02/21 23:40 36.6 C 98 H 18 142/66 H Pulse Ox 04/03/21 07:43 98 04/03/21 07:36 94 04/03/21 04:00 97 04/03/21 01:40 04/02/21 23:40 98 Laboratory Results 04/03/21 04/03/21 04/03/21 Range/Units 07:29 07:29 06:40 WBC 12.03 H (4.8-10.8) K/uL RBC 2.76 L (4.2-5.4) M/uL Hgb 8.1 L (12.0-16.0) g/dL Hct 25.6 L (37-47) % MCV 92.8 (80-100) fL MCH 29.3 (25-34) pg MCHC 31.6 L (32-36) g/dL RDW Std Deviation 55.0 H (36.4-46.3) fL RDW Coeff of Rj 16.4 H (11.5-14.5) % Plt Count 282 (130-400) K/uL MPV 10.0 (7.4-10.4) fL Immature Gran % (Auto) 0.2 % Neut % (Auto) 73.6 % Lymph % (Auto) 8.4 % [place] % (Auto) 16.2 % Eos % (Auto) 1.1 % Baso % (Auto) 0.5 % Neut # (Auto) 8.85 H (1.4-6.5) K/uL Lymph # (Auto) 1.01 L (1.2-3.4) K/uL [place] # (Auto) 1.95 H (0.11-0.59) K/uL Eos # (Auto) 0.13 (0-0.5) K/uL Baso # (Auto) 0.06 (0-0.2) K/uL Immature Gran # (Auto) 0.03 H (0.00-0.02) K/uL Sodium 133 L (136-145) mmol/L Potassium 3.0 L (3.5-5.1) mmol/L Chloride 93 L (98-107) mmol/L Carbon Dioxide 28 (21-32) mmol/L Anion Gap 12.0 H (3-11) BUN 32 H (7-18) mg/dl Creatinine 2.27 H (0.6-1.2) mg/dl Est Cr Clr Drug Dosing 19.4 ml/min Est GFR ( Amer) 21.6 ml/min Est GFR (Non-Af Amer) 18.7 ml/min BUN/Creatinine Ratio 14.0 (10-20) Glucose 90 (70-99) mg/dl POC Glucose 124 H (70-99) mg/dl Lactate (0.4-2.0) mmol/L Calcium 8.5 (8.5-10.1) mg/dl Phosphorus 2.9 (2.5-4.9) mg/dl Magnesium 2.0 (1.8-2.4) mg/dl C-Reactive Protein (0-0.29) mg/dl Procalcitonin (0-0.5) ng/ml 04/03/21 04/03/21 04/03/21 Range/Units 06:06 06:04 03:27 WBC (4.8-10.8) K/uL RBC (4.2-5.4) M/uL Hgb (12.0-16.0) g/dL Hct (37-47) % MCV (80-100) fL MCH (25-34) pg MCHC (32-36) g/dL RDW Std Deviation (36.4-46.3) fL RDW Coeff of Rj (11.5-14.5) % Plt Count (130-400) K/uL MPV (7.4-10.4) fL Immature Gran % (Auto) % Neut % (Auto) % Lymph % (Auto) % Bos[place] % (Auto) % Eos % (Auto) % Baso % (Auto) % Neut # (Auto) (1.4-6.5) K/uL Lymph # (Auto) (1.2-3.4) K/uL [place] # (Auto) (0.11-0.59) K/uL Eos # (Auto) (0-0.5) K/uL Baso # (Auto) (0-0.2) K/uL Immature Gran # (Auto) (0.00-0.02) K/uL Sodium (136-145) mmol/L Potassium (3.5-5.1) mmol/L Chloride (98-107) mmol/L Carbon Dioxide (21-32) mmol/L Anion Gap (3-11) BUN (7-18) mg/dl Creatinine (0.6-1.2) mg/dl Est Cr Clr Drug Dosing ml/min Est GFR ( Amer) ml/min Est GFR (Non-Af Amer) ml/min BUN/Creatinine Ratio (10-20) Glucose (70-99) mg/dl POC Glucose 68 L* 64 L* 79 (70-99) mg/dl Lactate (0.4-2.0) mmol/L Calcium (8.5-10.1) mg/dl Phosphorus (2.5-4.9) mg/dl Magnesium (1.8-2.4) mg/dl C-Reactive Protein (0-0.29) mg/dl Procalcitonin (0-0.5) ng/ml 04/03/21 04/03/21 04/03/21 Range/Units 00:52 00:23 00:21 WBC (4.8-10.8) K/uL RBC (4.2-5.4) M/uL Hgb (12.0-16.0) g/dL Hct (37-47) % MCV (80-100) fL MCH (25-34) pg MCHC (32-36) g/dL RDW Std Deviation (36.4-46.3) fL RDW Coeff of Rj (11.5-14.5) % Plt Count (130-400) K/uL MPV (7.4-10.4) fL Immature Gran % (Auto) % Neut % (Auto) % Lymph % (Auto) % Bosque % (Auto) % Eos % (Auto) % Baso % (Auto) % Neut # (Auto) (1.4-6.5) K/uL Lymph # (Auto) (1.2-3.4) K/uL [place] # (Auto) (0.11-0.59) K/uL Eos # (Auto) (0-0.5) K/uL Baso # (Auto) (0-0.2) K/uL Immature Gran # (Auto) (0.00-0.02) K/uL Sodium (136-145) mmol/L Potassium (3.5-5.1) mmol/L Chloride (98-107) mmol/L Carbon Dioxide (21-32) mmol/L Anion Gap (3-11) BUN (7-18) mg/dl Creatinine (0.6-1.2) mg/dl Est Cr Clr Drug Dosing ml/min Est GFR ( Amer) ml/min Est GFR (Non-Af Amer) ml/min BUN/Creatinine Ratio (10-20) Glucose (70-99) mg/dl POC Glucose 96 56 L* 54 L* (70-99) mg/dl Lactate (0.4-2.0) mmol/L Calcium (8.5-10.1) mg/dl Phosphorus (2.5-4.9) mg/dl Magnesium (1.8-2.4) mg/dl C-Reactive Protein (0-0.29) mg/dl Procalcitonin (0-0.5) ng/ml 04/02/21 04/02/21 04/02/21 Range/Units 17:49 16:31 11:26 WBC (4.8-10.8) K/uL RBC (4.2-5.4) M/uL Hgb (12.0-16.0) g/dL Hct (37-47) % MCV (80-100) fL MCH (25-34) pg MCHC (32-36) g/dL RDW Std Deviation (36.4-46.3) fL RDW Coeff of Rj (11.5-14.5) % Plt Count (130-400) K/uL MPV (7.4-10.4) fL Immature Gran % (Auto) % Neut % (Auto) % Lymph % (Auto) % Bosque % (Auto) % Eos % (Auto) % Baso % (Auto) % Neut # (Auto) (1.4-6.5) K/uL Lymph # (Auto) (1.2-3.4) K/uL [place] # (Auto) (0.11-0.59) K/uL Eos # (Auto) (0-0.5) K/uL Baso # (Auto) (0-0.2) K/uL Immature Gran # (Auto) (0.00-0.02) K/uL Sodium (136-145) mmol/L Potassium (3.5-5.1) mmol/L Chloride (98-107) mmol/L Carbon Dioxide (21-32) mmol/L Anion Gap (3-11) BUN (7-18) mg/dl Creatinine (0.6-1.2) mg/dl Est Cr Clr Drug Dosing ml/min Est GFR ( Amer) ml/min Est GFR (Non-Af Amer) ml/min BUN/Creatinine Ratio (10-20) Glucose (70-99) mg/dl POC Glucose 90 89 88 (70-99) mg/dl Lactate (0.4-2.0) mmol/L Calcium (8.5-10.1) mg/dl Phosphorus (2.5-4.9) mg/dl Magnesium (1.8-2.4) mg/dl C-Reactive Protein (0-0.29) mg/dl Procalcitonin (0-0.5) ng/ml 04/02/21 04/02/21 04/02/21 Range/Units 10:43 10:43 10:43 WBC (4.8-10.8) K/uL RBC (4.2-5.4) M/uL Hgb (12.0-16.0) g/dL Hct (37-47) % MCV (80-100) fL MCH (25-34) pg MCHC (32-36) g/dL RDW Std Deviation (36.4-46.3) fL RDW Coeff of Rj (11.5-14.5) % Plt Count (130-400) K/uL MPV (7.4-10.4) fL Immature Gran % (Auto) % Neut % (Auto) % Lymph % (Auto) % [place] % (Auto) % Eos % (Auto) % Baso % (Auto) % Neut # (Auto) (1.4-6.5) K/uL Lymph # (Auto) (1.2-3.4) K/uL [place] # (Auto) (0.11-0.59) K/uL Eos # (Auto) (0-0.5) K/uL Baso # (Auto) (0-0.2) K/uL Immature Gran # (Auto) (0.00-0.02) K/uL Sodium (136-145) mmol/L Potassium (3.5-5.1) mmol/L Chloride (98-107) mmol/L Carbon Dioxide (21-32) mmol/L Anion Gap (3-11) BUN (7-18) mg/dl Creatinine (0.6-1.2) mg/dl Est Cr Clr Drug Dosing ml/min Est GFR ( Amer) ml/min Est GFR (Non-Af Amer) ml/min BUN/Creatinine Ratio (10-20) Glucose (70-99) mg/dl POC Glucose (70-99) mg/dl Lactate 0.7 (0.4-2.0) mmol/L Calcium (8.5-10.1) mg/dl Phosphorus (2.5-4.9) mg/dl Magnesium (1.8-2.4) mg/dl C-Reactive Protein 12.00 H (0-0.29) mg/dl Procalcitonin 0.28 (0-0.5) ng/ml
[2021-04-03] MEDS: FUROSEMIDE 40 MG TAB PO SCH (11:02)
[2021-04-03] MEDS: FLUCONAZOLE 100 MG TAB PO SCH (11:02)
[2021-04-03] MEDS: DULoxetine HCL 60 MG CAP PO SCH (11:02)
[2021-04-03] MEDS: TOCOPHERYL, DL-ALPHA 400 UNITS 180 MG CAP PO SCH (11:02)
[2021-04-03] MEDS: LORATADINE 10 MG TAB PO SCH (11:02)
[2021-04-03] MEDS: DOCUSATE SODIUM 100 MG CAP PO SCH ×2 (11:02→20:04)
--- NOTE | 2021-04-03 11:24 | Hospitalist Progress Note ---
Date of Service April 03, 2021 Assessment & Plan (1) Atrial fibrillation with RVR: Plan: New onset - Could be precipitated by hypokalemia - IV Lopressor 5mg x1 given, no significant response - Second IV Lopressor 5mg ordered - Resume PO Lopressor 25mg BID (missed dose this AM d/t still being NPO) - Not a candidate for ACT d/t incisional bleeding (2) Stroke-like symptoms: Plan: - Stroke alert called, CT head negative - Telehealth stroke consult placed to [facility], spoke with Dr. 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), advise keeping MAP>90mmHg and Mg >2.0 - Continue statin therapy - Added low dose ASA 81mg daily - Patient is back to her baseline (3) Pneumonia: Plan: - ?Aspiration v HAP - Pt made NPO and ST saw, cleared, and put back on full liquids - Continue aspiration prescautions - Currently on empiric Zosyn, continue w/ renal adjustment - Added Levaquin for double gram neg coverage (specifically antipseudomonal) per UTD guidelines w/ renal adjustment - Added MRSA coverage w/ Vancomycin 1g IV x1 then pharmacokinetic consult for continued management based on creatinine clearance - WBC count downtrending (4) CHF (congestive heart failure): Plan: Acute on chronic, biventricular - Recent echo 03/22/21 -- preserved LVEF, poor U/S images - Dose of IV Lasix given yesterday w/ poor diuresis. Increased oral Lasix as noted in #2 - Repeat BNP markedly elevated at just shy of 7000 04/01 - Fluid restrict 1800 mL daily (5) Pleural effusion: Plan: Bilateral, L>R - Consulted pulm, appreciate their input - suspect secondary to CHF - Poor candidate for thoracentesis - Given a one time dose of IV Lasix 40mg 04/01 - Monitor output: - Continue Lasix PO 40mg - Incentive spirometry (6) Incarcerated umbilical hernia: Plan: s/p repair with Dr. Aldana, POD#4 - Pain control - IV APAP and oral Fosston ordered. D/C Dilaudid. - Incentive spirometry - Surgery following - Stop ASA and Lovenox d/t bleeding at incision site (7) CKD (chronic kidney disease), stage III: Plan: Baseline unknown - will request records to review - Will monitor closely in setting of diuresis, renal fxn stable from yesterday - Slightly worsening CKD may be necessary to keep out of CHF - Nephrology consulted, appreciate their recommendations (8) SOB (shortness of breath): Plan: - Multifactoral -- CHF/pna/pleural effusion/atelectasis/OHS - See #1/2 (9) Breast nodule: Plan: - Right breast ultrasound ordered but cannot perform as inpatient - Will need to pursue as outpatient, if pt's family wishes - Highly suspicious that this may represent breast ca (10) Leukocytosis: Plan: - Repeat CXR 04/02 with patchy opacities ?multifocal pna (HAP) v aspiration - UA unremarkable (except for yeast, Diflucan added) - Repeat blood cultures are pending - Add MRSA coverage as noted above - Marked improvement from 19 to 12 today (11) Oral candidiasis: Plan: - Add Nystatin (12) Candidal UTI (urinary tract infection): Plan: - Started Diflucan 200mg IV x1 and then 100mg daily (13) Hyponatremia: Plan: - Suspect dilutional d/t hypervolemia - Improved with diuresis yesterday in setting of net negative fluid balance - Nephrology following - Will f/u with BMP in AM (14) Anemia: Plan: - Multifactoral, likely chronic related to chronic renal disease, blood loss from surgery, and also dilutional from volume overload - Pt required 2 recent blood transfusions prior to this admission at [facility] from suspected GI bleed at beginning of Mar - H&H stable will continue to monitor closely - Continue Ferrous Sulfate - Renal added Ferritin, TIBC, serum iron (15) Hypertension: Plan: Uncontrolled - Continue Lopressor - Lasix - Hydralazine 10mg IV q6h prn sbp>170 or dbp>100 (16) Hypomagnesemia: Plan: - Mag Syed 1g IV q1h x 2 on 04/02 - Repeat level today is WNL (17) Hypokalemia: Plan: - K Syed 10 meq IV q1h x 3 04/02 - Repeat level this AM still low at 3.0 - K Riders x 3 ordered again in addition to PO - Repeat this evening and again in AM Plan: After extensive conversation with patient's daughter, Candelaria, pt made DNR/DNI 04/02 PT/OT consulted, would be great to get pt out of bed to chair Trend labs Condition: guarded with poor prognosis Will need SNF upon d/c Admission and Anticipated Discharge Date Admission Date: March 29, 2021 Supervising Physician Co-Signing Physician Notes Attending Attestation: Chart reviewed in detail, care plan d/w Susan GARCIA. I agree w/ the botello components of her documentation. POD #4 s/p incarcerated umbilical hernia repair. New-onset a.fib today. Agree with plan of care for such. Yesterday with code stroke alert. Likely encephalopathy from suspected infectious issues rather than TIA but canno t rule out latter. Mounting medical issues. Prognosis guarded. May need palliative care consultation to refine goals of care. Sevlin Mckeon was seen on rounds this morning. Pt remains hospitalized following incarcerated umbilical hernia repair, pod #4. Pt was made stroke alert yesterday d/t AMS/decreased LOC. CT head negative. 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 However, issues yesterday suspected to be multifactoral in setting of infectious process and having been medicated yesterday AM with Ativan. This morning, pt appears back to her baseline. She is able to identify who she is and that she is in the hospital. She c/o nausea and abdominal pain at incision site. She is also asking for water. She states she feels cold/shaky but is covered in multiple layers of blankets. Also c/o back pain, not used to laying flat on her back. After yesterday's events, pt made NPO until speech could re-evaluate due to concerns for possible aspiration. Pt seen this AM by ST and cleared to resume full liquid diet. Aspiration precautions are in place. Antibiotic therapy was broadened yesterday to cover MRSA and double cover gram neg (pseudomonas). After extensive conversation with the patient's daughter, Candelaria, who is her POA, pt was made DNR/DNI. Review of Systems Review of Systems: CONSTITUTIONAL: + weakness, chills. Denies weight loss/gain, fever, fatigue, mal aise. HEENT: Denies changes in vision and hearing. RESPIRATORY: Denies SOB, cough, wheezing. CV: Denies palpitations, CP, lower extremity edema, orthopnea, PND. GI: +abdominal pain, nausea, constipation. Denies vomiting and diarrhea. : + bishop MUSCULOSKELETAL: Denies myalgia and joint pain. SKIN: + lesion under R breast NEUROLOGICAL: Denies headache, syncope, focal weakness, numbness, tingling. PSYCHIATRIC: Denies recent changes in mood. Denies anxiety and depression. Physical Exam Physical Exam: GENERAL: 89 elderly obese WF. Awake, alert, oriented x3. NAD. LUNGS: No accessory muscle use. Diminished breath sound L base, bibasilar crackles. Scattered rhonchi. No wheezes. CARDIOVASCULAR: Irregular rate and rhythm. No M/G/R. No JVD. ABDOMEN: Soft, non-distended. Bowel sounds normoactive x 4 quad. Mild tenderness at incision site with erythema extending from incision. Dressing saturated w/ blood. : Bishop in place draining clear yellow urine EXTREMITIES: +2 pitting edema BL LE. Non-tender. Peripheral pulses +2/4. NEUROLOGIC: No observed facial droop. No tongue deviation observed. Speech cl ear. PSYCHIATRIC: Cooperative. Appropriate mood and affect. SKIN: Hard ulcerated lesion under R breast. Results & Data Results & Data ([facility]) Vital Signs (Past 12 Hours) Vital Signs Temp Pulse Pulse Pulse Resp BP BP 04/03/21 11:15 37.1 C 115 H 20 192/75 H 04/03/21 07:43 36.8 C 98 H 20 139/67 04/03/21 07:36 36.8 C 102 H 18 174/57 H 04/03/21 04:00 36.7 C 85 20 156/73 H 04/03/21 01:40 93 H 04/02/21 23:40 36.6 C 98 H 18 142/66 H Pulse Ox 04/03/21 11:15 91 04/03/21 07:43 98 04/03/21 07:36 94 04/03/21 04:00 97 04/03/21 01:40 04/02/21 23:40 98 Laboratory Results 04/03/21 07:29 04/03/21 07:29 ECG Additional Comments: TELE: Afib w/ RVR, 130s PG Care Time/CCT Total # of Minutes Spent Total Time Spent with Patient: Total time spent is greater than 50% in coordination of care (as documented) at patient's floor/unit and/or counseling patient: Coding Level of Care Code 70505 Subseq Hosp Care Lvl 3 Diagnoses Stroke-like symptoms R29.90 Pneumonia J18.9 CHF (congestive heart failure) I50.9 Pleural effusion J90 Incarcerated umbilical hernia K42.0 CKD (chronic kidney disease), stage III N18.30 SOB (shortness of breath) R06.02 Breast nodule N63.0 Leukocytosis D72.829 Oral candidiasis B37.0 Candidal UTI (urinary tract infection) B37.49 Hyponatremia E87.1 Anemia D64.9 Hypertension I10 Hypomagnesemia E83.42 Hypokalemia E87.6 Atrial fibrillation with RVR I48.91
[2021-04-03] MEDS: hydrALAZINE HCL 20 MG/ML VIAL IV PRN (11:27)
[2021-04-03] MEDS: NYSTATIN SUSP 500,000 U/5 ML UDC PO SCH ×4 (11:30→20:01)
[2021-04-03] MEDS: POLYETHYLENE (MIRALAX) 17 GM PACK PO SCH (11:33)
[2021-04-03] MEDS ORDERED: VANCOMYCIN HCL 750 MG in SODIUM CHLORIDE 0.9% 250 ML IV SCH (12:00)
[2021-04-03] MEDS ORDERED: METOPROLOL TARTRATE 1 MG/ML VIAL IV STA ×2 (12:18→12:57)
[2021-04-03] MEDS ORDERED: METOPROLOL TARTRATE 1 MG/ML VIAL IV ONE (12:20)
[2021-04-03] MEDS: HYDROCODONE/ACETAMOPHEN 5/325MG TAB PO PRN ×2 (12:38→19:56)
[2021-04-03] MEDS: METOPROLOL TARTRATE 50 MG TAB PO SCH ×2 (12:57→20:02)
[2021-04-03 18:06] LABS: Hematocrit (blood only) 26.8 % (37-47); Hemoglobin 8.4 g/dL (12.0-16.0)
[2021-04-03 18:44] LABS: BUN Creatinine Ratio 14.1 (10-20); Calcium 8.9 mg/dl (8.5-10.1); Creatinine Clr Calc Pharmacy 19.2 ml/min; Est GFR (African American) 21.3 ml/min; Est GFR (Non-African American) 18.4 ml/min; Potassium 3.9 mmol/L (3.5-5.1)
[2021-04-04] MEDS: MELATONIN 3 MG TAB PO PRN ×2 (00:50→20:17)
[2021-04-04] MEDS ORDERED: diphenhydrAMINE 50 MG/ML VIAL IV ONE ×2 (03:08→05:36)
[2021-04-04] MEDS: ACETAMINOPHEN 1000 MG/100 ML IV IV SCH ×2 (04:34→11:40)
[2021-04-04] MEDS: HYDROCODONE/ACETAMOPHEN 5/325MG TAB PO PRN ×2 (05:03→20:37)
[2021-04-04] MEDS: ACETAMINOPHEN 1,000 MG/100 ML VIAL IV SCH ×3 (06:01→23:36)
[2021-04-04 06:53] LABS: Hematocrit (blood only) 27.6 % (37-47); Hemoglobin 8.7 g/dL (12.0-16.0); Mean Corpuscular Hemoglobin 29.2 pg (25-34); Mean Corpuscular Hgb Conc 31.5 g/dL (32-36); Mean Corpuscular Volume 92.6 fL (80-100); Mean Platelet Volume 9.6 fL (7.4-10.4); Platelet Count 285 K/uL (130-400); RDW Coefficient of Variation 16.5 % (11.5-14.5); RDW Standard Deviation 55.6 fL (36.4-46.3); Red Blood Count 2.98 M/uL (4.2-5.4); White Blood Count 13.36 K/uL (4.8-10.8)
[2021-04-04 07:27] LABS: ALC (manual) 1.39 K/uL (1.2-3.4); ANC (manual) 10.57 K/uL (1.4-6.5); Eosinophils # (manual) 0.12 K/uL (0-0.5); Eosinophils % (manual) 0.9 %; Lymphocytes # (manual) 1.39 K/uL (1.2-3.4); Lymphocytes % (manual) 10.4 %; Monocytes # (manual) 1.28 K/uL (0.11-0.59); Monocytes % (manual) 9.6 %; Neutrophils # (manual) 10.57 K/uL (1.4-6.5); Neutrophils % (manual) 79.1 %
[2021-04-04 07:34] LABS: Alanine Aminotransferase 21 U/L (12-78); Albumin Level 1.8 gm/dl (3.4-5.0); Aspartate Aminotransferase 40 U/L (15-37); BUN Creatinine Ratio 13.2 (10-20); Blood Urea Nitrogen 31 mg/dl (7-18); Calcium 8.9 mg/dl (8.5-10.1); Carbon Dioxide 27 mmol/L (21-32); Chloride 94 mmol/L (98-107); Creatinine Clr Calc Pharmacy 18.3 ml/min; Est GFR (African American) 20.5 ml/min; Est GFR (Non-African American) 17.7 ml/min; Glucose 91 mg/dl (70-99); Magnesium 1.9 mg/dl (1.8-2.4); Sodium 131 mmol/L (136-145)
[2021-04-04] MEDS: PIPERACILLIN/TAZOBACTAM 3.375 GM in DEXTROSE 5% 100 ML IV SCH ×2 (07:36→20:10)
[2021-04-04 07:40] LABS: Albumin Globulin Ratio 0.4 (0.9-2); Alkaline Phosphatase 142 U/L (45-117); Bilirubin,Total 0.6 mg/dl (0.2-1); Ferritin 183.8 ng/ml (8-388); Globulin 4.8 gm/dl (2.5-4.0); Total Protein 6.6 gm/dl (6.4-8.2); Transferrin 152 mg/dl (200-360)
[2021-04-04] MEDS: SUCRALFATE 1 GM TAB PO SCH ×4 (08:17→20:15)
[2021-04-04] MEDS: FERROUS SULFATE 325 MG TAB PO SCH ×3 (08:17→17:27)
[2021-04-04] MEDS: PANTOprazole 40 MG TAB PO SCH ×2 (08:18→17:27)
[2021-04-04] MEDS: ATORVASTATIN 40 MG TAB PO SCH (08:18)
[2021-04-04] MEDS: BACITRACIN OINT 15 GM TUBE EXT SCH (08:18)
[2021-04-04] MEDS: CYANOCOBALAMIN 500 MCG TABLET (VITAMIN B-12) PO SCH (08:19)
[2021-04-04] MEDS: CHOLECALCIFEROL 1,000 UNITS 25 MCG TAB PO SCH (08:19)
[2021-04-04] MEDS ORDERED: bisacodyL 10 MG SUPP PR STA (08:20)
[2021-04-04] MEDS: TOCOPHERYL, DL-ALPHA 400 UNITS 180 MG CAP PO SCH (08:20)
--- NOTE | 2021-04-04 08:20 | Surgery Progress Note ---
Date of Service April 04, 2021 Assessment & Plan (1) Incarcerated umbilical hernia: Plan: pt is a 89 year-old female who presents with 2 days history abdominal pain with nausea and vomiting, IMP: incarcerated umbilical hernia and periumbilical hernia, Plan, I recommend to do open repair incarcerated umbilical hernia and periumbilical hernia, possible with mesh,or bowel resection, I called pt's daughter, D/W benefits, risks and alternatives of the surgery, the risks- infection, bleeding, injury bowel, hernia recurrence, complication relate to mesh, ID, DVT, stroke, renal failure, , pt's daughter understood, she gave consent on the phone, I answered all questions, pre-op antibiotic, 03/30/2021 2:15 PM, F/U S/P open repair incarcerated umbilical hernia and periumbilical hernia with mesh, pt is stable, start clear diet now, continue treatment, repeat labs in morning, will F/U, 03/31/2021 3:47PM I update OR finding and procedure pt had to pt's daughter, pt's daughter at bedside now, doing better, DM diet, continue IV antibiotic, repeat labs in morning, 04/01/2021 9: 53AM may hold lovenex, repeat labs in morning, hep -lock IV check UA, CXR to R/O infection, will F/U, continue IV antibiotic treatment, 04/02/2021 11:14AM F/U S/P open repair incarcerated umbilical hernia and periumbilical hernia with mesh, POD3 pt had stroke alert this morning, pt had CT scan head and abdomen + pelvis, no stroke on Ct scan CT scan abdomen- Postsurgical changes of the right lower quadrant are seen. Incisional hernia is still seen to contain loops of bowel, however there is no evidence of incarcerated bowel. high WBC 19,000, some redness at incision stapler line, apply bacitricin on incision site once a day, cover with 4x$ gauze, UA negative, CXR- patch on bilateral lung, could not R/O pneumonia, no bowel obstruction signs, the small bowel just below the mesh, no surgery indication now, start IV fluid, continue treatment IV antibiotic, repeat labs in morning, will F/U 04/03/2021 11:00AM DR. Aldana F/U S/P open repair incarcerated umbilical hernia and periumbilical hernia with mesh, POD4, doing better, more awake, answered questions correctly, WBC down to 12,000. will F/U tolerated , miralax PT therapy, continue IV antibiotic 04/04/2021 8:16AM no BM yet, miralax today, pt is DNR, DNI, pt can have regular diet after speech consult if no risk for aspiration, continue IV antibiotic, will F/U, Admission and Anticipated Discharge Date Admission Date: March 29, 2021 Supervising Physician Co-Signing Physician Notes I saw and evaluated the patient with Venkata Montanez, and agree with findings and plan as documented in the note. Patient seen and examined at bedside. No acute distress. Patient was about to have dinner at the time of examination She was on oxygen. On physical exam patient has +2 pitting edema bilateral lower extremity Positive crackles bilateral lower lobes S1-S2 positive Obese Mentation patient is only oriented to self. He answers few questions Plan: Patient has bilateral pleural effusion more on the left side In an 89-year-old with history of HFpEF and CKD likely etiology Would recommend BiPAP and diuresis to keep the patient negative balance No intervention from pulmonary perspective Would recommend palliative care consult to address issues as well Please note the above document was generated using voice recognition software. It may contain grammatical, syntax or spelling errors.Any formal questions or concerns about the content, text or information contained within the body of this dictation should be directly addressed to the provider for clarification. Jill Mckeon was seen on rounds this morning. Pt remains hospitalized following incarcerated umbilical hernia repair, pod #4. Pt was made stroke alert yesterday d/t AMS/decreased LOC. CT head negative. 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 However, issues yesterday suspected to be multifactoral in setting of infectious process and having been medicated yesterday AM with Ativan. This morning, pt appears back to her baseline. She is able to identify who she is and that she is in the hospital. She c/o nausea and abdominal pain at inci jaxson site. She is also asking for water. She states she feels cold/shaky but is covered in multiple layers of blankets. Also c/o back pain, not used to laying flat on her back. After yesterday's events, pt made NPO until speech could re- evaluate due to concerns for possible aspiration. Pt seen this AM by ST and cleared to resume full liquid diet. Aspiration precautions are in place. Antibiotic therapy was broadened yesterday to cover MRSA and double cover gram neg (pseudomonas). After extensive conversation with the patient's daughter, Candelaria, who is her POA, pt was made DNR/DNI. 04/04/2021 8:[address] Aldana F/U S/P open repair incarcerated umbilical hernia with mesh, POD 5 pt is stable, no fever, no nausea, no vomiting, Physical Exam Constitutional: WD/WN, vitals as above Eyes: PERRL, conjunctivae normal, anicteric sclerae Neck: trachea midline, no thyromegaly Respiratory: normal respiratory effort, lungs clear to auscultation Cardiovascular: RRR, no murmur, no edema Gastrointestinal (Abdomen): soft, mild tenderness at incision site, no rebound pain, incision intact, mild redness at stapler line, no drainage, BS + Neurologic: patellar DTR's 2+ bilat, sensation intact Results & Data ([place]) Vital Signs (Past 12 Hours) Vital Signs Temp Pulse Pulse Resp BP BP Pulse Ox 04/04/21 07:42 36.7 C 96 H 22 188/80 H 93 04/04/21 04:00 36.8 C 86 20 184/84 H 98 04/04/21 02:57 04/03/21 23:47 37.1 C 74 20 140/61 94 04/03/21 22:18 81 Pulse Ox 04/04/21 07:42 04/04/21 04:00 04/04/21 02:57 93 04/03/21 23:47 04/03/21 22:18 Laboratory Results Abnormal lab results 04/03/21 04/03/21 04/03/21 Range/Units 07:29 17:05 17:05 WBC (4.8-10.8) K/uL RBC (4.2-5.4) M/uL Hgb 8.4 L (12.0-16.0) g/dL Hct 26.8 L (37-47) % MCHC (32-36) g/dL RDW Std Deviation (36.4-46.3) fL RDW Coeff of Rj (11.5-14.5) % Neutrophils # (Manual) (1.4-6.5) K/uL Total Absolute Neuts (1.4-6.5) K/uL Monocytes # (Manual) (0.11-0.59) K/uL Sodium 133 L 130 L (136-145) mmol/L Potassium 3.0 L (3.5-5.1) mmol/L Chloride 93 L 95 L (98-107) mmol/L Anion Gap 12.0 H (3-11) BUN 32 H 32 H (7-18) mg/dl Creatinine 2.27 H 2.30 H (0.6-1.2) mg/dl POC Glucose (70-99) mg/dl Transferrin (200-360) mg/dl AST (15-37) U/L Alkaline Phosphatase (45-117) U/L Albumin (3.4-5.0) gm/dl Globulin (2.5-4.0) gm/dl Albumin/Globulin Ratio (0.9-2) 04/04/21 04/04/21 04/04/21 Range/Units 06:34 06:34 07:38 WBC 13.36 H (4.8-10.8) K/uL RBC 2.98 L (4.2-5.4) M/uL Hgb 8.7 L (12.0-16.0) g/dL Hct 27.6 L (37-47) % MCHC 31.5 L (32-36) g/dL RDW Std Deviation 55.6 H (36.4-46.3) fL RDW Coeff of Rj 16.5 H (11.5-14.5) % Neutrophils # (Manual) 10.57 H (1.4-6.5) K/uL Total Absolute Neuts 10.57 H (1.4-6.5) K/uL Monocytes # (Manual) 1.28 H (0.11-0.59) K/uL Sodium 131 L (136-145) mmol/L Potassium (3.5-5.1) mmol/L Chloride 94 L (98-107) mmol/L Anion Gap (3-11) BUN 31 H (7-18) mg/dl Creatinine 2.37 H (0.6-1.2) mg/dl POC Glucose 120 H (70-99) mg/dl Transferrin 152 L (200-360) mg/dl AST 40 H (15-37) U/L Alkaline Phosphatase 142 H (45-117) U/L Albumin 1.8 L (3.4-5.0) gm/dl Globulin 4.8 H (2.5-4.0) gm/dl Albumin/Globulin Ratio 0.4 L (0.9-2)
[2021-04-04] MEDS: FLUCONAZOLE 100 MG TAB PO SCH (08:21)
[2021-04-04] MEDS: METOPROLOL TARTRATE 50 MG TAB PO SCH ×2 (08:21→20:13)
[2021-04-04] MEDS: LORATADINE 10 MG TAB PO SCH (08:21)
[2021-04-04] MEDS: DULoxetine HCL 60 MG CAP PO SCH (08:21)
[2021-04-04] MEDS: FUROSEMIDE 40 MG TAB PO SCH (08:21)
[2021-04-04] MEDS: NYSTATIN SUSP 500,000 U/5 ML UDC PO SCH ×4 (08:22→20:14)
[2021-04-04] MEDS: POLYETHYLENE (MIRALAX) 17 GM PACK PO SCH ×3 (08:22→09:31)
[2021-04-04] MEDS: NYSTATIN POWDER 15GM BTL SCH ×2 (08:22→20:16)
[2021-04-04] MEDS: DOCUSATE SODIUM 100 MG CAP PO SCH ×2 (08:24→20:12)
[2021-04-04] MEDS: INSULIN ASPART 100 UNITS/ML 3 ML PEN SC SCH ×4 (08:34→20:16)
--- NOTE | 2021-04-04 10:34 | Nephrology Progress Note ---
Date of Service April 04, 2021 Assessment & Plan (1) ANNMARIE (acute kidney injury): Plan: Non-oliguric. Increased TBW but intravascularly depleted. Predominately dependent edema noted. CXR reviewed demonstrating pleural effusion on the left. Otherwise, no significant evidence of decompensated CHF on exam. Contributing factors include immobility and poor nutrition. Continue diuretics to encourage slightly negative fluid balance. Avoid aggressive diuresis. Avoid thiazide diuretics or combination diuretic therapy. Continue furosemide 40 mg PO daily. Net negative 500 ml in past 24 hours. Weight down 101 to 97.7 in past 24 hours -- likely inaccurate. Possible underlying ATN. Creatinine stable x 24 hours. Urine microscopy acellular. Kidneys unobstructed on CT abdomen. Patient has refused HD, if indicated. Medications appropriately dosed for kidney function. (2) Hyponatremia: Plan: Hypervolemic. Complicated by diuretics and poor oral solute intake. Encourage PO intake. Loop diuretics to encourage slightly negative fluid balance. Continue PO free water restriction. Monitor daily. Replace potassium PRN. (3) Hypokalemia: Plan: Repeat metabolic profile + magnesium tomorrow AM. (4) Hypomagnesemia: Plan: Monitor daily. Replete PRN. (5) Anemia: Plan: Iron profile pending. Admission and Anticipated Discharge Date Admission Date: March 29, 2021 Subjective No acute events overnight. Linda was uncomfortable during my assessment this AM. She asked a lot of questions about her surgery including the type of procedure and how it was performed. She is having some pain at the surgical site this AM. Review of Systems Review of Systems: All systems reviewed & are unremarkable except as noted in HPI & below Physical Exam Constitutional: well developed and + morbidly obese; no acute distress Eyes: + anicteric sclerae; no corneal abnormality ENMT: Mouth: no oral mucosal abnormality and oral mucous membranes not dry Neck: normal visual inspection, trachea midline and + thick neck Respiratory: normal respiratory effort Auscultation: + diminished lung sounds Cardiovascular: Rate/Rhythm: regular rate and regular rhythm Heart Sounds: normal S1 and normal S2 Vessels: no JVD Extremities: + edema Gastrointestinal (Abdomen): Percussion/Palpation: abdomen soft; no guarding Musculoskeletal: Extremities: no cyanosis and no clubbing Skin: + turgor decreased and + dry skin Neurologic: Motor/Sensory: no tremor and no asterixis Psychiatric: Orientation: alert Eye Contact: good eye contact Results & Data ([facility]) Vital Signs (Past 12 Hours) Vital Signs Temp Pulse Resp BP BP Pulse Ox Pulse Ox 04/04/21 07:42 36.7 C 96 H 22 188/80 H 93 04/04/21 04:00 36.8 C 86 20 184/84 H 98 04/04/21 02:57 93 04/03/21 23:47 37.1 C 74 20 140/61 94 Laboratory Results Laboratory Results - last 24 hr 04/02/21 04/03/21 04/03/21 10:43 11:16 16:44 WBC RBC Hgb Hct MCV MCH MCHC RDW Std Deviation RDW Coeff of Rj Plt Count MPV Neutrophils % (Manual) Lymphocytes % (Manual) Monocytes % (Manual) Eosinophils % (Manual) Neutrophils # (Manual) Total Absolute Neuts Lymphocytes # (Manual) Total Abs Lymphocytes Monocytes # (Manual) Eosinophils # (Manual) Sodium Potassium Chloride Carbon Dioxide Anion Gap BUN Creatinine Est Cr Clr Drug Dosing Est GFR ( Amer) Est GFR (Non-Af Amer) BUN/Creatinine Ratio Glucose POC Glucose 88 81 Calcium Phosphorus Magnesium Iron Transferrin Transferrin % Sat Ferritin Total Bilirubin AST ALT Alkaline Phosphatase Total Protein Albumin Globulin Albumin/Globulin Ratio Homocysteine 6.1 Specimen Hemolysis Random Vancomycin 04/03/21 04/03/21 04/03/21 17:05 17:05 19:42 WBC RBC Hgb 8.4 L Hct 26.8 L MCV MCH MCHC RDW Std Deviation RDW Coeff of Rj Plt Count MPV Neutrophils % (Manual) Lymphocytes % (Manual) Monocytes % (Manual) Eosinophils % (Manual) Neutrophils # (Manual) Total Absolute Neuts Lymphocytes # (Manual) Total Abs Lymphocytes Monocytes # (Manual) Eosinophils # (Manual) Sodium 130 L Potassium 3.9 D Chloride 95 L Carbon Dioxide 29 Anion Gap 6.0 BUN 32 H Creatinine 2.30 H Est Cr Clr Drug Dosing 19.2 Est GFR ( Amer) 21.3 Est GFR (Non-Af Amer) 18.4 BUN/Creatinine Ratio 14.1 Glucose 72 POC Glucose 86 Calcium 8.9 Phosphorus Magnesium Iron Transferrin Transferrin % Sat Ferritin Total Bilirubin AST ALT Alkaline Phosphatase Total Protein Albumin Globulin Albumin/Globulin Ratio Homocysteine Specimen Hemolysis Random Vancomycin 04/04/21 04/04/21 04/04/21 06:34 06:34 06:35 WBC 13.36 H RBC 2.98 L Hgb 8.7 L Hct 27.6 L MCV 92.6 MCH 29.2 MCHC 31.5 L RDW Std Deviation 55.6 H RDW Coeff of Rj 16.5 H Plt Count 285 MPV 9.6 Neutrophils % (Manual) 79.1 Lymphocytes % (Manual) 10.4 Monocytes % (Manual) 9.6 Eosinophils % (Manual) 0.9 Neutrophils # (Manual) 10.57 H Total Absolute Neuts 10.57 H Lymphocytes # (Manual) 1.39 Total Abs Lymphocytes 1.39 Monocytes # (Manual) 1.28 H Eosinophils # (Manual) 0.12 Sodium 131 L Potassium 4.0 Chloride 94 L Carbon Dioxide 27 Anion Gap 10.0 BUN 31 H Creatinine 2.37 H Est Cr Clr Drug Dosing 18.3 Est GFR ( Amer) 20.5 Est GFR (Non-Af Amer) 17.7 BUN/Creatinine Ratio 13.2 Glucose 91 POC Glucose Calcium 8.9 Phosphorus 3.0 Magnesium 1.9 Iron 62 Transferrin 152 L Transferrin % Sat Pending Ferritin 183.8 Total Bilirubin 0.6 AST 40 H ALT 21 Alkaline Phosphatase 142 H Total Protein 6.6 Albumin 1.8 L Globulin 4.8 H Albumin/Globulin Ratio 0.4 L Homocysteine Specimen Hemolysis Random Vancomycin 04/04/21 04/04/21 07:38 09:51 WBC RBC Hgb Hct MCV MCH MCHC RDW Std Deviation RDW Coeff of Rj Plt Count MPV Neutrophils % (Manual) Lymphocytes % (Manual) Monocytes % (Manual) Eosinophils % (Manual) Neutrophils # (Manual) Total Absolute Neuts Lymphocytes # (Manual) Total Abs Lymphocytes Monocytes # (Manual) Eosinophils # (Manual) Sodium Potassium Chloride Carbon Dioxide Anion Gap BUN Creatinine Est Cr Clr Drug Dosing Est GFR ( Amer) Est GFR (Non-Af Amer) BUN/Creatinine Ratio Glucose POC Glucose 120 H Calcium Phosphorus Magnesium Iron Transferrin Transferrin % Sat Ferritin Total Bilirubin AST ALT Alkaline Phosphatase Total Protein Albumin Globulin Albumin/Globulin Ratio Homocysteine Specimen Hemolysis Random Vancomycin Pending PG Care Time/CCT Total # of Minutes Spent Total Time Spent with Patient: Total time spent is greater than 50% in coordination of care (as documented) at patient's floor/unit and/or counseling patient: Coding Level of Care Code 21157 Subseq Hosp Care Lvl 3 Diagnoses ANNMARIE (acute kidney injury) N17.9 Hyponatremia E87.1 Hypokalemia E87.6 Hypomagnesemia E83.42 Anemia D64.9
--- NOTE | 2021-04-04 10:56 | Pharmacy Report ---
Pharmacy Abx Dose Short Note - Date of Service April 04, 2021 - Assessment & Plan Assessment 89 year old F receiving vancomycin/zosyn/levaquin for possible aspiration pneumonia vs. HAP Day # 3 of vancomycin therapy Plan Vancomycin * Scr continues to worsen, therefore ordered random level for now and will dose by levels. Random vancomycin level this AM ~31 mcg/ml - plan to hold vancomycin doses for today * Estimated level tomorrow will be closer to ~20 mcg/ml (goal 15-20 mcg/ml) * Plan to order another random level in the AM to assist with further dosing. Will follow levels and redose when level <20 mcg/ml Zosyn * 3.375 gm iv q 12 hr - appropriate for Crcl <20 ml/min Pharmacy will continue to follow and will adjust dose/frequency as necessary. Thank you.
[2021-04-04] MEDS: levoFLOXacin/D5W 500 MG/100 ML BAG IV SCH (14:53)
--- NOTE | 2021-04-04 15:23 | Hospitalist Progress Note ---
Date of Service April 04, 2021 Assessment & Plan (1) Atrial fibrillation with RVR: Plan: New onset - converted back to NSR s/p Lopressor 5mg IV x2 - Could've been precipitated by hypokalemia - Continue PO Lopressor 150mg BID - Not a candidate for ACT d/t incisional bleeding (2) Pneumonia: Plan: - ?Aspiration v HAP - Continue aspiration precautions (cleared by ST) - Currently on empiric Zosyn, continue w/ renal adjustment - Added Levaquin for double gram neg coverage (specifically antipseudomonal) per UTD guidelines w/ renal adjustment - Added MRSA coverage w/ Vancomycin 1g IV x1 then pharmacokinetic consult for continued management based on creatinine clearance - WBC count stagnant - slightly up from 12.0 yesterday to 13.3 today (3) Stroke-like symptoms: Plan: - CT head negative 04/02 - Telehealth stroke consult placed to [facility], spoke with Dr. 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), advise keeping MAP>90mmHg and Mg >2.0 - Continue statin therapy - Added low dose ASA 81mg daily which was subsequently d/c'd d/t bleeding at incision site - Patient is back to her baseline (4) CHF (congestive heart failure): Plan: Acute on chronic, biventricular - Recent echo 03/22/21 -- preserved LVEF, poor U/S images - Diuresed days ago and resumed PO Lasix at increased dose from 20mg daily to 40mg - Fluid restrict 1800 mL daily (5) Pleural effusion: Plan: Bilateral, L>R - Consulted pulm, appreciate their input - suspect secondary to CHF - Poor candidate for thoracentesis - Given a one time dose of IV Lasix 40mg 04/01 - Monitor output: - Continue Lasix PO 40mg - Incentive spirometry (6) Incarcerated umbilical hernia: Plan: s/p repair with Dr. Aldana, POD#5 - Pain control - IV APAP and oral Felton ordered. D/C Dilaudid. - Incentive spirometry - Surgery following - Stop ASA and Lovenox d/t bleeding at incision site (7) CKD (chronic kidney disease), stage III: Plan: Baseline unknown - will request records to review - Will monitor closely in setting of diuresis, renal fxn stable from yesterday - Slightly worsening CKD may be necessary to keep out of CHF - Nephrology consulted, appreciate their recommendations (8) SOB (shortness of breath): Plan: - Multifactoral -- CHF/pna/pleural effusion/atelectasis/OHS (9) Breast nodule: Plan: - Right breast ultrasound ordered but cannot perform as inpatient - Will need to pursue as outpatient, if pt's family wishes - Highly suspicious that this may represent breast ca (10) Leukocytosis: Plan: - Repeat CXR 04/02 with patchy opacities ?multifocal pna (HAP) v aspiration - UA unremarkable (except for yeast, Diflucan added) - Repeat blood cultures are pending - Add MRSA coverage as noted above - Essentially no change from yesterday to today (11) Oral candidiasis: Plan: - Continue Nystatin (12) Candidal UTI (urinary tract infection): Plan: - Started Diflucan 200mg IV x1 and then 100mg daily (for total of 7 days) (13) Hyponatremia: Plan: - Suspect dilutional d/t hypervolemia - Improved with diuresis yesterday in setting of net negative fluid balance - Nephrology following - Will f/u with BMP in AM (14) Anemia: Plan: - Multifactoral, likely chronic related to chronic renal disease, blood loss from surgery, and also dilutional from volume overload - Pt required 2 recent blood transfusions prior to this admission at [facility] from suspected GI bleed at beginning of Mar - H&H stable will continue to monitor closely - Continue Ferrous Sulfate - Renal added Vargqnvglfd=005, Qcadvnmg=218, serum iron=62 (15) Hypertension: Plan: Uncontrolled - Continue Lopressor at max dose 150mg BID - Lasix 40mg daily - Hydralazine 10mg IV q6h prn sbp>170 or dbp>100 (16) Hypomagnesemia: Plan: - Stable - Continue to monitor - Replace as needed (17) Hypokalemia: Plan: - Level normalized today at 4 - Continue to monitor - Maintain >/=4.0 to prevent afib recurrence Plan: After extensive conversation with patient's daughterCandelaria, pt made DNR/DNI 04/02 Advance diet to post-surgical soft/easy to chew Continue therapy services Trend labs Condition: guarded with poor prognosis - will ask palliative medicine to see in consult to establish goals Will need SNF upon d/c Admission and Anticipated Discharge Date Admission Date: March 29, 2021 Supervising Physician Co-Signing Physician Notes Attending Attestation: Chart reviewed in detail, care plan d/w Susan GARCIA. I agree w/ the botello components of her documentation. POD #5 s/p incarcerated umbilical hernia repair. PAF yesterday - spontaneously converted back to NSR. Cont BB for rate control; not an anticoagulation candidate at this time. s/p code stroke alert 2 days ago - was likely encephalopathy from suspected infectious issues rather than TIA. Overall doing poorly. Prognosis guarded. Palliative care consultation requested. Selvin Licona MD Subjective Linda was seen on rounds this morning. Pt remains hospitalized following incarcerated umbilical hernia repair, pod #5. Unfortunately, Linda's hospitalization has been complicated by multiple issues including CHF/volume overload, PNA, electrolyte disturbance, hypoalbuminemia, ANNMARIE on CKD, and most recently (on 04/03) new onset afib w/ RVR. She received two doses of IV Lopressor yesterday and her PO Lopressor was resumed. Shortly after RN administered second IV Lopressor dose, pt converted back to NSR in the 80s. This morning, pt continues to be at her baseline. She is able to identify who she is and that she is in the hospital. When asked how she's doing, she responds with "terrible." Continues to c/o abdominal pain at incision site. She is also asking for water. She states she feels cold/shaky but is covered in multiple layers of blankets. Also c/o back pain, not used to laying flat on her back. Aspiration precautions are in place. Antibiotic therapy was broadened yesterday to cover MRSA and double cover gram neg (pseudomonas). After extensive conversation with the patient's daughter, Candelaria, who is her POA, pt was made DNR/DNI. Review of Systems Review of Systems: CONSTITUTIONAL: + weakness, chills. Denies weight loss/gain, fever, fatigue, malaise. HEENT: Denies changes in vision and hearing. RESPIRATORY: Denies SOB, cough, wheezing. CV: Denies palpitations, CP, lower extremity edema, orthopnea, PND. GI: +abdominal pain, nausea, constipation. Denies vomiting and diarrhea. : + bishop MUSCULOSKELETAL: Denies myalgia and joint pain. SKIN: + lesion under R breast NEUROLOGICAL: Denies headache, syncope, focal weakness, numbness, tingling. PSYCHIATRIC: Denies recent changes in mood. Denies anxiety and depression. Physical Exam Physical Exam: GENERAL: 89 elderly obese WF. Awake, alert, oriented x3. NAD. LUNGS: No accessory muscle use. Diminished breath sound L base, bibasilar crackles. Scattered rhonchi. No wheezes. CARDIOVASCULAR: RRR. No M/G/R. No JVD. ABDOMEN: Soft, ND. BS normoactive x 4 quad. Mild tenderness at incision site. Some bleeding noted on incision dressing. : Bishop in place draining clear yellow urine EXTREMITIES: +2 pitting edema BL LE. Upper extremities edematous. Peripheral pulses +2/4. PSYCHIATRIC: Cooperative. Appropriate mood and affect. SKIN: Hard ulcerated lesion under R breast. Results & Data Results & Data ([facility]) Vital Signs (Past 12 Hours) Vital Signs Temp Pulse Pulse Resp BP BP Pulse Ox 04/04/21 15:14 36.7 C 84 20 183/79 H 95 04/04/21 15:00 83 04/04/21 11:09 36.9 C 82 20 173/73 H 90 04/04/21 08:00 79 04/04/21 07:42 36.7 C 96 H 22 188/80 H 93 04/04/21 04:00 36.8 C 86 20 184/84 H 98 Laboratory Results 04/04/21 06:34 04/04/21 06:34 Spec: [id number] Collected: 04/02/21 Received: 04/02/[address]: Susan Gutiérrez, PA-C Copy To: Mayonr Abdul M.D. Lopez, Miguel MD Source: Blood OV Order: Ordered: Blood Culture Comments: Comment Default is separate sites, same time Blood culture drawn venously from Left Arm. Procedure Result Verified Site Blood Culture Aerobic Preliminary 04/04/21 No growth in Aerobic bottle after 48 hours. Blood Culture Anaerobic Preliminary 04/04/21 No growth in Anaerobic bottle after 48 hours. Spec: [id number] Collected: 04/02/21 Received: 04/02/[address]: Susan Gutiérrez, PA-C Copy To: Maynor Abdul M.D. Lopez, Miguel MD Source: Blood OV Order: Ordered: Blood Culture Comments: Comment Default is separate sites, same time Procedure Result Verified Site Blood Culture Aerobic Preliminary 04/04/21 No growth in Aerobic bottle after 48 hours. Blood Culture Anaerobic Preliminary 04/04/21 No growth in Anaerobic bottle after 48 hours. PG Care Time/CCT Total # of Minutes Spent Total Time Spent with Patient: Total time spent is greater than 50% in coordination of care (as documented) at patient's floor/unit and/or counseling patient: Coding Level of Care Code 98122 Subseq Hosp Care Lvl 2 Diagnoses Atrial fibrillation with RVR I48.91 Stroke-like symptoms R29.90 Pneumonia J18.9 CHF (congestive heart failure) I50.9 Pleural effusion J90 Incarcerated umbilical hernia K42.0 CKD (chronic kidney disease), stage III N18.30 SOB (shortness of breath) R06.02 Breast nodule N63.0 Leukocytosis D72.829 Oral candidiasis B37.0 Candidal UTI (urinary tract infection) B37.49 Hyponatremia E87.1 Anemia D64.9 Hypertension I10 Hypomagnesemia E83.42 Hypokalemia E87.6
[2021-04-04] MEDS ORDERED: LEVALBUTEROL HCL 0.63 MG/3 ML NEB NEB PRN (16:50)
[2021-04-05] MEDS: ACETAMINOPHEN 1,000 MG/100 ML VIAL IV SCH ×3 (05:36→22:17)
[2021-04-05] MEDS: HYDROCODONE/ACETAMOPHEN 5/325MG TAB PO PRN ×2 (05:42→12:10)
[2021-04-05 07:16] LABS: Basophils # (auto) 0.03 K/uL (0-0.2); Basophils % (auto) 0.3 %; Eosinophils # (auto) 0.04 K/uL (0-0.5); Eosinophils % (auto) 0.4 %; Hematocrit (blood only) 25.1 % (37-47); Immature Granulocytes # (auto) 0.04 K/uL (0.00-0.02); Immature Granulocytes % (auto) 0.4 %; Lymphocytes # (auto) 0.97 K/uL (1.2-3.4); Lymphocytes % (auto) 10.3 %; Mean Corpuscular Hemoglobin 29.3 pg (25-34); Mean Corpuscular Hgb Conc 31.9 g/dL (32-36); Mean Corpuscular Volume 91.9 fL (80-100); Mean Platelet Volume 9.8 fL (7.4-10.4); Monocytes # (auto) 1.08 K/uL (0.11-0.59); Monocytes % (auto) 11.4 %; Neutrophils % (auto) 77.2 %; Platelet Count 253 K/uL (130-400); RDW Coefficient of Variation 17.1 % (11.5-14.5); RDW Standard Deviation 56.3 fL (36.4-46.3); Red Blood Count 2.73 M/uL (4.2-5.4); White Blood Count 9.46 K/uL (4.8-10.8)
[2021-04-05 07:51] LABS: Albumin Level 1.8 gm/dl (3.4-5.0); BUN Creatinine Ratio 13.2 (10-20); Calcium 8.8 mg/dl (8.5-10.1); Creatinine Clr Calc Pharmacy 17.3 ml/min; Est GFR (African American) 19.2 ml/min; Est GFR (Non-African American) 16.6 ml/min; Magnesium 1.8 mg/dl (1.8-2.4); Potassium 3.6 mmol/L (3.5-5.1)
[2021-04-05] MEDS: hydrALAZINE HCL 20 MG/ML VIAL IV PRN (07:52)
[2021-04-05 07:54] LABS: Albumin Globulin Ratio 0.4 (0.9-2); Bilirubin,Total 0.5 mg/dl (0.2-1); Globulin 4.3 gm/dl (2.5-4.0); Total Protein 6.1 gm/dl (6.4-8.2)
[2021-04-05] MEDS: PIPERACILLIN/TAZOBACTAM 3.375 GM in DEXTROSE 5% 100 ML IV SCH ×2 (07:58→21:12)
[2021-04-05] MEDS: INSULIN ASPART 100 UNITS/ML 3 ML PEN SC SCH ×4 (08:10→21:37)
--- NOTE | 2021-04-05 08:30 | Pharmacy Report ---
Pharmacy Abx Dose Short Note - Date of Service April 05, 2021 - Assessment & Plan Assessment 89 year old F receiving vancomycin/zosyn/levaquin for possible aspiration pneumonia vs. HAP Day # 4 of vancomycin therapy Plan Vancomycin * Random vancomycin level this AM ~29 mg/dL - plan to continue to hold vancomycin doses again today. Renal function remains unchanged * Patient clearing vancomycin very slowly. If renal function remains stable, likely could reassess level in another 48 hrs. Anticipate vancomycin level to remain >15 mcg/ml * Plan to order random level in ~48 hrs to reassess Zosyn * 3.375 gm iv q 12 hr - appropriate for Crcl <20 ml/min Pharmacy will continue to follow and will adjust dose/frequency as necessary. Thank you.
[2021-04-05] MEDS: DULoxetine HCL 60 MG CAP PO SCH (08:42)
[2021-04-05] MEDS: PANTOprazole 40 MG TAB PO SCH ×2 (08:42→17:50)
[2021-04-05] MEDS: ATORVASTATIN 40 MG TAB PO SCH (08:43)
[2021-04-05] MEDS: FUROSEMIDE 40 MG TAB PO SCH (08:43)
[2021-04-05] MEDS: FLUCONAZOLE 100 MG TAB PO SCH (08:43)
[2021-04-05] MEDS: TOCOPHERYL, DL-ALPHA 400 UNITS 180 MG CAP PO SCH (08:44)
[2021-04-05] MEDS: CYANOCOBALAMIN 500 MCG TABLET (VITAMIN B-12) PO SCH (08:44)
[2021-04-05] MEDS: CHOLECALCIFEROL 1,000 UNITS 25 MCG TAB PO SCH (08:44)
[2021-04-05] MEDS: LORATADINE 10 MG TAB PO SCH (08:44)
[2021-04-05] MEDS: FERROUS SULFATE 325 MG TAB PO SCH ×3 (08:45→17:51)
[2021-04-05] MEDS: METOPROLOL TARTRATE 50 MG TAB PO SCH ×2 (08:46→21:27)
[2021-04-05] MEDS: SUCRALFATE 1 GM TAB PO SCH ×4 (08:46→21:28)
[2021-04-05] MEDS: BACITRACIN OINT 15 GM TUBE EXT SCH (08:47)
[2021-04-05] MEDS: NYSTATIN SUSP 500,000 U/5 ML UDC PO SCH ×4 (08:48→21:27)
[2021-04-05] MEDS: POLYETHYLENE (MIRALAX) 17 GM PACK PO SCH (08:48)
[2021-04-05] MEDS: NYSTATIN POWDER 15GM BTL SCH ×2 (08:48→21:27)
[2021-04-05] MEDS: DOCUSATE SODIUM 100 MG CAP PO SCH ×2 (08:55→21:27)
--- NOTE | 2021-04-05 09:26 | Surgery Progress Note ---
Date of Service April 05, 2021 Assessment & Plan (1) Incarcerated umbilical hernia: Plan: POD # 6 s/p open umbilical and periumbilical hernia repair with mesh - afebrile, leukocytosis resolved - Hgb 8.0 today (8.7 yesterday) - postop pain at incision site - bleeding at incision site, no induration or fluctuance Plan: continue current pain management advance diet as tolerated and per medicine team dressing changes as needed Dr. Ochoa covering the weekend Dr. Aldana to see patient later today 04/05/2021 1:13PM Dr. Aldana I saw pt, agree with above treatment plan, Admission and Anticipated Discharge Date Admission Date: March 29, 2021 Supervising Physician Co-Signing Physician Notes I saw and evaluated the patient with Venkata Montanez, and agree with findings and plan as documented in the note. Patient seen and examined at bedside. No acute distress. Patient was about to have dinner at the time of examination She was on oxygen. On physical exam patient has +2 pitting edema bilateral lower extremity Positive crackles bilateral lower lobes S1-S2 positive Obese Mentation patient is only oriented to self. He answers few questions Plan: Patient has bilateral pleural effusion more on the left side In an 89-year-old with history of HFpEF and CKD likely etiology Would recommend BiPAP and diuresis to keep the patient negative balance No intervention from pulmonary perspective Would recommend palliative care consult to address issues as well Please note the above document was generated using voice recognition software. It may contain grammatical, syntax or spelling errors.Any formal questions or concerns about the content, text or information contained within the body of this dictation should be directly addressed to the provider for clarification. Subjective patient sitting up in bed, nurse giving am meds with applesauce. patient states she has pain when sitting straight up and cannot breath abdominal pain is still bad, "I am bleeding" Nurse states dressing was saturated with blood last night but looks dry this am pain at incision site in RLQ Physical Exam Constitutional: WD/WN, vitals as above + obese, + frail appearing and + lethargic; no acute distress Eyes: PERRL, conjunctivae normal, anicteric sclerae Neck: trachea midline, no thyromegaly Respiratory: normal respiratory effort, lungs clear to auscultation + paradoxical thoraco-abdominal movement; no respiratory distress, no labored breathing, no retractions and does not use accessory muscles Cardiovascular: RRR, no murmur, no edema Gastrointestinal (Abdomen): Inspection/Auscultation: abdomen normal to inspection, + abdominal surgical incision (intact with federico, there is bloody drainage on 4x4 gauze, no induration ) and + hypoactive bowel sounds; abdomen not distended and + abnormal bowel sounds Percussion/Palpation: + abdomen tender (RLQ at incision site) and abdomen soft; no guarding and abdomen not rigid Skin: no rashes, warm and dry Neurologic: patellar DTR's 2+ bilat, sensation intact Psychiatric: Orientation: alert Results & Data ([facility]) Vital Signs (Past 12 Hours) Vital Signs Temp Pulse Pulse Resp BP BP Pulse Ox 04/05/21 07:42 73 04/05/21 07:19 36.9 C 73 20 197/76 H 97 04/05/21 04:57 04/05/21 03:42 72 20 165/84 H 100 04/04/21 22:19 78 Pulse Ox 04/05/21 07:42 04/05/21 07:19 04/05/21 04:57 99 04/05/21 03:42 04/04/21 22:19 Laboratory Results 04/05/21 04/05/21 04/05/21 Range/Units 08:06 06:05 06:05 WBC 9.46 (4.8-10.8) K/uL RBC 2.73 L (4.2-5.4) M/uL Hgb 8.0 L (12.0-16.0) g/dL Hct 25.1 L (37-47) % MCV 91.9 (80-100) fL MCH 29.3 (25-34) pg MCHC 31.9 L (32-36) g/dL RDW Std Deviation 56.3 H (36.4-46.3) fL RDW Coeff of Rj 17.1 H (11.5-14.5) % Plt Count 253 (130-400) K/uL MPV 9.8 (7.4-10.4) fL Immature Gran % (Auto) 0.4 % Neut % (Auto) 77.2 % Lymph % (Auto) 10.3 % [place] % (Auto) 11.4 % Eos % (Auto) 0.4 % Baso % (Auto) 0.3 % Neut # (Auto) 7.30 H (1.4-6.5) K/uL Lymph # (Auto) 0.97 L (1.2-3.4) K/uL [place] # (Auto) 1.08 H (0.11-0.59) K/uL Eos # (Auto) 0.04 (0-0.5) K/uL Baso # (Auto) 0.03 (0-0.2) K/uL Immature Gran # (Auto) 0.04 H (0.00-0.02) K/uL Sodium 130 L (136-145) mmol/L Potassium 3.6 (3.5-5.1) mmol/L Chloride 92 L (98-107) mmol/L Carbon Dioxide 24 (21-32) mmol/L Anion Gap 14.0 H (3-11) BUN 33 H (7-18) mg/dl Creatinine 2.50 H (0.6-1.2) mg/dl Est Cr Clr Drug Dosing 17.3 ml/min Est GFR ( Amer) 19.2 ml/min Est GFR (Non-Af Amer) 16.6 ml/min BUN/Creatinine Ratio 13.2 (10-20) Glucose 102 H (70-99) mg/dl POC Glucose 119 H (70-99) mg/dl Calcium 8.8 (8.5-10.1) mg/dl Magnesium 1.8 (1.8-2.4) mg/dl Transferrin % Sat Total Bilirubin 0.5 (0.2-1) mg/dl AST 33 (15-37) U/L ALT 19 (12-78) U/L Alkaline Phosphatase 128 H (45-117) U/L Total Protein 6.1 L (6.4-8.2) gm/dl Albumin 1.8 L (3.4-5.0) gm/dl Globulin 4.3 H (2.5-4.0) gm/dl Albumin/Globulin Ratio 0.4 L (0.9-2) Random Vancomycin mcg/ml 04/05/21 04/04/21 04/04/21 Range/Units 06:05 20:07 16:31 WBC (4.8-10.8) K/uL RBC (4.2-5.4) M/uL Hgb (12.0-16.0) g/dL Hct (37-47) % MCV (80-100) fL MCH (25-34) pg MCHC (32-36) g/dL RDW Std Deviation (36.4-46.3) fL RDW Coeff of Rj (11.5-14.5) % Plt Count (130-400) K/uL MPV (7.4-10.4) fL Immature Gran % (Auto) % Neut % (Auto) % Lymph % (Auto) % [place] % (Auto) % Eos % (Auto) % Baso % (Auto) % Neut # (Auto) (1.4-6.5) K/uL Lymph # (Auto) (1.2-3.4) K/uL [place] # (Auto) (0.11-0.59) K/uL Eos # (Auto) (0-0.5) K/uL Baso # (Auto) (0-0.2) K/uL Immature Gran # (Auto) (0.00-0.02) K/uL Sodium (136-145) mmol/L Potassium (3.5-5.1) mmol/L Chloride (98-107) mmol/L Carbon Dioxide (21-32) mmol/L Anion Gap (3-11) BUN (7-18) mg/dl Creatinine (0.6-1.2) mg/dl Est Cr Clr Drug Dosing ml/min Est GFR ( Amer) ml/min Est GFR (Non-Af Amer) ml/min BUN/Creatinine Ratio (10-20) Glucose (70-99) mg/dl POC Glucose 140 H 137 H (70-99) mg/dl Calcium (8.5-10.1) mg/dl Magnesium (1.8-2.4) mg/dl Transferrin % Sat Total Bilirubin (0.2-1) mg/dl AST (15-37) U/L ALT (12-78) U/L Alkaline Phosphatase (45-117) U/L Total Protein (6.4-8.2) gm/dl Albumin (3.4-5.0) gm/dl Globulin (2.5-4.0) gm/dl Albumin/Globulin Ratio (0.9-2) Random Vancomycin 29.2 mcg/ml 11/04/04/21 04/04/21 Range/Units 11:23 09:51 06:34 WBC (4.8-10.8) K/uL RBC (4.2-5.4) M/uL Hgb (12.0-16.0) g/dL Hct (37-47) % MCV (80-100) fL MCH (25-34) pg MCHC (32-36) g/dL RDW Std Deviation (36.4-46.3) fL RDW Coeff of Rj (11.5-14.5) % Plt Count (130-400) K/uL MPV (7.4-10.4) fL Immature Gran % (Auto) % Neut % (Auto) % Lymph % (Auto) % [place] % (Auto) % Eos % (Auto) % Baso % (Auto) % Neut # (Auto) (1.4-6.5) K/uL Lymph # (Auto) (1.2-3.4) K/uL [place] # (Auto) (0.11-0.59) K/uL Eos # (Auto) (0-0.5) K/uL Baso # (Auto) (0-0.2) K/uL Immature Gran # (Auto) (0.00-0.02) K/uL Sodium (136-145) mmol/L Potassium (3.5-5.1) mmol/L Chloride (98-107) mmol/L Carbon Dioxide (21-32) mmol/L Anion Gap (3-11) BUN (7-18) mg/dl Creatinine (0.6-1.2) mg/dl Est Cr Clr Drug Dosing ml/min Est GFR ( Amer) ml/min Est GFR (Non-Af Amer) ml/min BUN/Creatinine Ratio (10-20) Glucose (70-99) mg/dl POC Glucose 152 H (70-99) mg/dl Calcium (8.5-10.1) mg/dl Magnesium (1.8-2.4) mg/dl Transferrin % Sat Not Reportable Total Bilirubin (0.2-1) mg/dl AST (15-37) U/L ALT (12-78) U/L Alkaline Phosphatase (45-117) U/L Total Protein (6.4-8.2) gm/dl Albumin (3.4-5.0) gm/dl Globulin (2.5-4.0) gm/dl Albumin/Globulin Ratio (0.9-2) Random Vancomycin 31.7 mcg/ml
--- NOTE | 2021-04-05 10:06 | Palliative Care Consultation ---
Date of Consultation April 05, 2021 Assessment & Plan (1) Palliative care encounter: This is an 89 year old female who presented to the [facility] with abdominal pain and hypertensive urgency. She was found to have an incarcerated umbilical hernia and underwent surgery. She is now POD #5. She has been in and out of the hospital multiple times, including rehabilitation over the past 5 months. She has an additional PMH that includes PNA, morbid obesity, DM2, CKD IV, AF with RVR, and an MCA CVA. Palliative medicine was consulted to discuss the overall goals of her care. I met with the patient in room 283-2. She was using accessory muscles for her breathing and was able to tell me she was working harder to breathe. I was, later, this afternoon, able to meet with her daughter and DEB, Candelaria at the bedside. We then spoke in the hallway. 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 They have discussed what she would want done in certain circumstances. She would not want CPR, intubation, hemodialysis, artificial nutrition or hydration. We reviewed her lab work and recent trends regarding her WBC, etc. We discussed that Linda has three other children and two of them live out of state. They all have varying opinions on what they feel should be done for their mother. Candelaria states that she would like to talk to her siblings individually regarding their overall goals. Candelaria indicated that Linda has 4 cats that, if her time was limited, she would want to be at home with them. We did discuss hospice at home vs SNF. It does appear that overall caregiving has become more burdensome for Candelaria. For now, should patient decompensate over the weekend, Candelaria would prefer to escalate to BIPAP if necessary. Palliative will follow on Thursday to discuss the outcome of her visit with her siblings and also determine next steps. Discussed above and below with Hospitalist [employer] and rifle case repairer. (2) Shortness of breath: Patient using accessory muscles with each breath. She is able to talk in complete sentences; however, her speech at times, is garbled (baseline). Discussed medications used for air hunger; including Morphine and Dilaudid. Candelaria was not receptive to her receiving Morphine due to increased agitation that she has experienced before. Discussed using Dilaudid for air hunger. Will order Dilaudid 0.2 mg IV Q6 PRN and monitor her response. Discussed that it could make her tired; both Candelaria and Linda welcome her sleeping. (3) Weakness: Reviewed labs: Albumin level 1.8. confirmed she would not want any artificial nutrition/hydration for life prolonging measures (4) Renal failure: Current creatinine 2.5. Confirmed she would not want dialysis History of Present Illness Reason for Consultation: goals of care Requesting Physician: Susan Gutiérrez PA-C Attending Physician: Selvin Licona History of Present Illness This is an 89 year old female who presented to the [facility] with abdominal pain and hypertensive urgency. She was found to have an incarcerated umbilical hernia and underwent surgery. She is now POD #5. She has been in and out of the hospital multiple times, including rehabilitation over the past 5 months. She has an additional PMH that includes PNA, morbid obesity, DM2, CKD IV, AF with RVR, and an MCA CVA. Palliative medicine was consulted to discuss the overall goals of her care. Please see A/P for further details. Thanks for involving Palliative Medicine with this individual. Allergies Allergy/AdvReac Type Severity Reaction Status Date / Time morphine AdvReac Intermediate Altered Unverified 03/29/21 20:09 Mental Status Home Medications Medication Instructions Recorded Confirmed Type amoxicillin 500 mg-potassium 1 tab PO Q12H 03/29/21 03/29/21 History clavulanate 125 mg tablet (Augmentin) atorvastatin 40 mg tablet 40 mg PO DAILY 03/29/21 03/29/21 History cholecalciferol (vitamin D3) 125 125 mcg PO DAILY 03/29/21 03/29/21 History mcg (5,000 unit) tablet (Vitamin D3) cyanocobalamin (vitamin B-12) 1,000 mcg PO DAILY 03/29/21 03/29/21 History 1,000 mcg tablet docusate sodium 100 mg capsule 100 mg PO BID 03/29/21 03/29/21 History duloxetine 60 mg capsule,delayed 60 mg PO DAILY 03/29/21 03/29/21 History release ferrous sulfate 325 mg (65 mg 325 mg PO TIDM 03/29/21 03/29/21 History iron) tablet furosemide 20 mg tablet 20 mg PO DAILY 03/29/21 03/29/21 History glipizide 2.5 mg tablet, extended 2.5 mg PO QDB 03/29/21 03/29/21 History release 24 hr hydrocodone 5 mg-acetaminophen 325 1 tab PO Q4H PRN 03/29/21 03/29/21 History mg tablet loratadine 10 mg tablet 10 mg PO DAILY 03/29/21 03/29/21 History lorazepam 0.5 mg tablet 0.5 mg PO TID PRN 03/29/21 03/29/21 History metoprolol tartrate 50 mg tablet 150 mg PO Q12H 03/29/21 03/29/21 History nystatin 100,000 unit/gram topical 1 applic TOPICAL BID 03/29/21 03/29/21 History powder pantoprazole 40 mg tablet,delayed 40 mg PO BIDM 03/29/21 03/29/21 History release sucralfate 1 gram tablet 1 g PO ACHS 03/29/21 03/29/21 History vitamin A 10,000 unit capsule 8,000 unit PO DAILY 03/29/21 03/29/21 History vitamin E 400 unit capsule 400 unit PO DAILY 03/29/21 03/29/21 History Patient History Medical History (Updated 04/05/21 @ 15:47 by LEAH Huggins) Adnexal mass Anxiety Basal cell carcinoma (BCC) Benzodiazepine dependence Carotid atherosclerosis CHF (congestive heart failure) Chronic ischemic left MCA stroke CKD (chronic kidney disease), stage III Depression Dyslipidemia Esophageal reflux Generalized osteoarthritis History of TIA (transient ischemic attack) History of tobacco abuse Hypertension Obesity (BMI 30-39.9) Palliative care encounter Parkinsonism Renal failure Shortness of breath Weakness Surgical History H/O colonoscopy H/O oophorectomy H/O: hysterectomy History of tonsillectomy and adenoidectomy S/P cholecystectomy Social History Smoking Status: Former smoker Tobacco Type: Cigarettes packs per day: 1; Years Smoked: 15; Smoking End Date: 02/08/1980; Hx Alcohol Use: Yes (History of 3.0 standard drinks of alcohol per week) Hx Substance Use: No Preferred Language: Welsh Communication Ability: Effective Friend Of The Court Required: No Beliefs That Will Affect Care: None marital status: / Current Living Situation: Rehab Feels Safe at Home: Yes Assistive Devices: Oxygen - Continuous Review of Systems Review of Systems: [place] Symptom Assessment Scale: Pain: 2/3 SOB: 2/3 Anxiety: 0/3 Nausea: 1/3 Palliative Performance Scale: 30% Physical Exam Constitutional: + acute distress ENMT: Mouth: + dry oral mucous membranes Respiratory: + labored breathing Auscultation: + diminished lung sounds Cardiovascular: Rate/Rhythm: regular rate and regular rhythm Heart Sounds: normal S1 and normal S2 Extremities: normal capillary refill Gastrointestinal (Abdomen): Inspection/Auscultation: abdomen normal to inspection and + abdomen distended Percussion/Palpation: abdomen soft Skin: + pallor Psychiatric: Orientation: alert and oriented x 3 Insight: + limited insight Judgement: + limited judgement Results & Data ([facility]) Vital Signs (Past 12 Hours) Vital Signs Temp Pulse Pulse Resp BP BP Pulse Ox 04/05/21 07:42 73 04/05/21 07:19 36.9 C 73 20 197/76 H 97 04/05/21 04:57 04/05/21 03:42 72 20 165/84 H 100 04/04/21 22:19 78 Pulse Ox 04/05/21 07:42 04/05/21 07:19 04/05/21 04:57 99 04/05/21 03:42 04/04/21 22:19 PG Care Time/CCT Total # of Minutes Spent Total Time Spent with Patient: Total time spent is greater than 50% in coordination of care (as documented) at patient's floor/unit and/or counseling patient: 100 minutes with > 50% of that time spent assessing the patient, discussing goals of care, symptom management, and collaborating with IDT Coding Level of Care Code 81824 Initial Inpt Care Lvl 3 Diagnoses Palliative care encounter Z51.5 Shortness of breath R06.02 Weakness R53.1 Renal failure N19 Time Spent (min) 100
--- NOTE | 2021-04-05 10:27 | Nephrology Progress Note ---
Date of Service April 05, 2021 Assessment & Plan (1) ANNMARIE (acute kidney injury): Plan: Non-oliguric. Increased TBW but intravascularly depleted. Predominately dependent edema noted. CXR demonstrating pleural effusion on the left. Contributing factors include immobility and poor nutrition. Continue diuretics to encourage slightly negative fluid balance. Avoid aggressive diuresis. Avoid thiazide diuretics or combination diuretic therapy. Continue furosemide 40 mg PO daily with additional PRN to encourage negative 500-1000 ml/d. Possible underlying ATN. Creatinine stable x 24 hours. Urine microscopy acellular. Kidneys unobstructed on CT abdomen. Patient has refused HD, if indicated. Medications appropriately dosed for kidney function. (2) Hyponatremia: Plan: Hypervolemic. Complicated by diuretics and poor oral solute intake. Encourage nutrition. Loop diuretics to encourage slightly negative fluid balance. Continue PO free water restriction. Monitor daily. Replace potassium PRN. (3) Hypokalemia: Plan: Repeat metabolic profile + magnesium tomorrow AM. (4) Hypomagnesemia: Plan: Monitor daily. Replete PRN. (5) Anemia: Plan: Venofer 200 mg IV ordered for today. Admission and Anticipated Discharge Date Admission Date: March 29, 2021 Subjective No acute events overnight. Linda states that she is "bad" this AM. She is uncomfortable. She is frustrated. Review of Systems Review of Systems: All systems reviewed & are unremarkable except as noted in HPI & below Physical Exam Constitutional: well developed and + morbidly obese; no acute distress Eyes: + anicteric sclerae; no corneal abnormality ENMT: Mouth: no oral mucosal abnormality and oral mucous membranes not dry Neck: normal visual inspection, trachea midline and + thick neck Respiratory: normal respiratory effort Auscultation: + diminished lung sounds Cardiovascular: Rate/Rhythm: regular rate and regular rhythm Heart Sounds: normal S1 and normal S2 Vessels: no JVD Extremities: + edema Gastrointestinal (Abdomen): Percussion/Palpation: abdomen soft; no guarding Musculoskeletal: Extremities: no cyanosis and no clubbing Skin: + turgor decreased and + dry skin Neurologic: Motor/Sensory: no tremor and no asterixis Psychiatric: Orientation: alert and oriented x 3 Results & Data ([facility]) Vital Signs (Past 12 Hours) Vital Signs Temp Pulse Pulse Resp BP BP Pulse Ox 04/05/21 07:42 73 04/05/21 07:19 36.9 C 73 20 197/76 H 97 04/05/21 04:57 04/05/21 03:42 72 20 165/84 H 100 Pulse Ox 04/05/21 07:42 04/05/21 07:19 04/05/21 04:57 99 04/05/21 03:42 Laboratory Results Laboratory Results - last 24 hr 04/04/21 04/04/21 04/04/21 06:34 09:51 11:23 WBC RBC Hgb Hct MCV MCH MCHC RDW Std Deviation RDW Coeff of Rj Plt Count MPV Immature Gran % (Auto) Neut % (Auto) Lymph % (Auto) Russell % (Auto) Eos % (Auto) Baso % (Auto) Neut # (Auto) Lymph # (Auto) Russell # (Auto) Eos # (Auto) Baso # (Auto) Immature Gran # (Auto) Sodium Potassium Chloride Carbon Dioxide Anion Gap BUN Creatinine Est Cr Clr Drug Dosing Est GFR ( Amer) Est GFR (Non-Af Amer) BUN/Creatinine Ratio Glucose POC Glucose 152 H Calcium Magnesium Transferrin % Sat Not Reportable Total Bilirubin AST ALT Alkaline Phosphatase Total Protein Albumin Globulin Albumin/Globulin Ratio Random Vancomycin 31.7 04/04/21 04/04/21 04/05/21 16:31 20:07 06:05 WBC RBC Hgb Hct MCV MCH MCHC RDW Std Deviation RDW Coeff of Rj Plt Count MPV Immature Gran % (Auto) Neut % (Auto) Lymph % (Auto) Russell % (Auto) Eos % (Auto) Baso % (Auto) Neut # (Auto) Lymph # (Auto) Russell # (Auto) Eos # (Auto) Baso # (Auto) Immature Gran # (Auto) Sodium Potassium Chloride Carbon Dioxide Anion Gap BUN Creatinine Est Cr Clr Drug Dosing Est GFR ( Amer) Est GFR (Non-Af Amer) BUN/Creatinine Ratio Glucose POC Glucose 137 H 140 H Calcium Magnesium Transferrin % Sat Total Bilirubin AST ALT Alkaline Phosphatase Total Protein Albumin Globulin Albumin/Globulin Ratio Random Vancomycin 29.2 04/05/21 04/05/21 04/05/21 06:05 06:05 08:06 WBC 9.46 RBC 2.73 L Hgb 8.0 L Hct 25.1 L MCV 91.9 MCH 29.3 MCHC 31.9 L RDW Std Deviation 56.3 H RDW Coeff of Rj 17.1 H Plt Count 253 MPV 9.8 Immature Gran % (Auto) 0.4 Neut % (Auto) 77.2 Lymph % (Auto) 10.3 Russell % (Auto) 11.4 Eos % (Auto) 0.4 Baso % (Auto) 0.3 Neut # (Auto) 7.30 H Lymph # (Auto) 0.97 L Russell # (Auto) 1.08 H Eos # (Auto) 0.04 Baso # (Auto) 0.03 Immature Gran # (Auto) 0.04 H Sodium 130 L Potassium 3.6 Chloride 92 L Carbon Dioxide 24 Anion Gap 14.0 H BUN 33 H Creatinine 2.50 H Est Cr Clr Drug Dosing 17.3 Est GFR ( Amer) 19.2 Est GFR (Non-Af Amer) 16.6 BUN/Creatinine Ratio 13.2 Glucose 102 H POC Glucose 119 H Calcium 8.8 Magnesium 1.8 Transferrin % Sat Total Bilirubin 0.5 AST 33 ALT 19 Alkaline Phosphatase 128 H Total Protein 6.1 L Albumin 1.8 L Globulin 4.3 H Albumin/Globulin Ratio 0.4 L Random Vancomycin PG Care Time/CCT Total # of Minutes Spent Total Time Spent with Patient: Total time spent is greater than 50% in coordination of care (as documented) at patient's floor/unit and/or counseling patient: Coding Level of Care Code 24824 Subseq Hosp Care Lvl 3 Diagnoses ANNMARIE (acute kidney injury) N17.9 Hyponatremia E87.1 Hypokalemia E87.6 Hypomagnesemia E83.42 Anemia D64.9
[2021-04-05] MEDS ORDERED: IRON SUCROSE 200 MG in 0.9 % SODIUM CHLORIDE 100 ML IV ONE (11:30)
--- NOTE | 2021-04-05 15:09 | Hospitalist Progress Note ---
Date of Service April 05, 2021 Assessment & Plan (1) SOB (shortness of breath): Plan: - Multifactoral -- CHF/pna/pleural effusion/atelectasis/OHS - Appreciate palliative medicine consult, Dilaudid added to make her more comfortable - Continue supplemental O2 - Family does want BiPAP if the need should arise but no intubation (2) Pneumonia: Plan: - ?Aspiration v HAP - Continue aspiration precautions (cleared by ST) - Continue Zosyn, Levaquin, Vancomycin - Appreciate pharmacy assistance in managing Vancomycin dosing (3) CHF (congestive heart failure): Plan: Acute on chronic, biventricular - Recent echo 03/22/21 -- preserved LVEF, poor U/S images - Diuresed days ago and resumed PO Lasix at increased dose from 20mg daily to 40mg - Fluid restrict 1800 mL daily (4) Pleural effusion: Plan: Bilateral, L>R - Consulted pulm, appreciate their input - suspect secondary to CHF - Poor candidate for thoracentesis - Given a one time dose of IV Lasix 40mg 04/01 - Continue Lasix PO 40mg - Incentive spirometry (5) Atrial fibrillation with RVR: Plan: Resolved - Could've been precipitated by hypokalemia - Continue PO Lopressor 150mg BID - Not a candidate for ACT d/t incisional bleeding (6) Incarcerated umbilical hernia: Plan: s/p repair with Dr. Aldana, POD#6 - Pain control - IV APAP and oral Sherrard ordered. - Incentive spirometry - Surgery following - Stop ASA and Lovenox d/t bleeding at incision site - Dilaudid reordered mainly for ease of breathing but will also provide additional pain control from surgical site (7) CKD (chronic kidney disease), stage III: Plan: Baseline ? - Will monitor closely in setting of diuresis, renal fxn steadily climbing - Nephrology consulted, appreciate their recommendations - Pt/family does not want hemodialysis (8) Breast nodule: Plan: - Right breast ultrasound ordered but cannot perform as inpatient - Will need to pursue as outpatient, if pt's family wishes - Highly suspicious that this may represent breast ca (9) Leukocytosis: Plan: Resolved (10) Oral candidiasis: Plan: - Continue Nystatin (11) Candidal UTI (urinary tract infection): Plan: - Started Diflucan 200mg IV x1 and then 100mg daily (for total of 7 days) - Today #09/21 (12) Hyponatremia: Plan: - Suspect dilutional d/t hypervolemia - Remains stable - Nephrology following - Monitor (13) Anemia: Plan: - Multifactoral, likely chronic related to chronic renal disease, blood loss from surgery, and also dilutional from volume overload - Pt required 2 recent blood transfusions prior to this admission at [facility] from suspected GI bleed at beginning of Mar - H&H stable will continue to monitor closely - Continue Ferrous Sulfate - Renal added Wkidwaiofxu=316, Neplilky=359, serum iron=62 (14) Hypertension: Plan: Uncontrolled - Continue Lopressor at max dose 150mg BID - Lasix 40mg daily - Add PO Hydralazine 25mg QID - Hydralazine 10mg IV q6h prn sbp>170 or dbp>100 (15) Hypomagnesemia: Plan: - Stable, level 1.8 today - Continue to monitor - Replace as needed (16) Hypokalemia: Plan: - Level 3.6 today, replacement ordered - Continue to monitor - Maintain >/=4.0 to prevent afib recurrence (17) Hypoalbuminemia: Plan: Likely secondary to PCM - Pt refusing to eat - Palliative medicine on board, appreciate their assistance in establishing goals of care - Daughter DEB Gaona, to speak with other siblings regarding transitioning home vs SNF with hospice Plan: After extensive conversation with patient's daughter, Candelaria, pt made DNR/DNI 04/02 Advance diet to post-surgical soft/easy to chew Continue therapy services Trend labs Condition: guarded with poor prognosis Dispo- SNF v home with hospice Admission and Anticipated Discharge Date Admission Date: March 29, 2021 Supervising Physician Co-Signing Physician Notes Attending Attestation: Chart reviewed in detail, care plan d/w Susan GARCIA. I agree w/ the botello components of her documentation. POD #6 - s/p incarcerated umbilical hernia repair. Post-op course VERY complicated - PAF, s/p code stroke alert (likely was toxic/metabolic encephalopathy rather than TIA), anorexia, failure to thrive, decompensated CHF, suspected pneumonia, etc. Continues to do poorly. Prognosis very poor. Palliative care consultation appreciated. DNR/DNI. Selvin Melchor Linda was seen on rounds this morning. Pt remains hospitalized following incarcerated umbilical hernia repair, pod #6. Unfortunately, Linda's hospitalization has been complicated by multiple issues including CHF/volume overload, PNA, electrolyte disturbance, hypoalbuminemia, ANNMARIE on CKD, and most recently (on 04/03) new onset afib w/ RVR s/p conversion back NSR after two doses of IV Lopressor. This morning, pt continues to be at her baseline. She is able to identify who she is and that she is in the hospital. When asked how she's doing, she responds with "bad." Continues to c/o abdominal pain at incision site. She is refusing to eat anything other than applesauce to take her pills. Aspiration precautions are in place. Antibiotic therapy was broadened earlier this week to cover MRSA and double cover gram neg (pseudomonas). After extensive conversation with the patient's daughter, Candelaria, who is her POA, pt was made DNR/DNI on 04/02. RN notified 04/04, after repositioning, pt was wheezing and more short of breath, requested PRN neb treatment which was ordered. Pt continues to get winded easily with minimal exertion/movement. Review of Systems Review of Systems: CONSTITUTIONAL: + weakness, chills. Denies weight loss/ga in, fever, fatigue, malaise. HEENT: Denies changes in vision and hearing. RESPIRATORY: Denies SOB, cough, wheezing. CV: Denies palpitations, CP, lower extremity edema, orthopnea, PND. GI: +abdominal pain, nausea, constipation. Denies vomiting and diarrhea. : + bishop MUSCULOSKELETAL: Denies myalgia and joint pain. SKIN: + lesion under R breast NEUROLOGICAL: Denies headache, syncope, focal weakness, numbness, tingling. PSYCHIATRIC: Denies recent changes in mood. Denies anxiety and depression. Physical Exam Physical Exam: GENERAL: 89 elderly obese WF. Awake, alert, oriented x3. NAD. LUNGS: No accessory muscle use. Diminished breath sounds throughout. Body habitus and lack of mobility makes it difficult to auscultate all lung vivar. CARDIOVASCULAR: RRR. No M/G/R. No JVD. ABDOMEN: Soft, ND. BS normoactive x 4 quad. Mild tenderness at incision site. Some bleeding noted on incision dressing. : Bishop in place draining clear yellow urine EXTREMITIES: +2 pitting edema BL LE. Upper extremities edematous. Peripheral pulses +2/4. PSYCHIATRIC: Cooperative. Depressed mood and affect. SKIN: Hard ulcerated lesion under R breast. Results & Data Results & Data ([facility]) Vital Signs (Past 12 Hours) Vital Signs Temp Pulse Pulse Resp BP BP Pulse Ox 04/05/21 11:15 36.9 C 81 22 156/76 H 98 04/05/21 07:42 73 04/05/21 07:19 36.9 C 73 20 197/76 H 97 04/05/21 04:57 04/05/21 03:42 72 20 165/84 H 100 Pulse Ox 04/05/21 11:15 04/05/21 07:42 04/05/21 07:19 04/05/21 04:57 99 04/05/21 03:42 Laboratory Results 04/05/21 06:05 04/05/21 06:05 PG Care Time/CCT Total # of Minutes Spent Total Time Spent with Patient: Total time spent is greater than 50% in coordination of care (as documented) at patient's floor/unit and/or counseling patient: Coding Level of Care Code 45056 Subseq Hosp Care Lvl 2 Diagnoses Atrial fibrillation with RVR I48.91 Pneumonia J18.9 CHF (congestive heart failure) I50.9 Pleural effusion J90 Incarcerated umbilical hernia K42.0 CKD (chronic kidney disease), stage III N18.30 SOB (shortness of breath) R06.02 Breast nodule N63.0 Leukocytosis D72.829 Oral candidiasis B37.0 Candidal UTI (urinary tract infection) B37.49 Hyponatremia E87.1 Anemia D64.9 Hypertension I10 Hypomagnesemia E83.42 Hypokalemia E87.6 Hypoalbuminemia E88.09
[2021-04-05] MEDS: HYDROmorphone INJ 0.5 MG/0.5 ML SYR IV PRN (16:48)
[2021-04-05] MEDS ORDERED: POTASSIUM CHLORIDE CRTAB 20 MEQ TABCR PO STA (16:50)
[2021-04-05] MEDS: hydrALAZINE HCL 25 MG TAB PO SCH ×2 (17:59→21:27)
[2021-04-06] MEDS: HYDROmorphone INJ 0.5 MG/0.5 ML SYR IV PRN ×5 (00:16→22:28)
[2021-04-06] MEDS: MELATONIN 3 MG TAB PO PRN (02:23)
[2021-04-06] MEDS: hydrALAZINE HCL 20 MG/ML VIAL IV PRN (04:39)
--- NOTE | 2021-04-06 05:25 | Surgery Progress Note ---
Date of Service April 06, 2021 Assessment & Plan (1) Incarcerated umbilical hernia: Plan: Status post umbilical hernia repair on 03/30/2021 (stop day #7) Continue diet as tolerated Continue dressing changes as needed Encourage use of incentive spirometry Increase activity as able Check a.m. labs when available Admission and Anticipated Discharge Date Admission Date: March 29, 2021 Supervising Physician Co-Signing Physician Notes Dr. Ochoa-patient is responsive-her vital signs are stable Her hematocrit was 24.2 this morning, on 04/03/2021 it was 25.6 and she has had no transfusion-we will leave the decision to transfuse to the medical team. She does have some serosanguineous incisional drainage-I suspect much of this is serous ascites from her intra-abdominal space Further aggressive surgical intervention would not significantly improve her current situation Continue current wound care Subjective Patient is resting in bed. She denies any shortness of breath. She denies any nausea or vomiting. She denies any worsening abdominal pain. She is tolerating solid food. Physical Exam Gastrointestinal (Abdomen): Abdomen is soft, nondistended, with appropriate tenderness at surgical incision. Surgical incision is intact with federico and there is some serosanguineous drainage noted. Results & Data ([facility]) Vital Signs (Past 12 Hours) Vital Signs Temp Pulse Pulse Resp BP Pulse Ox 04/06/21 04:39 36.7 C 73 22 187/65 H 99 04/06/21 03:57 65 04/05/21 22:37 36.6 C 94 H 20 177/76 H 92 04/05/21 19:21 36.5 C 74 20 165/90 H 92 PG Care Time/CCT Total # of Minutes Spent Total Time Spent with Patient: Total time spent is greater than 50% in coordination of care (as documented) at patient's floor/unit and/or counseling patient: Coding Level of Care Code None Diagnoses Incarcerated umbilical hernia K42.0
[2021-04-06] MEDS: ACETAMINOPHEN 1,000 MG/100 ML VIAL IV SCH (06:17)
[2021-04-06 06:37] LABS: Basophils # (auto) 0.02 K/uL (0-0.2); Basophils % (auto) 0.2 %; Eosinophils # (auto) 0.06 K/uL (0-0.5); Eosinophils % (auto) 0.6 %; Hematocrit (blood only) 24.2 % (37-47); Hemoglobin 7.7 g/dL (12.0-16.0); Immature Granulocytes # (auto) 0.07 K/uL (0.00-0.02); Immature Granulocytes % (auto) 0.7 %; Lymphocytes # (auto) 1.12 K/uL (1.2-3.4); Lymphocytes % (auto) 11.8 %; Mean Corpuscular Hemoglobin 29.3 pg (25-34); Mean Corpuscular Hgb Conc 31.8 g/dL (32-36); Mean Platelet Volume 9.7 fL (7.4-10.4); Monocytes # (auto) 1.62 K/uL (0.11-0.59); Neutrophils # (auto) 6.62 K/uL (1.4-6.5); Neutrophils % (auto) 69.7 %; Nucleated RBC # (auto) 0.03 K/uL (0-0); Nucleated RBC % (auto) 0.3 %; Platelet Count 264 K/uL (130-400); RDW Coefficient of Variation 17.3 % (11.5-14.5); RDW Standard Deviation 57.4 fL (36.4-46.3); Red Blood Count 2.63 M/uL (4.2-5.4); White Blood Count 9.51 K/uL (4.8-10.8)
[2021-04-06 07:06] LABS: BUN Creatinine Ratio 13.4 (10-20); Calcium 8.5 mg/dl (8.5-10.1); Creatinine Clr Calc Pharmacy 15.3 ml/min; Est GFR (African American) 16.6 ml/min; Est GFR (Non-African American) 14.3 ml/min; Magnesium 1.9 mg/dl (1.8-2.4); Potassium 3.2 mmol/L (3.5-5.1)
[2021-04-06 07:09] LABS: Basophilic Stippling 1+; Pappenheimer Bodies 1+
[2021-04-06] MEDS ORDERED: SODIUM CHLORIDE 0.9% 250 ML IV PRN (09:27)
--- NOTE | 2021-04-06 09:54 | Nephrology Progress Note ---
Date of Service April 06, 2021 Assessment & Plan (1) ANNMARIE (acute kidney injury): Plan: * ANNMARIE, probable KWAN. Cr continues to rise (baseline 0.9). Patient oliguric last 24 hours * Urine microscopy acellular. Kidneys unobstructed on CT abdomen * Patient does not want HD if kidney function worsens * Hold diuretic and monitor UO, kidney function (2) Hyponatremia: Plan: * Mild hyponatremia. Will monitor (3) Hypokalemia: Plan: * Will supplement. Monitor serum K and Na (4) Anemia: Plan: * Venofer 200 mg IV x1 administered 04/05 Admission and Anticipated Discharge Date Admission Date: March 29, 2021 Subjective Ms. Milan was evaluated in her hospital room this morning. Her breathing appears somewhat labored. When asked how she feels she responds "bad". She answers no other questions Review of Systems Review of Systems: Unobtainable due to cognitive status Physical Exam Constitutional: + ill appearing and + overweight Eyes: PERRL, conjunctivae normal, anicteric sclerae ENMT: external ear and nose normal, oropharynx normal Neck: trachea midline, no thyromegaly Respiratory: normal respiratory effort, lungs clear to auscultation Cardiovascular: Rate/Rhythm: regular rate and regular rhythm Gastrointestinal (Abdomen): Inspection/Auscultation: normal bowel sounds Neurologic: lethargic Results & Data ([facility]) Vital Signs (Past 12 Hours) Vital Signs Temp Pulse Pulse Resp BP Pulse Ox 04/06/21 08:00 36.3 C L 71 18 132/82 99 04/06/21 06:06 36.7 C 67 24 147/68 H 98 04/06/21 04:39 36.7 C 73 22 187/65 H 99 04/06/21 03:57 65 04/05/21 22:37 36.6 C 94 H 20 177/76 H 92 Laboratory Results Laboratory Tests 04/06/21 04/06/21 06:00 06:00 WBC 9.51 Hgb 7.7 L Hct 24.2 L Plt Count 264 Sodium 130 L Potassium 3.2 L Chloride 91 L Carbon Dioxide 28 BUN 38 H Creatinine 2.83 H D Glucose 107 H Calcium 8.5 Magnesium 1.9 PG Care Time/CCT Total # of Minutes Spent Total Time Spent with Patient: Total time spent is greater than 50% in coordination of care (as documented) at patient's floor/unit and/or counseling patient: Coding Level of Care Code 39359 Subseq Hosp Care Lvl 3 Diagnoses ANNMARIE (acute kidney injury) N17.9 Hyponatremia E87.1 Hypokalemia E87.6 Anemia D64.9
[2021-04-06] MEDS ORDERED: ACETAMINOPHEN 325 MG TAB PO SCH (10:00)
[2021-04-06] MEDS ORDERED: diphenhydrAMINE Capsule 25 MG CAP PO SCH (10:00)
[2021-04-06] MEDS ORDERED: POTASSIUM CHLORIDE 20 MEQ/15 ML UDC PO ONE (10:15)
[2021-04-06] MEDS ORDERED: POTASSIUM CHLORIDE / WTR 10 MEQ/100 ML PLCT IV SCH (10:30)
[2021-04-06] MEDS: CHOLECALCIFEROL 1,000 UNITS 25 MCG TAB PO SCH (11:25)
[2021-04-06] MEDS: TOCOPHERYL, DL-ALPHA 400 UNITS 180 MG CAP PO SCH (11:25)
[2021-04-06] MEDS: ATORVASTATIN 40 MG TAB PO SCH (11:25)
[2021-04-06] MEDS: PANTOprazole 40 MG TAB PO SCH ×2 (11:25→18:35)
[2021-04-06] MEDS: SUCRALFATE 1 GM TAB PO SCH ×4 (11:25→22:32)
[2021-04-06] MEDS: CYANOCOBALAMIN 500 MCG TABLET (VITAMIN B-12) PO SCH (11:25)
[2021-04-06] MEDS: DOCUSATE SODIUM 100 MG CAP PO SCH ×2 (11:25→23:07)
[2021-04-06] MEDS: DULoxetine HCL 60 MG CAP PO SCH (11:25)
[2021-04-06] MEDS: FLUCONAZOLE 100 MG TAB PO SCH (11:25)
[2021-04-06] MEDS: FERROUS SULFATE 325 MG TAB PO SCH ×3 (11:25→18:34)
[2021-04-06] MEDS: METOPROLOL TARTRATE 50 MG TAB PO SCH ×2 (11:26→22:31)
[2021-04-06] MEDS: hydrALAZINE HCL 25 MG TAB PO SCH ×4 (11:26→22:31)
[2021-04-06] MEDS: POLYETHYLENE (MIRALAX) 17 GM PACK PO SCH (11:26)
[2021-04-06] MEDS: NYSTATIN SUSP 500,000 U/5 ML UDC PO SCH ×4 (11:26→22:32)
[2021-04-06] MEDS: LORATADINE 10 MG TAB PO SCH (11:26)
[2021-04-06] MEDS: NYSTATIN POWDER 15GM BTL SCH ×2 (11:50→23:07)
[2021-04-06] MEDS: BACITRACIN OINT 15 GM TUBE EXT SCH (11:50)
[2021-04-06] MEDS ORDERED: FUROSEMIDE 40 MG/4 ML VIAL IV SCH (12:00)
[2021-04-06] MEDS ORDERED: diphenhydrAMINE 50 MG/ML VIAL IV STA (12:03)
--- NOTE | 2021-04-06 12:04 | Hospitalist Progress Note ---
Date of Service April 06, 2021 Assessment & Plan (1) SOB (shortness of breath): Plan: - Multifactoral -- CHF/pna/pleural effusion/atelectasis/OHS/Anemia - Palliative medicine following, Dilaudid added 04/05 to make breathing more comfortable - Continue supplemental O2 - Family does want BiPAP if the need should arise but no intubation - PRN Nebs (2) Anemia: Plan: - Multifactoral, likely chronic related to chronic renal disease, blood loss from surgery, and also dilutional from volume overload - Pt required 2 recent blood transfusions prior to this admission at [facility] from suspected GI bleed at beginning of Mar - H&H now 7.7 and 24.2 respectively - Continue Ferrous Sulfate - Type and crossmatch, transfuse 2 units PRBC w/ Lasix 20mg IV in between units - Premedicate prior to transfusion - Also received a dose of Venofer 200mg IV x1 on 04/05 (3) Pneumonia: Plan: - ?Aspiration v HAP - Continue aspiration precautions (cleared by ST) - Continue Zosyn, Levaquin, Vancomycin - Appreciate pharmacy assistance in managing Vancomycin dosing (4) ANNMARIE (acute kidney injury): Plan: on chronic kidney disease, stage 3 (baseline creatinine ~1) - Nephrology following, appreciate their recommendations - advise holding Lasix - Renal function continues to worsen, now oliguric - All medications with renal adjustment - F/u bmp in AM (5) CHF (congestive heart failure): Plan: Acute on chronic, biventricular - Recent echo 03/22/21 -- preserved LVEF, poor U/S images - Fluid restrict 1800 mL daily - On PO Lasix but will hold d/t worsening renal function (6) Pleural effusion: Plan: Bilateral, L>R - Consulted pulm, appreciate their input - suspect secondary to CHF - Poor candidate for thoracentesis - On PO Lasix but that is currently being held d/t worsening renal function - Incentive spirometry (7) Incarcerated umbilical hernia: Plan: s/p repair with Dr. Aldana, POD#7 - Pain control - IV APAP and oral [place] ordered. - Incentive spirometry - Surgery following - Stop ASA and Lovenox d/t bleeding at incision site - Dilaudid reordered mainly for ease of breathing but will also provide additional pain control from surgical site (8) Hypokalemia: Plan: - Level 3.2 today, replacement ordered - Continue to monitor - Maintain >/=4.0 to prevent afib recurrence (9) Hypoalbuminemia: Plan: Likely secondary to PCM - Pt refusing to eat - Third spacing - Palliative medicine on board, appreciate their assistance in establishing goals of care - Daughter DEB Gaona, to speak with other siblings regarding transitioning home vs SNF with hospice (10) Atrial fibrillation with RVR: Plan: Resolved - Could've been precipitated by hypokalemia - Continue PO Lopressor 150mg BID - Not a candidate for ACT d/t incisional bleeding (11) Breast nodule: Plan: - Right breast ultrasound ordered but cannot perform as inpatient - Will need to pursue as outpatient, if pt's family wishes - Highly suspicious that this may represent breast ca (12) Oral candidiasis: Plan: - Continue Nystatin (13) Candidal UTI (urinary tract infection): Plan: - Started Diflucan 200mg IV x1 and then 100mg daily (for total of 7 days) - Today #6/ (14) Hyponatremia: Plan: - Remains stable - Nephrology following - Monitor (15) Hypertension: Plan: Uncontrolled - Continue Lopressor at max dose 150mg BID - Added PO Hydralazine 25mg QID - Hydralazine 10mg IV q6h prn sbp>170 or dbp>100 (16) Hypomagnesemia: Plan: - Stable, level 1.9 today - Continue to monitor - Replace as needed Plan: Code status: DNR/DNI Trend labs Condition: guarded with poor prognosis Dispo- SNF v home with hospice Admission and Anticipated Discharge Date Admission Date: March 29, 2021 Supervising Physician Co-Signing Physician Notes Attending Attestation: Chart reviewed in detail, care plan d/w Susan GARCIA. I agree w/ the botello components of her documentation. POD #7 - s/p incarcerated umbilical hernia repair. Post-op course VERY complicated - PAF, s/p code stroke alert (likely was toxic/metabolic encephalopathy rather than TIA), anorexia, failure to thrive, decompensated CHF, suspected pneumonia, and now bleeding from incision. Prognosis very poor. Palliative care consultation appreciated. They are discussing care plan and goals of care with family. DNR/DNI. Hospice at d/c? Selvin Mckeon was seen on rounds this morning. Pt remains hospitalized following in carcerated umbilical hernia repair, pod #7. Unfortunately, Linda's hospitalization has been complicated by multiple issues including CHF/volume overload, PNA, electrolyte disturbance, hypoalbuminemia, ANNMARIE on CKD, and most recently (on 04/03) new onset afib w/ RVR s/p conversion back NSR after two dos es of IV Lopressor. This morning, alerted by RN that patient looked pale and clammy, her surgical d ressing was saturated in blood with large clots and pt is stating she's "going to today." She is able to identify who she is and that she is in the hospital. When asked how she's doing, she responds with "bad." Continues to c/o abdominal pain at incision site, chills, and shortness of breath. She is refusing to eat anything other than applesauce to take her pills. Apparently, per daughter, she ate dinner while her son was visiting last evening. Aspiration precautions are in place. Antibiotic therapy was broadened earlier this week to cover MRSA and double cover gram neg (pseudomonas) and wbc count has remained normal over the past 2 days. After extensive conversation with the patient's d Candelaria cobian, who is her POA, pt was made DNR/DNI on 04/02. Palliative medicine saw and discussed goals yesterday with her daughter/POA. Review of Systems Review of Systems: CONSTITUTIONAL: + weakness, chills. Denies weight loss/gain, fever, fatigue, malaise. HEENT: Denies changes in vision and hearing. RESPIRATORY: +SOB, denies cough, wheezing. CV: Denies palpitations, CP, lower extremity edema, orthopnea, PND. GI: +abdominal pain, nausea, constipation. Denies vomiting and diarrhea. : + bishop MUSCULOSKELETAL: Denies myalgia and joint pain. SKIN: + lesion under R breast NEUROLOGICAL: Denies headache, syncope, focal weakness, numbness, tingling. PSYCHIATRIC: Denies recent changes in mood. Denies anxiety and depression. Physical Exam Physical Exam: GENERAL: 89 elderly obese WF. Awake, alert, oriented x3. Appears ill but in NAD. LUNGS: No accessory muscle use. Diminished breath sounds throughout. Body habitus and lack of mobility makes it difficult to auscultate all lung vivar. CARDIOVASCULAR: RRR. No M/G/R. No JVD. ABDOMEN: Soft, ND. BS normoactive x 4 quad. Mild tenderness at incision site. Some bleeding/drainage noted on incision dressing. : Bishop in place draining clear yellow urine EXTREMITIES: +2 pitting edema BL LE. Upper extremities edematous. Peripheral pulses +2/4. PSYCHIATRIC: Cooperative. Depressed mood and affect. SKIN: Hard ulcerated lesion under R breast. generalized pallor noted. Results & Data Results & Data ([facility]) Vital Signs (Past 12 Hours) Vital Signs Temp Pulse Pulse Resp BP Pulse Ox 04/06/21 08:00 36.3 C L 71 18 132/82 99 04/06/21 06:06 36.7 C 67 24 147/68 H 98 04/06/21 04:39 36.7 C 73 22 187/65 H 99 04/06/21 03:57 65 Laboratory Results 04/06/21 06:00 04/06/21 06:00 PG Care Time/CCT Total # of Minutes Spent Total Time Spent with Patient: Total time spent is greater than 50% in coordination of care (as documented) at patient's floor/unit and/or counseling patient: Coding Level of Care Code 27362 Subseq Hosp Care Lvl 2 Medical Decision Making Moderate Complexity Diagnoses SOB (shortness of breath) R06.02 Pneumonia J18.9 CHF (congestive heart failure) I50.9 Pleural effusion J90 Atrial fibrillation with RVR I48.91 Incarcerated umbilical hernia K42.0 Breast nodule N63.0 Oral candidiasis B37.0 Candidal UTI (urinary tract infection) B37.49 Hyponatremia E87.1 Anemia D64.9 Hypertension I10 Hypomagnesemia E83.42 Hypokalemia E87.6 Hypoalbuminemia E88.09 ANNMARIE (acute kidney injury) N17.9
[2021-04-06] MEDS: PIPERACILLIN/TAZOBACTAM 3.375 GM in DEXTROSE 5% 100 ML IV SCH ×2 (12:13→21:13)
[2021-04-06] MEDS: INSULIN ASPART 100 UNITS/ML 3 ML PEN SC SCH ×4 (12:15→22:14)
[2021-04-06] MEDS: FUROSEMIDE 40 MG TAB PO SCH (12:20)
[2021-04-06] MEDS ORDERED: ACETAMINOPHEN 1,000 MG/100 ML VIAL IV STA (12:20)
[2021-04-06] MEDS: HYDROCODONE/ACETAMOPHEN 5/325MG TAB PO PRN (12:30)
[2021-04-06] MEDS: ACETAMINOPHEN 325 MG TAB PO PRN (12:48)
[2021-04-06] MEDS: levoFLOXacin/D5W 500 MG/100 ML BAG IV SCH (18:29)
[2021-04-07] MEDS: HYDROmorphone INJ 0.5 MG/0.5 ML SYR IV PRN ×4 (05:08→17:50)
[2021-04-07] MEDS: hydrALAZINE HCL 20 MG/ML VIAL IV PRN (05:19)
--- NOTE | 2021-04-07 05:25 | Surgery Progress Note ---
Date of Service April 07, 2021 Assessment & Plan (1) Incarcerated umbilical hernia: Plan: Status post umbilical hernia repair on 03/30/2021 (stop day #8) diet as tolerated dressing may be changed as needed for soilage Due to concern for drainage at surgical incision, DVT prophylaxis and antiplates have been discontinued Due to noted anemia the medical team has transfused 2 units of packed red blood cells yesterday. Check a.m. labs when available Admission and Anticipated Discharge Date Admission Date: March 29, 2021 Supervising Physician Co-Signing Physician Notes Patient with much less drainage from her wound She does appear to be somewhat anxious-may benefit from additional medication including Dilaudid No plan for any other surgical intervention Subjective Patient denies any nausea vomiting. She does note pain at surgical incision. No other complaints identified. Physical Exam Gastrointestinal (Abdomen): Abdomen is rotund but soft. Her incision is intact with federico however there is some serosanguineous drainage noted. Results & Data ([facility]) Vital Signs (Past 12 Hours) Vital Signs Temp Pulse Pulse Resp BP BP Pulse Ox 04/07/21 03:40 36.5 C 67 20 180/76 H 99 04/07/21 02:14 63 04/06/21 22:49 36.7 C 75 20 159/68 H 100 04/06/21 21:29 36.6 C 75 20 148/76 H 97 04/06/21 19:15 36.7 C 74 20 136/71 100 04/06/21 18:33 36.5 C 75 18 167/83 H 98 04/06/21 18:16 36.3 C L 92 H 20 170/77 H 99 04/06/21 17:41 36.7 C 93 H 18 160/73 H PG Care Time/CCT Total # of Minutes Spent Total Time Spent with Patient: Total time spent is greater than 50% in coordination of care (as documented) at patient's floor/unit and/or counseling patient: Coding Level of Care Code None Diagnoses Incarcerated umbilical hernia K42.0
[2021-04-07] MEDS: HYDROCODONE/ACETAMOPHEN 5/325MG TAB PO PRN ×2 (06:31→19:40)
[2021-04-07] MEDS: INSULIN ASPART 100 UNITS/ML 3 ML PEN SC SCH ×4 (08:45→20:32)
--- NOTE | 2021-04-07 09:17 | Nephrology Progress Note ---
Date of Service April 07, 2021 Assessment & Plan (1) ANNMARIE (acute kidney injury): Plan: * ANNMARIE, probable ATN. Awaiting am lab results. Patient remains oliguric. Baseline 0.9 * Urine microscopy acellular. Kidneys unobstructed on 04/02/21 CT abdomen * Patient does not want HD if kidney function worsens * Hold diuretic and monitor UO, kidney function (2) Hyponatremia: Plan: * Mild hyponatremia. Will monitor (3) Anemia: Plan: * Venofer 200 mg IV x1 administered 04/05 * Awaiting repeat iron studies Admission and Anticipated Discharge Date Admission Date: March 29, 2021 Subjective Ms. Milan was evaluated in her hospital room this morning. She states repeatedly "I hurt!" but will answer no other questions or follow commands Review of Systems 2 Review of Systems: Unobtainable due to cognitive status Physical Exam Constitutional: + ill appearing and + overweight Eyes: PERRL, conjunctivae normal, anicteric sclerae ENMT: external ear and nose normal, oropharynx normal Neck: trachea midline, no thyromegaly Respiratory: normal respiratory effort, lungs clear to auscultation Cardiovascular: Rate/Rhythm: regular rate and regular rhythm Extremities: + edema (3+ dependent edema of the legs) Gastrointestinal (Abdomen): Inspection/Auscultation: normal bowel sounds Results & Data ([facility]) Vital Signs (Past 12 Hours) Vital Signs Temp Pulse Pulse Resp BP BP Pulse Ox 04/07/21 08:00 36.6 C 81 22 184/62 H 99 04/07/21 07:00 69 04/07/21 03:40 36.5 C 67 20 180/76 H 99 04/07/21 02:14 63 04/06/21 22:49 36.7 C 75 20 159/68 H 100 04/06/21 21:29 36.6 C 75 20 148/76 H 97 Laboratory Results Labs not yet drawn this am PG Care Time/CCT Total # of Minutes Spent Total Time Spent with Patient: Total time spent is greater than 50% in coordination of care (as documented) at patient's floor/unit and/or counseling patient: Coding Level of Care Code 18553 Subseq Hosp Care Lvl 3 Diagnoses ANNMARIE (acute kidney injury) N17.9 Hyponatremia E87.1 Anemia D64.9
[2021-04-07] MEDS: SUCRALFATE 1 GM TAB PO SCH ×4 (09:27→19:53)
[2021-04-07] MEDS: DULoxetine HCL 60 MG CAP PO SCH (09:27)
[2021-04-07] MEDS: PANTOprazole 40 MG TAB PO SCH ×2 (09:27→18:24)
[2021-04-07] MEDS: LORATADINE 10 MG TAB PO SCH ×2 (09:27→09:40)
[2021-04-07] MEDS: METOPROLOL TARTRATE 50 MG TAB PO SCH ×2 (09:27→19:53)
[2021-04-07] MEDS: TOCOPHERYL, DL-ALPHA 400 UNITS 180 MG CAP PO SCH (09:27)
[2021-04-07] MEDS: FERROUS SULFATE 325 MG TAB PO SCH ×3 (09:27→18:23)
[2021-04-07] MEDS: FLUCONAZOLE 100 MG TAB PO SCH (09:27)
[2021-04-07] MEDS: CHOLECALCIFEROL 1,000 UNITS 25 MCG TAB PO SCH ×2 (09:27→09:40)
[2021-04-07] MEDS: ATORVASTATIN 40 MG TAB PO SCH (09:27)
[2021-04-07] MEDS: PIPERACILLIN/TAZOBACTAM 3.375 GM in DEXTROSE 5% 100 ML IV SCH ×2 (09:28→19:51)
[2021-04-07] MEDS: CYANOCOBALAMIN 500 MCG TABLET (VITAMIN B-12) PO SCH (09:28)
[2021-04-07] MEDS: hydrALAZINE HCL 25 MG TAB PO SCH ×4 (09:29→19:52)
[2021-04-07] MEDS: BACITRACIN OINT 15 GM TUBE EXT SCH (09:29)
[2021-04-07] MEDS: NYSTATIN SUSP 500,000 U/5 ML UDC PO SCH ×5 (09:29→19:53)
[2021-04-07] MEDS: POLYETHYLENE (MIRALAX) 17 GM PACK PO SCH (09:29)
[2021-04-07] MEDS: NYSTATIN POWDER 15GM BTL SCH ×2 (09:39→22:11)
[2021-04-07] MEDS: DOCUSATE SODIUM 100 MG CAP PO SCH ×2 (09:39→19:52)
[2021-04-07 09:51] LABS: Hematocrit (blood only) 36.5 % (37-47); Hemoglobin 11.7 g/dL (12.0-16.0); Mean Corpuscular Hemoglobin 29.1 pg (25-34); Mean Corpuscular Hgb Conc 32.1 g/dL (32-36); Mean Corpuscular Volume 90.8 fL (80-100); Platelet Count 230 K/uL (130-400); RDW Coefficient of Variation 16.7 % (11.5-14.5); RDW Standard Deviation 53.5 fL (36.4-46.3); Red Blood Count 4.02 M/uL (4.2-5.4)
[2021-04-07 09:58] LABS: BUN Creatinine Ratio 12.8 (10-20); Calcium 8.6 mg/dl (8.5-10.1); Creatinine Clr Calc Pharmacy 13.5 ml/min; Est GFR (African American) 13.8 ml/min; Est GFR (Non-African American) 11.9 ml/min; Potassium 3.1 mmol/L (3.5-5.1)
[2021-04-07 10:03] LABS: Ferritin 330.9 ng/ml (8-388)
--- NOTE | 2021-04-07 11:15 | Pharmacy Report ---
Pharmacy Abx Dose Short Note - Date of Service April 07, 2021 - Assessment & Plan Assessment 89 year old F currently receiving Zosyn/Levaquin for treatment of possible aspiration pneumonia vs HAP Plan Laboratory Tests 04/07/21 09:17 Random Vancomycin 25.8 Vancomycin * Random level of 25.8 mcg/mL this AM. plan to continue to hold Vancomycin doses. * Patient clearing Vancomycin very slowly. Renal function continues to worsen.(CrCl 13.5 mL/min) * Plan to order another random level in 48 hours to reassess. Zosyn * Continue with 3.375gm IV q12h - appropriate for CrCl<20 Pharmacy will continue to follow and will adjust dose/frequency as necessary. Thank you.
--- NOTE | 2021-04-07 12:33 | Hospitalist Progress Note ---
Date of Service April 07, 2021 Assessment & Plan (1) SOB (shortness of breath): Plan: - Multifactoral -- CHF/pna/pleural effusion/atelectasis/OHS - Palliative medicine following, Dilaudid added 04/05 to make breathing more comfortable - Continue supplemental O2 - Family does want BiPAP if the need should arise but no intubation - PRN Nebs - Increased Dilaudid dose and frequency from 0.2mg q6h to 0.5mg q4h (2) Anemia: Plan: - Multifactoral, likely chronic related to chronic renal disease, blood loss from surgery, and also dilutional from volume overload - Pt required 2 recent blood transfusions prior to this admission at [facility] from suspected GI bleed at beginning of Mar - H&H on 04/06 was 7.7 and 24.2 respectively - Transfused 2 units PRBC w/ Lasix 20mg IV in between units - Premedicated prior to transfusion - Also received a dose of Venofer 200mg IV x1 on 04/05 - H&H greatly improved, continue to monitor (3) Pneumonia: Plan: - ?Aspiration v HAP - Continue aspiration precautions (cleared by ST) - Continue Zosyn, Levaquin, Vancomycin - Appreciate pharmacy assistance in managing Vancomycin dosing - Would consider pt fully treated (04/08 will be 7th day of combo all 3 abx) and can d/c abx on 04/09 (4) ANNMARIE (acute kidney injury): Plan: on chronic kidney disease, stage 3 (baseline creatinine ~1) - Nephrology following, appreciate their recommendations - advise holding Lasix - Renal function continues to worsen, now oliguric - All medications with renal adjustment - F/u bmp in AM (5) CHF (congestive heart failure): Plan: Acute on chronic, biventricular - Recent echo 03/22/21 -- preserved LVEF, poor U/S images - Fluid restrict 1800 mL daily - On PO Lasix but held d/t worsening renal function (6) Pleural effusion: Plan: Bilateral, L>R - Consulted pulm, appreciate their input - suspect secondary to CHF - Poor candidate for thoracentesis - On PO Lasix but that is currently being held d/t worsening renal function - Incentive spirometry (7) Incarcerated umbilical hernia: Plan: s/p repair with Dr. Aldana, POD#8 - Pain control - IV APAP and oral [place] ordered. - Incentive spirometry - Surgery following - Stopped ASA and Lovenox d/t bleeding at incision site - Dilaudid reordered mainly for ease of breathing but will also provide additional pain control from surgical site (8) Hypokalemia: Plan: - Level 3.1 today, replacement ordered with PO and IV - Continue to monitor - Maintain >/=4.0 to prevent afib recurrence (9) Hypoalbuminemia: Plan: Likely secondary to PCM - Pt refusing to eat, per nursing, family in evenings attempting to force pt to eat but during the day she refuses - Third spacing - Palliative medicine on board, appreciate their assistance in establishing goals of care - Daughter DEB Gaona, to speak with other siblings regarding transitioning home vs SNF with hospice (10) Atrial fibrillation with RVR: Plan: Resolved - Could've been precipitated by hypokalemia - Continue PO Lopressor 150mg BID - Not a candidate for ACT d/t incisional bleeding (11) Breast nodule: Plan: - Right breast ultrasound ordered but cannot perform as inpatient - Will need to pursue as outpatient, if pt's family wishes - Highly suspicious that this may represent breast ca (12) Oral candidiasis: Plan: - Continue Nystatin (13) Candidal UTI (urinary tract infection): Plan: - Treated with 7 days of Diflucan (14) Hyponatremia: Plan: - Nephrology following - Slightly worse today in setting of positive fluid balance over the past 24 hours - Suspect dilutional d/t hypervolemia (15) Hypertension: Plan: Uncontrolled - Continue Lopressor at max dose 150mg BID - Added PO Hydralazine 25mg QID - Hydralazine 10mg IV q6h prn sbp>170 or dbp>100 (16) Hypomagnesemia: Plan: - Stable, level 1.9 today - Continue to monitor - Replace as needed Plan: Code status: DNR/DNI Trend labs Condition: guarded with poor prognosis Dispo- SNF v home with hospice Admission and Anticipated Discharge Date Admission Date: March 29, 2021 Supervising Physician Co-Signing Physician Notes Attending Attestation: Chart reviewed in detail, care plan d/w Susan GARCIA. I agree w/ the botello components of her documentation. POD #8 - s/p incarcerated umbilical hernia repair. Post-op course VERY complicated - PAF, s/p code stroke alert (likely was toxic/metabolic encephalopathy rather than TIA), anorexia, failure to thrive, decompensated CHF, suspected pneumonia, bleeding from incision, metabolic encephalopathy. Prognosis very poor. Palliative care consultation appreciated. Moving in direction of comfort care given lack of progress and generally overall poor prognosis. Cont supportive care while providing comfort and controlling symptoms of pain, dyspnea, etc. Selvin Licona MD Subjective Linda was seen on rounds this morning. Pt remains hospitalized following incarcerated umbilical hernia repair, pod #8. Unfortunately, Linda's hospitalization has been complicated by multiple issues including CHF/volume overload, PNA, electrolyte disturbance, hypoalbuminemia, ANNMARIE on CKD, and most recently (on 04/03) new onset afib w/ RVR s/p conversion back NSR after two doses of IV Lopressor. This morning, RN stated that patient was yelling out that she "does not want to be here anymore" and to "cut the cord." She also mentioned seeing her mother to her nurse this AM. She was also c/o 10/10 pain. When asked how she's doing, she responds with "bad." Continues to c/o abdominal pain, chills, and shortness of breath. Seems more confused today, thought she just had surgery yesterday. She is refusing to eat anything other than applesauce to take her pills. Apparently, per RN, daughter that just got in from [place] was pushing her to eat dinner yesterday but the patient wasn't interested. Aspiration precautions are in place. Antibiotic therapy was broadened on 04/02 to cover MRSA and double cover gram neg (pseudomonas) and wbc count has remained normal over the past 72 hours. Patient remains DNR/DNI. Palliative medicine team is on board. Review of Systems Review of Systems: CONSTITUTIONAL: + weakness, chills. Denies weight loss/gain, fever, fatigue, malaise. HEENT: Denies changes in vision and hearing. RESPIRATORY: +SOB, denies cough, wheezing. CV: Denies palpitations, CP, lower extremity edema, orthopnea, PND. GI: +abdominal pain, nausea, constipation. Denies vomiting and diarrhea. : + bishop MUSCULOSKELETAL: Denies myalgia and joint pain. SKIN: + lesion under R breast NEUROLOGICAL: Denies headache, syncope, focal weakness, numbness, tingling. PSYCHIATRIC: Denies recent changes in mood. Denies anxiety and depression. Physical Exam Physical Exam: GENERAL: 89 elderly obese WF. Awake, alert, oriented to place a nd self, but seems more confused regarding time. Appears ill but in NAD. LUNGS: No accessory muscle use. Diminished breath sounds throughout. Body habitus and lack of mobility makes it difficult to auscultate all lung vivar. CARDIOVASCULAR: RRR. No M/G/R. No JVD. ABDOMEN: Soft, ND. BS normoactive x 4 quad. Mild tenderness at incision site. Some bleeding/drainage noted on incision dressing. : Bishop in place draining clear yellow urine EXTREMITIES: +2 pitting edema BL LE. Peripheral pulses +2/4. PSYCHIATRIC: Cooperative. Depressed mood and affect. SKIN: Hard ulcerated lesion under R breast. Results & Data Results & Data ([facility]) Vital Signs (Past 12 Hours) Vital Signs Temp Pulse Pulse Resp BP Pulse Ox 04/07/21 12:19 36.5 C 68 20 147/76 H 100 04/07/21 08:00 36.6 C 81 22 184/62 H 99 04/07/21 07:00 69 04/07/21 03:40 36.5 C 67 20 180/76 H 99 04/07/21 02:14 63 Laboratory Results 04/07/21 09:17 04/07/21 09:17 PG Care Time/CCT Total # of Minutes Spent Total Time Spent with Patient: Total time spent is greater than 50% in coordination of care (as documented) at patient's floor/unit and/or counseling patient: Coding Level of Care Code 53602 Subseq Hosp Care Lvl 2 Diagnoses SOB (shortness of breath) R06.02 Anemia D64.9 Pneumonia J18.9 ANNMARIE (acute kidney injury) N17.9 CHF (congestive heart failure) I50.9 Pleural effusion J90 Incarcerated umbilical hernia K42.0 Hypokalemia E87.6 Hypoalbuminemia E88.09 Atrial fibrillation with RVR I48.91 Breast nodule N63.0 Oral candidiasis B37.0 Candidal UTI (urinary tract infection) B37.49 Hyponatremia E87.1 Hypertension I10 Hypomagnesemia E83.42
[2021-04-07] MEDS ORDERED: POTASSIUM CHLORIDE 20 MEQ/15 ML UDC PO ONE (12:45)
[2021-04-07] MEDS: POTASSIUM CHLORIDE / WTR 10 MEQ/100 ML PLCT IV SCH ×2 (13:09→14:35)
--- NOTE | 2021-04-07 17:21 | Palliative Care Progress Note ---
Date of Service April 07, 2021 Assessment & Plan (1) Palliative care encounter: Plan: I met with Linda this afternoon. She appeared to be more comfortable with her breathing compared to Thursday, but has not wanted to eat much today and only allowed medications to be given in applesauce. Candelaria, her POA and who she lives with, and her other sister together met with me in a conference room on the first floor. We reviewed the details of her care and they both do recognize her decline. They felt that she was even more uncomfortable today, with increasing agitation. 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 Both daughters agree that they would not like to escalate care at this time in the event that she would decline overnight or in the coming days. They would like to continue IV antibiotics until they are completed and then shift away from aggressive measures. They do have a lot of questions for the immigration case manager on board and answers to these questions will allow them to make a more informed decision based on the information at hand. Apparently, Candelaria and her mother co own their home and she is wondering about medical assistance at a SNF. We also discussed that while she does not appear to be actively dying at the moment, she is ultimately declining with poor prognosis and has limited life with us. They are considering home with hospice and 08/12 caregiver support as they anticipate her life expectancy is not going to be more than a month. I do think that she is likely in the weeks to a few months category of life. If we transition to full comfort measures, I do anticipate that time to be lessened. Palliative and immigration case manager to follow up tomorrow (Thursday). Hospitalist aware of above and below information. (2) Shortness of breath: Plan: Patient using accessory muscles with each breath. She is able to talk in c omplete sentences; however, her speech at times, is garbled (baseline). Discussed medications used for air hunger; including Morphine and Dilaudid. She has utilized Dilaudid 0.5 mg TWO times over the past 24 hours and in addition, Oxycodone orally twice (chronic med they wanted to continue at this time). For now, continue this regimen. Should we move towards home with hospice, we can transition to full oral regimen. (3) Anxiety: Plan: Does seem to exacerbate her shortness of breath. Discussed Ativan with her daughters, along with the risk of respiratory depression. Will reassess and address with family tomorrow as they wanted to think about it. (4) Weakness: Plan: Reviewed labs: Albumin level 1.8. confirmed she would not want any artificial nutrition/hydration for life prolonging measures (5) Renal failure: Plan: Current creatinine 2.5. Confirmed she would not want dialysis Admission and Anticipated Discharge Date Admission Date: March 29, 2021 Subjective I met with Linda this afternoon. She appeared to be more comfortable with her breathing compared to Thursday, but has not wanted to eat much today and only allowed medications to be given in applesauce. Her two daughters were visiting her throughout the afternoon. She received one UPRB as she continues to ooze from her surgical site, a sign of overall decline. She has utilized Dilaudid 0.5 mg TWO times over the past 24 hours and in addition, Oxycodone orally twice. See A/P for further details. Review of Systems Review of Systems: [place] Symptom Assessment Scale: Pain: 2/3 SOB: 2/3 Anxiety: 0/3 Nausea: 1/3 Palliative Performance Scale: 30% Physical Exam Constitutional: + ill appearing and cooperative ENMT: Mouth: + dry oral mucous membranes Respiratory: + labored breathing Auscultation: + diminished lung sounds Cardiovascular: Rate/Rhythm: regular rate and regular rhythm Heart Sounds: normal S1 and normal S2 Extremities: normal capillary refill Gastrointestinal (Abdomen): Inspection/Auscultation: abdomen normal to inspection and + abdomen distended Percussion/Palpation: + abdomen tender (at incision site ) and abdomen soft Skin: + pallor Psychiatric: Orientation: alert and oriented x 3 Insight: + limited insight Judgement: + limited judgement Results & Data ([facility]) Vital Signs (Past 12 Hours) Vital Signs Temp Pulse Pulse Resp BP Pulse Ox 04/07/21 16:22 36.4 C L 71 18 165/83 H 96 04/07/21 12:19 36.5 C 68 20 147/76 H 100 04/07/21 08:00 36.6 C 81 22 184/62 H 99 04/07/21 07:00 69 PG Care Time/CCT Total # of Minutes Spent Total Time Spent with Patient: Total time spent is greater than 50% in coordination of care (as documented) at patient's floor/unit and/or counseling patient: 35 minutes with > 50% of that time spent assessing the patient, discussing goals of care with family, addressing symptom management needs, and collaborating with IDT. Coding Level of Care Code 82281 Subseq Hosp Care Lvl 3 Diagnoses Palliative care encounter Z51.5 Shortness of breath R06.02 Weakness R53.1 Renal failure N19 Anxiety F41.9 Time Spent (min) 35
[2021-04-07] MEDS: ONDANSETRON INJ 2 MG/ML 2 ML VIAL IV PRN (20:02)
[2021-04-08] MEDS: HYDROmorphone INJ 0.5 MG/0.5 ML SYR IV PRN ×4 (03:57→19:05)
[2021-04-08 06:11] LABS: Basophils # (auto) 0.02 K/uL (0-0.2); Basophils % (auto) 0.2 %; Eosinophils # (auto) 0.16 K/uL (0-0.5); Eosinophils % (auto) 1.6 %; Hematocrit (blood only) 33.1 % (37-47); Hemoglobin 10.5 g/dL (12.0-16.0); Immature Granulocytes # (auto) 0.16 K/uL (0.00-0.02); Immature Granulocytes % (auto) 1.6 %; Lymphocytes # (auto) 1.23 K/uL (1.2-3.4); Lymphocytes % (auto) 12.1 %; Mean Corpuscular Hemoglobin 29.7 pg (25-34); Mean Corpuscular Hgb Conc 31.7 g/dL (32-36); Mean Corpuscular Volume 93.8 fL (80-100); Mean Platelet Volume 9.5 fL (7.4-10.4); Monocytes % (auto) 16.7 %; Neutrophils # (auto) 6.89 K/uL (1.4-6.5); Neutrophils % (auto) 67.8 %; Platelet Count 222 K/uL (130-400); RDW Coefficient of Variation 17.5 % (11.5-14.5); RDW Standard Deviation 59.7 fL (36.4-46.3); Red Blood Count 3.53 M/uL (4.2-5.4); White Blood Count 10.16 K/uL (4.8-10.8)
[2021-04-08 06:56] LABS: BUN Creatinine Ratio 13.9 (10-20); Calcium 8.7 mg/dl (8.5-10.1); Est GFR (Non-African American) 10.3 ml/min; Potassium 3.6 mmol/L (3.5-5.1)
[2021-04-08] MEDS ORDERED: TAZOBACTAM IV SCH (09:00)
[2021-04-08] MEDS ORDERED: SODIUM CHLORIDE 0.9% IV SCH (09:00)
[2021-04-08] MEDS ORDERED: PIPERACILLIN IV SCH (09:00)
[2021-04-08] MEDS: DOCUSATE SODIUM 100 MG CAP PO SCH (09:16)
[2021-04-08] MEDS: BACITRACIN OINT 15 GM TUBE EXT SCH (09:16)
[2021-04-08] MEDS: NYSTATIN SUSP 500,000 U/5 ML UDC PO SCH ×2 (09:18→12:01)
[2021-04-08] MEDS: POLYETHYLENE (MIRALAX) 17 GM PACK PO SCH (09:18)
[2021-04-08] MEDS: DULoxetine HCL 60 MG CAP PO SCH (09:18)
[2021-04-08] MEDS: METOPROLOL TARTRATE 50 MG TAB PO SCH (09:18)
[2021-04-08] MEDS: PIPERACILLIN/TAZOBACTAM 3.375 GM in DEXTROSE 5% 100 ML IV SCH (09:19)
[2021-04-08] MEDS: INSULIN ASPART 100 UNITS/ML 3 ML PEN SC SCH ×2 (09:31→12:03)
[2021-04-08] MEDS: NYSTATIN POWDER 15GM BTL SCH (09:33)
--- NOTE | 2021-04-08 10:12 | Nephrology Progress Note ---
Date of Service April 08, 2021 Assessment & Plan (1) ANNMARIE (acute kidney injury): Plan: * ANNMARIE, probable ATN. Cr has risen to 3.7 (baseline 0.9). Patient remains oliguric * Urine microscopy acellular. Kidneys unobstructed on 04/02/21 CT abdomen * Patient does not want HD if kidney function worsens * Hold diuretic, provide conservative care, monitor UO and kidney function * Prognosis is guarded - family has met w/ Palliative Care and is considering transition to comfort measures (2) Hyponatremia: Plan: * Progressive hyponatremia. Pharmacy will change all IV meds to 0.9NS (3) Anemia: Plan: * Venofer 200 mg IV x1 administered 04/05 * Iron studies 04/08/21 are acceptable, Hgb is stable. Will monitor Admission and Anticipated Discharge Date Admission Date: March 29, 2021 Subjective Ms. Milan was evaluated in her hospital room this morning. She c/o abdominal pain, answers no questions, does not follow commands Review of Systems Review of Systems: Unobtainable due to cognitive status Physical Exam Constitutional: + ill appearing and + overweight Eyes: PERRL, conjunctivae normal, anicteric sclerae ENMT: external ear and nose normal, oropharynx normal Neck: trachea midline, no thyromegaly Respiratory: normal respiratory effort, lungs clear to auscultation Cardiovascular: Rate/Rhythm: regular rate and regular rhythm Extremities: + edema (3+ dependent edema of the legs) Gastrointestinal (Abdomen): Inspection/Auscultation: normal bowel sounds Results & Data ([facility]) Vital Signs (Past 12 Hours) Vital Signs Temp Pulse Pulse Resp BP BP Pulse Ox 04/08/21 08:30 36.6 C 87 18 160/51 H 94 04/08/21 07:28 68 04/08/21 04:08 77 04/08/21 03:04 36.6 C 80 18 131/64 94 04/07/21 23:22 36.6 C 87 18 142/79 H 97 Laboratory Results Laboratory Tests 04/08/21 04/08/21 05:49 05:49 WBC 10.16 Hgb 10.5 L Hct 33.1 L Plt Count 222 Sodium 126 L Potassium 3.6 D Chloride 91 L Carbon Dioxide 27 BUN 51 H Creatinine 3.70 H D Glucose 98 PG Care Time/CCT Total # of Minutes Spent Total Time Spent with Patient: Total time spent is greater than 50% in coordination of care (as documented) at patient's floor/unit and/or counseling patient: Coding Level of Care Code 24651 Subseq Hosp Care Lvl 3 Diagnoses ANNMARIE (acute kidney injury) N17.9 Hyponatremia E87.1 Anemia D64.9
--- NOTE | 2021-04-08 11:52 | Hospitalist Progress Note ---
Date of Service April 08, 2021 Assessment & Plan (1) SOB (shortness of breath): Plan: - Multifactoral -- CHF/PNA/pleural effusion/atelectasis/OHS - Palliative medicine following, Dilaudid added 04/05 to make breathing more comfortable - Continue supplemental O2 - Family does want BiPAP if the need should arise but no intubation - PRN Nebs - Continue Dilaudid 0.5mg Q4H - monitor for further adjustments (2) Anemia: Plan: - Multifactoral, likely chronic related to chronic renal disease, blood loss from surgery, and also dilutional from volume overload - Pt required 2 recent blood transfusions prior to this admission at [facility] from suspected GI bleed at beginning of Mar - H&H on 04/06 was 7.7 and 24.2 respectively - Transfused 2 units PRBC w/ Lasix 20mg IV in between units on 04/06 - Also received a dose of Venofer 200mg IV x1 on 04/05 - H&H greatly improved - currently in 10s and will monitor (3) Pneumonia: Plan: - ?Aspiration v HAP - Continue aspiration precautions (cleared by ST) - Continue Zosyn, Levaquin, Vancomycin - Appreciate pharmacy assistance in managing Vancomycin dosing - Would consider pt fully treated (04/08 will be 7th day of combo all 3 abx) and can d/c abx on 04/09 (4) ANNMARIE (acute kidney injury): Plan: - Probably ATN superimposed on chronic kidney disease, stage 3 (baseline creatinine ~1) - Nephrology following, appreciate their recommendations - advise holding Lasix - Renal function continues to worsen, now oliguric - All medications with renal adjustment - Monitor 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 Aldana - Pain control - IV APAP and oral [place] ordered. - Incentive spirometry - Surgery following - Stopped ASA and Lovenox d/t bleeding at incision site - Dilaudid reordered mainly for ease of breathing but will also provide additional pain control from surgical site (8) Hypokalemia: Plan: - Level 3.6 today, replacement ordered with PO and IV - Continue to monitor -- currently acceptable and will monitor given renal function/a fib history (9) Hypoalbuminemia: Plan: Likely secondary to PCM - Pt refusing to eat, per nursing, family in evenings attempting to force pt to eat but during the day she refuses - Third spacing - Palliative medicine on board, appreciate their assistance in establishing goals of care - Daughter DEB Gaona, to speak with other siblings regarding transitioning home vs SNF with hospice (10) Atrial fibrillation with RVR: Plan: Resolved - Could've been precipitated by hypokalemia - Continue PO Lopressor 150mg BID - Not a candidate for ACT d/t incisional bleeding (11) Breast nodule: Plan: - Right breast ultrasound ordered but cannot perform as inpatient - Will need to pursue as outpatient, if pt's family wishes - Highly suspicious that this may represent breast ca (12) Oral candidiasis: Plan: - Continue Nystatin (13) [place] UTI (urinary tract infection): Plan: - Treated with 7 days of Diflucan (14) Hyponatremia: Plan: - Nephrology following - Slightly worse today in setting of positive fluid balance over the past 24 hours - Suspect dilutional d/t hypervolemia (15) Hypertension: Plan: Uncontrolled - Continue Lopressor at max dose 150mg BID; Hydralazine PRN - De-escalating some oral medications (16) Hypomagnesemia: Plan: - Stable - Continue to monitor - Replace as needed Plan: Code status: DNR/DNI Trend labs and continue to obtain pain and comfort control Condition: guarded with poor prognosis Dispo- SNF v home with hospice Admission and Anticipated Discharge Date Admission Date: March 29, 2021 Subjective Patient is alert and moaning. Reports abdominal pain but cannot give much more descriptive than that. She also complains of feeling could and gave her a warmed blanket. When asked if that felt better she said no. Breathing looks unlabored. Mouth is very dry. Discussed with palliative care. Review of Systems Review of Systems: Unobtainable due to cognitive status (very limited reports abdominal pain and feeling cold) Physical Exam Physical Exam: GENERAL: 89 elderly obese WF. Alert is moaning; dry oral mucosa LUNGS: No accessory muscle use. Diminished breath sounds throughout. Body habitus and lack of mobility makes it difficult to auscultate all lung vivar. CARDIOVASCULAR: RRR. No M/G/R. No JVD. ABDOMEN: Soft, ND. BS normoactive x 4 quad. Mild tenderness at incision site. Incision dressing C/D/I : Castro in place with minimal urine in bag EXTREMITIES: +2 pitting edema BL LE PSYCHIATRIC: Cooperative. Depressed mood and affect. Results & Data Results & Data ([facility]) Vital Signs (Past 12 Hours) Vital Signs Temp Pulse Pulse Resp BP BP Pulse Ox 04/08/21 08:30 36.6 C 87 18 160/51 H 94 04/08/21 07:28 68 04/08/21 04:08 77 04/08/21 03:04 36.6 C 80 18 131/64 94 PG Care Time/CCT Total # of Minutes Spent Total Time Spent with Patient: Total time spent is greater than 50% in coordination of care (as documented) at patient's floor/unit and/or counseling patient: Coding Level of Care Code 90230 Subseq Hosp Care Lvl 3 Diagnoses SOB (shortness of breath) R06.02 Anemia D64.9 Pneumonia J18.9 ANNMARIE (acute kidney injury) N17.9 CHF (congestive heart failure) I50.9 Pleural effusion J90 Incarcerated umbilical hernia K42.0 Hypokalemia E87.6 Hypoalbuminemia E88.09 Atrial fibrillation with RVR I48.91 Breast nodule N63.0 Oral candidiasis B37.0 Candidal UTI (urinary tract infection) B37.49 Hyponatremia E87.1 Hypertension I10 Hypomagnesemia E83.42
[2021-04-08] MEDS: HYDROCODONE/ACETAMOPHEN 5/325MG TAB PO PRN (12:00)
--- NOTE | 2021-04-08 12:09 | Surgery Progress Note ---
Date of Service April 08, 2021 Assessment & Plan (1) Incarcerated umbilical hernia: Plan: POD # 6 s/p open umbilical and periumbilical hernia repair with mesh - afebrile, leukocytosis resolved - Hgb 8.0 today (8.7 yesterday) - postop pain at incision site - bleeding at incision site, no induration or fluctuance Plan: continue current pain management advance diet as tolerated and per medicine team dressing changes as needed Dr. Ochoa covering the weekend Dr. Aldana to see patient later today 04/05/2021 1:13PM Dr. Aldana I saw pt, agree with above treatment plan, 04/08/2021 12: 07PM Dr. Aldana stable, I agree with family member asking palliative care, sign off today, please call with question thanks, Admission and Anticipated Discharge Date Admission Date: March 29, 2021 Supervising Physician Co-Signing Physician Notes Attending Attestation: Chart reviewed in detail, care plan d/w Susan GARCIA. I agree w/ the botello components of her documentation. POD #8 - s/p incarcerated umbilical hernia repair. Post-op course VERY complicated - PAF, s/p code stroke alert (likely was toxic/metabolic encephalopathy rather than TIA), anorexia, failure to thrive, decompensated CHF, suspected pneumonia, bleeding from incision, metabolic encephalopathy. Prognosis very poor. Palliative care consultation appreciated. Moving in direction of comfort care given lack of progress and generally overall poor prognosis. Cont supportive care while providing comfort and controlling symptoms of pain, dyspnea, etc. Selvin Licona MD Subjective Patient is alert and moaning. Reports abdominal pain but cannot give much more descriptive than that. She also complains of feeling could and gave her a warmed blanket. When asked if that felt better she said no. Breathing looks unlabored. Mouth is very dry. Discussed with palliative care. 04/08/2021 12:05PM Dr. Aldana pt is stable, no fever, passed BM x1, no nausea, no vomiting, Physical Exam Constitutional: WD/WN, vitals as above + obese, + frail appearing and + lethargic; no acute distress Eyes: PERRL, conjunctivae normal, anicteric sclerae Neck: trachea midline, no thyromegaly Respiratory: normal respiratory effort, lungs clear to auscultation + paradoxical thoraco-abdominal movement; no respiratory distress, no labored br eathing, no retractions and does not use accessory muscles Cardiovascular: RRR, no murmur, no edema Gastrointestinal (Abdomen): the incision is dry, no redness, some tenderness at periumbilical area, no distend, BS + Neurologic: patellar DTR's 2+ bilat, sensation intact Results & Data ([facility]) Vital Signs (Past 12 Hours) Vital Signs Temp Pulse Pulse Resp BP BP Pulse Ox 04/08/21 08:30 36.6 C 87 18 160/51 H 94 04/08/21 07:28 68 04/08/21 04:08 77 04/08/21 03:04 36.6 C 80 18 131/64 94 Laboratory Results Abnormal lab results 04/07/21 04/07/21 04/07/21 Range/Units 13:24 17:07 20:09 RBC (4.2-5.4) M/uL Hgb (12.0-16.0) g/dL Hct (37-47) % MCHC (32-36) g/dL RDW Std Deviation (36.4-46.3) fL RDW Coeff of Rj (11.5-14.5) % Neut # (Auto) (1.4-6.5) K/uL [place] # (Auto) (0.11-0.59) K/uL Immature Gran # (Auto) (0.00-0.02) K/uL Sodium (136-145) mmol/L Chloride (98-107) mmol/L BUN (7-18) mg/dl Creatinine (0.6-1.2) mg/dl POC Glucose 115 H 108 H 115 H (70-99) mg/dl 04/08/21 04/08/21 04/08/21 Range/Units 05:49 05:49 07:56 RBC 3.53 L (4.2-5.4) M/uL Hgb 10.5 L (12.0-16.0) g/dL Hct 33.1 L (37-47) % MCHC 31.7 L (32-36) g/dL RDW Std Deviation 59.7 H (36.4-46.3) fL RDW Coeff of Rj 17.5 H (11.5-14.5) % Neut # (Auto) 6.89 H (1.4-6.5) K/uL [place] # (Auto) 1.70 H (0.11-0.59) K/uL Immature Gran # (Auto) 0.16 H (0.00-0.02) K/uL Sodium 126 L (136-145) mmol/L Chloride 91 L (98-107) mmol/L BUN 51 H (7-18) mg/dl Creatinine 3.70 H D (0.6-1.2) mg/dl POC Glucose 102 H (70-99) mg/dl 04/08/21 Range/Units 11:40 RBC (4.2-5.4) M/uL Hgb (12.0-16.0) g/dL Hct (37-47) % MCHC (32-36) g/dL RDW Std Deviation (36.4-46.3) fL RDW Coeff of Rj (11.5-14.5) % Neut # (Auto) (1.4-6.5) K/uL [place] # (Auto) (0.11-0.59) K/uL Immature Gran # (Auto) (0.00-0.02) K/uL Sodium (136-145) mmol/L Chloride (98-107) mmol/L BUN (7-18) mg/dl Creatinine (0.6-1.2) mg/dl POC Glucose 110 H (70-99) mg/dl
--- NOTE | 2021-04-08 12:43 | Palliative Care Progress Note ---
Date of Service April 08, 2021 Assessment & Plan (1) Palliative care encounter: Plan: I met with Linda earlier in the morning and she was able to have conversation, but was becoming increasingly agitated and was making comments about her dying time throughout the change management director. I do think she is increasingly more lethargic today compared to yesterday. I met with her daughter Candelaria at her bedside who agreed. We discussed a more comfort focused approach to her care and she was in agreement to make a shift to comfort measures only. I discontinued all non essential medications, and modified the current pain medication regimen she has ordered. The Hospitalist HAFSA entered the room during one of my visits with the patient today. All involved in agreement for a full comfort care transition. Life expectancy is hours to a few days. (2) Shortness of breath: (3) Anxiety: (4) Weakness: (5) Renal failure: Admission and Anticipated Discharge Date Admission Date: March 29, 2021 Subjective patient is alert and in distress during my examination. Throughout the morning, she became agitated, followed by being less interactive with some breathing pattern changes. See A/P for further details. Review of Systems Review of Systems: [place] Symptom Assessment Scale: Pain: 2/3 SOB: 2/3 Anxiety: 0/3 Palliative Performance Scale: 10% Physical Exam Constitutional: + ill appearing and cooperative ENMT: Mouth: + dry oral mucous membranes Respiratory: + labored breathing Auscultation: + diminished lung sounds Cardiovascular: Rate/Rhythm: regular rate and regular rhythm Heart Sounds: normal S1 and normal S2 Extremities: normal capillary refill Gastrointestinal (Abdomen): Inspection/Auscultation: abdomen normal to inspection and + abdomen distended Percussion/Palpation: + abdomen tender (at incision site ) and abdomen soft Skin: + pallor Neurologic: + obtunded Psychiatric: Insight: + limited insight Judgement: + limited judgement Results & Data ([facility]) Vital Signs (Past 12 Hours) Vital Signs Temp Pulse Pulse Resp BP BP Pulse Ox 04/08/21 08:30 36.6 C 87 18 160/51 H 94 04/08/21 07:28 68 04/08/21 04:08 77 04/08/21 03:04 36.6 C 80 18 131/64 94 PG Care Time/CCT Total # of Minutes Spent Total Time Spent with Patient: Total time spent is greater than 50% in coordination of care (as documented) at patient's floor/unit and/or counseling patient: 45 minutes with > 50% of that time spent assessing the patient, discussing goals of care, addressing symptom management needs and collaborating with IDT Coding Level of Care Code 87241 Subseq Hosp Care Lvl 3 Diagnoses Palliative care encounter Z51.5 Shortness of breath R06.02 Anxiety F41.9 Weakness R53.1 Renal failure N19 Time Spent (min) 45
[2021-04-08] MEDS ORDERED: ATROPINE SULFATE 1% OP SOLN 5 ML BTL OP PRN (13:04)
[2021-04-08] MEDS: LORazepam 0.5 MG/1 ML VIAL IV PRN (19:58)
[2021-04-09] MEDS: HYDROmorphone INJ 0.5 MG/0.5 ML SYR IV PRN ×6 (02:32→19:31)
[2021-04-09] MEDS: LORazepam 0.5 MG/1 ML VIAL IV PRN ×3 (05:42→18:11)
--- NOTE | 2021-04-09 08:48 | Nephrology Progress Note ---
Date of Service April 09, 2021 Assessment & Plan (1) Renal failure: Plan: Chart review performed this morning. Patient and family met w/ Palliative Care yesterday. 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 No further Nephrology evaluation or testing is needed. Will sign off. Please call if further assistance is needed. Admission and Anticipated Discharge Date Admission Date: March 29, 2021 Results & Data ([facility]) Laboratory Results Laboratory Tests 04/07/21 04/08/21 09:17 05:49 Sodium 126 L Creatinine 3.70 H D Transferrin % Sat 33 Ferritin 330.9 Coding Level of Care Code 36376 Subseq Hosp Care Lvl 2 Diagnoses Renal failure N19
--- NOTE | 2021-04-09 09:03 | Palliative Care Progress Note ---
Date of Service April 09, 2021 Assessment & Plan (1) Palliative care encounter: Plan: Patient remains on GREEN COFFEE BLENDER. She was able to open her eyes slightly, but no overall meaningful interaction.I did call her daughter Candelaria and talked to her at length. We discussed the overall plan of continuation of GREEN COFFEE BLENDER and if she would live another day or two, revisit a return home with hospice support. 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 Life expectancy remains hours to a few days. (2) Shortness of breath: (3) Anxiety: (4) Weakness: (5) Renal failure: Admission and Anticipated Discharge Date Admission Date: March 29, 2021 Subjective Patient is now GREEN COFFEE BLENDER. She is alert to verbal stimuli, but no meaningful interaction and she is not speaking. She does have some audible secretions. Did eat a few bites of dinner last night with her adult max. Patient received TWO doses of Dilaudid overnight and had some agitation which was relieved with Ativan. See A/P for further details. Review of Systems Review of Systems: [place] Symptom Assessment Scale: Pain: 2/3 SOB: 2/3 Anxiety: 0/3 Palliative Performance Scale: 10% Physical Exam Constitutional: + ill appearing and cooperative ENMT: Mouth: + dry oral mucous membranes Respiratory: + labored breathing Auscultation: + diminished lung sounds Cardiovascular: Rate/Rhythm: regular rate and regular rhythm Heart Sounds: normal S1 and normal S2 Extremities: normal capillary refill Gastrointestinal (Abdomen): Inspection/Auscultation: abdomen normal to inspection and + abdomen distended Percussion/Palpation: + abdomen tender (at incision site ) and abdomen soft Skin: + pallor Neurologic: awake Psychiatric: Orientation: alert PG Care Time/CCT Total # of Minutes Spent Total Time Spent with Patient: Total time spent is greater than 50% in coordination of care (as documented) at patient's floor/unit and/or counseling patient: 35 minutes with > 50% of that time spent assessing the patient, discussing plan of care with family, addressing symptom management needs, and collaborating with IDT Coding Level of Care Code 74555 Subseq Hosp Care Lvl 3 Diagnoses Palliative care encounter Z51.5 Shortness of breath R06.02 Anxiety F41.9 Weakness R53.1 Renal failure N19 Time Spent (min) 35
--- NOTE | 2021-04-09 10:04 | Hospitalist Progress Note ---
Date of Service April 09, 2021 Assessment & Plan (1) Palliative care encounter: Plan: - Converted to CAFE OPERATOR at this time; discontinued home medications and lab work - Continue Dilaudid Q1H and pending on usage and symptoms could convert to gtt; Ativan PRN; Atropine gtts PRN - Will continue to monitor, as may not be safe to transport home at this time and may remain hospitalized as she did decline rapidly yesterday morning compared to the afternoon (2) SOB (shortness of breath): Plan: - Multifactoral -- CHF/PNA/pleural effusion/atelectasis/OHS - Continue supplemental O2 - PRN Nebs (3) Anemia: Plan: - Multifactoral, likely chronic related to chronic renal disease, blood loss from surgery, and also dilutional from volume overload - Pt required 2 recent blood transfusions prior to this admission at [facility] from suspected GI bleed at beginning of Mar - Transfused 2 units PRBC w/ Lasix 20mg IV in between units on 04/06 - Also received a dose of Venofer 200mg IV x1 on 04/05 - No further monitoring - CAFE OPERATOR (4) Pneumonia: Plan: - ?Aspiration v HAP - Completed Abx during hospitalization - Zosyn/Levaquin/Vanc (5) ANNMARIE (acute kidney injury): Plan: - Probably ATN superimposed on chronic kidney disease, stage 3 (baseline creatinine ~1) - Nephrology following and signed off, appreciate their recommendations - advise holding Lasix - Renal function continues to worsen, now oliguric - no further monitoring/intervention (6) CHF (congestive heart failure): Plan: Acute on chronic, biventricular - Recent echo 03/22/21 -- preserved LVEF, poor U/S images (7) Pleural effusion: Plan: Bilateral, L>R - Consulted pulm, appreciate their input - suspect secondary to CHF -- currently signed off - Poor candidate for thoracentesis (8) Incarcerated umbilical hernia: Plan: S/P repair with Dr. Aldana on 03/30 (9) Atrial fibrillation with RVR: Plan: Resolved - Could've been precipitated by hypokalemia vs illness (10) Breast nodule: Plan: - Highly suspicious that this may represent breast ca - no intervention warranted as CAFE OPERATOR (11) Hypertension: Plan: - Stopped home medications Plan: Code status: DNR/DNI Disposition - Actively declining, currently planning to keep hospitalized; CAFE OPERATOR -- Discussed with Janice from Palliative Admission and Anticipated Discharge Date Admission Date: March 29, 2021 Subjective Ms. Milan is resting comfortably in bed. She opens her eyes to verbal cues. Not very conversant but does report no pain currently. She denies feeling short of breath and respirations are unlabored. Breakfast was on her bedside table but she didnt touch it. Asked if she was hungry and she said no. Review of Systems Review of Systems: All systems reviewed & are unremarkable except as noted in Subjective Physical Exam Physical Exam: GENERAL: 89 elderly obese WF. Sleepy upon entering room but opens eyes to verbal cues; dry oral mucosa LUNGS: No accessory muscle use. Diminished breath sounds throughout CARDIOVASCULAR: RRR. No M/G/R. No JVD. ABDOMEN: Soft, ND. BS normoactive x 4 quad : Castro in place with minimal urine in bag EXTREMITIES: +2 pitting edema BL LE PSYCHIATRIC: Cooperative. Depressed mood and affect. PG Care Time/CCT Total # of Minutes Spent Total Time Spent with Patient: Total time spent is greater than 50% in coordination of care (as documented) at patient's floor/unit and/or counseling patient: Coding Level of Care Code 41354 Subseq Hosp Care Lvl 2 Diagnoses SOB (shortness of breath) R06.02 Anemia D64.9 Pneumonia J18.9 ANNMARIE (acute kidney injury) N17.9 CHF (congestive heart failure) I50.9 Pleural effusion J90 Incarcerated umbilical hernia K42.0 Atrial fibrillation with RVR I48.91 Breast nodule N63.0 Hypertension I10 Palliative care encounter Z51.5
[2021-04-09] MEDS ORDERED: GLYCOPYRROLATE 0.2 MG/ML VIAL IV PRN (17:00)
[2021-04-10] MEDS: HYDROmorphone INJ 0.5 MG/0.5 ML SYR IV PRN ×4 (01:36→12:15)
--- NOTE | 2021-04-10 12:39 | Hospitalist Progress Note ---
Date of Service April 10, 2021 Assessment & Plan (1) Palliative care encounter: Plan: - Converted to DIRECTOR OF INFORMATICS at this time; discontinued home medications and lab work - Continue Dilaudid Q1H and pending on usage and symptoms could convert to gtt; Ativan PRN; Atropine gtts/Robinul PRN - Will continue to monitor, as may not be safe to transport home at this time -- However, if stable for 2-3 days family considering home with hospice services (2) SOB (shortness of breath): Plan: - Multifactoral -- CHF/PNA/pleural effusion/atelectasis/OHS - Continue supplemental O2 - PRN Nebs (3) Anemia: Plan: - Multifactoral, likely chronic related to chronic renal disease, blood loss from surgery, and also dilutional from volume overload - Pt required 2 recent blood transfusions prior to this admission at [facility] from suspected GI bleed at beginning of Mar - Transfused 2 units PRBC w/ Lasix 20mg IV in between units on 04/06 - Also received a dose of Venofer 200mg IV x1 on 04/05 - No further monitoring - DIRECTOR OF INFORMATICS (4) Pneumonia: Plan: - ?Aspiration v HAP - Completed Abx during hospitalization - Zosyn/Levaquin/Vanc (5) ANNMARIE (acute kidney injury): Plan: - Probably ATN superimposed on chronic kidney disease, stage 3 (baseline creatinine ~1) - Nephrology following and signed off, appreciate their recommendations - Renal function continued to worsen, now oliguric - no further monitoring/in tervention (6) CHF (congestive heart failure): Plan: Acute on chronic, biventricular - Recent echo 03/22/21 -- preserved LVEF, poor U/S images (7) Pleural effusion: Plan: Bilateral, L>R - Consulted pulm, appreciate their input - suspect secondary to CHF -- currently signed off - Poor candidate for thoracentesis (8) Incarcerated umbilical hernia: Plan: S/P repair with Dr. Aldana on 03/30 (9) Atrial fibrillation with RVR: Plan: Resolved - Could've been precipitated by hypokalemia vs illness (10) Breast nodule: Plan: - Highly suspicious that this may represent breast ca - no intervention warranted as DIRECTOR OF INFORMATICS (11) Hypertension: Plan: - Stopped home medications Plan: Code status: DNR/DNI Disposition - Actively declining, currently planning to keep hospitalized but if stable over next 2-3 days may go home on hospice; DIRECTOR OF INFORMATICS -- Appreciate palliative care assistance - Updated daughters at bedside on 04/09 will swing by today when they are present at bedside Admission and Anticipated Discharge Date Admission Date: March 29, 2021 Subjective Patient is alert but only speaks a couple words. Slightly groaning and when asked if she is having pain she shook her head yes. When asked if it was her abdomen she said yes but said her back too. Could not get much more information than that. Review of Systems Review of Systems: All systems reviewed & are unremarkable except as noted in Subjective Physical Exam Physical Exam: GENERAL: 89 elderly obese WF. alert and slightly groaning; dry oral mucosa LUNGS: No accessory muscle use; non-labored breathing : Castro in place with minimal urine in bag EXTREMITIES: +2 pitting edema BL LE PSYCHIATRIC: flat affect PG Care Time/CCT Total # of Minutes Spent Total Time Spent with Patient: Total time spent is greater than 50% in coordination of care (as documented) at patient's floor/unit and/or counseling patient: Coding Level of Care Code 21798 Subseq Hosp Care Lvl 2 Diagnoses Palliative care encounter Z51.5 SOB (shortness of breath) R06.02 Anemia D64.9 Pneumonia J18.9 ANNMARIE (acute kidney injury) N17.9 CHF (congestive heart failure) I50.9 Pleural effusion J90 Incarcerated umbilical hernia K42.0 Atrial fibrillation with RVR I48.91 Breast nodule N63.0 Hypertension I10
[2021-04-10] MEDS ORDERED: STAT IV Infusion **Titration per Protocol STA (12:41)
[2021-04-10] MEDS ORDERED: HYDROmorphone/NSS 100 MG/100 ML BAG IV SCH (12:45)
--- NOTE | 2021-04-10 12:57 | Palliative Care Progress Note ---
Date of Service April 10, 2021 Assessment & Plan (1) Abdominal pain: Plan: Persistent despite prn dosing of hydromorphone. Will start infusion for more consistent analgesia. (2) Shortness of breath: Plan: On O2. Monitor with hydromorphone infusion. (3) Anxiety: Plan: She has received two doses of lorazepam in last twenty four hours. Continue prn dosing and monitor with adjustments for pain and dyspnea (4) Increased tracheal secretions: Plan: Will adjust glycopyrrolate to routine dosing every six hours. Discontinue atropine. (5) Palliative care encounter: Plan: I talked with Linda's daughters on the phone. We reviewed my interaction with her and they were pleased that she was able to communicate to a limited extent. They are on their way in to visit her. They had been considering taking her home but given medication adjustment I think it would be in her best interest to remain here until symptoms are controlled. They are completely in agreement with this. (6) Renal failure: (7) Atrial fibrillation with RVR: (8) CHF (congestive heart failure): Admission and Anticipated Discharge Date Admission Date: March 29, 2021 Subjective Answers yes and no questions. Answers yes when asked if having pain. Answered no when asked if breathing is ok and if she's comfortable. She has had 4mg hydromorphone IV in last 24 hours. Review of Systems Review of Systems: [place] Symptom Assessment Scale Pain 2/3 Dyspnea 2/3 Anxiety 1/3 Drowsiness 2/3 Palliative Performance Score 20% Physical Exam Constitutional: + ill appearing; + uncomfortable reaching out ENMT: facial grimace, dry oral mucosa Respiratory: + uses accessory muscles audible rhonchi Cardiovascular: Extremities: + edema Gastrointestinal (Abdomen): tender to palpation PG Care Time/CCT Total # of Minutes Spent Total Time Spent: 35 Total Time Spent with Patient: Total time spent is greater than 50% in coordination of care (as documented) at patient's floor/unit and/or counseling patient: symptom management, family update and support, prognosis Coding Level of Care Code 95060 Subseq Hosp Care Lvl 3 Diagnoses Abdominal pain R10.9 Shortness of breath R06.02 Anxiety F41.9 Palliative care encounter Z51.5 Renal failure N19 Atrial fibrillation with RVR I48.91 CHF (congestive heart failure) I50.9 Increased tracheal secretions J39.8
[2021-04-10] MEDS: GLYCOPYRROLATE 0.2 MG/ML VIAL IV SCH ×2 (14:56→18:04)
[2021-04-11] MEDS: GLYCOPYRROLATE 0.2 MG/ML VIAL IV SCH ×5 (02:56→23:24)
--- NOTE | 2021-04-11 14:54 | Hospitalist Progress Note ---
Date of Service April 11, 2021 Assessment & Plan (1) Palliative care encounter: Plan: - Converted to comfort care measures at this time with continuous infusion of Dilaudid - Continue Dilaudid Q1H and pending on usage and symptoms could convert to gtt; Ativan PRN; Atropine gtts/Robinul PRN - not be safe to transport home at this time (2) SOB (shortness of breath): Plan: - Multifactoral -- CHF/PNA/pleural effusion/atelectasis/OHS - Continue supplemental O2 (3) Anemia: Plan: - Multifactoral, likely chronic related to chronic renal disease, blood loss from surgery, and also dilutional from volume overload - Pt required 2 recent blood transfusions prior to this admission at [facility] from suspected GI bleed at beginning of Mar - Transfused 2 units PRBC w/ Lasix 20mg IV in between units on 04/06 - Also received a dose of Venofer 200mg IV x1 on 04/05 (4) Pneumonia: Plan: - ?Aspiration v HAP - Completed Abx during hospitalization - Zosyn/Levaquin/Vanc (5) ANNMARIE (acute kidney injury): Plan: - Probably ATN superimposed on chronic kidney disease, stage 3 (baseline creatinine ~1) - Nephrology following and signed off, appreciate their recommendations - Renal function continued to worsen, now oliguric - no further monitoring/intervention (6) CHF (congestive heart failure): Plan: Acute on chronic, biventricular - Recent echo 03/22/21 -- preserved LVEF, poor U/S images (7) Pleural effusion: Plan: Bilateral, L>R - Consulted pulm, appreciate their input - suspect secondary to CHF -- currently signed off - Poor candidate for thoracentesis (8) Incarcerated umbilical hernia: Plan: S/P repair with Dr. Aldana on 03/30 (9) Atrial fibrillation with RVR: Plan: Resolved - Could've been precipitated by hypokalemia vs illness (10) Breast nodule: Plan: - Highly suspicious that this may represent breast ca - no intervention reji day as RACK WASHER (11) Hypertension: Plan: - Stopped home medications Plan: Code status: DNR/DNI Disposition - Actively declining, currently planning to keep hospitalized but if stable over next 2-3 days may go home on hospice; RACK WASHER -- Appreciate palliative care assistance Admission and Anticipated Discharge Date Admission Date: March 29, 2021 Subjective Patient appeared comfortable she would arouse to her voice into exam but would not converse he is on a continuous infusion of opiates for comfort care measures Review of Systems Review of Systems: Unobtainable due to cognitive status Physical Exam Physical Exam: The patient appeared comfortable Vital signs as documented. Lungs are diminished but not tachypneic Cardiac exam, Rhythm is regular.. No murmurs, rubs or gallops. Abdominal exam reveals normal bowel sounds, soft seeming uncomfortable to examination Extremities are edematous PG Care Time/CCT Total # of Minutes Spent Total Time Spent with Patient: Total time spent is greater than 50% in coordination of care (as documented) at patient's floor/unit and/or counseling patient: Coding Level of Care Code 61985 Subseq Hosp Care Lvl 1 Diagnoses Palliative care encounter Z51.5 SOB (shortness of breath) R06.02 Anemia D64.9 Pneumonia J18.9 ANNMARIE (acute kidney injury) N17.9 CHF (congestive heart failure) I50.9 Pleural effusion J90 Incarcerated umbilical hernia K42.0 Atrial fibrillation with RVR I48.91 Breast nodule N63.0 Hypertension I10
[2021-04-12] MEDS: GLYCOPYRROLATE 0.2 MG/ML VIAL IV SCH ×3 (05:54→17:08)
--- NOTE | 2021-04-12 12:48 | Palliative Care Progress Note ---
Date of Service April 12, 2021 Assessment & Plan (1) Abdominal pain: Plan: Appears to be controlled with hydromorphone infusion at current dose. (2) Increased tracheal secretions: Plan: Controlled with routine dosing of glycopyrrolate (3) Shortness of breath: Plan: Improved with hydromorphone (4) Palliative care encounter: Plan: On comfort directed care. She is likely within days of her dying time. (5) ANNMARIE (acute kidney injury): Admission and Anticipated Discharge Date Admission Date: March 29, 2021 Subjective Linda resting comfortably. She opens her eyes but does not respond to voice or touch. Dilaudid infusion now running at 0.4mg/hr due to pain. Review of Systems Review of Systems: Unobtainable due to reduced consciousness [place] Symptom Assessment Scale Pain by observation 0/3 Dyspnea by observation 0/3 Palliative Performance Score 10% Physical Exam Constitutional: + lethargic; no acute distress ENMT: Mouth: + dry oral mucous membranes Respiratory: no respiratory distress Cardiovascular: Extremities: + edema Gastrointestinal (Abdomen): no facial grimace with palpation, dressing intact Skin: warm and dry PG Care Time/CCT Total # of Minutes Spent Total Time Spent with Patient: Total time spent is greater than 50% in coordination of care (as documented) at patient's floor/unit and/or counseling patient: Coding Level of Care Code 09592 Subseq Hosp Care Lvl 2 Diagnoses Abdominal pain R10.9 Increased tracheal secretions J39.8 Shortness of breath R06.02 Palliative care encounter Z51.5 ANNMARIE (acute kidney injury) N17.9
--- NOTE | 2021-04-12 14:16 | Hospitalist Progress Note ---
Date of Service April 12, 2021 Assessment & Plan (1) Palliative care encounter: Plan: - Converted to comfort care measures at this time with continuous infusion of Dilaudid - C Ativan PRN; Atropine gtts/Robinul PRN - not be safe to transport home at this time (2) SOB (shortness of breath): Plan: - Multifactoral -- CHF/PNA/pleural effusion/atelectasis/OHS - Continue supplemental O2 (3) Anemia: Plan: - Multifactoral, likely chronic related to anemia of chronic renal disease, blood loss from surgery, and also dilutional from volume overload - Pt required 2 recent blood transfusions prior to this admission at [facility] from suspected GI bleed at beginning of Mar - Transfused 2 units PRBC w/ Lasix 20mg IV in between units on 04/06 - Also received a dose of Venofer 200mg IV x1 on 04/05 (4) Pneumonia: Plan: - ?Aspiration v HAP - Completed Abx during hospitalization - Zosyn/Levaquin/Vanc (5) ANNMARIE (acute kidney injury): Plan: - Probably ATN superimposed on chronic kidney disease, stage 3 (baseline creatinine ~1) - Nephrology signed off, - Renal function continued to worsen, now oliguric - no further monitoring/intervention (6) CHF (congestive heart failure): Plan: Acute on chronic, biventricular - Recent echo 03/22/21 -- preserved LVEF, poor U/S images (7) Pleural effusion: Plan: Bilateral, L>R - Consulted pulm, - suspect secondary to CHF -- currently signed off - Poor candidate for thoracentesis now on comfort care (8) Incarcerated umbilical hernia: Plan: S/P repair with Dr. Aldana on 03/30 (9) Atrial fibrillation with RVR: Plan: Resolved - Could've been precipitated by hypokalemia vs illness (10) Breast nodule: Plan: - Highly suspicious that this may represent breast ca - no intervention warranted as POST DOCTORAL RESEARCHER (11) Hypertension: Plan: - Stopped home medications Plan: Code status: DNR/DNI Disposition - Actively declining, currently planning to keep hospitalized; POST DOCTORAL RESEARCHER -- Appreciate palliative care assistance Admission and Anticipated Discharge Date Admission Date: March 29, 2021 Subjective Linda resting comfortably. She opens her eyes but does not respond to voice or touch. Dilaudid infusion now running at 0.4mg/hr due to pain. Review of Systems Review of Systems: Unobtainable due to cognitive status Physical Exam Physical Exam: The patient appeared comfortable Vital signs as documented. Lungs are diminished but not tachypneic Cardiac exam, Rhythm is regular.. No murmurs, rubs or gallops. Abdominal exam reveals normal bowel sounds, soft seeming uncomfortable to examination Extremities are edematous PG Care Time/CCT Total # of Minutes Spent Total Time Spent with Patient: Total time spent is greater than 50% in coordination of care (as documented) at patient's floor/unit and/or counseling patient: Coding Level of Care Code 56826 Subseq Hosp Care Lvl 1 Diagnoses Palliative care encounter Z51.5 SOB (shortness of breath) R06.02 Anemia D64.9 Pneumonia J18.9 ANNMARIE (acute kidney injury) N17.9 CHF (congestive heart failure) I50.9 Pleural effusion J90 Incarcerated umbilical hernia K42.0 Atrial fibrillation with RVR I48.91 Breast nodule N63.0 Hypertension I10
[2021-04-13] MEDS: GLYCOPYRROLATE 0.2 MG/ML VIAL IV SCH ×4 (00:14→17:01)
--- NOTE | 2021-04-13 10:39 | Hospitalist Progress Note ---
Date of Service April 13, 2021 Assessment & Plan (1) Palliative care encounter: Plan: - Converted to comfort care measures at this time with continuous infusion of Dilaudid - Ativan PRN; Atropine gtts/Robinul PRN - Not be safe to transport home at this time - appears more apneic since last visit I had with her and tachy/some irregularity with rhythm. Anticipate nearing (2) SOB (shortness of breath): Plan: - Multifactoral -- CHF/PNA/pleural effusion/atelectasis/OHS - Continue supplemental O2 (3) Anemia: Plan: - Multifactoral, likely chronic related to anemia of chronic renal disease, blood loss from surgery, and also dilutional from volume overload - Pt required 2 recent blood transfusions prior to this admission at [facility] from suspected GI bleed at beginning of Mar - Transfused 2 units PRBC w/ Lasix 20mg IV in between units on 04/06 - Also received a dose of Venofer 200mg IV x1 on 04/05 (4) Pneumonia: Plan: - ?Aspiration v HAP - Completed Abx during hospitalization - Zosyn/Levaquin/Vanc (5) ANNMARIE (acute kidney injury): Plan: - Probably ATN superimposed on chronic kidney disease, stage 3 (baseline creatinine ~1) - Nephrology signed off, - Renal function continued to worsen, now oliguric - no further monitoring/intervention (6) CHF (congestive heart failure): Plan: Acute on chronic, biventricular - Recent echo 03/22/21 -- preserved LVEF, poor U/S images (7) Pleural effusion: Plan: Bilateral, L>R - Consulted pulm, - suspect secondary to CHF -- currently signed off - Poor candidate for thoracentesis now on comfort care (8) Incarcerated umbilical hernia: Plan: S/P repair with Dr. Aldana on 03/30 (9) Atrial fibrillation with RVR: Plan: Resolved - Could've been precipitated by hypokalemia vs illness (10) Breast nodule: Plan: - Highly suspicious that this may represent breast ca - no intervention war ranted as NUCLEAR MEDICINE PET CT TECHNOLOGIST (11) Hypertension: Plan: - Stopped home medications Plan: Code status: DNR/DNI Disposition - Actively declining and anticipate nearing - hrs/days, currently planning to keep hospitalized; NUCLEAR MEDICINE PET CT TECHNOLOGIST -- Appreciate palliative care assistance Admission and Anticipated Discharge Date Admission Date: March 29, 2021 Subjective Patient is resting comfortably in bed. Did not awaken to voice or touch during my visit. Is apneic and tachy on assessment with some irregularity with rhythm. However looks comfortable Review of Systems Review of Systems: Unobtainable due to reduced consciousness Physical Exam Physical Exam: GENERAL: 89 elderly obese WF. obtunded; dry oral mucosa LUNGS: apneic respirations CARDIAC: tachycardic and intermittently irregular : Castro in place PG Care Time/CCT Total # of Minutes Spent Total Time Spent with Patient: Total time spent is greater than 50% in coordination of care (as documented) at patient's floor/unit and/or counseling patient: Coding Level of Care Code 72755 Subseq Hosp Care Lvl 2 Diagnoses Palliative care encounter Z51.5 SOB (shortness of breath) R06.02 Anemia D64.9 Pneumonia J18.9 ANNMARIE (acute kidney injury) N17.9 CHF (congestive heart failure) I50.9 Pleural effusion J90 Incarcerated umbilical hernia K42.0 Atrial fibrillation with RVR I48.91 Breast nodule N63.0 Hypertension I10
[2021-04-13] MEDS ORDERED: SCOPOLAMINE 1 MG TDSY TD SCH (16:15)
[2021-04-13] MEDS: ARTIFICIAL TEARS OPB SCH (17:01)
[2021-04-13] MEDS: CHECK SCOPOLAMINE PATCH PLACEMENT SCH (23:33)
[2021-04-14] MEDS: ARTIFICIAL TEARS OPB SCH ×3 (00:30→15:47)
[2021-04-14] MEDS: GLYCOPYRROLATE 0.2 MG/ML VIAL IV SCH ×4 (00:38→17:41)
[2021-04-14] MEDS: CHECK SCOPOLAMINE PATCH PLACEMENT SCH ×2 (07:23→15:47)
--- NOTE | 2021-04-14 10:26 | Hospitalist Progress Note ---
Date of Service April 14, 2021 Assessment & Plan (1) Palliative care encounter: Plan: - Converted to comfort care measures at this time with continuous infusion of Dilaudid - titrate for comfort/symptom control - Ativan PRN; Robinol LUIZ and Scopolamine patch -- Was on Atropine gtts earlier when more awake and did not like the taste but given obtunded status could consider readding if secretions continue - Not be safe to transport home at this time - appears more apneic and tachy/some irregularity with rhythm. Anticipate nearing (2) SOB (shortness of breath): Plan: - Multifactoral -- CHF/PNA/pleural effusion/atelectasis/OHS - Continue supplemental O2 (3) Anemia: Plan: - Multifactoral, likely chronic related to anemia of chronic renal disease, blood loss from surgery, and also dilutional from volume overload - Pt required 2 recent blood transfusions prior to this admission at [facility] from suspected GI bleed at beginning of Mar - Transfused 2 units PRBC w/ Lasix 20mg IV in between units on 04/06 - Also received a dose of Venofer 200mg IV x1 on 04/05 (4) Pneumonia: Plan: - ?Aspiration v HAP - Completed Abx during hospitalization - Zosyn/Levaquin/Vanc (5) ANNMARIE (acute kidney injury): Plan: - Probably ATN superimposed on chronic kidney disease, stage 3 (baseline creatinine ~1) - Nephrology signed off - Renal function continued to worsen, now oliguric - no further monitoring/intervention (6) CHF (congestive heart failure): Plan: Acute on chronic, biventricular - Recent echo 03/22/21 -- preserved LVEF, poor U/S images (7) Pleural effusion: Plan: Bilateral, L>R - Consulted pulm, - suspect secondary to CHF -- currently signed off - Poor candidate for thoracentesis now on comfort care (8) Incarcerated umbilical hernia: Plan: S/P repair with Dr. 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 Continues with apneic breathing and some secretion gargling. Seems less compared to yesterday. Review of Systems Review of Systems: Unobtainable due to reduced consciousness Physical Exam Physical Exam: GENERAL: 89 elderly obese WF. obtunded; dry oral mucosa LUNGS: apneic respirations; some gurgling CARDIAC: tachycardic and intermittently irregular : Castro in place PG Care Time/CCT Total # of Minutes Spent Total Time Spent with Patient: Total time spent is greater than 50% in coordination of care (as documented) at patient's floor/unit and/or counseling patient: Coding Level of Care Code 13712 Subseq Hosp Care Lvl 2 Diagnoses Palliative care encounter Z51.5 SOB (shortness of breath) R06.02 Anemia D64.9 Pneumonia J18.9 ANNMARIE (acute kidney injury) N17.9 CHF (congestive heart failure) I50.9 Pleural effusion J90 Incarcerated umbilical hernia K42.0 Atrial fibrillation with RVR I48.91 Breast nodule N63.0 Hypertension I10
[2021-04-15] MEDS: GLYCOPYRROLATE 0.2 MG/ML VIAL IV SCH (00:14)
[2021-04-15] MEDS: CHECK SCOPOLAMINE PATCH PLACEMENT SCH (00:15)
[2021-04-15] MEDS: ARTIFICIAL TEARS OPB SCH (00:15)
--- NOTE | 2021-04-15 02:23 | Death Pronouncement Note ---
Date of Service April 15, 2021 Pronouncement Note Admission Date Admission Date: March 29, 2021 Date and Time of Date of : 04/15/21 Time of : 02:15 Contributing Factors (1) Palliative care encounter: (2) SOB (shortness of breath): (3) Anemia: (4) Pneumonia: (5) ANNMARIE (acute kidney injury): (6) CHF (congestive heart failure): (7) Pleural effusion: (8) Incarcerated umbilical hernia: (9) Atrial fibrillation with RVR: (10) Breast nodule: (11) Hypertension: Hospital Course Hospital Course: see note Summary Additional details: Notified by nursing that patient had ceased to breath. Patient was on comfort care measures. Patient evaluated, no pulse, respirations, heart sounds pupils fixed and dilated. Pronounced at 02:15 on 04/15/21. Additional Data Confirmation of : no pulse, no respirations, no heart sounds and pupils fixed and dilated Family: contacted Attending/PCP notified?: No Attending physician: Reed Costa, DO Was code activated?: No Autopsy requested?: No workers compensation claims examiner notified?: No Organ bank notified?: No Advance directives: Yes Resident Activity Tracking Resident Involvement: Resident Care Provided and Hand Stripper Coverage Note Care Provided: Adult Hospital Medicine
--- NOTE | 2021-04-24 08:08 | Discharge Summary ---
Date of Service April 15, 2021 Admission HPI Per Admitting Provider Linda Milan is a 89-year-old female who presents from [facility] following recent GI bleed, recently was in [facility] where she had received transfusions for this GI bleed, as well as reported pneumonia and E. coli urinary tract infection. Patient endorses over the last several days that she has had increased abdominal pain that she believes was worsened following Castro catheter placement 2 days ago she has been unable to tolerate oral intake for the last 2 days with persistent nausea and vomiting. Currently complains of abdominal pain 8 out of 10. Principal Diagnosis Respiratory Failure due to Pneumonia and CHF; Acute Kidney Injury due to ATN; S/P Incarcerated Hernia Repair Discharge Exam Physical Examination was not performed on date of . Assessment on April 14 by myself. Assessed by overnight provider at pronouncement. See note Discharge Data Allergies Allergy/AdvReac Type Severity Reaction Status Date / Time morphine AdvReac Intermediate Altered Unverified 03/29/21 20:09 Mental Status Consultations 03/29/21 20:36 ED Decision to Admit Stat 03/30/21 00:53 Consult General Surgery Stat 04/01/21 12:03 Consult Pulmonology Routine 04/02/21 10:28 Consult Nephrology Routine 04/04/21 10:51 Consult Palliative Care Routine Procedures Performed Operation Date: 03/30/21 03:30 Actual Procedures p Incarcerated umbilical hernia repair. - Sergei Aldana MD Ordered Studies 03/29/21 21:23 CT abd pelvis wo con Urgent CT chest diagnostic wo con Urgent 04/02/21 08:54 CT abd pelvis wo con Stat CT angio head w con Stat CT angio neck with con Stat CT head/brain wo con Stat Hospital Course (1) Palliative care encounter: - Converted to comfort care measures with continuous infusion of Dilaudid - Ativan PRN; Robinol LUIZ and Scopolamine patch (2) SOB (shortness of breath): - Multifactoral -- CHF/PNA/pleural effusion/atelectasis/OHS (3) Anemia: - Multifactoral, likely chronic related to anemia of chronic renal disease, blood loss from surgery, and also dilutional from volume overload - Pt required 2 recent blood transfusions prior to this admission at [facility] from suspected GI bleed at beginning of Mar - Transfused 2 units PRBC w/ Lasix 20mg IV in between units on 04/06 - Also received a dose of Venofer 200mg IV x1 on 04/05 (4) Pneumonia: - ?Aspiration v HAP - Completed Abx during hospitalization - Zosyn/Levaquin/Vanc (5) ANNMARIE (acute kidney injury): - Probably ATN superimposed on chronic kidney disease, stage 3 (baseline creatinine ~1) - Nephrology signed off - Renal function continued to worsen, now oliguric (6) CHF (congestive heart failure): Acute on chronic, biventricular - Recent echo 03/22/21 -- preserved LVEF, poor U/S images (7) Pleural effusion: Bilateral, L>R - Consulted pulm, - suspect secondary to CHF -- currently signed off - Poor candidate for thoracentesis now on comfort care (8) Incarcerated umbilical hernia: S/P repair with Dr. 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 (11) Hypertension: - Stopped home medications Total Time Total Time Spent Total Time Spent (In Minutes): Less than 30 minutes to perform chart check as pronouncement completed by night provider Discharge Plan Discharge Items Patient Disposition: Discharge Diagnosis: Addtl Attending Provider Instructions: see summary Other Date/Time: 04/15/21 02:15 Coding Level of Care Code None Diagnoses Palliative care encounter Z51.5 SOB (shortness of breath) R06.02 Anemia D64.9 Pneumonia J18.9 ANNMARIE (acute kidney injury) N17.9 CHF (congestive heart failure) I50.9 Pleural effusion J90 Incarcerated umbilical hernia K42.0 Atrial fibrillation with RVR I48.91 Breast nodule N63.0 Hypertension I10
== END 2021-04-15 03:05 | disposition expired | DRG 353 ==
LOC: ED 17:55 → 2N 21:23 → SUATTDRO 21:23 → 2N 03-30 00:11 → 1E 04-02 09:42 → 2N 04-02 10:22 → 3E 04-08 18:22